=== PATIENT | female | born 1995 | race Two or more races ===

== ENCOUNTER 2022-08-14 23:20 | Emergency (ER) | payer MEDICAID, SELFPAY ==
[2022-08-14 23:36] VITALS: BP 121/81; BP 138/68; PULSE 95; PULSE 96; RESP 18; TEMP 36; O2SAT 100; O2SAT 96; BMI 44.2
--- NOTE | 2022-08-14 23:49 | ED_ITS ---
HPI - Psych General Chief Complaint: Psychiatric Symptoms Stated Complaint: CRISIS Time Seen by Provider: 08/14/22 23:37 Source: EMS Mode of arrival: EMS Limitations: no limitations History of Present Illness HPI Narrative: Patient comes to the emergency room complaining of vague suicidal ideation, no plans. Patient states that she feels very overwhelmed, patient recently kicked her roommates out and she is worrying about retardation. Patient states that she feels suicidal because the other option is that she is afraid of being killed. Related Data Allergies Allergy/AdvReac Type Severity Reaction Status Date / Time No Known Allergies Allergy Verified 08/14/22 23:31 [No Known Allergies*] Review of Systems Review of Systems: Constitutional : No Weight loss, No Fever, No Chills, No Night Sweats, No Fatigue, No Malaise ENT/Mouth : No Hearing loss, No Ear Pain, No Nasal Congestion, No Sinus Pain, No Hoarseness, No sore throat, No Rhinorrhea, No Swallowing Difficulty Eyes: No Eye Pain, No Swelling, No Redness, No Foreign Body, No Discharge, No V ision Changes Cardiovascular : No Chest Pain, No SOB, No Dyspnea on Exertion, No Orthopnea, No Edema, No Palpitations Respiratory : No Cough, No Sputum, No Wheezing, No Smoke Exposure, No Dyspnea Gastrointestinal : No Nausea, No Vomiting, No Diarrhea, No Constipation, No abdominal Pain, No Hematochezia, No Melena Genitourinary : no irregular bleeding, No Dysuria, No Urinary Frequency, No Hematuria, No Urinary Incontinence, No Urgency, No Flank Pain, No Urinary Flow Changes, No Hesitancy Musculoskeletal : No joint pain, No Myalgias, No Joint Swelling Skin : No Skin Lesions, No rash Neuro : No Weakness, No Numbness, No Paresthesias, No Loss of Consciousness, No Dizziness, No Headache Psych : Complaining of anxiety, vague suicidal ideation, no homicidal ideation Heme/Lymph: No Bruising, No Bleeding,No Lymphadenopathy Endocrine : No Polyuria, No Polydipsia, No Temperature Intolerance PMFSH Past Medical History Medical History Anxiety Asthma Depression Hypertension Substance abuse Social History Social History Alcohol intake: former Patient Tobacco Use Status: Current everyday Tobacco user Smoked in Last 30 Days: Yes Use of substances other than those prescribed or required for medical reasons: Yes Substance Use Type: Marijuana Substance Use Frequency: Chronic Longstanding Patient : No Physical Exam Vital Signs: Vital Signs: Last Vital Signs Temp 96.8 F 08/14/22 23:36 Pulse 96 08/14/22 23:36 Resp 18 08/14/22 23:36 BP 121/81 08/14/22 23:36 Pulse Ox 96 08/14/22 23:36 O2 Del Method 08/14/22 23:36 BMI result Body Mass Index 44.2 Const: Other: Appearance: Alert. Oriented X3. No acute distress. A bit anxious, patient seems intoxicated/high Eyes: Pupils equal, round and reactive to light. ENT: Pharynx normal. Neck: Normal inspection. Neck supple. No lymph nodes noted. No crepitus CVS: Normal heart rate and rhythm. Pulses normal. Normal S1 and S2 Respiratory: No respiratory distress. Breath sounds normal. No Wheezing. No rales Abdomen: Soft and nontender. No rigidity. No distention. Skin: Skin warm and dry. Normal skin color. Normal skin turgor. Extremities: No lower extremity edema. No Lacerations. No Rash Neuro: Oriented X 3. No motor deficit. No sensory deficit. Moving all extremities. No slurred speech. CN 2 through 12 grossly intact Psych: calm, cooperative, anxious, intoxicated/high Course Course Course Narrative: Patient feels overall wound, afraid of her former roommates. Patient denies homicidal ideation, suicidal ideation with no plan. Behavioral health network consult pending. Physician observation started at 23:50 Discharge Plan Discharge Clinical Impression: Acute anxiety Patient Disposition: Still a Patient
--- NOTE | 2022-08-15 00:51 | PC.NURSE ---
pt a&ox3, reporting SI w no plan, denies HI, pt reporting increasing life stressors, increased anxiety and depression, pt changed over, 1:1, belongings secured. pt requesting medication for anxiety/sleep, provider notified.
--- NOTE | 2022-08-15 00:52 | PC.NURSE ---
med rec complete.
[2022-08-15] MEDS: LORazepam 1 MG TABLET 2 MG PO (01:02)
[2022-08-15 01:11] VITALS: BP 118/66; PULSE 74; RESP 16; TEMP 36.4; O2SAT 94
[2022-08-15 01:45] LABS: Appearance Urine Clear; Color Urine Yellow; Glucose Urine UA Negative (Negative); Leukocyte Esterase Urine Negative (Negative); Nitrite Urine Negative (Negative); PH 6.5 (5.0-9.0); Specific Gravity - Urine <= 1.005 (1.005-1.025); UMIC TRIGGER UACC YES; Urine Blood Large (3+) (Negative); Urine Ketones Trace mg/dL (Negative); Urine Protein 30 (1+) mg/dL (Neg-Trace)
[2022-08-15 01:46] LABS: UPreg QC Valid YES; Urine Pregnancy NEGATIVE (NEGATIVE)
[2022-08-15 01:47] LABS: Bacteria Urine None Seen (None Seen); Hyaline Casts Urine 0-2 /LPF (0-2); Squamous Epithelial Cell Urine 0-2 /HPF (0-2); WBC Urine 0-5 /HPF (0-5)
[2022-08-15 01:57] LABS: Amphetamine Screen Urine Not Detected (Not Detect); Barbiturates, Urine Not Detected (Not Detect); Benzodiazepines Screen Urine Not Detected (Not Detect); Cannabinoid Screen Urine POSITIVE (Not Detect); Cocaine Screen Urine Not Detected (Not Detect); Fentanyl, urine Not Detected (Not Detect); Opiate Screen Urine Not Detected (Not Detect); Phencyclidine Screen Urine POSITIVE (Not Detect)
[2022-08-15 08:29] VITALS: BP 157/92; PULSE 96; RESP 16; O2SAT 99
[2022-08-15] MEDS: ARIPiprazole 5 MG TABLET PO (10:46)
--- NOTE | 2022-08-15 10:50 | PHA.MEDREC ---
Pharmacy Consult ? Medication Reconciliation Pharmacy has completed the medication reconciliation. PATIENT STATES THEY ARE TAKING 12/ SUBOXONE FILM, NOT 4/1 BID NOTED IN CLAIM HISTORY NGUYEN
[2022-08-15] MEDS: Buprenorphine/Naloxone 12/3 mg FILM 1 FILM SUBLINGUAL (11:12)
[2022-08-15 14:27] VITALS: BP 148/74; PULSE 77; RESP 16; O2SAT 92
== END 2022-08-15 15:35 | disposition home or self-care (01) ==
PROVIDERS: Emergency Provider Emergency Medicine
DX: F41.1 Generalized anxiety disorder (principal); F43.0 Acute stress reaction; R45.851 Suicidal ideations; F17.210 Nicotine dependence, cigarettes, uncomplicated; Z71.6 Tobacco abuse counseling; Z79.899 Other long term (current) drug therapy
CPT/HCPCS: 80307; 81001; 81025; 99284

== ENCOUNTER 2022-08-19 08:15 | Inpatient (IN) | payer OTHER, SELFPAY ==
--- NOTE | 2022-08-19 08:32 | ED_ITS ---
HPI - Psych General Chief Complaint: Psychiatric Symptoms Stated Complaint: SI Time Seen by Provider: 08/19/22 08:32 Source: patient Mode of arrival: EMS Limitations: no limitations History of Present Illness HPI Narrative: 27 yo female with hx of substance abuse, bipolar disorder here with c/o feeling depressed and SI. Has been dealing with a therapist and feeling like her medications aren't helping. complaint: suicidal ideation and feels depressed Onset (ago): week(s) (1) Duration: getting worse History of same: Yes Relieving factors: none Exacerbating factors: medication Context: new medication(s) and significant life stressor Associated psychiatric symptoms: depression and suicidal ideation Associated symptoms: denies other symptoms Treatments prior to arrival: none If self harm: admits thoughts of self harm Related Data Home Medications Medication Instructions Recorded Confirmed aripiprazole 5 mg tablet 1 tab PO QAM 08/15/22 08/19/22 buprenorphine 12 mg-naloxone 3 mg 1 strip sublingual DAILY 08/15/22 08/19/22 sublingual film (Suboxone) clonidine HCl 0.2 mg tablet 1 tab PO BEDTIME 08/15/22 08/19/22 melatonin 5 mg tablet 1 tab PO BEDTIME PRN Insomnia 08/15/22 08/19/22 Allergies Allergy/AdvReac Type Severity Reaction Status Date / Time No Known Allergies Allergy Verified 08/14/22 23:31 [No Known Allergies*] Review of Systems Review of Systems: Constitutional : No Fever, No Chills ENT/Mouth : No Ear Pain, No Nasal Congestion, No sore throat Eyes: No Eye Pain, No Swelling, No Redness Cardiovascular : No Chest Pain, No SOB Respiratory : No Cough, No Sputum, No Dyspnea Gastrointestinal : No Nausea, No Vomiting, No Diarrhea, No Hematochezia, No Melena Genitourinary : No Dysuria, No Urinary Frequency, No Hematuria Musculoskeletal : No Myalgias Skin : No Skin Lesions, No rash Neuro : No Weakness, No Numbness, No Paresthesias, No Dizziness, No Headache Psych : positive Anxiety, positive Depression, positive SI no HI Heme/Lymph: No Lymphadenopathy Endocrine : No Polyuria, No Polydipsia All other systems reviewed and are negative PMFSH Past Medical History Attestation statement: The following information was validated with the patient. Medical History Anxiety Asthma Depression Hypertension Substance abuse Social History Social History Alcohol intake: former Patient Tobacco Use Status: Current everyday Tobacco user Substance Use Type: Marijuana Advance Directives: No Advance Directives Information Provided: No Physical Exam Vital Signs: Vital Signs: Last Vital Signs Temp 98.3 F 08/19/22 08:51 Pulse 103 H 08/19/22 08:51 Resp 18 08/19/22 08:51 BP 148/103 H 08/19/22 08:51 Pulse Ox 97 08/19/22 08:51 O2 Del Method 08/19/22 08:51 BMI result Body Mass Index 38.7 Appearance: Alert. Oriented X3. No acute distress. Eyes: Pupils equal, round and reactive to light. ENT: Pharynx normal. Neck: Normal inspection. Neck supple. CVS: Normal heart rate and rhythm. Pulses normal. Respiratory: No respiratory distress. Breath sounds normal. Abdomen: Soft and nontender. Skin: Skin warm and dry. Normal skin color. Normal skin turgor. Extremities: No lower extremity edema. No calf ttp Neuro: Oriented X 3. No motor deficit. No sensory deficit. CN 2-12 intact Course Course Course Narrative: Physician observation started at 850am Patient placed in physician observation because the patient needed more time for BHN to assess the need for psych admission. At the time observation was started the patient's vitals were stable, patient is alert and oriented but slightly anxious, Neuro: nonfocal, CV RRR, Lungs clear plan to admit MDM - Psych MDM Narrative Medical decision making narrative: 27 yo female with depression and SI - at this time has no medical complaints will obtain basic labs, [facility] Lab Data Result diagrams: 08/19/22 09:33 08/19/22 09:33 Labs: Lab Results 08/19/22 08/19/22 08/19/22 Range/Units 09:33 09:33 09:33 WBC 10.2 (4.8-10.8) X10*3/uL RBC 4.86 (4.20-5.50) X10*6/uL Hgb 14.3 (12.0-16.0) g/dl Hct 41.3 (37.0-47.0) % MCV 85.0 (80.0-98.0) fL MCH 29.4 (27.0-33.0) pg MCHC 34.6 (31.0-35.0) g/dl RDW 13.6 (11.0-16.0) % Plt Count 329 (160-400) X10*3/uL MPV 11.2 (9.4-12.3) fL Immature Gran % (Auto) 0.4 (0.0-0.4) % Neut % (Auto) 76.2 H (45-73) % Lymph % (Auto) 17.9 L (20-40) % [place] % (Auto) 5.3 (2-11) % Eos % (Auto) 0.0 (0-4) % Baso % (Auto) 0.2 (0-2) % Lymph # (Auto) 1.8 (1.2-4.9) X10*3/uL [place] # (Auto) 0.5 (0.1-1.2) X10*3/uL Eos # (Auto) 0.0 (0.0-0.4) X10*3/uL Baso # (Auto) 0.0 (0.0-0.2) X10*3/uL Abs Immat Gran (auto) 0.04 H (0.00-0.03) X10*3/uL Absolute Neuts (auto) 7.8 (2.0-8.3) x10*3/uL Absolute Nucleated RBC 0.000 (0.0-0.012) X10*3/uL Nucleated RBC % (auto) 0.0 (0.0-0.2) /100WBC Sodium 140 (135-145) mmol/L Potassium 3.1 L (3.3-5.1) mmol/L Chloride 104 (96-108) mmol/L Carbon Dioxide 21 L (22-29) mmol/L Anion Gap 18 (12-20) BUN 8 L (9-16) mg/dL Creatinine 0.73 (0.5-1.4) mg/dL Estim Creat Clear Calc 117.6 Estimated GFR > 60 Random Glucose 119 H (60-115) mg/dL Calcium 9.9 (8.4-10.2) mg/dL Total Bilirubin 0.3 (0.0-1.0) mg/dL Direct Bilirubin 0.3 (0.0-0.5) mg/dL AST 57 H (5-31) U/L ALT 109 H (0-31) U/L Alkaline Phosphatase 104 (39-117) U/L Total Protein 8.1 H (6.5-8.0) g/dL Albumin 4.6 (3.5-5.0) g/dL Urine Color Urine Appearance Urine pH (5.0-9.0) Ur Specific [place] (1.005-1.025) Urine Protein (Neg-Trace) mg/dL Urine Glucose (UA) (Negative) mg/dL Urine Ketones (Negative) mg/dL Urine Blood (Negative) Urine Nitrite (Negative) Ur Leukocyte Esterase (Negative) Urine RBC (0-2) /HPF Urine WBC (0-5) /HPF Ur Squamous Epith Cells (0-2) /HPF Urine Bacteria (None Seen) Hyaline Casts (0-2) /LPF Urine Test (NEGATIVE) Urine Opiates Screen (Not Detect) Urine Fentanyl Screen (Not Detect) Ur Barbiturates Screen (Not Detect) Ur Phencyclidine Scrn (Not Detect) Ur Amphetamines Screen (Not Detect) U Benzodiazepines Scrn (Not Detect) Urine Cocaine Screen (Not Detect) U Marijuana (THC) Screen (Not Detect) COVID-19 ([facility]) Negative (Negative) COVID-19 Clin Com See Note 08/19/22 08/19/22 08/19/22 Range/Units 11:08 11:08 11:08 WBC (4.8-10.8) X10*3/uL RBC (4.20-5.50) X10*6/uL Hgb (12.0-16.0) g/dl Hct (37.0-47.0) % MCV (80.0-98.0) fL MCH (27.0-33.0) pg MCHC (31.0-35.0) g/dl RDW (11.0-16.0) % Plt Count (160-400) X10*3/uL MPV (9.4-12.3) fL Immature Gran % (Auto) (0.0-0.4) % Neut % (Auto) (45-73) % Lymph % (Auto) (20-40) % [place] % (Auto) (2-11) % Eos % (Auto) (0-4) % Baso % (Auto) (0-2) % Lymph # (Auto) (1.2-4.9) X10*3/uL [place] # (Auto) (0.1-1.2) X10*3/uL Eos # (Auto) (0.0-0.4) X10*3/uL Baso # (Auto) (0.0-0.2) X10*3/uL Abs Immat Gran (auto) (0.00-0.03) X10*3/uL Absolute Neuts (auto) (2.0-8.3) x10*3/uL Absolute Nucleated RBC (0.0-0.012) X10*3/uL Nucleated RBC % (auto) (0.0-0.2) /100WBC Sodium (135-145) mmol/L Potassium (3.3-5.1) mmol/L Chloride (96-108) mmol/L Carbon Dioxide (22-29) mmol/L Anion Gap (12-20) BUN (9-16) mg/dL Creatinine (0.5-1.4) mg/dL Estim Creat Clear Calc Estimated GFR Random Glucose (60-115) mg/dL Calcium (8.4-10.2) mg/dL Total Bilirubin (0.0-1.0) mg/dL Direct Bilirubin (0.0-0.5) mg/dL AST (5-31) U/L ALT (0-31) U/L Alkaline Phosphatase (39-117) U/L Total Protein (6.5-8.0) g/dL Albumin (3.5-5.0) g/dL Urine Color Yellow Urine Appearance Cloudy Urine pH 6.5 (5.0-9.0) Ur Specific [place] 1.015 (1.005-1.025) Urine Protein 100 (2+) H (Neg-Trace) mg/dL Urine Glucose (UA) Negative (Negative) mg/dL Urine Ketones 15 (Negative) mg/dL Urine Blood Large (3+) H (Negative) Urine Nitrite Negative (Negative) Ur Leukocyte Esterase Negative (Negative) Urine RBC >20 H (0-2) /HPF Urine WBC 0-5 (0-5) /HPF Ur Squamous Epith Cells >20 (0-2) /HPF Urine Bacteria 4+ (None Seen) Hyaline Casts 0-2 (0-2) /LPF Urine Test NEGATIVE (NEGATIVE) Urine Opiates Screen Not Detected (Not Detect) Urine Fentanyl Screen Not Detected (Not Detect) Ur Barbiturates Screen Not Detected (Not Detect) Ur Phencyclidine Scrn POSITIVE H (Not Detect) Ur Amphetamines Screen Not Detected (Not Detect) U Benzodiazepines Scrn Not Detected (Not Detect) Urine Cocaine Screen POSITIVE H (Not Detect) U Marijuana (THC) Screen POSITIVE H (Not Detect) COVID-19 ([facility]) (Negative) COVID-19 Clin Com Discharge Plan Discharge Clinical Impression: Suicidal ideation, Active substance abuse, Bipolar disorder Patient Disposition: Admitted As Inpatient Prescriptions: No Action clonidine HCl 0.2 mg tablet 1 tab PO BEDTIME aripiprazole 5 mg tablet 1 tab PO QAM melatonin 5 mg tablet 1 tab PO BEDTIME PRN (Reason: Insomnia) buprenorphine-naloxone [Suboxone] 12-3 mg film 1 strip sublingual DAILY
[2022-08-19 08:51] VITALS: BP 134/76; BP 148/103; PULSE 103; PULSE 118; RESP 18; TEMP 36.8; O2SAT 97; O2SAT 98; BMI 38.7
--- OUTSIDE RECORDS SUMMARY | 2022-08-19 09:10 | XMS_ITS | Continuity of Care Document ---
:1995 Author Organization [facility] Address [address] [place] [address]- Care Team Providers Name Role Phone Not on Staff, PCP Primary Care Physician Unavailable Encounter [facility] [place] Date(s): 10/28/20 - 10/31/[address] [id number] Encounter Diagnosis Open wound of left forearm (Final) - 10/28/20 Discharge Disposition: A-D/C Home Attending Physician: Emeli Carvajal MD Admitting Physician: Niranjan Dukes MD Referring Physician: Not on Staff, Referring MD Allergies, Adverse Reactions, Alerts Substance Reaction Severity Status Seafood1 Severe Active 1Throat swelling. Medications cephalexin monohydrate 500 mg oral capsule 1 capsule = 500 mg, By Mouth, Every 6 hours, for 3 days, # 12 capsule, 0 Refills, Acute 11/02/20 10:38:00 EST, 10/30/20 10:38:00 EST, Capsule, Partial fill upon patient request if the prescription is for a schedule II opioid drug. Start Date: 10/30/20 Stop Date: 11/02/20 Status: OrderedDilaudid 2 mg oral tablet 2 mg, Tablet, By Mouth, Every 4 hours, PRN for Pain , Moderate, Routine, 10/28/20 11:42:00 EST Start Date: 10/28/20 Stop Date: 11/01/20 Status: DiscontinuedDilaudid 2 mg oral tablet 1 tablet = 2 mg, By Mouth, Every 4 hours, PRN Pain , Moderate, for 3 days, # 18 tablet, 0 Refills, Acute 11/02/20 10:36:00 EST, 10/30/20 10:36:00 EST, Tablet, Partial fill upon patient request if the prescription is for a schedule II opioid drug. Start Date: 10/30/20 Stop Date: 11/02/20 Status: Orderedolanzapine 10 mg oral tablet 10 mg, 1, tablet, By Mouth, 2 times a day, 1 tablet twice a day (morning and at bedtime), # 60 tablet, Refills 0, Tot. Refills 0, Maintenance, 09/17/20 8:46:00 EDT, Route to Pharmacy Electronically, [facility]/pharmacy #[id number], 158, cm, 09/17/20 8:34:00 EDT, H... Start Date: 09/17/20 Stop Date: 10/17/20 Status: OrderedOxyCONTIN 20 mg oral tablet, extended release 20 mg, ER Tablet, By Mouth, 10/31/20 15:00:00 EST Start Date: 10/31/20 Stop Date: 10/31/20 Status: CompletedOxyCONTIN 20 mg oral tablet, extended release 20 mg, 1, tablet, By Mouth, Every 12 hours, # 10 tablet, Refills 0, Tot. Refills 0, Maintenance, 10/30/20 10:36:00 EST, Print Requisition, Partial fill upon patient request if the prescription is for aschedule II opioid drug. Start Date: 10/30/20 Stop Date: 11/04/20 Status: OrderedtraZODone 50 mg oral tablet 50 mg, 1, tablet, By Mouth, Daily at bedtime, PRN, take one tablet at bedtime as needed for insomnia, # 30 tablet, Refills 0, Tot. Refills 0, Maintenance, Insomnia, 09/17/20 8:53:00 EDT, Route to Pharmacy Electronically, [facility]/pharmacy #[id number], 158, cm, 1... Start Date: 09/17/20 Stop Date: 10/17/20 Status: OrderedWOUND VAC WOUND VAC, See Instructions, # 1 each, Refills 0, Tot. Refills 0, Maintenance, TO BE PLACED DURING UPCOMING SURGERY, 10/24/20 16:36:00 EST, Supply Start Date: 10/24/20 Status: Ordered Problem List Condition Effective Dates Status Health Status Informant Dermoid cyst of left ovary(Confirmed) Active Pelvic inflammatory disease Active (PID)(Confirmed) Cigarette nicotine Active dependence(Confirmed) Results Orders for Microbiology Reports Name Date Blood Culture 10/27/20 Blood Culture #2 10/27/20 Urine Culture 10/27/20 Microbiology Reports TEST:Urine Culture STATUS:Auth (Verified) BODY SITE: SOURCE:URINE COLLECTED DATE/TIME:10/28/20 12:00 AMUrine Culture SPECIMEN DESCRIPTION : URINE CLEAN CATCH/MIDSTREAM SPECIAL REQUESTS : NONE CULTURE : NO GROWTH REPORT STATUS : FINAL 10/29/2020TEST:Blood Culture, Second Order STATUS:Unauthenticated BODY SITE: SOURCE:Blood COLLECTED DATE/TIME:10/27/20 11:30 PMBlood Culture, Second Order SPECIMEN DESCRIPTION : BLOOD R HAND SPECIAL REQUESTS : NONE CULTURE : NO GROWTH 3 DAYS REPORT STATUS : PRELIMINARY REPORT TEST:Blood Culture STATUS:Unauthenticated BODY SITE: SOURCE:Blood COLLECTED DATE/TIME:10/27/20 10:50 PMBlood Culture SPECIMEN DESCRIPTION : BLOOD R HAND SPECIAL REQUESTS : NONE CULTURE : NO GROWTH 3 DAYS REPORT STATUS : PRELIMINARY REPORT Vital Signs Most recent to oldest 1 2 3 [Reference Range]: Height 158 cm 158 cm 158 cm (10/31/20 8:58 AM) (10/31/20 4:04 AM) (10/30/20 11:34 PM) Weight 82 kg 81.7 kg 79.2 kg (10/28/20 10:04 PM) (10/28/20 8:31 PM) (10/28/20 5: 22 PM) Oxygen Saturation [94-100 100 % 100 % 99 % %] (10/31/20 8:58 AM) (10/31/20 4:04 AM) (10/30/20 11:34 PM) Pulse Rate [55-90 bpm] 74 bpm 88 bpm 79 bpm (10/31/20 8:58 AM) (10/31/20 4:04 AM) (10/30/20 11:34 PM) Body Mass Index 32.85 [18.5-24.99] *>HHI* (10/28/20 10:04 PM) Blood Pressure 133/63 mm Hg 117/73 mm Hg 112/69 mm Hg [90-138/55-84 mm Hg] (10/31/20 8:58 AM) (10/31/20 4:04 AM) (10/21 11:34 PM) Respiratory Rate [16-30 18 br/min 18 br/min 18 br/mi n br/min] (10/31/20 2:19 PM) (10/31/20 2:19 PM) (10/31/20 9:55 AM) Temperature [96.8-100.4 98.5 DegF 98 DegF 98 DegF DegF] (10/31/20 8:58 AM) (10/31/20 4:04 AM) (10/30/20 11:34 PM) Mode of Delivery (Oxygen) Room air Room air Room a ir (10/31/20 8:58 AM) (10/31/20 4:04 AM) (10/30/20 11:34 PM) Blood pressure sites Leg, left Arm, right Arm, right (10/31/20 8:58 AM) (10/31/20 4:04 AM) (10/30/20 11:34 PM) Temperature Route Oral Oral Oral (10/31/20 8:58 AM) (10/31/20 4:04 AM) (10/30/20 11:34 PM) Dry Weight 82 kg 79.2 kg 79.2 kg (10/28/20 10:04 PM) (10/28/20 5:22 PM) (10/27/20 11 :20 PM) Weight Obtained Via Bed scale (10/28/20 8:31 PM)
--- OUTSIDE RECORDS SUMMARY | 2022-08-19 09:10 | XMS_ITS | Continuity of Care Document ---
:1995 Author Organization [facility] Address [address] [place] [id number]- Care Team Providers Name Role Phone Not on Staff, PCP Primary Care Physician Unavailable Encounter [facility] [place] Date(s): 04/04/21 - 04/04/[address] [address]- Encounter Diagnosis Alcohol intoxication (Final) - 04/04/21 Discharge Disposition: A-D/C Home Attending Physician: Zaid PASTOR, Eva Gerber Admitting Physician: Eva Mar MD Referring Physician: Not on Staff, Referring MD Allergies, Adverse Reactions, Alerts Substance Reaction Severity Status shellfish Active Seafood1 Severe Active 1Throat swelling. Immunizations Not Given Vaccine Date Status Refusal Reason tetanus/diphtheria/pertussis, acel(Tdap) 03/11/21 Not Giv en Patient Refuses Medications hydrOXYzine pamoate 50 mg oral capsule = 50 mg, By Mouth, Every 6 hours, PRN Anxiety, # 60 capsule, 1 Refills, Maintenance, 03/20/21 11:23:00 EDT, Capsule, [id number], Partial fill upon patient request if the prescription is for a schedule II opioid drug., 158, cm, 12/04/20 0:51:00... Start Date: 03/20/21 Status: Orderedlithium 150 mg oral capsule = 450 mg, By Mouth, 2 times a day, # 60 capsule, 1 Refills, Maintenance, 03/25/21 11:59:00 EDT, Capsule, [id number], Partial fill upon patient request if the prescription is for a schedule II opioid drug., 158, cm, 12/04/20 0:51:00 EST, Height... Start Date: 03/25/21 Status: Orderedmelatonin 5 mg sublingual tablet 1 tablet = 5 mg, By Mouth, Daily at bedtime, PRN Sleep, # 30 tablet, 1 Refills, Maintenance, 03/20/21 11:24:00 EDT, Tablet, [id number], Partial fill upon patient request if the prescription is for a schedule II opioid drug., 158, cm, 12/04/20... Start Date: 03/20/21 Status: Orderedpolyethylene glycol 3350 oral powder for reconstitution = 17 Gm, By Mouth, Daily, for 7 days, dissolve in water before taking, # 119 Gm, 0 Refills, Acute 04/06/21 15:11:00 EDT, 03/30/21 15:11:00 EDT, REC Powder, [id number], Partial fill upon patientrequest if the prescription is for a schedule II... Start Date: 03/30/21 Stop Date: 04/06/21 Status: Ordered Problem List Condition Effective Dates Status Health Status Informant Dermoid cyst of left ovary(Confirmed) Active Pelvic inflammatory disease Active (PID)(Confirmed) Cigarette nicotine Active dependence(Confirmed) Vital Signs Most recent to oldest 1 2 3 [Reference Range]: Oxygen Saturation [94-100 %] 100 % 100 % 100 % (04/04/21 5:21 PM) (04/04/21 12:18 PM) (04/04/21 7: 58 AM) Pulse Rate [55-90 bpm] 93 bpm 128 bpm 91 bpm *H* *H* *H* (04/04/21 5:21 PM) (04/04/21 12:18 PM) (04/04/21 7: 58 AM) Blood Pressure [90-138/55-84 133/62 mm Hg 145/99 mm Hg 128 /84 mm Hg mm Hg] (04/04/21 5:21 PM) *H* (04/04/21 7:58 AM) (04/04/21 12:18 PM) Respiratory Rate [16-30 18 br/min 24 br/min 20 br/mi n br/min] (04/04/21 5:21 PM) (04/04/21 1:29 PM) (04/04/21 12: 18 PM) Temperature [96.8-100.4 DegF] 98.7 DegF 98.6 DegF 98 .0 DegF (04/04/21 5:21 PM) (04/04/21 12:18 PM) (04/04/21 5: 18 AM) Mode of Delivery (Oxygen) Room air Room air Room a ir (04/04/21 5:21 PM) (04/04/21 12:18 PM) (04/04/21 7: 58 AM) Blood pressure sites Arm, left Arm, left (04/04/21 5:21 PM) (04/04/21 5:18 AM) Temperature Route Oral Oral Oral (04/04/21 5:21 PM) (04/04/21 12:18 PM) (04/04/21 5: 18 AM) Social History Social History Type Response Tobacco Use: 4 or less cigarettes(le ss than 1/4 pack)/day in last 30 days. Sex
--- OUTSIDE RECORDS SUMMARY | 2022-08-19 09:10 | XMS_ITS | Continuity of Care Document ---
:1995 Author Organization [facility] Address [address] [place] [address]- Care Team Providers Name Role Phone Not on Staff, PCP Primary Care Physician Unavailable Encounter [facility] [place] Date(s): 03/30/21 - 03/30/[address] [address]- Encounter Diagnosis Rectal bleed (Final) - 03/30/21 TANNA (acute kidney injury) (Final) - 03/30/21 Discharge Disposition: A-D/C Home Attending Physician: Bhanu Butler DO Admitting Physician: Bhanu Butler DO Referring Physician: Not on Staff, Referring MD [...] %] 100 % 100 % 100 % (03/30/21 3:27 PM) (03/30/21 10:49 AM) (03/30/21 7: 21 AM) Pulse Rate [55-90 bpm] 78 bpm 82 bpm 73 bpm (03/30/21 3:27 PM) (03/30/21 10:49 AM) (03/30/21 7: 21 AM) Blood Pressure [90-138/55-84 129/89 mm Hg 106/94 mm Hg 121 /85 mm Hg mm Hg] (03/30/21 3:27 PM) (03/30/21 10:49 AM) (03/30/21 7: 21 AM) Respiratory Rate [16-30 18 br/min 18 br/min 16 br/mi n br/min] (03/30/21 3:27 PM) (03/30/21 10:49 AM) (03/30/21 7: 21 AM) Temperature [96.8-100.4 DegF] 97.9 DegF 98.1 DegF 98 .6 DegF (03/30/21 3:27 PM) (03/30/21 7:21 AM) (03/30/21 3:5 3 AM) Mode of Delivery (Oxygen) Room air Room air Room a ir (03/30/21 3:27 PM) (03/30/21 10:49 AM) (03/30/21 7: 21 AM) Blood pressure sites Arm, left Arm, left Arm, left (03/30/21 3:27 PM) (03/30/21 10:49 AM) (03/30/21 7: 21 AM) Temperature Route Oral Oral Oral (03/30/21 3:27 PM) (03/30/21 7:21 AM) (03/30/21 3:5 3 AM) Social History Social History Type Response Tobacco Use: 4 or less cigarettes(le ss than 1/4 pack)/day in last 30 days. Sex
--- OUTSIDE RECORDS SUMMARY | 2022-08-19 09:10 | XMS_ITS | Continuity of Care Document ---
:1995 Author Organization [facility] Address [address] [place] [address]- Care Team Providers Name Role Phone Not on Staff, PCP Primary Care Physician Unavailable Encounter [facility] Date(s): 05/14/21 - 05/20/[address] [address] Discharge Disposition: Transfer to [facility] Facility Attending Physician: Shavonne Vargas DO Admitting Physician: Eric Acosta MD Referring Physician: Not on Staff, Referring MD Allergies, Adverse Reactions, Alerts Substance Reaction Severity Status shellfish Active Seafood1 Severe Active 1Throat swelling. Immunizations Not Given Vaccine Date Status Refusal Reason tetanus/diphtheria/pertussis, acel(Tdap) 03/11/21 Not Giv en Patient Refuses Medications acetaminophen 325 mg oral tablet 650 mg, By Mouth, Every 4 hours, PRN, Temperature Greater than 100.5, Refills 0, Maintenance, Pain ,Mild, 05/20/21 9:50:00 EDT, Partial fill upon patient request if the prescription is for a schedule II opioid drug. Start Date: 05/20/21 Status: Orderedalbuterol CFC free 90 mcg/inh inhalation aerosol 90 mcg, 1, puffs, Inhalation, Every 4 hours, PRN, Refills 0, Maintenance, 05/20/21 9:50:00 EDT, Inhaler Start Date: 05/20/21 Status: OrderedAtivan 2 mg oral tablet 1 tablet = 2 mg, By Mouth, Every 6 hours, PRN Anxiety, 0 Refills, Maintenance, 05/20/21 9:50:00 EDT,Tablet, Partial fill upon patient request if the prescription is for a schedule II opioid drug. Start Date: 05/20/21 Status: OrdereddiphenhydrAMINE 50 mg oral tablet = 50 mg, By Mouth, Every 8 hours, PRN Agitation, 0 Refills, Maintenance, 05/20/21 9:50:00 EDT, Tablet, Partial fill upon patient request if the prescription is for a schedule II opioid drug. Start Date: 05/20/21 Status: OrderedDocusate/Senna Tablet 1 tablet, By Mouth, 2 times a day, 0 Refills, Maintenance, 05/20/21 9:50:00 EDT, Tablet, Partial fill upon patient request if the prescription is for a schedule II opioid drug. Start Date: 05/20/21 Status: Orderedhaloperidol 5 mg oral tablet 5 mg, 1, tablet, By Mouth, Every 8 hours, PRN, Refills 0, Maintenance, Agitation, 05/20/21 9:50:00 EDT, Partial fill upon patient request if the prescription is for a schedule II opioid drug. Start Date: 05/20/21 Status: OrderedhydrOXYzine pamoate 50 mg oral capsule = 50 [...] 0:51:00 EST, Height... Start Date: 03/25/21 Status: OrderedMaalox Plus Liquid 15 mL, By Mouth, 4 times a day, PRN Dyspepsia, 0 Refills, Maintenance, 05/20/21 9:50:00 EDT, Suspension, Partial fill upon patient request if the prescription is for a schedule II opioid drug. Start Date: 05/20/21 Status: Orderedmelatonin 5 mg sublingual tablet 1 tablet = 5 mg, By Mouth, Daily at bedtime, PRN Sleep, # 30 tablet, 1 Refills, Maintenance, 03/20/21 11:24:00 EDT, Tablet, [id number], Partial fill upon patient request if the prescription is for a schedule II opioid drug., 158, cm, 12/04/20... Start Date: 03/20/21 Status: OrderedMiraLax Powder 1 pack/packet = 17 Gm, By Mouth, Daily, PRN Constipation, 0 Refills, Maintenance, 05/20/21 9:51:00 EDT, Powder, Partial fill upon patient request if the prescription is for a schedule II opioid drug. Start Date: 05/20/21 Status: Orderedolanzapine 7.5 mg oral tablet 7.5 mg, 1, tablet, By Mouth, 2 times a day, Refills 0, Maintenance, 05/20/21 9:50:00 EDT, Partial fill upon patient request if the prescription is for a schedule II opioid drug. Start Date: 05/20/21 Status: OrderedOndansetron Inj = 4 mg, IV Push, Every 4 hours, PRN Nausea & Vomiting, 0 Refills, Maintenance, 05/20/21 9:51:00 EDT, Injection, Partial fill upon patient request if the prescription is for a schedule II opioid drug. Start Date: 05/20/21 Status: OrderedRobitussin DM Liquid 10 mL, By Mouth, Every 4 hours, PRN Cough, 0 Refills, Maintenance, 05/20/21 9:50:00 EDT, Syrup, Partial fill upon patient request if the prescription is for a schedule II opioid drug. Start Date: 05/20/21 Status: Orderedsimethicone 80 mg oral tablet, chewable 80 mg, Chew, 3 times a day, PRN, Refills 0, Maintenance, Gas, 05/20/21 9:51:00 EDT, Partial fill upon patient request if the prescription is for a schedule II opioid drug. Start Date: 05/20/21 Status: Ordered Problem List Condition Effective Dates Status Health Status Informant Dermoid cyst of left ovary(Confirmed) Active Pelvic inflammatory disease Active (PID)(Confirmed) Cigarette nicotine Active dependence(Confirmed) Vital Signs Most recent to oldest 1 2 3 [Reference Range]: Weight 87.7 kg (05/14/21 10:00 PM) Oxygen Saturation [94-100 %] 100 % 100 % 99 % (05/20/21 11:52 AM) (05/20/21 8:00 AM) (05/19/21 4: 00 PM) Pulse Rate [55-90 bpm] 66 bpm 90 bpm 78 bpm (05/20/21 11:52 AM) (05/20/21 8:00 AM) (05/19/21 4: 00 PM) Blood Pressure [90-138/55-84 94/74 mm Hg 122/77 mm Hg 123 /69 mm Hg mm Hg] (05/20/21 11:52 AM) (05/20/21 8:00 AM) (05/19/21 4: 00 PM) Respiratory Rate [16-30 18 br/min 18 br/min 18 br/mi n br/min] (05/20/21 11:52 AM) (05/20/21 8:00 AM) (05/19/21 4: 00 PM) Temperature [96.8-100.4 DegF] 98.9 DegF 97.7 DegF 98 .6 DegF (05/20/21 11:52 AM) (05/20/21 8:00 AM) (05/19/21 4: 00 PM) Mode of Delivery (Oxygen) Room air Room air Room a ir (05/20/21 11:52 AM) (05/20/21 8:00 AM) (05/19/21 4: 00 PM) Blood pressure sites Arm, right Arm, right Arm, right (05/20/21 11:52 AM) (05/20/21 8:00 AM) (05/19/21 4: 00 PM) Temperature Route Oral Oral Oral (05/20/21 11:52 AM) (05/20/21 8:00 AM) (05/19/21 4: 00 PM) Weight Obtained Via Bed scale (05/14/21 10:00 PM) Social History Social History Type Response Tobacco Use: 4 or less cigarettes(le ss than 1/4 pack)/day in last 30 days. Sex
--- OUTSIDE RECORDS SUMMARY | 2022-08-19 09:10 | XMS_ITS | Continuity of Care Document ---
:[address] Organization [facility] Address [address] [place] [address]- Care Team Providers Name Role Phone Not on Staff, PCP Primary Care Physician Unavailable Encounter [facility] Date(s): 09/04/20 - 09/12/[address] [address]- [facility] Discharge Disposition: Transfer to [facility] Facility Attending Physician: Fela Beltran MD Admitting Physician: Mauricio Leary MD Referring Physician: Not on Staff, Referring MD Allergies, Adverse Reactions, Alerts Substance Reaction Severity Status NKA Active Medications No Known Medications Problem List Condition Effective Dates Status Health Status Informant Dermoid cyst of left ovary(Confirmed) Active Pelvic inflammatory disease Active (PID)(Confirmed) Vital Signs Most recent to oldest 1 2 3 [Reference Range]: Height 175 cm 175 cm 175 cm (09/12/20 11:12 AM) (09/12/20 6:38 AM) (09/12/20 12:51 AM) Weight 87 kg (09/04/20 3:05 PM) Oxygen Saturation [94-100 99 % 100 % 100 % %] (09/12/20 11:12 AM) (09/12/20 6:38 AM) (09/12/20 12:51 AM) Pulse Rate [55-90 bpm] 56 bpm 57 bpm 68 bpm (09/12/20 11:12 AM) (09/12/20 6:38 AM) (09/12/20 12:51 AM) Body Mass Index 28.41 [18.5-24.99] *H* (09/04/20 3:05 PM) Blood Pressure 92/57 mm Hg 96/62 mm Hg 95/65 mm Hg [90-138/55-84 mm Hg] (09/12/20 11:12 AM) (09/12/20 6:38 AM) ( 12:51 AM) Respiratory Rate [16-30 18 br/min 18 br/min 18 br/mi n br/min] (09/12/20 11:12 AM) (09/12/20 6:38 AM) (09/12/20 12:51 AM) Temperature [96.8-100.4 97.9 DegF 97.9 DegF 98.0 Deg F DegF] (09/12/20 11:12 AM) (09/12/20 6:38 AM) (09/12/20 12:51 AM) Mode of Delivery (Oxygen) Room air Room air Room a ir (09/12/20 11:12 AM) (09/12/20 6:38 AM) (09/12/20 12:51 AM) Blood pressure sites Arm, left Arm, right Arm, right (09/12/20 11:12 AM) (09/12/20 6:38 AM) (09/12/20 12:51 AM) Temperature Route Oral Axillary Oral (09/12/20 11:12 AM) (09/12/20 6:38 AM) (09/12/20 12:51 AM) Dry Weight 87 kg (09/04/20 3:05 PM)
--- OUTSIDE RECORDS SUMMARY | 2022-08-19 09:10 | XMS_ITS | Continuity of Care Document ---
:1995 Author Organization [facility] Address [address] [place] [address] Drive [address] [place] [address]- Care Team Providers Name Role Phone Not on Staff, PCP Primary Care Physician Unavailable [place] [facility]07[place] 11[place]14/20 [facility] [address] [place] [address] Drive [address] [place], [place] [address] [[email or web address]] Attending Physician: Jhonatan JALLOH MD, Martell Lizama Allergies, Adverse Reactions, Alerts Substance Reaction Severity Status Seafood1 Severe Active 1Throat swelling. Medications olanzapine 10 mg oral tablet 10 mg, 1, tablet, By Mouth, 2 times a day, 1 tablet twice a day (morning and at bedtime), # 60 tablet, Refills 0, Tot. Refills 0, Maintenance, 09/17/20 8:46:00 EDT, Route to Pharmacy Electronically, [facility]/pharmacy #[id number], 158, cm, 09/17/20 8:34:00 EDT, H... Start [...] 09/17/20 8:53:00 EDT, Route to Pharmacy Electronically, [facility]/pharmacy #[id number], 158, cm, 1... Start Date: 09/17/20 [...] dependence(Confirmed) Vital Signs Most recent to oldest [Reference Range]: 1 Height 158 cm (11/07/20 10:26 AM) Weight 82 kg (11/07/20 10:26 AM) Body Mass Index [18.5-24.99] 32.85 *>HHI* (11/07/20 10:26 AM) Temperature [96.8-100.4 DegF] 97.3 DegF (11/07/20 10:26 AM) Social History Social History Type Response Tobacco Use: 4 or less cigarettes(le ss than 1/4 pack)/day in last 30 days. Sex
--- OUTSIDE RECORDS SUMMARY | 2022-08-19 09:10 | XMS_ITS | Continuity of Care Document ---
:1995 Author Organization [facility] Address [address] [place] [address] Drive [address] [place] [address]- Care Team Providers Name Role Phone Not on Staff, PCP Primary Care Physician Unavailable Encounter [facility] Date(s): 11/03/20 - 11/10/20 [facility] [address] [place] [address] Drive [address] [place], [place] [address] Attending Physician: Jhonatan JALLOH MD, Martell Lizama Referring Physician: Not on Staff, Referring MD Allergies, Adverse Reactions, Alerts Substance Reaction Severity Status Seafood1 Severe Active 1Throat swelling. Medications olanzapine 10 mg oral tablet 10 mg, 1, tablet, By Mouth, 2 times a day, 1 tablet twice a day (morning and at bedtime), # 60 tablet, Refills 0, Tot. Refills 0, Maintenance, 09/17/20 8:46:00 EDT, Route to Pharmacy Electronically, [facility]/pharmacy #[id number], 326, cm, 09/17/20 8:34:00 EDT, H... Start Date: [...] 09/17/20 8:53:00 EDT, Route to Pharmacy Electronically, [facility]/pharmacy #[id number], 158, cm, 1... Start Date: [...] disease Active (PID)(Confirmed) Cigarette nicotine Active dependence(Confirmed) Social History Social History Type Response Tobacco Use: 4 or less cigarettes(le ss than 1/4 pack)/day in last 30 days. Sex
--- OUTSIDE RECORDS SUMMARY | 2022-08-19 09:10 | XMS_ITS | Continuity of Care Document ---
:1995 Author Organization [facility] Address [address] [place] [address] Drive [address] [place] [address]- Care Team Providers Name Role Phone Not on Staff, PCP Primary Care Physician Unavailable Encounter [facility] Date(s): 10/15/20 - 11/14/20 [facility] [address] [place] [address] Drive [address] [place], [place] [address] Allergies, Adverse Reactions, Alerts Substance Reaction Severity Status Seafood1 Severe Active 1Throat swelling. Medications olanzapine 10 mg oral tablet 10 mg, 1, tablet, By Mouth, 2 times a day, 1 tablet twice a day (morning and at bedtime), # 60 tablet, Refills 0, Tot. Refills 0, Maintenance, 09/17/20 8:46:00 EDT, Route to Pharmacy Electronically, [facility]/pharmacy #[id number], 158, cm, 09/17/20 8:34:00 EDT, H... [...] 09/17/20 8:53:00 EDT, Route to Pharmacy Electronically, [facility]/pharmacy #[id number], 158, cm, 1... Start Date: 09/17/20 [...]
--- OUTSIDE RECORDS SUMMARY | 2022-08-19 09:10 | XMS_ITS | Continuity of Care Document ---
:1995 Author Organization [facility] Address [address] [place] [address]- Care Team Providers Name Role Phone Not on Staff, PCP Primary Care Physician Unavailable Encounter [facility] Date(s): 03/15/22 - 03/18/[address] [address] Discharge Disposition: A-D/C Home Attending Physician: Felipe Simpson MD Admitting Physician: Eran PASTOR, Cayla Referring Physician: Not on Staff, Referring MD Allergies, Adverse Reactions, Alerts Substance Reaction Severity Status shellfish Active Seafood1 Severe Active 1Throat swelling. Immunizations Not Given Vaccine Date Status Refusal Reason tetanus/diphtheria/pertussis, acel(Tdap) 03/11/21 Not Giv en Patient Refuses Medications hydrOXYzine pamoate 50 mg oral capsule = 50 mg, By Mouth, Every 6 hours, PRN Anxiety, # 60 capsule, 1 Refills, Maintenance, 05/27/21 11:12:00 EDT, Capsule, [id number], Partial fill upon patient request if the prescription is for a schedule II opioid drug., 160, cm, 05/26/21 19:05:0... Start Date: 05/27/21 Status: OrderedlevoFLOXacin 750 mg oral tablet 1 tablet = 750 mg, By Mouth, Every 24 hours, for 5 days, # 5 tablet, 0 Refills, Acute 03/23/22 9:56:00 EDT, 03/18/22 9:56:00 EDT, Tablet, [id number], Partial fill upon patient request if the prescription is for a schedule II opioid drug., 173,... Start Date: 03/18/22 Stop Date: 03/23/22 Status: Orderedlithium 600 mg oral capsule 2 capsule = 1,200 mg, By Mouth, Daily at bedtime, Maintenance, 03/07/22 18:07:00 EDT, Capsule Start Date: 03/07/22 Status: Orderedmelatonin 3 mg oral tablet 1 tablet = 3 mg, By Mouth, Daily at bedtime, Maintenance, 03/07/22 18:08:00 EDT, Tablet Start Date: 03/07/22 Status: OrderedNarcan 4 mg/0.1 mL nasal spray = 4 mg, Nares, Both, Once, PRN Opiate Reversal, 0 Refills, Maintenance, 03/08/22 10:45:00 EDT, Partial fill upon patient request if the prescription is for a schedule II opioid drug. Start Date: 03/08/22 Status: Orderedolanzapine 10 mg oral tablet 10 mg, 1, tablet, By Mouth, Daily at bedtime, # 30 tablet, Refills 1, Tot. Refills 1, Maintenance, 05/27/21 11:13:00 EDT, Route to Pharmacy Electronically, [facility]/pharmacy #[id number], Partial fill upon patientrequest if the prescription is for a schedule II... Start Date: 05/27/21 Status: Orderedpropranolol 20 mg oral tablet 20 mg, 1, tablet, By Mouth, Daily at bedtime, PRN, Maintenance, Anxiety, 03/07/22 18:11:00 EDT Start Date: 03/07/22 Status: OrderedSEROquel 200 mg oral tablet 200 mg, 1, tablet, By Mouth, Daily at bedtime, PRN, Refills 0, Maintenance, Sleep, 03/08/22 10:45:00EDT, Partial fill upon patient request if the prescription is for a schedule II opioid drug. Start Date: 03/08/22 Status: OrderedtraZODone 100 mg oral tablet 100 mg, 1, tablet, By Mouth, Daily at supper, Maintenance, 03/07/22 18:10:00 EDT Start Date: 03/07/22 Status: OrderedtraZODone 50 mg oral tablet 50 mg, 1, tablet, By Mouth, Daily at bedtime, PRN, May repeat X1 after 30 minutes if initial dose isineffective, # 30 tablet, Refills 1, Tot. Refills 1, Maintenance, Sleep, 05/27/21 11:13:00 EDT, Route to Pharmacy Electronically, [facility]/pharmacy #[id number],... Start Date: 05/27/21 Status: Ordered Problem List Condition Effective Dates Status Health Status Informant Dermoid cyst of left ovary(Confirmed) Active Pelvic inflammatory disease Active (PID)(Confirmed) Cigarette nicotine Active dependence(Confirmed) Obese class II(Confirmed) Active Agitation(Confirmed) Active Results Orders for Microbiology Reports Name Date Blood Culture 03/15/22 Blood Culture #2 03/15/22 Microbiology Reports TEST:Blood Culture STATUS:Unauthenticated BODY SITE: SOURCE:Blood COLLECTED DATE/TIME:03/15/22 4:05 PMBlood Culture SPECIMEN DESCRIPTION : BLOOD NO SITE SPECIAL REQUESTS : NONE CULTURE : NO GROWTH 3 DAYS REPORT STATUS : PRELIMINARY REPORT TEST:Blood Culture, Second Order STATUS:Unauthenticated BODY SITE: SOURCE:Blood COLLECTED DATE/TIME:03/15/22 4:05 PMBlood Culture, Second Order SPECIMEN DESCRIPTION : BLOOD NO SITE SPECIAL REQUESTS : NONE CULTURE : NO GROWTH 3 DAYS REPORT STATUS : PRELIMINARY REPORT Radiology Reports Exam Date Time Procedure Performing Provider Status 03/15/22 4:45 PM Chest Portable Enrico Quevedo; Auth (Vergumaro payton) Notes:(Chest Portable) Reason For Exam: Shortness of BreathRESULT: Chest Portable Chest Portable HX OF PRESENT ILLNESS: Pt OD on percocet, got narcan'd by PD.; Reason: Shortness of Breath; ClinicalQuestion(s): Pneumonia / Pneumonia COMPARISON: 03/07/2022 FINDINGS: LINES AND TUBES: None. LUNGS AND PLEURA: Mild hazy opacity in the left lower lung. No pleural effusion. No pneumothorax. HEART, MEDIASTINUM AND AGGIE: Heart is normal in size. Normal mediastinal and hilar contour. BONES AND SOFT TISSUES: No acute abnormality. IMPRESSION: Mild hazy opacity in the left lower lung is likely due to atelectasis although aspiration is possible. WSN: [id number] Ordering Physician: Karen Ward Dictated By: Moises Dobson MD Dictated Date/Time: 03/15/22 4:46 pm Reviewed By: Moises Dobson MD Signed By: Moises Dobson MD Signed Date/Time: 03/15/22 4:46 pm Transcribed By: ALAN Transcribed Date/Time: 03/15/22 4:46 pm Vital Signs Most recent to oldest 1 2 3 [Reference Range]: Height 173 cm 173 cm 173 cm (03/17/22 3:18 PM) (03/17/22 7:14 AM) (03/17/22 4:0 0 AM) Weight 114 kg (03/16/22 12:32 AM) Oxygen Saturation [94-100 %] 99 % 98 % 98 % (03/17/22 10:54 PM) (03/17/22 7:31 PM) (03/17/22 3: 18 PM) Pulse Rate [55-90 bpm] 71 bpm 70 bpm 67 bpm (03/17/22 10:54 PM) (03/17/22 7:31 PM) (03/17/22 3: 18 PM) Body Mass Index [18.5-24.99] 38.09 *>HHI* (03/16/22 12:32 AM) Blood Pressure [90-138/55-84 123/71 mm Hg 122/57 mm Hg 126 /72 mm Hg mm Hg] (03/17/22 10:54 PM) (03/17/22 7:31 PM) (03/17/22 3: 18 PM) Respiratory Rate [16-30 18 br/min 18 br/min 17 br/mi n br/min] (03/17/22 10:54 PM) (03/17/22 7:31 PM) (03/17/22 3: 18 PM) Temperature [96.8-100.4 DegF] 97.5 DegF 98.0 DegF 98 .7 DegF (03/17/22 10:54 PM) (03/17/22 7:31 PM) (03/17/22 3: 18 PM) Liters per Minute 0 L/min 0 L/min (03/17/22 10:54 PM) (03/17/22 7:31 PM) Mode of Delivery (Oxygen) Room air Room air Room a ir (03/17/22 10:54 PM) (03/17/22 7:31 PM) (03/17/22 3: 18 PM) Blood pressure sites Arm, right Arm, right Arm, right (03/17/22 10:54 PM) (03/17/22 7:31 PM) (03/17/22 3: 18 PM) Temperature Route Oral Oral Oral (03/17/22 10:54 PM) (03/17/22 7:31 PM) (03/17/22 3: 18 PM) Dry Weight 114 kg (03/16/22 12:32 AM) Social History Social History Type Response Tobacco Use: 4 or less cigarettes(le ss than 1/4 pack)/day in last 30 days. Sex
--- OUTSIDE RECORDS SUMMARY | 2022-08-19 09:10 | XMS_ITS | Continuity of Care Document ---
:1995 Author Organization [facility] Address [address] [place] [address]- Care Team Providers Name Role Phone Not on Staff, PCP Primary Care Physician Unavailable Encounter [facility] Date(s): 08/15/21 - 08/18/[address] [address]- Encounter Diagnosis Suicidal ideation (Final) - 08/15/21 Cocaine use disorder (Final) - 08/18/21 Polysubstance abuse (Final) - 08/18/21 Heroin abuse (Final) - 08/18/21 Discharge Disposition: A-D/C Home Attending Physician: Wes Mccarty MD Admitting Physician: Wes Mccarty MD Referring Physician: Not on Staff, Referring [...] cm, 05/26/21 19:05:0... Start Date: 05/27/21 Status: Orderedlithium 450 mg oral tablet, extended release 1 tablet = 450 mg, By Mouth, 2 times a day, # 60 tablet, 1 Refills, Maintenance, 05/27/21 11:12:00 EDT, CR Tablet, [id number], Partial fill upon patient request if the prescription is for a schedule II opioid drug., 160, cm, 05/26/21 19:05:00... Start Date: 05/27/21 Status: Orderedmelatonin 5 mg sublingual tablet 1 tablet = 5 mg, By Mouth, Daily at bedtime, PRN Sleep, # 30 tablet, 1 Refills, Maintenance, 05/27/21 11:13:00 EDT, Tablet, [facility]/pharmacy [id number], Partial fill upon patient request if the prescription is for a schedule II opioid drug., 160, cm, 05/26/21... Start Date: 05/27/21 Status: Orderedolanzapine 10 mg oral tablet 10 mg, 1, tablet, By Mouth, Daily at bedtime, # 30 tablet, Refills 1, Tot. Refills 1, Maintenance, 05/27/21 11:13:00 EDT, [id number], Partial fill upon patientrequest if the prescription is for a schedule II... Start Date: 05/27/21 Status: OrderedtraZODone 50 mg oral tablet 50 mg, 1, tablet, By Mouth, Daily at bedtime, PRN, May repeat X1 after 30 minutes if initial dose isineffective, # 30 tablet, Refills 1, Tot. Refills 1, Maintenance, Sleep, 05/27/21 11:13:00 EDT, [facility], [id number],... Start Date: 05/27/21 Status: Ordered Problem List Condition Effective Dates Status Health Status Informant Dermoid cyst of left ovary(Confirmed) Active Pelvic inflammatory disease Active (PID)(Confirmed) Cigarette nicotine Active dependence(Confirmed) Vital Signs Most recent to oldest 1 2 3 [Reference Range]: Height 160 cm 160 cm 160 cm (08/17/21 8:46 PM) (08/17/21 5:49 AM) (08/16/21 7:5 5 PM) Weight 90.9 kg 90.9 kg 90.9 kg (08/17/21 8:46 PM) (08/17/21 5:49 AM) (08/16/21 7:5 5 PM) Oxygen Saturation [94-100 100 % 98 % 100 % %] (08/17/21 8:46 PM) (08/17/21 5:49 AM) (08/16/21 7:5 5 PM) Pulse Rate [55-90 bpm] 93 bpm 86 bpm 98 bpm *H* (08/17/21 5:49 AM) *H* (08/17/21 8:46 PM) (08/16/21 7:55 PM) Body Mass Index 35.51 35.51 35.51 [18.5-24.99] *>HHI* *>HHI* *>HHI* (08/17/21 8:46 PM) (08/17/21 5:49 AM) (08/16/21 7:5 5 PM) Blood Pressure 115/65 mm Hg 123/75 mm Hg 116/83 mm Hg [90-138/55-84 mm Hg] (08/17/21 8:46 PM) (08/17/21 5:49 AM) ( 7:55 PM) Respiratory Rate [16-30 16 br/min 16 br/min 17 br/mi n br/min] (08/17/21 8:46 PM) (08/17/21 5:49 AM) (08/16/21 7:5 5 PM) Temperature [96.8-100.4 98.3 DegF 98.5 DegF 98.7 Deg F DegF] (08/17/21 8:46 PM) (08/17/21 5:49 AM) (08/16/21 7:5 5 PM) Mode of Delivery (Oxygen) Room air Room air Room a ir (08/17/21 8:46 PM) (08/17/21 5:49 AM) (08/16/21 7:5 5 PM) Blood pressure sites Arm, right Arm, left Arm, right (08/17/21 8:46 PM) (08/17/21 5:49 AM) (08/16/21 7:5 5 PM) Temperature Route Oral Oral Oral (08/17/21 8:46 PM) (08/17/21 5:49 AM) (08/16/21 7:5 5 PM) Dry Weight 90.9 kg 90.9 kg 90.9 kg (08/17/21 8:46 PM) (08/17/21 5:49 AM) (08/16/21 7:5 5 PM) Weight Obtained Via Patient/family stated Patient/family stated (08/15/21 2:22 AM) (08/15/21 2:22 AM) Dry Weight Obtained Via Patient/family stated (08/15/21 2:22 AM) Social History Social History Type Response Tobacco Use: 4 or less cigarettes(le ss than 1/4 pack)/day in last 30 days. Sex
--- OUTSIDE RECORDS SUMMARY | 2022-08-19 09:10 | XMS_ITS | Continuity of Care Document ---
:1995 Author Organization [facility] Address [address] [place] [address] Drive [address] [place] [address]- Care Team Providers Name Role Phone Not on Staff, PCP Primary Care Physician Unavailable Encounter [facility] Date(s): 10/22/20 - 11/21/20 [facility] [address] [place] [address]- Allergies, Adverse Reactions, Alerts Substance Reaction Severity Status Seafood1 Severe Active 1Throat swelling. Medications olanzapine 10 mg oral tablet 10 mg, 1, tablet, By Mouth, 2 times a day, 1 tablet twice a day (morning and at bedtime), # 60 tablet, Refills 0, Tot. Refills 0, Maintenance, 09/17/20 8:46:00 EDT, Route to Pharmacy Electronically, [facility]/pharmacy #[id number], 158, cm, 09/17/20 8:34:00 [...] 09/17/20 8:53:00 EDT, Route to Pharmacy Electronically, [facility]/pharmacy #[id number], 158, cm, 1... Start [...]
--- OUTSIDE RECORDS SUMMARY | 2022-08-19 09:10 | XMS_ITS | Continuity of Care Document ---
:1995 Author Organization [facility] Address [address] [place] [address] Drive [address] [place] [address]- Care Team Providers Name Role Phone Not on Staff, PCP Primary Care Physician Unavailable Encounter [facility] Date(s): 02/19/21 - 05/01/21 [facility] [address] [place], [place] [address] Attending Physician: Jhonatan JALLOH MD, [...] 158, cm, 12/04/20... Start Date: 03/20/21 Status: Ordered Problem List Condition Effective Dates Status Health Status Informant Dermoid cyst of left ovary(Confirmed) Active Pelvic inflammatory disease Active (PID)(Confirmed) Cigarette nicotine Active dependence(Confirmed) Social History Social History Type Response Tobacco Use: 4 or less cigarettes(le ss than 1/4 pack)/day in last 30 days. Sex
--- OUTSIDE RECORDS SUMMARY | 2022-08-19 09:10 | XMS_ITS | Continuity of Care Document ---
:1995 Author Organization [facility] Address [address] [place] [address]- Care Team Providers Name Role Phone Not on Staff, PCP Primary Care Physician Unavailable [place] [facility] [place]12/21 - 08/13/[address] [address]- Encounter Diagnosis Toxic ingestion, depression, suicidal etiology (Final) - 08/12/21 Discharge Disposition: A-D/C Home Attending Physician: Isidoro Foy MD Admitting Physician: Isidoro Foy MD Referring Physician: Not on Staff, Referring [...] 1 Refills, Maintenance, 05/27/21 11:13:00 EDT, Tablet, [id number], Partial fill upon [...] 05/27/21 11:13:00 EDT, Route to Pharmacy Electronically, [facility]/pharmacy #[id number],... Start Date: 05/27/21 Status: Ordered Problem List Condition Effective Dates Status Health Status Informant Dermoid cyst of left ovary(Confirmed) Active Pelvic inflammatory disease Active (PID)(Confirmed) Cigarette nicotine Active dependence(Confirmed) Results Radiology Reports Exam Date Time Procedure Performing Provider Status 08/12/21 4:14 AM Chest Portable Raine Barreto (Verified) Notes:(Chest Portable) Reason For Exam: Shortness of BreathRESULT: Chest Portable Chest Portable INDICATION: Shortness breath. COMPARISON: Chest radiograph 12/04/2020. FINDINGS: LINES AND TUBES: None. LUNGS AND PLEURA: Clear lungs. Normal pulmonary vascularity. No pleural effusion. No pneumothorax. HEART, MEDIASTINUM AND AGGIE: Heart is normal in size. Normal upper mediastinal and hilar contour. BONES AND SOFT TISSUES: No acute abnormality. Bilateral nipple piercings. IMPRESSION: No evidence of acute abnormality. I have personally reviewed the images and I agree with this report. WSN: [id number] Ordering Physician: Rossy Cooper Dictated By: Miguelito Caldwell MD Dictated Date/Time: 08/12/21 9:41 am Reviewed By: Wes Luther MD Signed By: Wes Luther MD Signed Date/Time: 08/12/21 9:46 am Transcribed By: ALAN Transcribed Date/Time: 08/12/21 8:57 am Vital Signs Most recent to oldest 1 2 3 [Reference Range]: Oxygen Saturation [94-100 %] 100 % 100 % 97 % (08/13/21 6:25 AM) (08/13/21 2:18 AM) (08/12/21 12: 00 PM) Pulse Rate [55-90 bpm] 98 bpm 82 bpm 86 bpm *H* (08/13/21 2:18 AM) (08/12/21 12:00 PM) (08/13/21 6:25 AM) Blood Pressure [90-138/55-84 111/82 mm Hg 104/84 mm Hg 118 /78 mm Hg mm Hg] (08/13/21 6:25 AM) (08/13/21 2:18 AM) (08/12/21 12: 00 PM) Respiratory Rate [16-30 18 br/min 17 br/min 18 br/mi n br/min] (08/13/21 6:25 AM) (08/13/21 2:18 AM) (08/12/21 12: 00 PM) Temperature [96.8-100.4 98 DegF 98.6 DegF 98.7 Deg F DegF] (08/13/21 2:18 AM) (08/12/21 12:00 PM) (08/12/21 2: 07 AM) Liters per Minute 3 L/min 3 L/min 3 L/min (08/12/21 5:42 AM) (08/12/21 4:38 AM) (08/12/21 2:0 7 AM) Mode of Delivery (Oxygen) Room air Room air Room a ir (08/13/21 6:25 AM) (08/13/21 2:18 AM) (08/12/21 12: 00 PM) Blood pressure sites Arm, left Arm, right Arm, right (08/12/21 12:00 PM) (08/12/21 5:42 AM) (08/12/21 4: 38 AM) Temperature Route Oral Oral Oral (08/13/21 2:18 AM) (08/12/21 12:00 PM) (08/12/21 2: 07 AM) Social History Social History Type Response Tobacco Use: 4 or less cigarettes(le ss than 1/4 pack)/day in last 30 days. Sex
--- OUTSIDE RECORDS SUMMARY | 2022-08-19 09:10 | XMS_ITS | Continuity of Care Document ---
:1995 Author Organization [facility] Address [address] [place] [address] Drive [address] [place] [address]- Care Team Providers Name Role Phone Not on Staff, PCP Primary Care Physician Unavailable Encounter [facility] [place] Date(s): 11/25/20 - 12/25/20 [facility] [address] [place] [address] Drive [address] [place] [address]- Allergies, Adverse Reactions, Alerts Substance Reaction Severity Status Seafood1 Severe Active 1Throat swelling. Medications Docusate/Senna Tablet 2 tablet, By Mouth, 2 times a day, PRN Constipation, 0 Refills, Maintenance, 12/07/20 12:01:00 EST, Tablet, Partial fill upon patient request if the prescription is for a schedule II opioid drug. Start Date: 12/07/20 Status: Orderedolanzapine 10 mg oral tablet 10 mg, 1, tablet, By Mouth, 2 times a day, 1 tablet twice a day (morning and at bedtime), # 60 tablet, Refills 0, Tot. Refills 0, Maintenance, 09/17/20 8:46:00 EDT, Route to Pharmacy Electronically, [facility]/pharmacy #[id number], 158, cm, 09/17/20 8:34:00 EDT, [...] 09/17/20 8:53:00 EDT, Route to Pharmacy Electronically, [facility]/pharmacy #[id number], 158, cm, 1... Start Date: 09/17/20 Stop [...]
--- OUTSIDE RECORDS SUMMARY | 2022-08-19 09:10 | XMS_ITS | Continuity of Care Document ---
:1995 Author Organization [facility] Address [address] [place] [address]- Care Team Providers Name Role Phone Not on Staff, PCP Primary Care Physician Unavailable Encounter [facility] Date(s): 03/11/21 - 03/12/21 [facility] [address] [place] [address]- Encounter Diagnosis Agitation (Final) - 03/11/21 Discharge Disposition: Transfer to [facility] Attending Physician: Bharti Mg DO Admitting Physician: Bharti Mg DO Referring Physician: Not on Staff, Referring MD Allergies, Adverse Reactions, Alerts Substance Reaction Severity Status shellfish Active Immunizations Not Given Vaccine Date Status Refusal Reason tetanus/diphtheria/pertussis, acel(Tdap) 03/11/21 Not Giv en Patient Refuses Vital Signs Most recent to oldest 1 2 3 [Reference Range]: Oxygen Saturation [94-100 %] 98 % 99 % 99 % (03/12/21 12:36 PM) (03/12/21 5:48 AM) (03/11/21 9: 32 PM) Pulse Rate [55-90 bpm] 95 bpm 120 bpm 75 bpm *H* *H* (03/12/21 5:48 AM ) (03/12/21 1:52 PM) (03/12/21 12:36 PM) Blood Pressure [90-138/55-84 130/98 mm Hg 128/79 mm Hg 128 /82 mm Hg mm Hg] (03/12/21 12:36 PM) (03/12/21 5:48 AM) (03/11/21 9: 32 PM) Respiratory Rate [16-30 16 br/min 18 br/min 18 br/mi n br/min] (03/12/21 1:52 PM) (03/12/21 12:36 PM) (03/12/21 5: 48 AM) Temperature [96.8-100.4 DegF] 98.5 DegF 99.1 DegF (03/12/21 5:48 AM) (03/11/21 5:31 AM) Mode of Delivery (Oxygen) Room air Room air Room a ir (03/12/21 12:36 PM) (03/12/21 5:48 AM) (03/11/21 9: 32 PM) Blood pressure sites Arm, right Arm, right Arm, left (03/12/21 12:36 PM) (03/12/21 5:48 AM) (03/11/21 4: 00 AM) Temperature Route Oral Oral (03/12/21 5:48 AM) (03/11/21 5:31 AM)
--- OUTSIDE RECORDS SUMMARY | 2022-08-19 09:10 | XMS_ITS | Continuity of Care Document ---
:1995 Author Organization [facility] Address [address] [place] [address]- Care Team Providers Name Role Phone Not on Staff, PCP Primary Care Physician Unavailable Encounter [facility] [place] Date(s): 12/03/20 - 12/07/20 [facility] [address] [place] [address] Discharge Disposition: A-D/C Home Attending Physician: Nacho Espinoza MD Admitting Physician: Mauricio Leary MD Referring Physician: Not on Staff, Referring MD Allergies, Adverse Reactions, Alerts Substance Reaction Severity Status Seafood1 Severe Active 1Throat swelling. Medications amoxicillin-clavulanate 875 mg-125 mg oral tablet 1 tablet, By Mouth, Every 12 hours, for 2 days, # 4 tablet, 0 Refills, Acute 12/09/20 12:04:00 EST, 12/07/20 12:04:00 EST, Tablet, [facility], Partial fill upon patient request if the prescription is for a schedule II opioid drug., 158,... Start Date: 12/07/20 Stop Date: 12/09/20 Status: Ordereddexamethasone 4 mg oral tablet 1.5 tablet = 6 mg, By Mouth, Daily, for 5 days, # 7.5 tablet, 0 Refills, Acute 12/12/20 10:40:00 EST, 12/07/20 10:40:00 EST, Tablet, [facility], Partial fill upon patient request if the prescription is for a schedule II opioid drug., 158... Start Date: 12/07/20 Stop Date: 12/12/20 Status: OrderedDilaudid 2 mg oral tablet 1 mg, Tablet, By Mouth, Once, PRN for Pain , Moderate, Routine, 12/06/20 10:46:00 EST Start Date: 12/06/20 Stop Date: 12/06/20 Status: CompletedDocusate/Senna Tablet 2 tablet, By Mouth, 2 times [...] 09/17/20 8:46:00 EDT, Route to Pharmacy Electronically, [facility]/pharmacy #[id number], 158, cm, 09/17/20 8:34:00 EDT, H... [...] 09/17/20 8:53:00 EDT, Route to Pharmacy Electronically, [facility]/pharmacy #[id number], 158, cm, 1... Start Date: [...] for Microbiology Reports Name Date Blood Culture 12/03/20 Blood Culture #2 12/03/20 Microbiology Reports TEST:Blood Culture, Second Order STATUS:Unauthenticated BODY SITE: SOURCE:Blood COLLECTED DATE/TIME:12/03/20 4:02 PMBlood Culture, Second Order SPECIMEN DESCRIPTION : BLOOD R HAND SPECIAL REQUESTS : NONE CULTURE : NO GROWTH 4 DAYS REPORT STATUS : PRELIMINARY REPORT TEST:Blood Culture STATUS:Unauthenticated BODY SITE: SOURCE:Blood COLLECTED DATE/TIME:12/03/20 3:45 PMBlood Culture SPECIMEN DESCRIPTION : BLOOD R AC SPECIAL REQUESTS : NONE CULTURE : NO GROWTH 4 DAYS REPORT STATUS : PRELIMINARY REPORT Radiology Reports Exam Date Time Procedure Performing Provider Status 12/04/20 9:40 AM Chest Portable Ray , Rachael; Auth (Verified) Notes:(Chest Portable) Reason For Exam: Pneumomediastinum f/u;Shortness of BreathRESULT: Chest Portable Chest Portable Reason: Shortness of Breath; Pneumomediastinum f u; Clinical Question(s): Atelectasis COVID-19 positive. COMPARISON: CTA of chest 12/03/2020. FINDINGS: LINES AND TUBES: None. LUNGS AND PLEURA: There is hazy opacification throughout the left lung, greatest in the upper lung zone. Lungs are otherwise clear with normal vascularity. No pleural effusion. No pneumothorax. HEART, MEDIASTINUM AND AGGIE: Heart is normal in size. Normal upper mediastinal and hilar contour. Specifically, no pneumomediastinum is visualized. BONES AND SOFT TISSUES: Normal osseous structures. No subcutaneous emphysema. Soft tissues are otherwise unremarkable. IMPRESSION: No pneumothorax or pneumomediastinum. Extensive abnormal airspace opacification throughout the left lung, most prominent in the mid to upper region, consistent with recent CT scan findings. Findings are most consistent with pneumonia. The distribution is atypical for COVID-19 pneumonia and possible etiologies include bacterial, other viral, and atypical mycobacterial etiologies. WSN: [id number] Ordering Physician: Satya Leon Dictated By: Enrico Chicas MD Dictated Date/Time: 12/04/20 10:20 a Reviewed By: Enrico Chicas MD Signed By: Enrico Chicas MD Signed Date/Time: 12/04/20 10:20 am Transcribed By: ALAN Transcribed Date/Time: 12/04/20 10:12 am Exam Date Time Procedure Performing Provider Status 12/03/20 9:02 PM Esophagus Barium Swallow Malika Jaffe; Ismael ( Verified) Notes:(Esophagus Barium Swallow) Reason For Exam: Other:perforationRESULT: Esophagus Barium Swallow PROCEDURE: Esophagus Barium Swallow REASON: Follow-up pneumomediastinum identified on CTA chest dated 12/03/2020; CLINICAL QUESTION: esophageal perforation COMPARISONS: CTA chest 12/03/2020 FLUOROSCOPY TIME: 0.4 Min Dose Area Product (DAP): 1650 uGy*m2 TECHNIQUE: The patient drank 50 cc of Isovue-300 contrast . The esophagram was performed by Dr. Humphries. FINDINGS: Limited examination secondary to patient cooperation. Patient declined additional views with water-soluble contrast and barium. Swallow: Normal oral and pharyngeal phases with no laryngeal penetration or subglottic aspiration. Esophagus: Normal in contour and mucosal appearance. Normal esophageal motility No contrast extravasation. No evidence of esophageal perforation. IMPRESSION: No evidence of esophageal perforation within the confines of a suboptimal examination secondary to patient cooperation. I have personally reviewed the images and I agree with this report. WSN: [id number] Ordering Physician: Rony Alcantar Dictated By: Raul Humphries DO Dictated Date/Time: 12/03/20 9:39 pm Reviewed By: Phong Ruggiero MD Signed By: Phong Ruggiero MD Signed Date/Time: 12/03/20 9:44 pm Transcribed By: ALAN Transcribed Date/Time: 12/03/20 9:16 pm Vital Signs Most recent to oldest 1 2 3 [Reference Range]: Height 158 cm (12/04/20 12:39 AM) Weight 78.5 kg (12/04/20 12:39 AM) Oxygen Saturation [94-100 %] 95 % 100 % 100 % (12/06/20 8:00 PM) (12/06/20 11:00 AM) (12/06/20 9: 00 AM) Pulse Rate [55-90 bpm] 44 bpm 58 bpm 57 bpm *L* (12/06/20 11:00 AM) (12/06/20 9:00 AM) (12/06/20 8:00 PM) Body Mass Index [18.5-24.99] 31.45 *>HHI* (12/04/20 12:39 AM) Blood Pressure [90-138/55-84 113/67 mm Hg 118/69 mm Hg 113 /67 mm Hg mm Hg] (12/06/20 8:00 PM) (12/05/20 8:00 PM) (12/05/20 4:0 0 PM) Respiratory Rate [16-30 20 br/min 20 br/min 18 br/mi n br/min] (12/06/20 8:00 PM) (12/06/20 12:14 PM) (12/06/20 11 :00 AM) Temperature [96.8-100.4 97.2 DegF 97.1 DegF 96.8 Deg F DegF] (12/06/20 8:00 PM) (12/06/20 11:00 AM) (12/06/20 9: 00 AM) Liters per Minute 2 L/min 2 L/min 2 L/min (12/05/20 4:00 PM) (12/05/20 12:00 PM) (12/04/20 8: 00 AM) Mode of Delivery (Oxygen) Room air Room air Room a ir (12/06/20 8:00 PM) (12/06/20 11:00 AM) (12/06/20 9: 00 AM) Blood pressure sites Arm, right Leg, left Arm, right (12/06/20 8:00 PM) (12/06/20 9:00 AM) (12/05/20 8:0 0 PM) Temperature Route Axillary Axillary Axillary (12/06/20 8:00 PM) (12/06/20 11:00 AM) (12/06/20 9: 00 AM) Dry Weight 78.5 kg (12/04/20 12:39 AM) Weight Obtained Via Bed scale (12/04/20 12:39 AM) Dry Weight Obtained Via Bed scale (12/04/20 12:39 AM) Social History Social History Type Response Tobacco Use: 4 or less cigarettes(le ss than 1/4 pack)/day in last 30 days. Sex
--- OUTSIDE RECORDS SUMMARY | 2022-08-19 09:10 | XMS_ITS | Continuity of Care Document ---
:1995 Author Organization [facility] Address [address] [place] [address]- Care Team Providers Name Role Phone Not on Staff, PCP Primary Care Physician Unavailable Encounter [facility] [place] Date(s): 10/21/20 - 11/23/[address] [address] Attending Physician: Martell Israel III, MD Admitting Physician: Martell Israel III, MD Allergies, Adverse Reactions, Alerts Substance Reaction Severity Status Seafood1 Severe Active 1Throat swelling. Medications olanzapine 10 mg oral tablet 10 mg, 1, tablet, By Mouth, 2 times a day, 1 tablet twice a day (morning and at bedtime), # 60 tablet, Refills 0, Tot. Refills 0, Maintenance, 09/17/20 8:46:00 EDT, Route to Pharmacy Electronically, [facility]/pharmacy #[id number], 158, cm, 09/17/20 8:34:00 EDT, [...] Exam Date Time Procedure Performing Provider Status 10/27/20 5:26 PM XR Femur 2 Views Left Imani Sawyer; Modified Notes:(XR Femur 2 Views Left) Reason For Exam: instrument countRESULT: Femur 2 Views Left Femur Left INDICATION: instrument count; skin graft taken from the left hip. Special Instructions: [place] [id number] COMPARISON: None. FINDINGS: No fracture, dislocation or bone lesion. Visualized portions of the joints are normal. Normal soft tissues. IMPRESSION: Normal. No evidence of retained instruments. Preliminary results were conveyed via telephone by Dr. Bautista to OR room on 10/27/2020 at 5:32 PM with understanding acknowledged. I have personally reviewed the images and I agree with this report. WSN: [id number] Ordering Physician: Martell Israel Dictated By: Yaz Bautista DO Dictated Date/Time: 10/27/20 5:39 pm Reviewed By: Malika Miranda MD Signed By: Malika Miranda MD Signed Date/Time: 10/27/20 5:44 pm Transcribed By: ALAN Transcribed Date/Time: 10/27/20 5:33 pmAddendum ADDENDUM; THIS ORDER WAS ENTERED UNDER AN INCORRECT REG. A NEW ORDER WILL BE ENTERED. Dictated By: Dictated Date/Time: Reviewed By: Malika Miranda MD Signed By: Malika Miranda MD Signed Date/Time: 10/30/20 5:10 pm Transcribed By: Transcribed Date/Time: 10/30/20 11:02 am Exam Date Time Procedure Performing Provider Status 10/27/20 5:26 PM Forearm 2 Views Left Imani Sawyer; Modified Notes:(Forearm 2 Views Left) Reason For Exam: intrument countRESULT: Forearm 2 Views Left Forearm Left INDICATION: intrument count; [place] [id number]. Rhabdomyolysis with compartment syndrome of the left upper extremity. COMPARISON: Elbow radiographs 10/09/2020. FINDINGS: One view intraoperative image was obtained. No fracture or subluxation. Visualized elbow and wrist joints are unremarkable. Grasston line overlying the central aspect of the forearm. No evidence of retained foreign body. Soft tissues tissue swelling and mild skin irregularity along the radial aspect of the forearm noted. IMPRESSION: No evidence of retained instruments. Preliminary results were conveyed via telephone by Dr. Bautista to OR room on 10/27/2020 at 5:27 PM with understanding acknowledged. I have personally reviewed the images and I agree with this report. WSN: [id number] Ordering Physician: Martell Israel Dictated By: Yaz Bautista DO Dictated Date/Time: 10/27/20 6:26 pm Reviewed By: Malika Miranda MD Signed By: Malika Miranda MD Signed Date/Time: 10/27/20 6:31 pm Transcribed By: ALAN Transcribed Date/Time: 10/27/20 5:32 pmAddendum ADDENDUM; THIS ORDER WAS ENTERED UNDER AN INCORRECT REG. A NEW ORDER WILL BE ENTERED. Dictated By: Dictated Date/Time: Reviewed By: Malika Miranda MD Signed By: Malika Miranda MD Signed Date/Time: 10/30/20 5:10 pm Transcribed By: Transcribed Date/Time: 10/30/20 11:01 am Social History Social History Type Response Tobacco Use: 4 or less cigarettes(le ss than 1/4 pack)/day in last 30 days. Sex
--- OUTSIDE RECORDS SUMMARY | 2022-08-19 09:10 | XMS_ITS | Continuity of Care Document ---
:1995 Author Organization [facility] Address [address] [place] [address]- Care Team Providers Name Role Phone Not on Staff, PCP Primary Care Physician Unavailable Encounter [facility] [place] Date(s): 03/07/22 - 03/10/[address] [address] Discharge Disposition: A-D/C AMA Attending Physician: Remi Martines MD, Jna Admitting Physician: Merlin PASTOR, Tanner Referring Physician: Not on Staff, Referring MD [...] cm, 05/26/21 19:05:00... Start Date: 05/27/21 Status: Orderedlithium 600 mg oral capsule 2 capsule = 1,200 mg, By Mouth, Daily at bedtime, Maintenance, 03/07/22 18:07:00 EDT, Capsule Start Date: 03/07/22 Status: Orderedmelatonin 3 mg oral tablet 1 tablet = 3 mg, By Mouth, Daily at bedtime, Maintenance, 03/07/22 18:08:00 EDT, Tablet Start Date: 03/07/22 Status: OrderedMorPHINE Inj 1 mg, Injection, IV Push Slowly, Every 4 hours for 3 doses/times, PRN for Pain , Severe, Routine, 03/09/22 21:10:00 EDT, Stop date Limited # of times Start Date: 03/09/22 Stop Date: 03/10/22 Status: DiscontinuedNarcan 4 mg/0.1 mL nasal spray = 4 [...] 05/27/21 11:13:00 EDT, Route to Pharmacy Electronically, [facility]/pharmacy #[id number], Partial fill upon patientrequest if the [...] 05/27/21 11:13:00 EDT, Route to Pharmacy Electronically, [facility]/pharmacy #[id number],... Start Date: 05/27/21 Status: Ordered Problem List Condition Effective Dates Status Health Status Informant Dermoid cyst of left ovary(Confirmed) Active Pelvic inflammatory disease Active (PID)(Confirmed) Cigarette nicotine Active dependence(Confirmed) Agitation(Confirmed) Active Results Orders for Microbiology Reports Name Date Blood Culture 03/07/22 Blood Culture #2 03/07/22 Microbiology Reports TEST:Blood Culture STATUS:Unauthenticated BODY SITE: SOURCE:Blood COLLECTED DATE/TIME:03/07/22 8:24 AMBlood Culture SPECIMEN DESCRIPTION : BLOOD R HAND SPECIAL REQUESTS : NONE CULTURE : NO GROWTH 3 DAYS REPORT STATUS : PRELIMINARY REPORT TEST:Blood Culture, Second Order STATUS:Unauthenticated BODY SITE: SOURCE:Blood COLLECTED DATE/TIME:03/07/22 8:12 AMBlood Culture, Second Order SPECIMEN DESCRIPTION : BLOOD LAC SPECIAL REQUESTS : NONE CULTURE : NO GROWTH 3 DAYS REPORT STATUS : PRELIMINARY REPORT Radiology Reports Exam Date Time Procedure Performing Provider Status 03/07/22 9:56 PM Humerus Min 2 Views Left Christiano De La Rosa; Auth (V erified) Notes:(Humerus Min 2 Views Left) Reason For Exam: PainRESULT: Humerus Min 2 Views Left Humerus Min 2 Views Left, 2 views Reason: Pain; Clinical Question(s): Foreign Body COMPARISON: None. FINDINGS: No fractures or bone lesions. The visualized portions of the joints are normal. Implant on contraceptive implant noted in the upper arm medial subcutaneous fat. Radiopaque marker of an IV catheter projects over the antecubital fossa. No other radiopaque foreign body identified. IMPRESSION: No unexplained radiopaque foreign body. No fracture. WSN: [id number] Ordering Physician: Donovan Toribio Dictated By: Clayton Betancur MD Dictated Date/Time: 03/07/22 10:09 p Reviewed By: Clayton Betancur MD Signed By: Clayton Betancur MD Signed Date/Time: 03/07/22 10:09 pm Transcribed By: ALAN Transcribed Date/Time: 03/07/22 10:08 pm Exam Date Time Procedure Performing Provider Status 03/07/22 8:11 PM Chest Portable Raine Barreto (Verified) Notes:(Chest Portable) Reason For Exam: Shortness of BreathRESULT: Chest Portable Chest Portable Reason: Shortness of Breath; Clinical Question(s): Pulmonary Edema COMPARISON: 03/07/2022 FINDINGS: LINES AND TUBES: None. LUNGS AND PLEURA: Groundglass opacity in both the left and right lung better demonstrated on recent CT scan. Differential includes pulmonary edema and pneumonia. No pleural effusion. No pneumothorax. HEART, MEDIASTINUM AND GAGIE: Heart is normal in size. Normal upper mediastinal and hilar contour. BONES AND SOFT TISSUES: No acute abnormality. IMPRESSION: Stable examination compared to previous chest x-ray. Differential of pulmonary edema versus pneumonia. WSN: [id number] Ordering Physician: Donovan Toribio Dictated By: Nando Pollack MD Dictated Date/Time: 03/07/22 9:01 pm Reviewed By: Nando Pollack MD Signed By: Nando Pollack MD Signed Date/Time: 03/07/22 9:01 pm Transcribed By: ALAN Transcribed Date/Time: 03/07/22 8:41 pm Exam Date Time Procedure Performing Provider Status 03/07/22 8:09 AM Chest Portable Radha Wilhelm ([facility] ed) Notes:(Chest Portable) Reason For Exam: Shortness of BreathRESULT: Chest Portable Chest Portable Hx of Present Illness: pt had surgery last year on left arm, and now complains of numb left arm and stateds , I can't feel my fucking arm! ; Reason: Shortness of Breath; Clinical Question(s): CHF; Order Comment: Patient 4 point restrained on stretcher. Pt thrashing around once film is placed, will notcooperate for exam. RN witnessed. ALB 03 07 2022 07:55:53 EDT COMPARISON: 08/12/2021 FINDINGS: LINES AND TUBES: None. LUNGS AND PLEURA: Clear lungs. Normal pulmonary vascularity. No pleural effusion. No pneumothorax. HEART, MEDIASTINUM AND AGGIE: Heart is normal in size. Normal upper mediastinal and hilar contour. BONES AND SOFT TISSUES: Normal. IMPRESSION: Normal chest. WSN: [id number] Ordering Physician: Kelli Esquivel Dictated By: Enrico Chicas MD Dictated Date/Time: 03/07/22 8:22 am Reviewed By: Enrico Chicas MD Signed By: Enrico Chicas MD Signed Date/Time: 03/07/22 8:22 am Transcribed By: ALAN Transcribed Date/Time: 03/07/22 8:20 am Vital Signs Most recent to oldest 1 2 3 [Reference Range]: Weight 117.4 kg 118.0 kg (03/09/22 4:00 AM) (03/08/22 4:00 AM) Oxygen Saturation [94-100 %] 96 % 96 % 94 % (03/10/22 12:00 PM) (03/10/22 7:53 AM) (03/10/22 4: 00 AM) Pulse Rate [55-90 bpm] 74 bpm 88 bpm 83 bpm (03/10/22 12:00 PM) (03/10/22 7:53 AM) (03/10/22 4: 30 AM) Blood Pressure [90-138/55-84 126/73 mm Hg 121/64 mm Hg 115 /48 mm Hg mm Hg] (03/10/22 12:00 PM) (03/10/22 7:53 AM) (03/10/22 4: 30 AM) Respiratory Rate [16-30 18 br/min 17 br/min 17 br/mi n br/min] (03/10/22 12:00 PM) (03/10/22 7:53 AM) (03/10/22 5: 50 AM) Temperature [96.8-100.4 DegF] 98.9 DegF 99.9 DegF 98 .5 DegF (03/10/22 12:00 PM) (03/10/22 7:53 AM) (03/10/22 5: 00 AM) Liters per Minute 2 L/min 2 L/min 2 L/min (03/08/22 8:00 PM) (03/08/22 5:00 PM) (03/08/22 4:0 0 PM) Mode of Delivery (Oxygen) Room air Room air Room a ir (03/10/22 7:53 AM) (03/10/22 4:00 AM) (03/09/22 11: 00 PM) Blood pressure sites Arm, left Arm, right Arm, right (03/10/22 12:00 PM) (03/10/22 7:53 AM) (03/10/22 4: 00 AM) Temperature Route Oral Oral Oral (03/10/22 12:00 PM) (03/10/22 7:53 AM) (03/10/22 5: 00 AM) Weight Obtained Via Bed scale Bed scale (03/09/22 4:00 AM) (03/08/22 4:00 AM) Social History Social History Type Response Tobacco Use: 4 or less cigarettes(le ss than 1/4 pack)/day in last 30 days. Sex
--- OUTSIDE RECORDS SUMMARY | 2022-08-19 09:10 | XMS_ITS | Continuity of Care Document ---
:1995 Author Organization [facility] Address [address] [place] [address] Drive [address] [place] [address]- Care Team Providers Name Role Phone Not on Staff, PCP Primary Care Physician Unavailable Encounter [facility] [place] Date(s): 11/03/20 - 12/05/20 [facility] [address] [place] [address] Drive [address] [place], [place] [address] Attending Physician: Jhonatan JALLOH MD, [...] 8:46:00 EDT, Route to Pharmacy Electronically, [facility]/pharmacy #[id number], 158, cm, 09/17/20 8:34:00 EDT, H... Start [...] 8:53:00 EDT, Route to Pharmacy Electronically, [facility]/pharmacy #[id number], 158, cm, 1... Start Date: [...]
--- OUTSIDE RECORDS SUMMARY | 2022-08-19 09:10 | XMS_ITS | Continuity of Care Document ---
:1995 Author Organization [facility] Address [address] [place] [address] Drive [address] [place] [address]- Care Team Providers Name Role Phone Not on Staff, PCP Primary Care Physician Unavailable Encounter [facility] [place] Date(s): 10/31/20 - 11/30/20 [facility] [address] [place] [address] Drive [address] [place], [place] [address] Allergies, Adverse Reactions, Alerts Substance Reaction Severity Status Seafood1 Severe Active 1Throat swelling. Medications olanzapine 10 mg oral tablet 10 mg, 1, tablet, By Mouth, 2 times a day, 1 tablet twice a day (morning and at bedtime), # 60 tablet, Refills 0, Tot. Refills 0, Maintenance, 09/17/20 8:46:00 EDT, Route to Pharmacy Electronically, [facility]/pharmacy #[id number], 158, cm, 09/17/20 8:34:00 [...] 09/17/20 8:53:00 EDT, Route to Pharmacy Electronically, [facility]/pharmacy #[id number], 158, cm, 1... Start [...]
--- OUTSIDE RECORDS SUMMARY | 2022-08-19 09:10 | XMS_ITS | Continuity of Care Document ---
:1995 Author Organization [facility] Address [address] [place] [address]- Care Team Providers Name Role Phone Not on Staff, PCP Primary Care Physician Unavailable Encounter [facility] Date(s): 09/02/20 - 09/03/[address] [address]- [facility] Encounter Diagnosis Agitation (Final) - 09/02/20 Discharge Disposition: A-D/C Home Attending Physician: Ced Adams MD Admitting Physician: Ced Adams MD Referring Physician: Not on Staff, Referring MD Allergies, Adverse Reactions, Alerts Substance Reaction Severity Status NKA Active Medications Nexplanon 68 mg subcutaneous implant 1 each = 68 mg, Subcutaneous Infusion, Once, insertion appt pending at [facility] (not booked yet)-pt to call., # 1 each, 0 Refills, Soft Stop, 08/11/17 14:41:10 Start Date: 08/11/17 Status: Ordered Problem List Condition Effective Dates Status Health Status Informant Dermoid cyst of left ovary(Confirmed) Active Pelvic inflammatory disease Active (PID)(Confirmed) Vital Signs Most recent to oldest [Reference Range]: 1 2 Oxygen Saturation [94-100 %] 97 % 96 % (09/03/20 5:05 AM) (09/02/20 10:30 PM) Pulse Rate [55-90 bpm] 91 bpm 87 bpm *H* (09/02/20 10:30 PM) (09/03/20 5:05 AM) Blood Pressure [90-138/55-84 mm Hg] 114/74 mm Hg 119/ 78 mm Hg (09/03/20 5:05 AM) (09/02/20 10:30 PM) Respiratory Rate [16-30 br/min] 16 br/min 16 br/mi n (09/03/20 5:05 AM) (09/02/20 10:30 PM) Temperature [96.8-100.4 DegF] 97.7 DegF (09/02/20 10:30 PM) Mode of Delivery (Oxygen) Room air Room air (09/03/20 5:05 AM) (09/02/20 10:30 PM) Temperature Route Axillary (09/02/20 10:30 PM)
--- OUTSIDE RECORDS SUMMARY | 2022-08-19 09:10 | XMS_ITS | Continuity of Care Document ---
:1995 Author Organization [facility] Address [address] [place] [address] Drive [address] [place] [address]- Care Team Providers Name Role Phone Not on Staff, PCP Primary Care Physician Unavailable Encounter [facility] [place] Date(s): 11/28/20 - 12/05/20 [facility] [address] [place] [address] Drive [address] [place], [place] [address] Attending Physician: Jhonatan JALLOH MD, Martell Lizama Allergies, Adverse Reactions, Alerts Substance Reaction Severity Status Seafood1 Severe Active 1Throat swelling. Medications olanzapine 10 mg oral tablet 10 mg, 1, tablet, By Mouth, 2 times a day, 1 tablet twice a day (morning and at bedtime), # 60 tablet, Refills 0, Tot. Refills 0, Maintenance, 09/17/20 8:46:00 EDT, Route to Pharmacy Electronically, [facility]/pharmacy #[id number] 158, cm, 09/17/20 8:34:00 EDT, H... Start [...] 09/17/20 8:53:00 EDT, Route to Pharmacy Electronically, [facility]/pharmacy #[id number], 158, cm, 1... Start Date: 09/17/20 [...] oldest [Reference Range]: 1 Height 158 cm (11/28/20 2:10 PM) Weight 72 kg (11/28/20 2:10 PM) Body Mass Index [18.5-24.99] 28.84 *H* (11/28/20 2:10 PM) Temperature [96.8-100.4 DegF] 98.6 DegF (11/28/20 2:10 PM) Social History Social History Type Response Tobacco Use: 4 or less cigarettes(le ss than 1/4 pack)/day in last 30 days. Sex
--- OUTSIDE RECORDS SUMMARY | 2022-08-19 09:10 | XMS_ITS | Continuity of Care Document ---
:1995 Author Organization [facility] Address [address] [place] [address]- Care Team Providers Name Role Phone Not on Staff, PCP Primary Care Physician Unavailable Encounter [facility] [place] Date(s): 04/06/21 - 04/06/[address] [address]- Discharge Disposition: A-D/C Walkout Attending Physician: Not on Staff, Attending MD Admitting Physician: Not on Staff, Admitting MD Referring Physician: Not on Staff, Referring [...] Most recent to oldest [Reference Range]: 1 Oxygen Saturation [94-100 %] 95 % (04/06/21 5:34 PM) Pulse Rate [55-90 bpm] 108 bpm *H* (04/06/21 5:34 PM) Blood Pressure [90-138/55-84 mm Hg] 136/85 mm Hg (04/06/21 5:34 PM) Respiratory Rate [16-30 br/min] 18 br/min (04/06/21 5:34 PM) Temperature [96.8-100.4 DegF] 98.9 DegF (04/06/21 5:34 PM) Mode of Delivery (Oxygen) Room air (04/06/21 5:34 PM) Temperature Route Oral (04/06/21 5:34 PM) Social History Social History Type Response Tobacco Use: 4 or less cigarettes(le ss than 1/4 pack)/day in last 30 days. Sex
--- OUTSIDE RECORDS SUMMARY | 2022-08-19 09:10 | XMS_ITS | Continuity of Care Document ---
:1995 Author Organization [facility] Address [address] [place] [address]- Care Team Providers Name Role Phone Not on Staff, PCP Primary Care Physician Unavailable [place] [facility] [place] Date(s): 10/09/20 - 10/27/[address] [address] Encounter Diagnosis Rhabdomyolysis (Final) - 10/09/20 Discharge Disposition: A-D/C AMA Attending Physician: Enid Villaseñor MD Admitting Physician: Eric Acosta MD Referring Physician: Not on Staff, Referring MD Allergies, Adverse Reactions, Alerts Substance Reaction Severity Status Seafood1 Severe Active 1Throat swelling. Medications Dilaudid 2 mg oral tablet 2 mg, Tablet, By Mouth, Every 4 hours for 7 days, Hold for extreme sedation, PRN for Pain , Severe, Routine, 10/18/20 9:33:00 EST, Stop date 11/01/20 9:32:00 EST Start Date: 10/18/20 Stop Date: 11/01/20 Status: OrderedHYDROmorphone Inj (PACU ONLY) 0.4 mg, Injection, IV Push Slowly, Every 5 minutes, up to a maximum of 2 mg, Hold for: RR less than 8 OR Sedation Scale of C, PRN for Pain , Severe, Routine, 10/27/20 13:53:00 EST Start Date: 10/27/20 Stop Date: 11/03/20 Status: Orderedolanzapine 10 mg oral tablet 10 mg, 1, tablet, By Mouth, 2 times a day, 1 tablet twice a day (morning and at bedtime), # 60 tablet, Refills 0, Tot. Refills 0, Maintenance, 09/17/20 8:46:00 EDT, Route to Pharmacy Electronically, [facility]/pharmacy #[id number], 158, cm, 09/17/20 8:34:00 EDT, H... Start Date: 09/17/20 Stop Date: 10/17/20 Status: OrderedtraZODone 50 mg oral tablet 50 mg, 1, tablet, By Mouth, Daily at bedtime, PRN, take one tablet at bedtime as needed for insomnia, # 30 tablet, Refills 0, Tot. Refills 0, Maintenance, Insomnia, 09/17/20 8:53:00 EDT, Route to Pharmacy Electronically, [facility]/pharmacy #[id number], 158, cm, 1... [...] ovary(Confirmed) Active Pelvic inflammatory disease Active (PID)(Confirmed) Results Orders for Microbiology Reports Name Date Blood Culture 10/09/20 Blood Culture #2 10/09/20 Microbiology Reports TEST:Blood Culture STATUS:Auth (Verified) BODY SITE: SOURCE:Blood COLLECTED DATE/TIME:10/09/20 12:47 PMBlood Culture SPECIMEN DESCRIPTION : BLOOD LEFTAC SPECIAL REQUESTS : NONE CULTURE : NO GROWTH 5 DAYS. REPORT STATUS : FINAL 10/14/2020TEST:Blood Culture, Second Order STATUS:Auth (Verified) BODY SITE: SOURCE:Blood COLLECTED DATE/TIME:10/09/20 12:46 PMBlood Culture, Second Order SPECIMEN DESCRIPTION : BLOOD RIGHTAC SPECIAL REQUESTS : NONE CULTURE : NO GROWTH 5 DAYS. REPORT STATUS : FINAL 10/14/2020Radiology Reports Exam Date Time Procedure Performing Provider Status 10/09/20 7:18 PM Elbow Min 3 Views Left Rivka Barreto; Auth (Ve rified) Notes:(Elbow Min 3 Views Left) Reason For Exam: InfectionRESULT: Elbow Min 3 Views Left Elbow Min 3 Views Left, 3 views Hx of Present Illness: Pt. comes in for left elbow tenderness x 2 days. Pt. states that she did not inject any drugs into the left elbow. Pt. denies any fevers or chills. Pt. with unsteady gait. Not following directions well; Reason: Infection; Clinical Question(s): Osteomyelitis; Order Comment: COMPARISON: None. FINDINGS: No fracture or dislocation. No periosteal reaction or focal cortical destruction. No arthritic changes. The posterior fat pad is visible. No significant displacement of the anterior fat pad, a cortical findings for joint effusion. There is posterior soft tissue swelling. General is reticulation of the subcutaneous fat, compatible subcutaneous edema. No evidence of subcutaneous gas. IMPRESSION: 1. No radiographic evidence of osteomyelitis. 2. Soft tissue swelling and equivocal findings for joint effusion. WSN: [id number] Ordering Physician: Naomi Martinez Dictated By: Mona Perez MD Dictated Date/Time: 10/09/20 7:25 pm Reviewed By: Mona Perez MD Signed By: Mona Perez MD Signed Date/Time: 10/09/20 7:25 pm Transcribed By: ALAN Transcribed Date/Time: 10/09/20 7:24 pm Vital Signs Most recent to oldest 1 2 3 [Reference Range]: Height 162 cm 162 cm 162 cm (10/27/20 11:52 AM) (10/27/20 9:44 AM) (10/27/20 12 :17 AM) Weight 81.82 kg 81.82 kg 81.82 kg (10/27/20 11:52 AM) (10/20/20 7:21 AM) (10/17/20 1:26 PM) Oxygen Saturation [94-100 100 % 100 % 100 % %] (10/27/20 6:16 PM) (10/27/20 6:00 PM) (10/27/20 5:3 7 PM) Pulse Rate [55-90 bpm] 78 bpm 92 bpm 85 bpm (10/27/20 11:52 AM) *H* (10/27/20 12:1 7 AM) (10/27/20 9:44 AM) Body Mass Index 31.18 31.18 31.18 [18.5-24.99] *>HHI* *>HHI* *>HHI* (10/27/20 11:52 AM) (10/20/20 7:21 AM) (10/17/20 1:26 PM) Blood Pressure 127/103 mm Hg 127/86 mm Hg 108/73 mm Hg [90-138/55-84 mm Hg] (10/27/20 6:00 PM) (10/27/20 5:45 PM) ( 0 5:37 PM) Respiratory Rate [16-30 22 br/min 20 br/min 28 br/mi n br/min] (10/27/20 7:04 PM) (10/27/20 6:18 PM) (10/27/20 6:0 0 PM) Temperature [96.8-100.4 97.0 DegF 98 DegF 97.7 Deg F DegF] (10/27/20 5:37 PM) (10/27/20 11:52 AM) (10/27/20 9: 44 AM) Liters per Minute 6 L/min 6 L/min 2 L/min (10/27/20 5:37 PM) (10/20/20 10:30 AM) (10/17/20 6:00 PM) Mode of Delivery (Oxygen) Room air Simple face mask Room air (10/27/20 6:16 PM) (10/27/20 5:37 PM) (10/27/20 11: 52 AM) Blood pressure sites Arm, right Arm, right Arm, right (10/27/20 5:37 PM) (10/27/20 11:52 AM) (10/27/20 9: 44 AM) Temperature Route Temporal Temporal Oral (10/27/20 5:37 PM) (10/27/20 11:52 AM) (10/27/20 9: 44 AM) Dry Weight 81 kg 81.82 kg (10/20/20 7:21 AM) (10/17/20 1:26 PM) Weight Obtained Via Patient/family stated (10/17/20 1:26 PM) Dry Weight Obtained Via Standing scale (10/20/20 7:21 AM)
--- OUTSIDE RECORDS SUMMARY | 2022-08-19 09:10 | XMS_ITS | Continuity of Care Document ---
:1995 Author Organization [facility] Address [address] [place] [address] Drive [address] [place] [address]- Care Team Providers Name Role Phone Not on Staff, PCP Primary Care Physician Unavailable [place] [facility] [place](s): 11/28/20 - 12/28/20 [facility] [address] [place], [place] [address] Attending Physician: Laurence Dolan Admitting Physician: Laurence Dolan Referring Physician: Laurence oDlan Allergies, Adverse Reactions, Alerts Substance Reaction Severity [...] 09/17/20 8:46:00 EDT, Route to Pharmacy Electronically, [facility]/pharmacy #[id number], 158, cm, 09/17/20 8:34:00 EDT, [...] 09/17/20 8:53:00 EDT, Route to Pharmacy Electronically, [facility]/pharmacy #[id number], 158, cm, 1... Start Date: [...]
--- OUTSIDE RECORDS SUMMARY | 2022-08-19 09:10 | XMS_ITS | Continuity of Care Document ---
:1995 Author Organization [facility] Address [address] [place] [address] Drive [address] [place] [address]- Care Team Providers Name Role Phone Not on Staff, PCP Primary Care Physician Unavailable Encounter [facility] Date(s): 04/01/21 - 05/01/21 [facility] [address] [place], [place] [address] Attending Physician: Laurence Dolan Admitting Physician: Admtr, Laurence Referring Physician: Admtr, Ar8 Allergies, Adverse Reactions, Alerts Substance Reaction Severity [...]
--- OUTSIDE RECORDS SUMMARY | 2022-08-19 09:11 | XMS_ITS | Continuity of Care Document ---
:1995 Author Organization [facility] Address [address] [place] [address]- Care Team Providers Name Role Phone Not on Staff, PCP Primary Care Physician Unavailable [facility] [place] Date(s): 04/06/21 - 04/06/[address] [address]- Discharge Disposition: A-D/C Walkout Attending Physician: Wes Lomeli MD Admitting Physician: Wes Lomeli MD Referring Physician: Not on Staff, Referring [...] [Reference Range]: 1 Oxygen Saturation [94-100 %] 99 % (04/06/21 11:56 AM) Pulse Rate [55-90 bpm] 118 bpm *H* (04/06/21 11:56 AM) Mode of Delivery (Oxygen) Room air (04/06/21 11:56 AM) Social History Social History Type Response Tobacco Use: 4 or less cigarettes(le ss than 1/4 pack)/day in last 30 days. Sex
--- OUTSIDE RECORDS SUMMARY | 2022-08-19 09:11 | XMS_ITS | Continuity of Care Document ---
:1995 Author Organization [facility] Address [address] [place] [address] Drive [address] [place] [address]- Care Team Providers Name Role Phone Not on Staff, PCP Primary Care Physician Unavailable [place] [facility] [place]07[place]20 [place] 12/12/20 [facility] [address] [place] [address] Drive [address] [place] [address]- Attending Physician: Jhonatan JALLOH MD, Martell Lizama [...] 09/17/20 8:46:00 EDT, Route to Pharmacy Electronically, [facility]/pharmacy #[id number], 158, cm, 09/17/20 8:34:00 EDT, H... Start [...] 09/17/20 8:53:00 EDT, Route to Pharmacy Electronically, [facility]/pharmacy #[id number], 158, cm, 1... Start Date: 09/17/20 Stop [...]
[2022-08-19] MEDS: LORazepam 1 MG TABLET PO ×3 (09:14→22:35)
[2022-08-19 09:37] LABS: MANUAL DIFF FLAG NO
[2022-08-19 09:41] LABS: Basophils Percent Auto 0.2 % (0-2); Hematocrit 41.3 % (37.0-47.0); Hemoglobin 14.3 g/dl (12.0-16.0); Imm Gran Abs Auto 0.04 X10*3/uL (0.00-0.03); Imm Gran Pct Auto 0.4 % (0.0-0.4); Lymphocytes Absolute Auto 1.8 X10*3/uL (1.2-4.9); Lymphocytes Percent Auto 17.9 % (20-40); Mean Corpuscular HGB Conc 34.6 g/dl (31.0-35.0); Mean Corpuscular Hemoglobin 29.4 pg (27.0-33.0); Mean Platelet Volume 11.2 fL (9.4-12.3); Monocytes Absolute Auto 0.5 X10*3/uL (0.1-1.2); Monocytes Percent Auto 5.3 % (2-11); Neutrophils Absolute Auto 7.8 x10*3/uL (2.0-8.3); Neutrophils Percent Auto 76.2 % (45-73); Platelet Count 329 X10*3/uL (160-400); Red Blood Count 4.86 X10*6/uL (4.20-5.50); Red Cell Distribution Width 13.6 % (11.0-16.0); White Blood Count 10.2 X10*3/uL (4.8-10.8)
[2022-08-19 10:09] LABS: COVID-19 Test Negative (Negative); IDNOW Serial# 16C4AD1C
[2022-08-19 10:14] LABS: Alanine Aminotransferase 109 U/L (0-31); Albumin Level 4.6 g/dL (3.5-5.0); Alkaline Phosphatase 104 U/L (39-117); Anion Gap 18 (12-20); Aspartate Amino Transferase 57 U/L (5-31); Bilirubin Direct 0.3 mg/dL (0.0-0.5); Bilirubin Total 0.3 mg/dL (0.0-1.0); Blood Urea Nitrogen 8 mg/dL (9-16); Calcium 9.9 mg/dL (8.4-10.2); Carbon Dioxide 21 mmol/L (22-29); Chloride 104 mmol/L (96-108); Creatinine Clr Calc Pharmacy 117.6; Estimated Glomerular Filt Rate > 60; Glucose Random 119 mg/dL (60-115); Potassium 3.1 mmol/L (3.3-5.1); Sodium 140 mmol/L (135-145); Total Protein 8.1 g/dL (6.5-8.0)
--- NOTE | 2022-08-19 11:01 | MHC.CARE ---
Smart sheet submitted
--- NOTE | 2022-08-19 11:07 | ECG_ITS ---
Test Reason : medical clearance Blood Pressure : / mmHG Vent. Rate : 081 BPM Atrial Rate : 081 BPM P-R Int : 144 ms QRS Dur : 088 ms QT Int : 390 ms P-R-T Axes : 064 049 031 degrees QTc Int : 453 ms Normal sinus rhythm Normal ECG When compared with ECG of 18-JAN-2016 00:16, No significant change was found Referred By: Veronica Payne Electronically Signed By:JAYSON SOLIMAN
[2022-08-19 11:27] LABS: Appearance Urine Cloudy; Color Urine Yellow; Glucose Urine UA Negative (Negative); Leukocyte Esterase Urine Negative (Negative); Nitrite Urine Negative (Negative); PH 6.5 (5.0-9.0); Specific Gravity - Urine 1.015 (1.005-1.025); UMIC TRIGGER UACC YES; Urine Blood Large (3+) (Negative); Urine Ketones 15 mg/dL (Negative); Urine Protein 100 (2+) mg/dL (Neg-Trace)
[2022-08-19 11:30] LABS: Amphetamine Screen Urine Not Detected (Not Detect); Barbiturates, Urine Not Detected (Not Detect); Benzodiazepines Screen Urine Not Detected (Not Detect); Cannabinoid Screen Urine POSITIVE (Not Detect); Cocaine Screen Urine POSITIVE (Not Detect); Fentanyl, urine Not Detected (Not Detect); Opiate Screen Urine Not Detected (Not Detect); Phencyclidine Screen Urine POSITIVE (Not Detect); UPreg QC Valid YES; Urine Pregnancy NEGATIVE (NEGATIVE)
[2022-08-19 11:50] LABS: Bacteria Urine 4+ (None Seen); Hyaline Casts Urine 0-2 /LPF (0-2); RBC Urine >20 /HPF (0-2); Squamous Epithelial Cell Urine >20 /HPF (0-2); WBC Urine 0-5 /HPF (0-5)
[2022-08-19] MEDS: Potassium Chloride Packet 20 MEQ PACKET 40 MEQ PO (11:57)
[2022-08-19 14:00] VITALS: RESP 16
--- NOTE | 2022-08-19 14:53 | PHA.MEDREC ---
Pharmacy Consult ? Medication Reconciliation Pharmacy has completed the medication reconciliation. Doubled checked nurse med rec
[2022-08-19 16:00] VITALS: RESP 16
--- NOTE | 2022-08-19 16:43 | PC.NURSE ---
Pt to M5 with Security and RN Luke to at this time.
[2022-08-19 17:45] VITALS: BP 124/78; PULSE 85; RESP 16; TEMP 36.4; O2SAT 98
[2022-08-19 17:48] VITALS: BMI 44.3
[2022-08-19] MEDS: traZODone HCL 50 MG TABLET PO ×2 (18:47→22:35)
[2022-08-19] MEDS: ARIPiprazole 5 MG TABLET PO (18:47)
[2022-08-19] MEDS: cloNIDine HCL 0.2 MG TABLET PO (18:47)
--- NOTE | 2022-08-19 21:07 | PC.ADMIT ---
Pt is a 27 years old female admitted on CV for SI with a vague plan. Pt reports increased depression, Hx of poly-substance abuse and ETOH abuse. Pt is alert and oriented X4, VSS, Covid negative, Tox screen is positive for THC and Cocaine. Pt reports loosing her father at the age of [age] has a part to play in her current lifestyle. Pt appears older than her reported age, she is flat, irritable and tearful when narrating her life's story. Speech is normal with regular rhythm tone and víctor. Pt appear overwhelmed and it was difficult getting her to answer questions during assessment. Pt became agitated when she was asked to wait while her dinner tray was getting ready. Pt was not in good behavior control. So, Pt was put in room 505. Admission orders obtained.
[2022-08-20 06:00] VITALS: BP 128/86; PULSE 104; RESP 18
[2022-08-20] MEDS: hydrOXYzine HCL 25 MG TABLET PO ×2 (07:01→13:05)
[2022-08-20 10:10] LABS: Alanine Aminotransferase 102 U/L (0-31); Albumin Level 3.9 g/dL (3.5-5.0); Alkaline Phosphatase 89 U/L (39-117); Anion Gap 14 (12-20); Aspartate Amino Transferase 54 U/L (5-31); Bilirubin Total 0.3 mg/dL (0.0-1.0); Blood Urea Nitrogen 11 mg/dL (9-16); Calcium 9.3 mg/dL (8.4-10.2); Carbon Dioxide 25 mmol/L (22-29); Chloride 105 mmol/L (96-108); Cholesterol 116 mg/dL; Estimated Glomerular Filt Rate > 60; Glucose Fasting 103 mg/dL (60-99); HDL Cholesterol 26 mg/dL; LDL Cholesterol Calculated 80 mg/dl; Potassium 3.5 mmol/L (3.3-5.1); Sodium 140 mmol/L (135-145); Total Protein 6.7 g/dL (6.5-8.0); Triglycerides 54 mg/dL
[2022-08-20 10:12] LABS: TSH reflex Free T4 0.42 uIU/mL (0.32-4.0)
[2022-08-20] MEDS: ARIPiprazole 5 MG TABLET PO (10:23)
[2022-08-20] MEDS: LORazepam 1 MG TABLET PO ×3 (10:42→23:27)
[2022-08-20] MEDS: Nicotine Polacrilex 2 MG GUM BUCCAL (13:32)
[2022-08-20 17:30] VITALS: BP 114/63; PULSE 85; TEMP 36.3
[2022-08-20] MEDS: Acetaminophen 325 MG TABLET 650 MG PO (19:35)
[2022-08-20] MEDS: traZODone HCL 50 MG TABLET PO (19:35)
[2022-08-20] MEDS: Melatonin 3 MG TABLET 9 MG PO (19:36)
[2022-08-20] MEDS: cloNIDine HCL 0.2 MG TABLET PO (19:37)
[2022-08-20] MEDS: Buprenorphine/Naloxone 4/1 mg FILM 1 FILM SUBLINGUAL (19:37)
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
[2022-08-21] MEDS: ARIPiprazole 10 MG TABLET PO (08:16)
[2022-08-21] MEDS: Buprenorphine/Naloxone 4/1 mg FILM 1 FILM SUBLINGUAL ×2 (08:16→18:30)
[2022-08-21] MEDS: Nicotine Polacrilex 2 MG GUM BUCCAL ×2 (08:18→14:53)
[2022-08-21 08:32] VITALS: BP 117/74; PULSE 72; TEMP 36.1; O2SAT 99
[2022-08-21] MEDS: LORazepam 1 MG TABLET PO ×2 (14:05→18:30)
--- NOTE | 2022-08-21 15:48 | P.PNPSI_ITS ---
Subjective Subjective Date of Service: 08/21/22 Reason For Visit: SI Subjective Notes: Conditional Voluntary Healthcare Proxy: No Guardianship: No Medical Problems Affecting Mental Status: No Interim History: Pt focused on stye feeling in her eye lid- not obviously visible to provider not particular injected or red- offered compresses and saline drops Also pt insistent on being treated for adhd wants to be back on concerta that she has not been on in years denies use of PCP Medication Compliance: Yes Side effects from medications: No Attending Groups: Intermittent Review of Systems Acute medical concerns: Yes her sense of there being a stye Mental Status Exam Mental Status Exam Patient Appearance: Disheveled and Unkempt Patient Orientation: Person, Place, Time and Situation Level of Consciousness: Awake, Restless and Inappropriate Patient Behavior: Talkative, Resistive to Care, Invasion - Personal Space and Impulsive Mood Description: Angry Affect Description: Labile Ability to Follow Directions: Fair Speech Pattern: Clear and Rapid Hallucinations: None Thought Process: Racing Thought Content: positive for Tangential Depressive Symptoms: Increased Anxiety and Difficulty Sleeping Abnormal Motor Activity Signs and Symptoms: Agitation Judgement: Fair Diagnostics Vital Signs (24Hr): Vital Signs - 24 hr 08/20/22 17:30 08/21/22 08:32 Temperature 97.3 F 97 F Pulse Rate 85 72 Blood Pressure 114/63 117/74 Pulse Oximetry 99 Oxygen Delivery Method Room Air BMI result Body Mass Index 44.3 Labs Results: 08/19/22 09:33 08/20/22 08:38 Labs: Laboratory Results - last 48 hr 08/20/22 08:38 Sodium 140 Potassium 3.5 Chloride 105 Carbon Dioxide 25 Anion Gap 14 BUN 11 Creatinine 0.83 Estim Creat Clear Calc 112.0 Estimated GFR > 60 Fasting Glucose 103 H Calcium 9.3 D Total Bilirubin 0.3 AST 54 H ALT 102 H Alkaline Phosphatase 89 Total Protein 6.7 Albumin 3.9 Triglycerides 54 Cholesterol 116 LDL Cholesterol, Calc 80 HDL Cholesterol 26 TSH 0.42 Medications Medications Current Medications Acetaminophen (Acetaminophen 325 Mg Tablet) 650 mg PO Q6H PRN PRN Reason: Headache/Pain Mild Scale (1-3) Last Admin: 08/20/22 19:35 Dose: 650 mg Al Hydroxide/Mg Hydroxide (Magnesium Hydrox/Alum Hydrox 30 Ml Oral.Susp) 30 ml PO Q6H PRN PRN Reason: Heartburn/Nausea Aripiprazole (Aripiprazole 10 Mg Tablet) 10 mg PO DAILY KIN[facility]A Last Admin: 08/21/22 08:16 Dose: 10 mg Artificial Tears (Artificial Tears 15 Ml Drops) 2 drop EYE-RIGHT Q4H PRN PRN Reason: stye Buprenorphine/Naloxone (Buprenorphine/Naloxone 4/1 Mg Film) 1 film SUBLINGUAL BID [facility] Last Admin: 08/21/22 08:16 Dose: 1 film Clonidine HCl (Clonidine Hcl 0.2 Mg Tablet) 0.2 mg PO BEDTIME [facility]; Protocol Last Admin: 08/20/22 19:37 Dose: 0.2 mg Hydroxyzine HCl (Hydroxyzine Hcl 25 Mg Tablet) 25 mg PO Q6H PRN PRN Reason: Anxiety Last Admin: 08/20/22 13:05 Dose: 25 mg Lorazepam (Lorazepam 1 Mg Tablet) 1 mg PO TID PRN PRN Reason: anxiety/restlessness Last Admin: 08/21/22 14:05 Dose: 1 mg Magnesium Hydroxide (Milk Of Magnesia 30 Ml Oral.Susp) 30 ml PO DAILY PRN PRN Reason: Constipation Melatonin (Melatonin 3 Mg Tablet) 9 mg PO BEDTIME [facility] Last Admin: 08/20/22 19:36 Dose: 9 mg Nicotine Polacrilex (Nicotine Polacrilex 2 Mg Gum) 2 mg BUCCAL Q2H PRN PRN Reason: Nicotine Cravings Last Admin: 08/21/22 14:53 Dose: 2 mg Nicotine Polacrilex (Nicotine Polacrilex 2 Mg Gum) 2 mg BUCCAL Q2H PRN PRN Reason: Nicotine Cravings Trazodone HCl (Trazodone Hcl 50 Mg Tablet) 50 mg PO BEDTIME PRN PRN Reason: Insomnia Last Admin: 08/20/22 19:35 Dose: 50 mg Allergies Allergies Allergy/AdvReac Type Severity Reaction Status Date / Time No Known Allergies Allergy Verified 08/14/22 23:31 [No Known Allergies*] Assessment & Plan Assessment & Plan (1) Post traumatic stress disorder (PTSD): Status: Acute Code(s): F43.10 - Post-traumatic stress disorder, unspecified Assessment and Plan: clearly reactive and spinning- (2) PCP abuse, episodic: Status: Acute Code(s): F16.10 - Hallucinogen abuse, uncomplicated Assessment and Plan: ? carving concerta due to withdrawl from pcp - Plan Darnell is a 27 y.o. Female who carries a dx of PTSD, substance use disorder (chronic PCP use). She presented to [facility] on 08/19/2022 due to anxiety, depression, command AH telling her ?you should end it all,? and SI with a vague plan. Pt endorsed paranoid ideations that people want to harm her despite being sober from PCP x 2 weeks.?She does not endorse past episodes of padmini/ hypomania but has mood lability and tangentiality, likely cognitive impairment r/t frequent drug abuse. She was started on abilify 5 mg by her OP psych provider but was non-adherent and only started it upon admission on 08/19. Plan: Continue clonidine 0.2mg PO bedtime. Increase melatonin 9mg at bedtime. Re-Start 4mg suboxone twice daily, as she was taking this up until admission (confirmed), unclear why it was not restarted per med rec. Increase aripiprazole from 5 to 10 mg daily?as pt says this medication has been helping, denies SE, but continues with agitation, mood lability. Q15 min safety checks, CV Monitor response to medications. Monitor for safety in the milieu. Discharge on stabilization. Patient seen. Chart reviewed. Discussed with team. Obtain collateral contact info?as needed I spent minutes with the patient and/or on the patient floor today, greater than?50% of which was spent counseling/coordinating care. Patient educated on: medication risk/benefits, substance abuse and medical condition Informed Consent: further education needed Reason for contiued inpatient stay Substantial Risk for: harm to self and rapid decompensation
[2022-08-21] MEDS: hydrOXYzine HCL 25 MG TABLET PO (18:30)
[2022-08-21 19:50] VITALS: BP 101/73; PULSE 82; TEMP 36.1
[2022-08-21] MEDS: traZODone HCL 50 MG TABLET PO (20:00)
[2022-08-21] MEDS: cloNIDine HCL 0.2 MG TABLET PO (20:00)
[2022-08-21] MEDS: Melatonin 3 MG TABLET 9 MG PO (20:00)
[2022-08-22] MEDS: hydrOXYzine HCL 25 MG TABLET PO (05:54)
[2022-08-22 08:10] VITALS: BP 121/76; PULSE 78; TEMP 36.1; O2SAT 96
[2022-08-22] MEDS: Buprenorphine/Naloxone 4/1 mg FILM 1 FILM SUBLINGUAL ×2 (08:34→20:22)
[2022-08-22] MEDS: ARIPiprazole 10 MG TABLET PO (08:34)
[2022-08-22] MEDS: cloNIDine HCL 0.1 MG TABLET PO (08:34)
[2022-08-22] MEDS: Nicotine Polacrilex Lozenge 4 MG LOZENGE BUCCAL (08:57)
--- NOTE | 2022-08-22 12:01 | P.PNPSI_ITS ---
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) Pt did agree to try wellbutrin ON unit pt is constantly requesting things and getting triggered and dysregulated when staff can not respond to her immediately Medication Compliance: Intermittent Side effects from medications: Yes (clonidine I started her on for adhd caused her fatigue in day) Attending Groups: Intermittent Review of Systems Acute medical concerns: No Mental Status Exam Mental Status Exam Patient Appearance: Well Grooomed and Appropriate Patient Orientation: Person, Place, Time and Situation Level of Consciousness: Awake and Alert Patient Behavior: Talkative, Hyperactive, Restless, Belligerent, Invasion - Personal Space, Distractible and Impulsive Mood Description: Labile Affect Description: Angry (reactive- continuing demands on staff ) Patient Cognition Impaired: No Ability to Follow Directions: Poor (though ultimately redirectable) Speech Pattern: Rapid and Loud Hallucinations: None (though said voices in my head ) Thought Process: Racing Thought Content: positive for Goal Oriented Depressive Symptoms: Increased Irritability and Difficulty Concentrating Abnormal Motor Activity Signs and Symptoms: Hyperactivity Judgement: Fair Diagnostics Vital Signs (24Hr): Vital Signs - 24 hr 08/21/22 19:50 08/22/22 08:10 Temperature 96.9 F 97 F Pulse Rate 82 78 Blood Pressure 101/73 121/76 Pulse Oximetry 96 Oxygen Delivery Method Room Air BMI result Body Mass Index 44.3 Labs Results: 08/19/22 09:33 08/20/22 08:38 Medications Medications Current Medications Acetaminophen (Acetaminophen 325 Mg Tablet) 650 mg PO Q6H PRN PRN Reason: Headache/Pain Mild Scale (1-3) Last Admin: 08/20/22 19:35 Dose: 650 mg Al Hydroxide/Mg Hydroxide (Magnesium Hydrox/Alum Hydrox 30 Ml Oral.Susp) 30 ml PO Q6H PRN PRN Reason: Heartburn/Nausea Aripiprazole (Aripiprazole 10 Mg Tablet) 10 mg PO DAILY [facility] Last Admin: 08/22/22 08:34 Dose: 10 mg Artificial Tears (Artificial Tears 15 Ml Drops) 2 drop EYE-RIGHT Q4H PRN PRN Reason: stye Buprenorphine/Naloxone (Buprenorphine/Naloxone 4/1 Mg Film) 1 film SUBLINGUAL BID [facility] Last Admin: 08/22/22 08:34 Dose: 1 film Clonidine HCl (Clonidine Hcl 0.2 Mg Tablet) 0.2 mg PO BEDTIME [facility]; Protocol Last Admin: 08/21/22 20:00 Dose: 0.2 mg Clonidine HCl (Clonidine Hcl 0.1 Mg Tablet) 0.1 mg PO BID@0830,1430 [facility]; Protocol Last Admin: 08/22/22 08:34 Dose: 0.1 mg Hydroxyzine HCl (Hydroxyzine Hcl 25 Mg Tablet) 25 mg PO Q6H PRN PRN Reason: Anxiety Last Admin: 08/22/22 05:54 Dose: 25 mg Lorazepam (Lorazepam 1 Mg Tablet) 1 mg PO TID PRN PRN Reason: anxiety/restlessness Last Admin: 08/21/22 18:30 Dose: 1 mg Magnesium Hydroxide (Milk Of Magnesia 30 Ml Oral.Susp) 30 ml PO DAILY PRN PRN Reason: Constipation Melatonin (Melatonin 3 Mg Tablet) 9 mg PO BEDTIME [facility] Last Admin: 08/21/22 20:00 Dose: 9 mg Nicotine Polacrilex (Nicotine Polacrilex Lozenge 4 Mg Lozenge) 4 mg BUCCAL Q2H PRN PRN Reason: Nicotine Cravings Last Admin: 08/22/22 08:57 Dose: 4 mg Trazodone HCl (Trazodone Hcl 50 Mg Tablet) 50 mg PO BEDTIME MRX1 PRN PRN Reason: Insomnia Last Admin: 08/21/22 20:00 Dose: 50 mg Allergies Allergies Allergy/AdvReac Type Severity Reaction Status Date / Time No Known Allergies Allergy Verified 08/14/22 23:31 [No Known Allergies*] Assessment & Plan Assessment & Plan (1) Post traumatic stress disorder (PTSD): Status: Acute Code(s): F43.10 - Post-traumatic stress disorder, unspecified Assessment and Plan: clearly reactive and spinning- (2) PCP abuse, episodic: Status: Acute Code(s): F16.10 - Hallucinogen abuse, uncomplicated Assessment and Plan: ? carving concerta due to withdrawl from pcp - Plan Darnell is a 27 y.o. Female who carries a dx of PTSD, substance use disorder (chronic PCP use). She presented to [facility] on 08/19/2022 due to anxiety, depression, command AH telling her ?you should end it all,? and SI with a vague plan. Pt endorsed paranoid ideations that people want to harm her despite being sober from PCP x 2 weeks.?She does not endorse past episodes of padmini/ hypomania but has mood lability and tangentiality, likely cognitive impairment r/t frequent drug abuse. She was started on abilify 5 mg by her OP psych provider but was non-adherent and only started it upon admission on 08/19. Plan: Continue clonidine 0.2mg PO bedtime. Increase melatonin 9mg at bedtime. Re-Start 4mg suboxone twice daily, as she was taking this up until admission (confirmed), unclear why it was not restarted per med rec. Increase aripiprazole from 5 to 10 mg daily?as pt says this medication has been helping, denies SE, but continues with agitation, mood lability. Q15 min safety checks, CV Monitor response to medications. Monitor for safety in the milieu. Discharge on stabilization. Patient seen. Chart reviewed. Discussed with team. Obtain collateral contact info?as needed 08/22 dced day time clonidine trial wellbutrin ir instead watch for padmini? I think just trauma reactive bpd, also hx of adhd makes sense now woresened by all pcp use? I spent minutes with the patient and/or on the patient floor today, greater than?50% of which was spent counseling/coordinating care. Patient educated on: diagnosis and medication risk/benefits Informed Consent: further education needed Reason for contiued inpatient stay Substantial Risk for: inability to function and rapid decompensation
[2022-08-22] MEDS: buPROPion HCL 75 MG TABLET PO (13:01)
--- NOTE | 2022-08-22 14:14 | PC.NURSE ---
PT was visible on unit. PT was needy, asking for many things throughout the day, such as asking for the phone and putting things in her belongings. She became upset and yelled or cried when things were not completed at that very moment. PT did not want to speak to this telegraphic typewriter operator, she stated she wanted to talk to a therapist or social media campaign manager to get things off her mind. I need to leave today, I got staff to do. She was yelling and crying about underwear and her lunch food.
[2022-08-22] MEDS: LORazepam 1 MG TABLET PO (15:13)
[2022-08-22] MEDS: Nicotine Polacrilex 2 MG GUM BUCCAL (16:30)
[2022-08-22 17:02] VITALS: BP 110/52; PULSE 81; TEMP 36.2; O2SAT 96
[2022-08-22] MEDS: Throat Lozenge, Medicated LOZENGE 1 LOZENGE MUCOUS MEM (17:51)
[2022-08-22] MEDS: cloNIDine HCL 0.2 MG TABLET PO (20:22)
[2022-08-22] MEDS: Melatonin 3 MG TABLET 9 MG PO (20:22)
[2022-08-22] MEDS: traZODone HCL 50 MG TABLET PO (23:15)
[2022-08-23] MEDS: hydrOXYzine HCL 25 MG TABLET PO ×2 (01:30→13:23)
[2022-08-23] MEDS: traZODone HCL 50 MG TABLET PO (01:30)
[2022-08-23] MEDS: Artificial Tears 15 ML DROPS 2 DROP EYE-RIGHT (04:15)
[2022-08-23] MEDS: ARIPiprazole 10 MG TABLET PO (09:03)
[2022-08-23] MEDS: buPROPion HCL 75 MG TABLET PO (09:03)
[2022-08-23] MEDS: Buprenorphine/Naloxone 4/1 mg FILM 1 FILM SUBLINGUAL ×2 (09:03→19:24)
[2022-08-23] MEDS: Throat Lozenge, Medicated LOZENGE 1 LOZENGE MUCOUS MEM (09:21)
--- NOTE | 2022-08-23 10:26 | HO.PSYCHPN ---
Subjective Subjective Date of Service: 08/23/22 Reason For Visit: SI Interim History: Patient reports she is feeling much better and more calm; staff concurs that she is calmer and in much more in emotional control. Patient says that her depression and anxiety are pretty much gone. She feels that medications are very helpful and agrees to get on long-acting Maintena. Patient continues to assert that the PCP and cocaine were accidental and must have been included in the weed she has been buying. She says she will make sure she gets her cannabis from a dispensary from now on. She denies any SI and says no I feel great. She denies any HI. Patient says that intermittently she will have auditory hallucinations that say to kill herself or do something negative, however she is not currently having them and when they appear there are no longer bothersome and able to be ignored. She reports she is sleeping much better; she may way it got up once or twice but is able to fall back asleep. 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 [employer] Mental Status Exam Mental Status Exam Narrative: Pt is alert and oriented; behavior is cooperative, friendly and calm; patient is not in distress; dressed in casual attire, appropriately groomed, with adequate hygiene; mood is described as great and affect congruent; eye contact appropriate; Speech is normal rate, volume and prosody and not pressured; no psychomotor agitation/retardation present; thought process is organized and goal directed; Thought content is on tx; otherwise pertinent to relevant topics and without any delusional content, paranoid ideations or grandiosity; denies any SI/HI. Intermittent auditory hallucinations but patient says they are at a low level and able to be ignored. Patients insight and judgment appear intact. Diagnostics Vital Signs (24Hr): Vital Signs - 24 hr 08/22/22 17:02 Temperature 97.1 F Pulse Rate 81 Blood Pressure 110/52 L Pulse Oximetry 96 Oxygen Delivery Method Room Air BMI result Body Mass Index 44.3 Labs Results: 08/19/22 09:33 08/20/22 08:38 Medications Medications Current Medications Acetaminophen (Acetaminophen 325 Mg Tablet) 650 mg PO Q6H PRN PRN Reason: Headache/Pain Mild Scale (1-3) Last Admin: 08/20/22 19:35 Dose: 650 mg Al Hydroxide/Mg Hydroxide (Magnesium Hydrox/Alum Hydrox 30 Ml Oral.Susp) 30 ml PO Q6H PRN PRN Reason: Heartburn/Nausea Aripiprazole (Aripiprazole 10 Mg Tablet) 10 mg PO DAILY [facility] Last Admin: 08/23/22 09:03 Dose: 10 mg Artificial Tears (Artificial Tears 15 Ml Drops) 2 drop EYE-RIGHT Q4H PRN PRN Reason: stye Last Admin: 08/23/22 04:15 Dose: 2 drop Benzocaine (Throat Lozenge, Medicated Lozenge) 1 lozenge MUCOUS MEM Q2H PRN PRN Reason: Sore Throat Last Admin: 08/23/22 09:21 Dose: 1 lozenge Buprenorphine/Naloxone (Buprenorphine/Naloxone 4/1 Mg Film) 1 film SUBLINGUAL BID [facility] Last Admin: 08/23/22 09:03 Dose: 1 film Bupropion HCl (Bupropion Hcl 75 Mg Tablet) 75 mg PO DAILY [facility] Last Admin: 08/23/22 09:03 Dose: 75 mg Clonidine HCl (Clonidine Hcl 0.2 Mg Tablet) 0.2 mg PO BEDTIME [facility]; Protocol Last Admin: 08/22/22 20:22 Dose: 0.2 mg Hydroxyzine HCl (Hydroxyzine Hcl 25 Mg Tablet) 25 mg PO Q6H PRN PRN Reason: Anxiety Last Admin: 08/23/22 01:30 Dose: 25 mg Lorazepam (Lorazepam 1 Mg Tablet) 1 mg PO TID PRN PRN Reason: anxiety/restlessness Last Admin: 08/22/22 15:13 Dose: 1 mg Magnesium Hydroxide (Milk Of Magnesia 30 Ml Oral.Susp) 30 ml PO DAILY PRN PRN Reason: Constipation Melatonin (Melatonin 3 Mg Tablet) 9 mg PO BEDTIME [facility] Last Admin: 08/22/22 20:22 Dose: 9 mg Nicotine Polacrilex (Nicotine Polacrilex 2 Mg Gum) 2 mg BUCCAL Q1H PRN PRN Reason: nicotene replacement Last Admin: 08/22/22 16:30 Dose: 2 mg Trazodone HCl (Trazodone Hcl 50 Mg Tablet) 50 mg PO BEDTIME MRX1 PRN PRN Reason: Insomnia Last Admin: 08/23/22 01:30 Dose: 50 mg Allergies Allergies Allergy/AdvReac Type Severity Reaction Status Date / Time No Known Allergies Allergy Verified 08/14/22 23:31 [No Known Allergies*] Assessment & Plan Assessment & Plan (1) Post traumatic stress disorder (PTSD): Status: Acute Code(s): F43.10 - Post-traumatic stress disorder, unspecified Assessment and Plan: clearly reactive and spinning- (2) PCP abuse, episodic: Status: Acute Code(s): F16.10 - Hallucinogen abuse, uncomplicated Assessment and Plan: ? carving concerta due to withdrawl from pcp - Plan Darenll is a 27 y.o. Female who carries a dx of PTSD, substance use disorder (chronic PCP use). She presented to [facility] ED on 08/19/2022 due to anxiety, depression, command AH telling her ?you should end it all,? and SI with a vague plan. Pt endorsed paranoid ideations that people want to harm her despite being sober from PCP x 2 weeks.?She does not endorse past episodes of padmini/ hypomania but has mood lability and tangentiality, likely cognitive impairment r/t frequent drug abuse. She was started on abilify 5 mg by her OP psych provider but was non-adherent and only started it upon admission on 08/19. 08/23 manual writer meeting patient for the 1st time. patient reports she is feeling much calmer and in better control; staff fully concurs. Patient reports she is in a good mood and denies any SI or HI. Still AH but says it is much better and able to be ignored. Patient has a 3 day notice an and is looking forward to discharge so she can get back to school as she is pursuing her GED. Patient agrees to long-acting injectable. Plan: Three day notice Start Abilify Maintena 400 mg IM Continue Abilify 10 mg daily p.o. for 2 weeks Continue clonidine 0.2mg PO bedtime. Increase melatonin 9mg at bedtime. Re-Start 4mg suboxone twice daily, as she was taking this up until admission (confirmed), unclear why it was not restarted per med rec. Increase aripiprazole to 10 mg daily?as pt says this medication has been helping, denies SE, but continues with agitation, mood lability. Monitor response to medications. Monitor for safety in the milieu. Discharge on stabilization. Patient seen. Chart reviewed. Discussed with team. Obtain collateral contact info?as needed 08/22 dced day time clonidine trial wellbutrin ir instead watch for padmini? I think just trauma reactive bpd, also hx of adhd makes sense now woresened by all pcp use? I spent minutes with the patient and/or on the patient floor today, greater than?50% of which was spent counseling/coordinating care. Patient educated on: diagnosis, medication risk/benefits, substance abuse and therapeutic strategies Informed Consent: understands and further education needed Reason for contiued inpatient stay Substantial Risk for: stable for discharge
[2022-08-23 13:38] LABS: Appearance Urine Clear; Color Urine Yellow; Glucose Urine UA Negative (Negative); Leukocyte Esterase Urine Negative (Negative); Nitrite Urine Negative (Negative); Specific Gravity - Urine <= 1.005 (1.005-1.025); UMIC TRIGGER UACC YES; Urine Blood Large (3+) (Negative); Urine Ketones Negative (Negative); Urine Protein Negative (Neg-Trace)
[2022-08-23 13:45] LABS: Bacteria Urine None Seen (None Seen); Hyaline Casts Urine 0-2 /LPF (0-2); Squamous Epithelial Cell Urine 0-2 /HPF (0-2); WBC Urine 0-5 /HPF (0-5)
[2022-08-23] MEDS: ARIPiprazole ER 400 MG SUSER.SYR IM (14:18)
[2022-08-23 16:42] VITALS: BP 122/82; PULSE 78; RESP 16; TEMP 36.4; O2SAT 98
[2022-08-23] MEDS: cloNIDine HCL 0.2 MG TABLET PO (19:23)
[2022-08-23] MEDS: Melatonin 3 MG TABLET 9 MG PO (19:24)
[2022-08-23] MEDS: LORazepam 1 MG TABLET PO (23:47)
[2022-08-24 08:30] VITALS: BP 139/74; PULSE 91; TEMP 36.6
[2022-08-24] MEDS: buPROPion HCL 75 MG TABLET PO (09:08)
[2022-08-24] MEDS: ARIPiprazole 10 MG TABLET PO (09:08)
[2022-08-24] MEDS: Buprenorphine/Naloxone 4/1 mg FILM 1 FILM SUBLINGUAL ×2 (09:08→21:11)
[2022-08-24] MEDS: Throat Lozenge, Medicated LOZENGE 1 LOZENGE MUCOUS MEM (10:38)
[2022-08-24] MEDS: Artificial Tears 15 ML DROPS 2 DROP EYE-RIGHT (13:19)
--- NOTE | 2022-08-24 16:24 | P.PNPSI_ITS ---
Subjective Subjective Date of Service: 08/24/22 Reason For Visit: SI Interim History: Patient reports that she is doing well. Says she slept well. He is in a good mood, no SI, no HI; she says no AVH. Patient says she is grateful for admission and that the medications have been very helpful and that she will continue. Patient says she is feeling ready for discharge tomorrow. Mental Status Exam Mental Status Exam Narrative: Pt is alert and oriented; behavior is cooperative, friendly and calm; patient is not in distress; dressed in casual attire, appropriately groomed, with adequate hygiene; mood is described as good...great and affect congruent; eye contact appropriate; Speech is normal rate, volume and prosody and not pressured; no psychomotor agitation/retardation present; thought process is organized and goal directed; Thought content is on tx; otherwise pertinent to relevant topics and without any delusional content, paranoid ideations or grandiosity; denies any SI/HI. No AH (can be intermittent but patient says they are at a low level and able to be ignored). Patients insight and judgment are intact. Diagnostics Vital Signs (24Hr): Vital Signs - 24 hr 08/23/22 16:42 08/24/22 08:30 Temperature 97.6 F 97.9 F Pulse Rate 78 91 Respiratory Rate 16 Blood Pressure 122/82 139/74 Pulse Oximetry 98 Oxygen Delivery Method Room Air BMI result Body Mass Index 44.3 Labs Results: 08/19/22 09:33 08/20/22 08:38 Labs: Laboratory Results - last 48 hr 08/23/22 Unknown Urine Color Yellow Urine Appearance Clear Urine pH 8.0 Ur Specific Hawkins <= 1.005 Urine Protein Negative Urine Glucose (UA) Negative Urine Ketones Negative Urine Blood Large (3+) H Urine Nitrite Negative Ur Leukocyte Esterase Negative Urine RBC 11-20 H Urine WBC 0-5 Ur Squamous Epith Cells 0-2 Urine Bacteria None Seen Hyaline Casts 0-2 Medications Medications Current Medications Acetaminophen (Acetaminophen 325 Mg Tablet) 650 mg PO Q6H PRN PRN Reason: Headache/Pain Mild Scale (1-3) Last Admin: 08/20/22 19:35 Dose: 650 mg Al Hydroxide/Mg Hydroxide (Magnesium Hydrox/Alum Hydrox 30 Ml Oral.Susp) 30 ml PO Q6H PRN PRN Reason: Heartburn/Nausea Albuterol Sulfate (Albuterol Sulfate 90 Mcg 8 Gm Inhaler) 1 puff INHALE Q4H PRN PRN Reason: Shortness of Breath Aripiprazole (Aripiprazole 10 Mg Tablet) 10 mg PO DAILY [facility] Last Admin: 08/24/22 09:08 Dose: 10 mg Artificial Tears (Artificial Tears 15 Ml Drops) 2 drop EYE-RIGHT Q4H PRN PRN Reason: stye Last Admin: 08/24/22 13:19 Dose: 2 drop Benzocaine (Throat Lozenge, Medicated Lozenge) 1 lozenge MUCOUS MEM Q2H PRN PRN Reason: Sore Throat Last Admin: 08/24/22 10:38 Dose: 1 lozenge Buprenorphine/Naloxone (Buprenorphine/Naloxone 4/1 Mg Film) 1 film SUBLINGUAL BID [facility] Last Admin: 08/24/22 09:08 Dose: 1 film Bupropion HCl (Bupropion Hcl 75 Mg Tablet) 75 mg PO DAILY [facility] Last Admin: 08/24/22 09:08 Dose: 75 mg Clonidine HCl (Clonidine Hcl 0.2 Mg Tablet) 0.2 mg PO BEDTIME [facility]; Protocol Last Admin: 08/23/22 19:23 Dose: 0.2 mg Hydroxyzine HCl (Hydroxyzine Hcl 25 Mg Tablet) 25 mg PO Q6H PRN PRN Reason: Anxiety Last Admin: 08/23/22 13:23 Dose: 25 mg Lorazepam (Lorazepam 1 Mg Tablet) 1 mg PO TID PRN PRN Reason: anxiety/restlessness Last Admin: 08/23/22 23:47 Dose: 1 mg Magnesium Hydroxide (Milk Of Magnesia 30 Ml Oral.Susp) 30 ml PO DAILY PRN PRN Reason: Constipation Melatonin (Melatonin 3 Mg Tablet) 9 mg PO BEDTIME [facility] Last Admin: 08/23/22 19:24 Dose: 9 mg Nicotine Polacrilex (Nicotine Polacrilex 2 Mg Gum) 2 mg BUCCAL Q1H PRN PRN Reason: nicotene replacement Last Admin: 08/22/22 16:30 Dose: 2 mg Trazodone HCl (Trazodone Hcl 50 Mg Tablet) 50 mg PO BEDTIME MRX1 PRN PRN Reason: Insomnia Last Admin: 08/23/22 01:30 Dose: 50 mg Allergies Allergies Allergy/AdvReac Type Severity Reaction Status Date / Time No Known Allergies Allergy Verified 08/14/22 23:31 [No Known Allergies*] Assessment & Plan Assessment & Plan (1) Post traumatic stress disorder (PTSD): Status: Acute Code(s): F43.10 - Post-traumatic stress disorder, unspecified Assessment and Plan: clearly reactive and spinning- (2) PCP abuse, episodic: Status: Acute Code(s): F16.10 - Hallucinogen abuse, uncomplicated Assessment and Plan: ? carving concerta due to withdrawl from pcp - Plan Darnell is a 27 y.o. Female who carries a dx of PTSD, substance use disorder (chronic PCP use). She presented to [facility] ED on 08/19/2022 due to anxiety, depression, command AH telling her ?you should end it all,? and SI with a vague plan. Pt endorsed paranoid ideations that people want to harm her despite being sober from PCP x 2 weeks.?She does not endorse past episodes of padmini/ hypomania but has mood lability and tangentiality, likely cognitive impairment r/t frequent drug abuse. She was started on abilify 5 mg by her OP psych provider but was non-adherent and only started it upon admission on 08/19. 08/23 comic book writer meeting patient for the 1st time. patient reports she is feeling much calmer and in better control; staff fully concurs. Patient reports she is in a good mood and denies any SI or HI. Still AH but says it is much better and able to be ignored. Patient has a 3 day notice an and is looking forward to discharge so she can get back to school as she is pursuing her GED. Patient agrees to long-acting injectable. 08/24 patient remains stable, good mood, no SI, no HI and no AVH. Sleeping and eating well. Feels that medications are helpful in understands regimen. Pipe Organ Mechanic also discussed case with outpatient psychiatric provider Dr. Barkley who will continue treatment and is setting up follow-up appointments. Patient's 3 day notice is due tomorrow. She is future oriented, in good mood, in good behavioral and impulse control and appropriate with peers and staff. She is appropriate to continue treatment as an outpatient. Her request for discharge honored. Plan: Three day notice Start Abilify Maintena 400 mg IM Continue Abilify 10 mg daily p.o. for 2 weeks Continue clonidine 0.2mg PO bedtime. Increase melatonin 9mg at bedtime. Re-Start 4mg suboxone twice daily, as she was taking this up until admission (confirmed), unclear why it was not restarted per med rec. Increase aripiprazole to 10 mg daily?as pt says this medication has been helping, denies SE, but continues with agitation, mood lability. Monitor response to medications. Monitor for safety in the milieu. Discharge on stabilization. Patient seen. Chart reviewed. Discussed with team. Obtain collateral contact info?as needed 08/22 dced day time clonidine trial wellbutrin ir instead watch for padmini? I think just trauma reactive bpd, also hx of adhd makes sense now woresened by all pcp use? I spent minutes with the patient and/or on the patient floor today, greater than?50% of which was spent counseling/coordinating care. Patient educated on: diagnosis, medication risk/benefits, substance abuse and therapeutic strategies Informed Consent: understands Reason for contiued inpatient stay Substantial Risk for: stable for discharge
[2022-08-24 18:00] VITALS: BP 111/67; PULSE 80; TEMP 36.2; O2SAT 96
[2022-08-24] MEDS: cloNIDine HCL 0.2 MG TABLET PO (21:11)
[2022-08-24] MEDS: Melatonin 3 MG TABLET 9 MG PO (21:12)
[2022-08-24] MEDS: traZODone HCL 50 MG TABLET PO (21:20)
[2022-08-25] MEDS: traZODone HCL 50 MG TABLET PO (01:24)
[2022-08-25 06:00] VITALS: BP 111/78; PULSE 81; RESP 14; TEMP 36.8; O2SAT 96
[2022-08-25] MEDS: buPROPion HCL 75 MG TABLET PO (08:50)
[2022-08-25] MEDS: ARIPiprazole 10 MG TABLET PO (08:50)
[2022-08-25] MEDS: Buprenorphine/Naloxone 4/1 mg FILM 1 FILM SUBLINGUAL (08:50)
--- NOTE | 2022-08-25 09:56 | PM.PSYDC ---
DS: Providers Provider Date of Service: 08/25/22 Date of admission: 08/19/22 17:33 Primary care physician: [facility] DS: Diagnosis Discharge Diagnosis (1) Post traumatic stress disorder (PTSD): Status: Acute (2) PCP abuse, episodic: Status: Acute DS: Medications Discharge Medications Home Medications: Home Medications Medication Instructions Recorded Confirmed aripiprazole 5 mg tablet 1 tab PO QAM 08/15/22 08/19/22 buprenorphine 12 mg-naloxone 3 mg 1 strip sublingual DAILY 08/15/22 08/19/22 sublingual film (Suboxone) melatonin 5 mg tablet 1 tab PO BEDTIME PRN Insomnia 08/15/22 08/19/22 Previous Rx's Medication Instructions Recorded albuterol sulfate 90 mcg/actuation 1 puff inhalation Q4H PRN 08/25/22 aerosol inhaler (Ventolin HFA) Shortness Of Breath 30 days #6.7 grams aripiprazole 10 mg tablet 10 mg PO DAILY 14 days #14 tabs 08/25/22 bupropion HCl 75 mg tablet 75 mg PO DAILY 30 days #30 tabs 08/25/22 clonidine HCl 0.2 mg tablet 0.2 mg PO BEDTIME 30 days #30 tabs 08/25/22 hydroxyzine HCl 25 mg tablet 25 mg PO Q6H PRN Anxiety 30 days 08/25/22 #30 tabs trazodone 50 mg tablet 50 mg PO BEDTIME PRN Insomnia 30 08/25/22 days #30 tabs Mental Status Exam Mental Status Exam Narrative: Pt is alert and oriented; behavior is cooperative, friendly and calm; patient is not in distress; dressed in casual attire, appropriately groomed, with adequate hygiene; mood is described as good...great and affect congruent; eye contact appropriate; Speech is normal rate, volume and prosody and not pressured; no psychomotor agitation/retardation present; thought process is organized and goal directed; Thought content is on tx; otherwise pertinent to relevant topics and without any delusional content, paranoid ideations or grandiosity; denies any SI/HI. No AH (can be intermittent but patient says they are at a low level and able to be ignored). Patients insight and judgment are intact. Data Data Completed and Pending Completed studies during hospitalization [Text1]: 08/19/22 08/19/22 08/19/22 09:33 09:33 09:33 WBC 10.2 RBC 4.86 Hgb 14.3 Hct 41.3 MCV 85.0 MCH 29.4 MCHC 34.6 RDW 13.6 Plt Count 329 MPV 11.2 Immature Gran % (Auto) 0.4 Neut % (Auto) 76.2 H Lymph % (Auto) 17.9 L [place] % (Auto) 5.3 Eos % (Auto) 0.0 Baso % (Auto) 0.2 Lymph # (Auto) 1.8 [place] # (Auto) 0.5 Eos # (Auto) 0.0 Baso # (Auto) 0.0 Abs Immat Gran (auto) 0.04 H Absolute Neuts (auto) 7.8 Absolute Nucleated RBC 0.000 Nucleated RBC % (auto) 0.0 Sodium 140 Potassium 3.1 L Chloride 104 Carbon Dioxide 21 L Anion Gap 18 BUN 8 L Creatinine 0.73 Estim Creat Clear Calc 117.6 Estimated GFR > 60 Random Glucose 119 H Fasting Glucose Calcium 9.9 Total Bilirubin 0.3 Direct Bilirubin 0.3 AST 57 H ALT 109 H Alkaline Phosphatase 104 Total Protein 8.1 H Albumin 4.6 Triglycerides Cholesterol LDL Cholesterol, Calc HDL Cholesterol TSH Urine Color Urine Appearance Urine pH Ur Specific [place] Urine Protein Urine Glucose (UA) Urine Ketones Urine Blood Urine Nitrite Ur Leukocyte Esterase Urine RBC Urine WBC Ur Squamous Epith Cells Urine Bacteria Hyaline Casts Urine Test Urine Opiates Screen Urine Fentanyl Screen Ur Barbiturates Screen Ur Phencyclidine Scrn Ur Amphetamines Screen U Benzodiazepines Scrn Urine Cocaine Screen U Marijuana (THC) Screen COVID-19 ([facility]) Negative COVID-19 Clin Com See Note 08/19/22 08/19/22 08/19/22 11:08 11:08 11:08 WBC RBC Hgb Hct MCV MCH MCHC RDW Plt Count MPV Immature Gran % (Auto) Neut % (Auto) Lymph % (Auto) [place] % (Auto) Eos % (Auto) Baso % (Auto) Lymph # (Auto) [place] # (Auto) Eos # (Auto) Baso # (Auto) Abs Immat Gran (auto) Absolute Neuts (auto) Absolute Nucleated RBC Nucleated RBC % (auto) Sodium Potassium Chloride Carbon Dioxide Anion Gap BUN Creatinine Estim Creat Clear Calc Estimated GFR Random Glucose Fasting Glucose Calcium Total Bilirubin Direct Bilirubin AST ALT Alkaline Phosphatase Total Protein Albumin Triglycerides Cholesterol LDL Cholesterol, Calc HDL Cholesterol TSH Urine Color Yellow Urine Appearance Cloudy Urine pH 6.5 Ur Specific [place] 1.015 Urine Protein 100 (2+) H Urine Glucose (UA) Negative Urine Ketones 15 Urine Blood Large (3+) H Urine Nitrite Negative Ur Leukocyte Esterase Negative Urine RBC >20 H Urine WBC 0-5 Ur Squamous Epith Cells >20 Urine Bacteria 4+ Hyaline Casts 0-2 Urine Test NEGATIVE Urine Opiates Screen Not Detected Urine Fentanyl Screen Not Detected Ur Barbiturates Screen Not Detected Ur Phencyclidine Scrn POSITIVE H Ur Amphetamines Screen Not Detected U Benzodiazepines Scrn Not Detected Urine Cocaine Screen POSITIVE H U Marijuana (THC) Screen POSITIVE H COVID-19 ([facility]) COVID-19 Clin Com 08/20/22 08/23/22 08:38 Unknown WBC RBC Hgb Hct MCV MCH MCHC RDW Plt Count MPV Immature Gran % (Auto) Neut % (Auto) Lymph % (Auto) [place] % (Auto) Eos % (Auto) Baso % (Auto) Lymph # (Auto) [place] # (Auto) Eos # (Auto) Baso # (Auto) Abs Immat Gran (auto) Absolute Neuts (auto) Absolute Nucleated RBC Nucleated RBC % (auto) Sodium 140 Potassium 3.5 Chloride 105 Carbon Dioxide 25 Anion Gap 14 BUN 11 Creatinine 0.83 Estim Creat Clear Calc 112.0 Estimated GFR > 60 Random Glucose Fasting Glucose 103 H Calcium 9.3 D Total Bilirubin 0.3 Direct Bilirubin AST 54 H ALT 102 H Alkaline Phosphatase 89 Total Protein 6.7 Albumin 3.9 Triglycerides 54 Cholesterol 116 LDL Cholesterol, Calc 80 HDL Cholesterol 26 TSH 0.42 Urine Color Yellow Urine Appearance Clear Urine pH 8.0 Ur Specific Lacey <= 1.005 Urine Protein Negative Urine Glucose (UA) Negative Urine Ketones Negative Urine Blood Large (3+) H Urine Nitrite Negative Ur Leukocyte Esterase Negative Urine RBC 11-20 H Urine WBC 0-5 Ur Squamous Epith Cells 0-2 Urine Bacteria None Seen Hyaline Casts 0-2 Urine Test Urine Opiates Screen Urine Fentanyl Screen Ur Barbiturates Screen Ur Phencyclidine Scrn Ur Amphetamines Screen U Benzodiazepines Scrn Urine Cocaine Screen U Marijuana (THC) Screen COVID-19 ([facility]) COVID-19 Clin Com DS: Summary Hospital Course Hospital Course: Darnell is a 27 y.o. Female who carries a dx of PTSD, substance use disorder (chronic PCP use). She presented to [facility] on 08/19/2022 due to anxiety, depression, command AH telling her ?you should end it all,? and SI with a vague plan. Pt endorsed paranoid ideations that people want to harm her despite being sober from PCP x 2 weeks.?She does not endorse past episodes of padmini/ hypomania but has mood lability and tangentiality, likely cognitive impairment r/t frequent drug abuse. She was started on abilify 5 mg by her OP psych provider but was non-adherent and only started it upon admission on 08/19. 08/23 chart writer meeting patient for the 1st time.? patient reports she is feeling much calmer and in better control; staff fully concurs.? Patient reports she is in a good mood and denies any SI or HI.? Still AH but says it is much better and able to be ignored.? Patient has a 3 day notice an and is looking forward to discharge so she can get back to school as she is pursuing her GED.? Patient agrees to long-acting injectable. 08/24 patient remains stable, good mood, no SI, no HI and no AVH. Patient is in good behavioral and impulse control and appropriate with peers and staff. Patient reports that Sleeping and eating well.? Feels that medications are helpful in understands regimen.? Museum Exhibit Technician also discussed case with outpatient psychiatric provider Dr. Barkley who will continue treatment and is setting up follow-up appointments.? Patient's 3 day notice Is coming due. While she remains vulnerable to relapse or emotional dysregulation, these are chronic issues for her which will not resolve with longer stay on inpatient unit. Patient has returned to baseline and she is future oriented, in good mood, in good behavioral and impulse control and remained appropriate with peers and staff. Patient is not in imminent risk for harm to self or others and is appropriate to continue treatment as an outpatient.? Her request for discharge honored. Time spent discussing smoking cessation with patient: 3 to 10 minutes Status at Discharge Functional status at discharge: independent ambulation Overall status at discharge: patient is back to baseline Time Spent with Patient Time attestation: Total time spent providing and/or coordinating discharge services: Time spent: Less than 30 minutes Discharge Plan Discharge Anticipated Discharge Date/Time: 08/25/22 13:00 Patient Disposition: Home, Self-Care Discharge Diagnosis: Schizoaffective disorder, depressed type (provisional dx) Referrals: Psychiatry: Dr. Ivory Eckert [Other] - 08/27/22 4:30 pm () [place] [Primary Care Provider] - 09/06/22 1:00 pm (IN OFFICE, DR. NICOLE) Discharge Medications: New albuterol sulfate [Ventolin HFA] 90 mcg/actuation Hfa Aerosol Inhaler 1 puff inhalation Q4H PRN (Reason: Shortness Of Breath) 30 Days Qty: 6.7 0RF aripiprazole 10 mg Tablet 10 mg PO DAILY 14 Days Qty: 14 0RF bupropion HCl 75 mg Tablet 75 mg PO DAILY 30 Days Qty: 30 0RF buprenorphine-naloxone 4-1 mg Film 1 film sublingual BID 3 Days Qty: 5 0RF hydroxyzine HCl 25 mg Tablet 25 mg PO Q6H PRN (Reason: Anxiety) 30 Days Qty: 30 0RF trazodone 50 mg Tablet 50 mg PO BEDTIME PRN (Reason: Insomnia) 30 Days Qty: 30 0RF Abilify Maintena 400 mg suspension,extended rel recon 400 mg IM QMONTH 30 Days Qty: 1 0RF Continued melatonin 5 mg tablet 1 tab PO BEDTIME PRN (Reason: Insomnia) Changed clonidine HCl 0.2 mg tablet 0.2 mg PO BEDTIME 30 Days Qty: 30 0RF Discontinued aripiprazole 5 mg tablet 1 tab PO QAM buprenorphine-naloxone [Suboxone] 12-3 mg film 1 strip sublingual DAILY Discharge Orders: Discharge Order (Routine); Ordered 08/25/22 Ordered By: Lamont Torres Diet: Regular diet Activity on Discharge: As tolerated Stand Alone Forms: Patient Portal Discharge page, Community Support Care Plan Goals: Maintain mood and safe behaviors Take medications as prescribed Continue to pursue sobriety Practice coping skills Continue with outpatient providers and reach out to them as needed Health Concerns: Mood stability and behaviors Sobriety Plan of Treatment: Follow up with your PCP, psychiatric provider and other outpatient providers regarding above concerns Take medications as prescribed Assessment: Risk assessment at time of discharge:? Patient was interviewed prior to discharge and found to be fully oriented and without any SI or HI. Patient has insight and demonstrates good judgment in terms of wanting to pursue treatment. Patient is not in imminent risk of harm to self or others and has a safety plan that includes presenting to the closest ER or calling 911 if feeling unsafe.? Patient has been observed closely by nursing and unit staff throughout admission; patient has not engaged in any behaviors that suggest dangerousness to self or others and has demonstrated appropriate behaviors and impulse control Discharge Date/Time: 08/25/22 14:00
[2022-08-25] MEDS: Naloxone HCl Nasal TAKE HOME 4 MG SPRAY NOSTRILALT (11:26)
[2022-08-25] MEDS: Throat Lozenge, Medicated LOZENGE 1 LOZENGE MUCOUS MEM (11:26)
== END 2022-08-25 14:00 | disposition home or self-care (01) | DRG 755 ==
LOC: HO.ED 16:49 → HO.PM5 17:37
PROVIDERS: Psychiatry & Neurology Psychiatry; Admitting Provider Psychiatry & Neurology Psychiatry; Emergency Provider Emergency Medicine; Visit Provider Psychiatry & Neurology Psychiatry
DX: F43.10 Post-traumatic stress disorder, unspecified (principal); R45.851 Suicidal ideations; F17.210 Nicotine dependence, cigarettes, uncomplicated; F16.10 Hallucinogen abuse, uncomplicated; Z20.822 Contact with and (suspected) exposure to COVID-19; Z79.899 Other long term (current) drug therapy
CPT/HCPCS: 36415; 80048; 80053; 80061; 80076; 80307; 81001; 81025; 84443; 85025; 87635; 90686; 90792; 93005; 99285; J0401

== ENCOUNTER 2023-03-01 07:05 | Inpatient (IN) | payer MEDICAID, SELFPAY ==
[2023-03-01] VITALS (7 sets, daily range): BP systolic 85–130; BP diastolic 41–78; PULSE 66–114; RESP 16–20; TEMP 36.7–37.9; O2SAT 93–99; BMI 43.9; BMI 42.5
--- NOTE | ~2023-03-01 | US_ITS ---
EXAMINATION: US PELVIS CLINICAL INFORMATION: Bilateral dermoid cysts seen on CT scan. COMPARISON: Previous CT of the abdomen and pelvis from earlier the same day. TECHNIQUE: Ultrasound of the pelvis is performed using both transabdominal and transvaginal transducers along with Doppler. Patient declined transvaginal exam. FINDINGS: The uterus is not well visualized. There is a bilobed right adnexal mass. This is heterogeneous in echotexture with large hyperechoic component and some acoustic shadowing. This measures 3.4 x 3.7 x 5 cm and 4 x 3.5 x 3.5 cm. Arterial and venous flow is documented to the right ovary. The left ovary is not seen. Large left adnexal mass seen by CT is not appreciated. Doppler flow to the left ovary could not be performed. There is no fluid in the pelvis. US/US pelvic ovarian doppler IMPRESSION: Very limited exam. Uterus not well-visualized and left ovary not seen. Large heterogeneous predominately hyperechoic bilobed right ovarian lesion consistent with a dermoid.
--- NOTE | ~2023-03-01 | US_ITS ---
EXAMINATION: US RETROPERITONEAL LIMITED (RENAL ONLY) CLINICAL INFORMATION: Rule out renal vein thrombosis. Left pyelonephritis.. COMPARISON: Previous CT of the abdomen and pelvis from earlier the same day TECHNIQUE: Grayscale and color imaging of the kidneys. Grayscale and color Doppler evaluation of the renal veins occluded waveform spectral analysis FINDINGS: RIGHT KIDNEY: 12.9 x 6 x 5.8 cm (SAG x AP x TRV). The kidney is normal in size, contour, and echogenicity. Renal cortical thickness is normal. No calculi or focal parenchymal lesions. No hydronephrosis. The right renal vein is patent. LEFT KIDNEY: 12.6 x 7.4 x 5.3 cm (SAG x AP x TRV). The kidney is normal in size, contour, and echogenicity. There is renal cortical thickening. Renal cortical thickness measures up to 2.5 cm. No calculi or focal parenchymal lesions. No hydronephrosis. The left renal vein is patent. US/US renal BI IMPRESSION: Patent bilateral renal veins. Left renal cortical thickening.
--- NOTE | ~2023-03-01 | CT_ITS ---
EXAMINATION: CT ABDOMEN AND PELVIS WITHOUT CONTRAST CLINICAL INFORMATION: Abdominal pain, nausea and vomiting COMPARISON: None available. TECHNIQUE: Multidetector volumetric imaging was performed from the superior aspect of the liver through the pubic symphysis. Sagittal and coronal reformatted images were obtained on the technologist's workstation. This CT examination was performed using dose optimization techniques as appropriate, variously including the following: *Automated exposure control *Adjustment of mA and/or kV according to patient size (this includes techniques or standardized protocols for targeted exams where dose is matched to indication/reason for exam; i.e. extremities or head) *Use of iterative reconstruction technique DLP: 1161 mGy-cm FINDINGS: LUNG BASES: The visualized lung bases are unremarkable. LIVER, GALLBLADDER, AND BILIARY TREE: The liver is normal in size, shape, and attenuation. No focal hepatic lesion or biliary ductal dilatation is present. The gallbladder is unremarkable with no evidence of radiopaque gallstones, gallbladder wall thickening, or obvious pericholecystic inflammatory changes. PANCREAS: Unremarkable. SPLEEN: Unremarkable. ADRENAL GLANDS: Unremarkable. KIDNEYS AND URETERS: The kidneys are normal in size, shape, and attenuation. No hydronephrosis, hydroureter, or calculi seen. There is question of asymmetric left renal cortical thickening left renal cortical thickness measures 2.5. There is increased stranding of the left perinephric fat. BLADDER: Unremarkable. GASTROINTESTINAL TRACT: The small and large bowel are unremarkable. The appendix is unremarkable. ABDOMINAL WALL: No significant hernia is appreciated. LYMPH NODES: There is shotty retroperitoneal lymphadenopathy. No enlarged lymph nodes. VASCULAR: Unremarkable. PELVIC VISCERA: There are bilateral partially fatty adnexal masses suggestive of dermoids. These measure 7.5 x 4.5 x 6 cm on the right and 5 x 6 x 4 cm on the left. No fluid in the pelvis. OSSEOUS STRUCTURES: Unremarkable. CT/CT abdomen pelvis wo IV con IMPRESSION: Question left renal cortical thickening and increased perinephric fat stranding. Possible pyelonephritis should be considered. Differential would include infiltrative renal process or renal vein thrombosis. This could be better evaluated with a repeat exam with IV contrast clinically indicated. Large bilateral ovarian or white. STORE MANAGEMENT TRAINEE consultation recommended. Fleischner guidelines were followed.
--- NOTE | ~2023-03-01 | XR_ITS ---
EXAMINATION: XR CHEST CLINICAL INFORMATION: Shortness of breath COMPARISON: None available. TECHNIQUE: Frontal view of the chest was obtained. FINDINGS: No significant abnormality is noted involving the heart, lungs, mediastinum, bony thorax or soft tissues. XR/XR chest 1V IMPRESSION: Unremarkable examination.
--- NOTE | ~2023-03-01 | US_ITS ---
EXAMINATION: US PELVIS CLINICAL INFORMATION: Bilateral dermoid cysts seen on CT scan. COMPARISON: Previous CT of the abdomen and pelvis from earlier the same day. TECHNIQUE: Ultrasound of the pelvis is performed using both transabdominal and transvaginal transducers along with Doppler. Patient declined transvaginal exam. FINDINGS: The uterus is not well visualized. There is a bilobed right adnexal mass. This is heterogeneous in echotexture with large hyperechoic component and some acoustic shadowing. This measures 3.4 x 3.7 x 5 cm and 4 x 3.5 x 3.5 cm. Arterial and venous flow is documented to the right ovary. The left ovary is not seen. Large left adnexal mass seen by CT is not appreciated. Doppler flow to the left ovary could not be performed. There is no fluid in the pelvis. US/US pelvic and transvaginal IMPRESSION: Very limited exam. Uterus not well-visualized and left ovary not seen. Large heterogeneous predominately hyperechoic bilobed right ovarian lesion consistent with a dermoid.
--- NOTE | 2023-03-01 07:59 | ED.GENADULT ---
HPI - General Adult General Chief complaint: General Medical <MANOJ Gonzalez Last Filed: 03/01/23 15:44> Stated complaint: VOMITING,COUGH,?COVID PER EMS <MANOJ Gonzalez - Last Filed: 03/01/23 15:44> Time Seen by Provider: 03/01/23 07:58 <MANOJ Gonzalez - Last Filed: 03/01/23 15:44> Source: patient and EMS <MANOJ Gonzalez Last Filed: 03/01/23 15:44> Mode of arrival: EMS <MANOJ Gonzalez Last Filed: 03/01/23 15:44> Limitations: no limitations <MANOJ Gonzalez Last Filed: 03/01/23 15:44> History of Present Illness HPI narrative: Patient is a 27 year old assigned female at with a history of schizoaffective disorder, PCP abuse, and PTSD presenting to the emergency department today with 3 days of nausea, vomiting, and body aches. Patient states that over the last 3 days, she has had nausea, vomiting, and body aches. Patient states that she has had a harder time urinating during that time frame as well. Patient denies any dizziness, lightheadedness, abdominal pain, fever, chills, blurry vision, double vision, loss of vision, chest pain, difficulty breathing, shortness of breath, back pain, night sweats, syncope or a near syncopal episode, recent trauma or falls, bowel incontinence, bladder incontinence, bowel retention, or any other complaints at this time. <MANOJ Gonzalez - Last Filed: 03/01/23 15:44> Onset (ago): day(s) (3) <MANOJ Gonzalez - Last Filed: 03/01/23 15:44> Severity: mild <MANOJ Gonzalez Last Filed: 03/01/23 15:44> Severity scale (1-10): 3 <MANOJ Gonzalez Last Filed: 03/01/23 15:44> Relieving factors: none <MANOJ Gonzalez Last Filed: 03/01/23 15:44> Exacerbating factors: none <MANOJ Gonzalez Last Filed: 03/01/23 15:44> Associated symptoms: nausea/vomiting <MANOJ Gonzalez Last Filed: 03/01/23 15:44> Treatments prior to arrival: none <MANOJ Gonzalez Last Filed: 03/01/23 15:44> Related Data Home medications: Home Medications Medication Instructions Recorded Confirmed No Known Home Meds 03/01/23 03/01/23 <MANOJ Gonzalez Last Filed: 03/01/23 15:44> Allergies/adverse reactions: Allergies Allergy/AdvReac Type Severity Reaction Status Date / Time No Known Allergies Allergy Verified 08/14/22 23:31 [No Known Allergies*] <MANOJ Gonzalez Last Filed: 03/01/23 15:44> Review of Systems Constitutional: Constitutional: Reports no additional constitutional complaints, Denies chills, Denies fever(s) and Denies night sweats <MANOJ Gonzalez Last Filed: 03/01/23 15:44> Eyes: Eyes: Reports no additional eye complaints, Denies blurry vision, Denies change in vision, Denies diplopia, Denies eye discharge, Denies loss of vision and Denies eye pain <MANOJ Gonzalez Last Filed: 03/01/23 15:44> ENT: Denies dizziness <MANOJ Gonzalez Last Filed: 03/01/23 15:44> Cardiovascular: Cardiovascular: Reports no additional cardiovascular complaints, Denies chest pain, Denies lightheadedness, Denies Loss of Consciousness and Denies dyspnea <MANOJ Gonzalez Last Filed: 03/01/23 15:44> Respiratory: Respiratory: Reports no additional respiratory complaints and Denies dyspnea <MANOJ Gonzalez Last Filed: 03/01/23 15:44> Gastrointestinal: Gastrointestinal: Reports no additional gastrointestinal complaints, Denies abdominal pain, Denies melena, Denies hematochezia, Denies change in bowel habits, Denies change in stool character, Reports nausea and Reports vomiting <MANOJ Gonzalez Last Filed: 03/01/23 15:44> Genitourinary: Genitourinary: Denies urinary frequency and Reports difficulty voiding <MANOJ Gonzalez Last Filed: 03/01/23 15:44> Musculoskeletal: Musculoskeletal: Reports no additional musculoskeletal complaints, Denies numbness and Denies tingling <MANOJ Gonzalez - Last Filed: 03/01/23 15:44> Neurologic: Denies dizziness, Denies loss of vision, Denies numbness and Denies tingling <MANOJ Gonzalez - Last Filed: 03/01/23 15:44> Psychiatric: Psychiatric: Reports no additional psychiatric complaints <MANOJ Gonzalez - Last Filed: 03/01/23 15:44> Endocrine: Endocrine: Reports no additional endocrine complaints <MANOJ Gonzalez - Last Filed: 03/01/23 15:44> Hematologic/Lymphatic: Hematologic/Lymphatic: Reports no additional hematologic/lymphatic complaints <MANOJ Gonzalez - Last Filed: 03/01/23 15:44> Allergic/Immunologic: Allergic/Immunologic: Reports no additional allergic/immunologic complaints <MANOJ Gonzalez - Last Filed: 03/01/23 15:44> PMFSH Past Medical History Attestation statement: The following information was validated with the patient. <MANOJ Gonzalez - Last Filed: 03/01/23 15:44> Source: old records reviewed and nursing notes reviewed <MANOJ Gonzalez - Last Filed: 03/01/23 15:44> Medical History: Medical History Anxiety Asthma Bipolar disorder Depression Hypertension Schizoaffective disorder, bipolar type Substance abuse <MANOJ Gonzalez - Last Filed: 03/01/23 15:44> Social History Social History: Social History Household Members: None Housing: House Do you presently have visiting nurse or other home services: No Alcohol intake: current Alcohol intake frequency: holidays/special occasions only Patient Tobacco Use Status: Never used Tobacco Tobacco use type: Cigarette Smoked in Last 30 Days: No e-Cigarette/Vaping Use: Currently Using Second Hand Smoke Exposure: No Use of substances other than those prescribed or required for medical reasons: Yes Substance Use Type: Marijuana Advance Directives: No Advance Directives Information Provided: No Nutrition Risks: Acute nausea or vomiting x1 week service: No Sexual orientation: Did not discuss <MANOJ Gonzalez - Last Filed: 03/01/23 15:44> Physical Exam ED Vital Signs: Vital Signs - 24 hr 03/01/23 07:09 03/01/23 09:20 03/01/23 10:09 Temperature 100.2 F Pulse Rate 99 114 H 90 Respiratory Rate 18 16 18 Blood Pressure 91/43 L 85/41 L Pulse Oximetry 99 93 Oxygen Delivery Method Room Air Room Air 03/01/23 11:47 03/01/23 11:30 Temperature 98.5 F Pulse Rate 79 Respiratory Rate 16 Blood Pressure 105/51 L Pulse Oximetry 99 Oxygen Delivery Method Room Air BMI result Body Mass Index 43.9 <MANOJ Gonzalez Last Filed: 03/01/23 15:44> Vital Signs - 24 hr 03/01/23 07:09 03/01/23 09:20 03/01/23 10:09 Temperature 100.2 F Pulse Rate 99 114 H 90 Respiratory Rate 18 16 18 Blood Pressure 91/43 L 85/41 L Pulse Oximetry 99 93 Oxygen Delivery Method Room Air Room Air 03/01/23 11:47 03/01/23 11:30 Temperature 98.5 F Pulse Rate 79 Respiratory Rate 16 Blood Pressure 105/51 L Pulse Oximetry 99 Oxygen Delivery Method Room Air BMI result Body Mass Index 43.9 <Skip Galan MD - Last Filed: 03/01/23 10:15> Const General: cooperative, no acute distress, alert and awake <MANOJ Gonzalez Last Filed: 03/01/23 15:44> Nutritional Appearance: well nourished <MANOJ Gonzalez Last Filed: 03/01/23 15:44> Orientation/consciousness: patient oriented x3 <MANOJ Gonzalez - Last Filed: 03/01/23 15:44> Limitations: no limitations <MANOJ Gonzalez Last Filed: 03/01/23 15:44> HENMT Head: Yes normal to inspection and Yes atraumatic <MANOJ Gonzalez Last Filed: 03/01/23 15:44> Ears: hearing grossly normal bilaterally and external ears normal <MANOJ Gonzalez Last Filed: 03/01/23 15:44> General nose exam: Normal external nose present, no nasal discharge noted and no epistaxis <MANOJ Gonzalez - Last Filed: 03/01/23 15:44> Face and sinus: Yes normal facial exam, No abrasion and No laceration <Bailey [facility] - Last Filed: 03/01/23 15:44> Mouth: Normal oral and palatal mucosa present, no drooling and no muffled voice <Bailey España [facility] Last Filed: 03/01/23 15:44> Eyes General: appearance normal, both eyes and all related structures <Bailey [facility] - Last Filed: 03/01/23 15:44> Periorbital: periorbital findings normal <Bailey [facility] - Last Filed: 03/01/23 15:44> Eyelids: Yes eyelids normal <Bailey España [facility] Last Filed: 03/01/23 15:44> Conjunctivae: conjunctivae normal <Bailey [facility] - Last Filed: 03/01/23 15:44> Pupils: Equal, round and reactive pupils present <Bailey [facility] - Last Filed: 03/01/23 15:44> EOM: EOMs intact bilaterally <Bailey España [facility] Last Filed: 03/01/23 15:44> Neck Neck: Yes normal visual inspection, Yes full ROM and Yes no lymphadenopathy <Bailey España [facility] Last Filed: 03/01/23 15:44> Chest Chest palpation & inspection: normal inspection of the chest <Bailey España [facility] Last Filed: 03/01/23 15:44> Resp Effort & Inspection: normal respiratory effort and able to speak in complete sentences <Bailey España [facility] Last Filed: 03/01/23 15:44> Auscultation: clear to auscultation bilaterally <Bailey España [facility] Last Filed: 03/01/23 15:44> Cardio Rate: regular rate <Bailey [facility] - Last Filed: 03/01/23 15:44> Rhythm: regular rhythm <Bailey [facility] - Last Filed: 03/01/23 15:44> GI Inspection: Yes normal to inspection <Bailey España [facility] Last Filed: 03/01/23 15:44> Palpation (GI): Soft to palpation, not firm, nontender and no guarding <Bailey [facility] - Last Filed: 03/01/23 15:44> Neuro General: patient oriented x3 and moves all extremities <Bailey [facility] - Last Filed: 03/01/23 15:44> Cranial nerves: Yes Equal, round and reactive pupils present <Bailey [facility] - Last Filed: 03/01/23 15:44> Cognition (Neuro): normal cognition <Bailye [facility] - Last Filed: 03/01/23 15:44> Motor exam (neuro): 5/5 motor strength present throughout <Bailey [facility] - Last Filed: 03/01/23 15:44> Sensory Exam: Normal double simultaneous stimulation for sensation <Bailey [facility] - Last Filed: 03/01/23 15:44> Coordination: [id number] test normal <Bailey [facility] - Last Filed: 03/01/23 15:44> Extrem General: Yes normal to inspection, Yes full ROM and Yes capillary refill normal <Bailey [facility] - Last Filed: 03/01/23 15:44> Psych Appearance: grossly normal <Bailey [facility] - Last Filed: 03/01/23 15:44> Mental Status: mental status grossly normal <Bailey [facility] - Last Filed: 03/01/23 15:44> Affect: normal affect <Bailey [facility] - Last Filed: 03/01/23 15:44> Attitude: cooperative <Bailey [facility] - Last Filed: 03/01/23 15:44> Thought process: Normal thought process present <Bailey EddyMANOJ gunn - Last Filed: 03/01/23 15:44> Thought content: Normal thought content present <Bailey EddyMANOJ gunn - Last Filed: 03/01/23 15:44> Insight: Good insight present (Psych) <Baileyleobardo EddyMANOJ gunn - Last Filed: 03/01/23 15:44> Course Reevaluation(s) Reevaluation #1: I discussed with the PA the plan and history <Skip Galan MD - Last Filed: 03/01/23 10:15> Time: 10:15 <Skip Galan MD - Last Filed: 03/01/23 10:15> Medications Administered Generic Name Dose Route Start Last Admin Trade Name Freq PRN Reason Stop Dose Admin Acetaminophen 650 mg 03/01/23 12:29 03/01/23 15:35 Acetaminophen 325 Mg Tablet PO 650 mg Q6H PRN Administration Pain, Mild (Pain Scale 1-3) Enoxaparin Sodium 40 mg 03/01/23 14:00 03/01/23 15:35 Enoxaparin Sodium 40 Mg/0.4 Ml Syringe SUBCUT 40 mg Q24H KINDRA Administration Sodium Chloride 1,000 mls @ 150 mls/hr 03/01/23 12:30 03/01/23 15:28 Ns IVCONT 150 mls/hr .Q6H40M KINDRA Administration Sodium Chloride 3 ml 03/01/23 16:00 03/01/23 15:28 0.9 % Sodium Chloride Flush 3 Ml Syringe IVFLUSH 3 ml QSHIFT KINDRA Administration Discontinued Medications Generic Name Dose Route Start Last Admin Trade Name Brenda PRN Reason Stop Dose Admin Acetaminophen 975 mg 03/01/23 07:59 03/01/23 08:33 Acetaminophen 325 Mg Tablet PO 03/01/23 08:00 975 mg ONCE ONE Administration Albuterol Sulfate 2 puff 03/01/23 08:43 03/01/23 09:17 Albuterol Sulfate 90 Mcg 8 Gm Inhaler INHALE 03/01/23 08:44 2 puff ONCE ONE Administration Dexamethasone Sodium Phosphate 10 mg 03/01/23 08:43 03/01/23 09:17 Dexamethasone Sod Phosphate 10 Mg/Ml Vial IVPUSH 03/01/23 08:44 10 mg ONCE ONE Administration Sodium Chloride 1,000 mls @ 999 mls/hr 03/01/23 08:00 03/01/23 10:00 Ns IV 03/01/23 09:00 Infused .Q1H1M KINDRA Infusion Sodium Chloride 1,000 mls @ 999 mls/hr 03/01/23 09:15 03/01/23 11:05 Ns IV 03/01/23 10:15 Infused .Q1H1M KINDRA Infusion Ceftriaxone Sodium 2 gm/ 50 mls @ 100 mls/hr 03/01/23 10:13 03/01/23 11:30 Sodium Chloride IV 03/01/23 10:42 Infused ONCE ONE Infusion <MANOJ Gonzalez - Last Filed: 03/01/23 15:44> Medications Administered Generic Name Dose Route Start Last Admin Trade Name Freq PRN Reason Stop Dose Admin Acetaminophen 650 mg 03/01/23 12:29 03/01/23 15:35 Acetaminophen 325 Mg Tablet PO 650 mg Q6H PRN Administration Pain, Mild (Pain Scale 1-3) Enoxaparin Sodium 40 mg 03/01/23 14:00 03/01/23 15:35 Enoxaparin Sodium 40 Mg/0.4 Ml Syringe SUBCUT 40 mg Q24H KINDRA Administration Sodium Chloride 1,000 mls @ 150 mls/hr 03/01/23 12:30 03/01/23 15:28 Ns IVCONT 150 mls/hr .Q6H40M KINDRA Administration Sodium Chloride 3 ml 03/01/23 16:00 03/01/23 15:28 0.9 % Sodium Chloride Flush 3 Ml Syringe IVFLUSH 3 ml QSHIFT KINDRA Administration Discontinued Medications Generic Name Dose Route Start Last Admin Trade Name Freq PRN Reason Stop Dose Admin Acetaminophen 975 mg 03/01/23 07:59 03/01/23 08:33 Acetaminophen 325 Mg Tablet PO 03/01/23 08:00 975 mg ONCE ONE Administration Albuterol Sulfate 2 puff 03/01/23 08:43 03/01/23 09:17 Albuterol Sulfate 90 Mcg 8 Gm Inhaler INHALE 03/01/23 08:44 2 puff ONCE ONE Administration Dexamethasone Sodium Phosphate 10 mg 03/01/23 08:43 03/01/23 09:17 Dexamethasone Sod Phosphate 10 Mg/Ml Vial IVPUSH 03/01/23 08:44 10 mg ONCE ONE Administration Sodium Chloride 1,000 mls @ 999 mls/hr 03/01/23 08:00 03/01/23 10:00 Ns IV 03/01/23 09:00 Infused .Q1H1M KINDRA Infusion Sodium Chloride 1,000 mls @ 999 mls/hr 03/01/23 09:15 03/01/23 11:05 Ns IV 03/01/23 10:15 Infused .Q1H1M KINDRA Infusion Ceftriaxone Sodium 2 gm/ 50 mls @ 100 mls/hr 03/01/23 10:13 03/01/23 11:30 Sodium Chloride IV 03/01/23 10:42 Infused ONCE ONE Infusion <Skip Galan MD - Last Filed: 03/01/23 10:15> Medical Decision Making Medical Decision Making [facility] Narrative: Patient is a 27 year old assigned female at with a history of PCP use, schizoaffective disorder, and PTSD presenting to the emergency department today with nausea, vomiting, and decreased urinary output. Patient's physical exam was unremarkable. Patient's blood work showed an elevated WBC count and CR. Patient's urine showed a possible UTI. Patient's abdomen/pelvis CT showed probable pyelonephritis. Infection was not on my initial differential for this patient until 1007 when the patient's abdomen/pelvis CT scan was read as pyelonephritis. At 1045 a lactic acid was ordered however, at 1055 the patient refused the blood draw. Patient refused the lactic acid blood draw again at 1105. Patient was given IV Ceftriaxone and 2L of NS. Patient's clinical presentation is most consistent with pyelonephritis however, it is not consistent with sepsis or septic shock (@1045). I spoke to the hospitalist team who agreed to admission. I explained my physical exam findings as well as all test results to the patient. I answered all questions asked by the patient. Patient verbalized agreement and understanding with this treatment plan and admission. <MANOJ Gonzalez - Last Filed: 03/01/23 15:44> Differential Diagnosis Differential Diagnoses: The differential diagnosis associated with the presentation includes <MANOJ Gonzalez - Last Filed: 03/01/23 15:44> pyelonephritis <MANOJ Gonzalez - Last Filed: 03/01/23 15:44> Consult Healthcare Provider Management of the patient was discussed with: Support Staff (spoke to the hospitalist team who agreed to admission) <MANOJ Gonzalez Last Filed: 03/01/23 15:44> Lab Data [facility] Lab Attestation statement: I reviewed the patient's lab results. <MANOJ Gonzalez Last Filed: 03/01/23 15:44> Result Diagrams: 03/01/23 08:24 03/01/23 08:24 <MANOJ Gonzalez Last Filed: 03/01/23 15:44> Labs: Lab Results 03/01/23 03/01/23 03/01/23 Range/Units 08:24 08:24 08:24 WBC 19.9 H (4.8-10.8) X10*3/uL RBC 4.18 L (4.20-5.50) X10*6/uL Hgb 12.5 (12.0-16.0) g/dl Hct 35.8 L (37.0-47.0) % MCV 85.6 (80.0-98.0) fL MCH 29.9 (27.0-33.0) pg MCHC 34.9 (31.0-35.0) g/dl RDW 13.2 (11.0-16.0) % Plt Count 203 D (160-400) X10*3/uL MPV Not Reportable Immature Gran % (Auto) 0.6 H (0.0-0.4) % Neut % (Auto) 90.1 H (45-73) % Lymph % (Auto) 3.5 L (20-40) % Blount % (Auto) 4.9 (2-11) % Eos % (Auto) 0.7 (0-4) % Baso % (Auto) 0.2 (0-2) % Lymph # (Auto) 0.7 L (1.2-4.9) X10*3/uL Blount # (Auto) 1.0 (0.1-1.2) X10*3/uL Eos # (Auto) 0.1 (0.0-0.4) X10*3/uL Baso # (Auto) 0.0 (0.0-0.2) X10*3/uL Abs Immat Gran (auto) 0.11 H (0.00-0.03) X10*3/uL Absolute Neuts (auto) 17.9 H (2.0-8.3) x10*3/uL Absolute Nucleated RBC 0.020 H (0.0-0.012) X10*3/uL Nucleated RBC % (auto) 0.1 (0.0-0.2) /100WBC Smear Tech's Comments VERIFIED Sodium 135 (135-145) mmol/L Potassium 3.8 (3.3-5.1) mmol/L Chloride 99 (96-108) mmol/L Carbon Dioxide 24 (22-29) mmol/L Anion Gap 16 (12-20) BUN 21 H (9-16) mg/dL Creatinine 2.80 H (0.5-1.4) mg/dL Estim Creat Clear Calc 35.7 Estimated GFR 21 Random Glucose 119 H (60-115) mg/dL Calcium 8.3 L D (8.4-10.2) mg/dL Magnesium 1.6 (1.6-2.6) mg/dL Total Bilirubin 1.7 H (0.0-1.0) mg/dL AST 15 (5-31) U/L ALT 15 (0-31) U/L Alkaline Phosphatase 73 (39-117) U/L Total Creatine Kinase 143 H (26-140) U/L Total Protein 6.4 L (6.5-8.0) g/dL Albumin 3.4 L (3.5-5.0) g/dL Beta HCG, Quant < 2 mIU/mL Urine Color Urine Appearance Urine pH (5.0-9.0) Ur Specific [place] (1.005-1.025) Urine Protein (Neg-Trace) mg/dL Urine Glucose (UA) (Negative) mg/dL Urine Ketones (Negative) mg/dL Urine Blood (Negative) Urine Nitrite (Negative) Ur Leukocyte Esterase (Negative) Urine RBC (0-2) /HPF Urine WBC (0-5) /HPF Ur Squamous Epith Cells (0-2) /HPF Urine Bacteria (None Seen) Hyaline Casts (0-2) /LPF Ur Random Sodium mmol/L Urine Creatinine mg/dL COVID-19 ([facility]) Negative (Negative) COVID-19 Clin Com See Note Influenza Type A ([facility]) (Negative) Influenza Type B ([facility]) (Negative) Influenza A & B Note 03/01/23 03/01/23 03/01/23 Range/Units 09:27 11:42 11:42 WBC (4.8-10.8) X10*3/uL RBC (4.20-5.50) X10*6/uL Hgb (12.0-16.0) g/dl Hct (37.0-47.0) % MCV (80.0-98.0) fL MCH (27.0-33.0) pg MCHC (31.0-35.0) g/dl RDW (11.0-16.0) % Plt Count (160-400) X10*3/uL MPV Immature Gran % (Auto) (0.0-0.4) % Neut % (Auto) (45-73) % Lymph % (Auto) (20-40) % Blount % (Auto) (2-11) % Eos % (Auto) (0-4) % Baso % (Auto) (0-2) % Lymph # (Auto) (1.2-4.9) X10*3/uL Blount # (Auto) (0.1-1.2) X10*3/uL Eos # (Auto) (0.0-0.4) X10*3/uL Baso # (Auto) (0.0-0.2) X10*3/uL Abs Immat Gran (auto) (0.00-0.03) X10*3/uL Absolute Neuts (auto) (2.0-8.3) x10*3/uL Absolute Nucleated RBC (0.0-0.012) X10*3/uL Nucleated RBC % (auto) (0.0-0.2) /100WBC Smear Tech's Comments Sodium (135-145) mmol/L Potassium (3.3-5.1) mmol/L Chloride (96-108) mmol/L Carbon Dioxide (22-29) mmol/L Anion Gap (12-20) BUN (9-16) mg/dL Creatinine (0.5-1.4) mg/dL Estim Creat Clear Calc Estimated GFR Random Glucose (60-115) mg/dL Calcium (8.4-10.2) mg/dL Magnesium (1.6-2.6) mg/dL Total Bilirubin (0.0-1.0) mg/dL AST (5-31) U/L ALT (0-31) U/L Alkaline Phosphatase (39-117) U/L Total Creatine Kinase (26-140) U/L Total Protein (6.5-8.0) g/dL Albumin (3.5-5.0) g/dL Beta HCG, Quant mIU/mL Urine Color Dark Yellow Urine Appearance Turbid Urine pH 5.5 (5.0-9.0) Ur Specific [place] 1.010 (1.005-1.025) Urine Protein 100 (2+) H (Neg-Trace) mg/dL Urine Glucose (UA) Negative (Negative) mg/dL Urine Ketones Negative (Negative) mg/dL Urine Blood Large (3+) H (Negative) Urine Nitrite Negative (Negative) Ur Leukocyte Esterase Large (3+) H (Negative) Urine RBC 11-20 H (0-2) /HPF Urine WBC >50 H (0-5) /HPF Ur Squamous Epith Cells 6-10 (0-2) /HPF Urine Bacteria None Seen (None Seen) Hyaline Casts 3-5 (0-2) /LPF Ur Random Sodium 30.0 mmol/L Urine Creatinine 188.30 mg/dL COVID-19 ([facility]) (Negative) COVID-19 Clin Com Influenza Type A ([facility]) Negative (Negative) Influenza Type B ([facility]) Negative (Negative) Influenza A & B Note See Note <MANOJ Gonzalez - Last Filed: 03/01/23 15:44> Lab Results 03/01/23 03/01/23 03/01/23 Range/Units 08:24 08:24 08:24 WBC 19.9 H (4.8-10.8) X10*3/uL RBC 4.18 L (4.20-5.50) X10*6/uL Hgb 12.5 (12.0-16.0) g/dl Hct 35.8 L (37.0-47.0) % MCV 85.6 (80.0-98.0) fL MCH 29.9 (27.0-33.0) pg MCHC 34.9 (31.0-35.0) g/dl RDW 13.2 (11.0-16.0) % Plt Count 203 D (160-400) X10*3/uL MPV Not Reportable Immature Gran % (Auto) 0.6 H (0.0-0.4) % Neut % (Auto) 90.1 H (45-73) % Lymph % (Auto) 3.5 L (20-40) % Blount % (Auto) 4.9 (2-11) % Eos % (Auto) 0.7 (0-4) % Baso % (Auto) 0.2 (0-2) % Lymph # (Auto) 0.7 L (1.2-4.9) X10*3/uL Blount # (Auto) 1.0 (0.1-1.2) X10*3/uL Eos # (Auto) 0.1 (0.0-0.4) X10*3/uL Baso # (Auto) 0.0 (0.0-0.2) X10*3/uL Abs Immat Gran (auto) 0.11 H (0.00-0.03) X10*3/uL Absolute Neuts (auto) 17.9 H (2.0-8.3) x10*3/uL Absolute Nucleated RBC 0.020 H (0.0-0.012) X10*3/uL Nucleated RBC % (auto) 0.1 (0.0-0.2) /100WBC Smear Tech's Comments VERIFIED Sodium 135 (135-145) mmol/L Potassium 3.8 (3.3-5.1) mmol/L Chloride 99 (96-108) mmol/L Carbon Dioxide 24 (22-29) mmol/L Anion Gap 16 (12-20) BUN 21 H (9-16) mg/dL Creatinine 2.80 H (0.5-1.4) mg/dL Estim Creat Clear Calc 35.7 Estimated GFR 21 Random Glucose 119 H (60-115) mg/dL Calcium 8.3 L D (8.4-10.2) mg/dL Magnesium 1.6 (1.6-2.6) mg/dL Total Bilirubin 1.7 H (0.0-1.0) mg/dL AST 15 (5-31) U/L ALT 15 (0-31) U/L Alkaline Phosphatase 73 (39-117) U/L Total Creatine Kinase 143 H (26-140) U/L Total Protein 6.4 L (6.5-8.0) g/dL Albumin 3.4 L (3.5-5.0) g/dL Beta HCG, Quant < 2 mIU/mL Urine Color Urine Appearance Urine pH (5.0-9.0) Ur Specific [place] (1.005-1.025) Urine Protein (Neg-Trace) mg/dL Urine Glucose (UA) (Negative) mg/dL Urine Ketones (Negative) mg/dL Urine Blood (Negative) Urine Nitrite (Negative) Ur Leukocyte Esterase (Negative) Urine RBC (0-2) /HPF Urine WBC (0-5) /HPF Ur Squamous Epith Cells (0-2) /HPF Urine Bacteria (None Seen) Hyaline Casts (0-2) /LPF Ur Random Sodium mmol/L Urine Creatinine mg/dL COVID-19 ([facility]) Negative (Negative) COVID-19 Clin Com See Note Influenza Type A ([facility]) (Negative) Influenza Type B ([facility]) (Negative) Influenza A & B Note 03/01/23 03/01/23 03/01/23 Range/Units 09:27 11:42 11:42 WBC (4.8-10.8) X10*3/uL RBC (4.20-5.50) X10*6/uL Hgb (12.0-16.0) g/dl Hct (37.0-47.0) % MCV (80.0-98.0) fL MCH (27.0-33.0) pg MCHC (31.0-35.0) g/dl RDW (11.0-16.0) % Plt Count (160-400) X10*3/uL MPV Immature Gran % (Auto) (0.0-0.4) % Neut % (Auto) (45-73) % Lymph % (Auto) (20-40) % Blount % (Auto) (2-11) % Eos % (Auto) (0-4) % Baso % (Auto) (0-2) % Lymph # (Auto) (1.2-4.9) X10*3/uL Blount # (Auto) (0.1-1.2) X10*3/uL Eos # (Auto) (0.0-0.4) X10*3/uL Baso # (Auto) (0.0-0.2) X10*3/uL Abs Immat Gran (auto) (0.00-0.03) X10*3/uL Absolute Neuts (auto) (2.0-8.3) x10*3/uL Absolute Nucleated RBC (0.0-0.012) X10*3/uL Nucleated RBC % (auto) (0.0-0.2) /100WBC Smear Tech's Comments Sodium (135-145) mmol/L Potassium (3.3-5.1) mmol/L Chloride (96-108) mmol/L Carbon Dioxide (22-29) mmol/L Anion Gap (12-20) BUN (9-16) mg/dL Creatinine (0.5-1.4) mg/dL Estim Creat Clear Calc Estimated GFR Random Glucose (60-115) mg/dL Calcium (8.4-10.2) mg/dL Magnesium (1.6-2.6) mg/dL Total Bilirubin (0.0-1.0) mg/dL AST (5-31) U/L ALT (0-31) U/L Alkaline Phosphatase (39-117) U/L Total Creatine Kinase (26-140) U/L Total Protein (6.5-8.0) g/dL Albumin (3.5-5.0) g/dL Beta HCG, Quant mIU/mL Urine Color Dark Yellow Urine Appearance Turbid Urine pH 5.5 (5.0-9.0) Ur Specific [place] 1.010 (1.005-1.025) Urine Protein 100 (2+) H (Neg-Trace) mg/dL Urine Glucose (UA) Negative (Negative) mg/dL Urine Ketones Negative (Negative) mg/dL Urine Blood Large (3+) H (Negative) Urine Nitrite Negative (Negative) Ur Leukocyte Esterase Large (3+) H (Negative) Urine RBC 11-20 H (0-2) /HPF Urine WBC >50 H (0-5) /HPF Ur Squamous Epith Cells 6-10 (0-2) /HPF Urine Bacteria None Seen (None Seen) Hyaline Casts 3-5 (0-2) /LPF Ur Random Sodium 30.0 mmol/L Urine Creatinine 188.30 mg/dL COVID-19 ([facility]) (Negative) COVID-19 Clin Com Influenza Type A (LEYLA) Negative (Negative) Influenza Type B (LEYLA) Negative (Negative) Influenza A & B Note See Note <Skip Galan MD - Last Filed: 03/01/23 10:15> Independent Interpretation I performed an independent interpretation of an: CT Scan <MANOJ Gonzalez - Last Filed: 03/01/23 15:44> Interpretation: My interpretation is in agreement with the radiologist's impression of these imaging studies. EXAMINATION: CT ABDOMEN AND PELVIS WITHOUT CONTRAST? CLINICAL INFORMATION: Abdominal pain, nausea and vomiting? COMPARISON: None available.? TECHNIQUE: Multidetector volumetric imaging was performed from the superior aspect of the liver through the pubic symphysis. Sagittal and coronal reformatted images were obtained on the technologist's workstation.? This CT examination was performed using dose optimization techniques as appropriate, variously including the following: *Automated exposure control *Adjustment of mA and/or kV according to patient size (this includes techniques or standardized protocols for targeted exams where dose is matched to indication/reason for exam; i.e. extremities or head) *Use of iterative reconstruction technique DLP: 1161 mGy-cm FINDINGS: LUNG BASES: The visualized lung bases are unremarkable.? LIVER, GALLBLADDER, AND BILIARY TREE: The liver is normal in size, shape, and attenuation. No focal hepatic lesion or biliary ductal dilatation is present. The gallbladder is unremarkable with no evidence of radiopaque gallstones, gallbladder wall thickening, or obvious pericholecystic inflammatory changes.? PANCREAS: Unremarkable.? SPLEEN: Unremarkable.? ADRENAL GLANDS: Unremarkable.? KIDNEYS AND URETERS: The kidneys are normal in size, shape, and attenuation. No hydronephrosis, hydroureter, or calculi seen. There is question of asymmetric left renal cortical thickening left renal cortical thickness measures 2.5. There is increased stranding of the left perinephric fat. BLADDER: Unremarkable.? GASTROINTESTINAL TRACT: The small and large bowel are unremarkable. The appendix is unremarkable.? ABDOMINAL WALL: No significant hernia is appreciated.? LYMPH NODES: There is shotty retroperitoneal lymphadenopathy. No enlarged lymph nodes. VASCULAR: Unremarkable. PELVIC VISCERA: There are bilateral partially fatty adnexal masses suggestive of dermoids. These measure 7.5 x 4.5 x 6 cm on the right and 5 x 6 x 4 cm on the left. No fluid in the pelvis. OSSEOUS STRUCTURES: Unremarkable.? CT/CT abdomen pelvis wo IV con IMPRESSION: Question left renal cortical thickening and increased perinephric fat stranding. Possible pyelonephritis should be considered. Differential would include infiltrative renal process or renal vein thrombosis. This could be better evaluated with a repeat exam with IV contrast clinically indicated. ? Large bilateral ovarian or white. FAMILY PRACTICE MEDICAL DOCTOR consultation recommended. ? Fleischner guidelines were followed. Dictated By: Catie Farley MD Signed By: Electronically signed by Catie Farley MD 03/01/23 1007 EXAMINATION: XR CHEST CLINICAL INFORMATION: Shortness of breath COMPARISON: None available. TECHNIQUE: Frontal view of the chest was obtained. FINDINGS: No significant abnormality is noted involving the heart, lungs, mediastinum, bony thorax or soft tissues. XR/XR chest 1V IMPRESSION: Unremarkable examination. Dictated By: Catie Farley MD Signed By: Electronically signed by Catie Farley MD 03/01/23 0940 <MANOJ Gonzalez - Last Filed: 03/01/23 15:44> Critical Care Time Critical Care Time Critical Care Time: Yes <MANOJ Gonzalez Last Filed: 03/01/23 15:44> Total Critical Care Time: 45 <MANOJ Gonzalez Last Filed: 03/01/23 15:44> Attestation: I spent 45 minutes of Critical Care Time with this patient. This does not include time spent on separately reported billable procedures. <MANOJ Gonzalez Last Filed: 03/01/23 15:44> Discharge Plan Discharge Clinical Impression: Pyelonephritis <MANOJ Gonzalez Last Filed: 03/01/23 15:44> Patient Disposition: Admitted As Inpatient <MANOJ Gonzalez Last Filed: 03/01/23 15:44> Interventions: Admission Worksheet (ED) Last Done: 03/01/23 15:20 <MANOJ Gonzalez - Last Filed: 03/01/23 15:44>
[2023-03-01 08:30] LABS: Hematocrit 35.8 % (37.0-47.0); NRBC Pct Auto 0.1 /100WBC (0.0-0.2); PLT CLUMP 1; Red Cell Distribution Width 13.2 % (11.0-16.0); SCAN SMEAR FLAG 1
[2023-03-01 08:32] LABS: Basophils Percent Auto 0.2 % (0-2); Eosinophils Absolute Auto 0.1 X10*3/uL (0.0-0.4); Eosinophils Percent Auto 0.7 % (0-4); Hemoglobin 12.5 g/dl (12.0-16.0); Imm Gran Abs Auto 0.11 X10*3/uL (0.00-0.03); Imm Gran Pct Auto 0.6 % (0.0-0.4); Lymphocytes Absolute Auto 0.7 X10*3/uL (1.2-4.9); Lymphocytes Percent Auto 3.5 % (20-40); MANUAL DIFF FLAG SCAN; Mean Corpuscular HGB Conc 34.9 g/dl (31.0-35.0); Mean Corpuscular Hemoglobin 29.9 pg (27.0-33.0); Mean Corpuscular Volume 85.6 fL (80.0-98.0); Monocytes Percent Auto 4.9 % (2-11); Neutrophils Absolute Auto 17.9 x10*3/uL (2.0-8.3); Neutrophils Percent Auto 90.1 % (45-73); Red Blood Count 4.18 X10*6/uL (4.20-5.50)
[2023-03-01] MEDS: 0.9 % Sodium Chloride 1,000 ML 999 ML IV ×2 (08:33→09:17)
[2023-03-01] MEDS: Acetaminophen 325 MG TABLET 975 MG PO (08:33)
--- NOTE | 2023-03-01 08:38 | PC.NURSE ---
PT IS NON COOPERATIVE WITH CARE, WAS FINALLY ABLE TO ESTABLISH IV ACCESS, LABS, AND COVID SWAB
[2023-03-01 08:47] LABS: COVID-19 Test Negative (Negative); IDNOW Serial# 55D5AD1C
[2023-03-01 08:54] LABS: Alanine Aminotransferase 15 U/L (0-31); Albumin Level 3.4 g/dL (3.5-5.0); Alkaline Phosphatase 73 U/L (39-117); Anion Gap 16 (12-20); Aspartate Amino Transferase 15 U/L (5-31); Bilirubin Total 1.7 mg/dL (0.0-1.0); Blood Urea Nitrogen 21 mg/dL (9-16); Calcium 8.3 mg/dL (8.4-10.2); Carbon Dioxide 24 mmol/L (22-29); Chloride 99 mmol/L (96-108); Creatinine Clr Calc Pharmacy 35.7; Estimated Glomerular Filt Rate 21; Glucose Random 119 mg/dL (60-115); Magnesium 1.6 mg/dL (1.6-2.6); Potassium 3.8 mmol/L (3.3-5.1); Sodium 135 mmol/L (135-145); Total Protein 6.4 g/dL (6.5-8.0)
[2023-03-01 08:56] LABS: HCG Quantitative < 2 mIU/mL
[2023-03-01 09:04] LABS: Platelet Count 203 X10*3/uL (160-400); White Blood Count 19.9 X10*3/uL (4.8-10.8)
[2023-03-01 09:05] LABS: SLIDE REVIEW VERIFIED
[2023-03-01] MEDS: dexAMETHasone sod phosphate 10 MG/ML VIAL IVPUSH (09:17)
[2023-03-01] MEDS: Albuterol Sulfate 90 MCG 8 GM INHALER 2 PUFF INHALE (09:17)
[2023-03-01 09:49] LABS: IDNOW Serial# BCCEAD1C; Influenza A Negative (Negative)
[2023-03-01 09:50] LABS: Influenza B2 Negative (Negative)
--- NOTE | 2023-03-01 10:09 | PC.NURSE ---
Patient BP low, provider made aware and went to see patient. Patient complaining of being sweaty offered a cool cloth but patient refused. Patient lung sounds clear, not tachy at this time.
[2023-03-01] MEDS: cefTRIAXone sodium 2 GM in 0.9 % Sodium Chloride 50 ML IV (10:38)
--- NOTE | 2023-03-01 10:45 | PC.NURSE ---
Attempted to straight cath patient, patient was agreeable at first but upon attempting to straight cat patient revoked permission stating that she will pee on her own. Provider made aware of this. Patient provided with heather beckett per request.
--- NOTE | 2023-03-01 11:01 | PHA.MEDREC ---
Pharmacy Consult ? Medication Reconciliation Pharmacy has completed the medication reconciliation. Pt states she is on no medications at home.
[2023-03-01 11:52] LABS: Appearance Urine Turbid; Color Urine Dark Yellow; Glucose Urine UA Negative (Negative); Leukocyte Esterase Urine Large (3+) (Negative); Nitrite Urine Negative (Negative); PH 5.5 (5.0-9.0); UMIC TRIGGER UACC YES; Urine Blood Large (3+) (Negative); Urine Ketones Negative (Negative); Urine Protein 100 (2+) mg/dL (Neg-Trace)
[2023-03-01 12:03] LABS: Bacteria Urine None Seen (None Seen); UACC Culture Trigger YES; WBC Urine >50 /HPF (0-5)
--- NOTE | 2023-03-01 12:15 | PC.NURSE ---
Patient refusing to have lactic acid drawn, patient approached multiple times for this but has refused each time.
[2023-03-01 12:29] LABS: Amphetamine Screen Urine Not Detected (Not Detect); Barbiturates, Urine Not Detected (Not Detect); Benzodiazepines Screen Urine Not Detected (Not Detect); Cannabinoid Screen Urine POSITIVE (Not Detect); Cocaine Screen Urine POSITIVE (Not Detect); Fentanyl, urine POSITIVE (Not Detect); Opiate Screen Urine Not Detected (Not Detect); Phencyclidine Screen Urine POSITIVE (Not Detect)
--- NOTE | 2023-03-01 12:34 | PM.IMHP ---
History of Present Illness Date of Service: 03/01/23 Attending physician on admission: Dora Liao Chief Complaint: n/v, PO intolerance 27-year-old female with history of bipolar disorder, depression, PCP abuse, schizoaffective disorder, PTSD presented to the ED for evaluation of nausea, recurrent vomiting, myalgias, and p.o. intolerance ongoing for 3 days. She states that she has not been able to tolerate any food and has been only drinking minimally low amounts of fluids. She has also been experiencing dysuria and decreased urine output as well as dark urine. Has had sweats and chills but has not taken her temperature. There has been generalized abdominal pain but no severe pain. Denies any diarrhea, constipation, melena hematochezia, hematemesis, lightheadedness, shortness of breath, chest pain, vaginal discharge, or vaginal bleeding. On arrival, pt temperature 100.2. Blood pressures soft with single episode hypotension 85/41 improved to 105/51 with IVF. Initially tachycardic to 114, resolved with IVF. There is leukocytosis of 19.9 with left shift. Creatinine 2.80 (baseline 0.83), BUN 21. Electrolytes normal. AST/ALT normal, total bilirubin 1.7. Total CK 143. HCC quantitative negative. UA with 3+ leukocytes, 3+ blood, 2+ protein, negative nitrites, positive urinary sediment, though no bacteria seen. Urine tox screen positive for fentanyl, PCP, cocaine, and THC. CXR negative. CT abdomen/pelvis with question of left renal cortical thickening and increased perinephric fat stranding, consider pyelonephritis or additional differential to include infiltrated renal process or renal vein thrombosis. Consider repeat IV contrast CT. There is also large bilateral ovarian masses measuring 7.5 x 4.5 x 6 cm on the right and 5 x 6 x 4 cm on the left. She denies pelvic pain. Pt is a .25 ppd cigarette smoker. Reports regular MJ use and occassional percocet use, denies other drug use. No etoh use. In the ED, given tylenol for low grade fever, 2L IV NS, 2g ceftriaxone, and dexamethasone. Pt to be admitted for acute pyelonephritis with TANNA. Review of Systems Review of Systems: General: No fevers, malaise, unintentional weight loss HEENT: No blurred vision, diplopia. No sore throat, nasal congestion, rhinorrhea, sinus pain, ear pain Cardiovascular: No chest pain, palpitations, or leg edema Respiratory: No shortness of breath, wheezing, cough GI: +diffuse abdominal pain, +nausea, +vomiting. Nodiarrhea, constipation, melena, hematochezia : +dysuria, +decreased urine output, +hematuria. No increased urinary frequency MSK: No myalgia, back pain Neuro: No headaches, weakness, paresthesias Skin: No rashes or lesions [facility] Medical History Anxiety Asthma Bipolar disorder Depression Hypertension Schizoaffective disorder, bipolar type Substance abuse Social History Household Members: None Housing: House Do you presently have visiting nurse or other home services: No Alcohol intake: current Alcohol intake frequency: holidays/special occasions only Patient Tobacco Use Status: Current everyday Tobacco user Tobacco use type: Cigarette Smoked in Last 30 Days: No e-Cigarette/Vaping Use: Currently Using Second Hand Smoke Exposure: No Use of substances other than those prescribed or required for medical reasons: Yes Substance Use Type: Marijuana Advance Directives: No Advance Directives Information Provided: No service: No Sexual orientation: Did not discuss Meds Allergies Allergy/AdvReac Type Severity Reaction Status Date / Time No Known Allergies Allergy Verified 08/14/22 23:31 [No Known Allergies*] Active Medications: Current Medications Acetaminophen (Acetaminophen 325 Mg Tablet) 650 mg PO Q6H PRN PRN Reason: Pain, Mild (Pain Scale 1-3) Docusate Sodium (Docusate Sodium 100 Mg Capsule) 100 mg PO BID PRN PRN Reason: Constipation Enoxaparin Sodium (Enoxaparin Sodium 40 Mg/0.4 Ml Syringe) 40 mg SUBCUT Q24H KINDRA Sodium Chloride (Ns) 1,000 mls @ 100 mls/hr IVCONT .Q10H KINDRA Ondansetron HCl (Ondansetron Hcl 4 Mg/2 Ml Vial) 4 mg IVPUSH Q8H PRN PRN Reason: Nausea and Vomiting Pharmacy Consult (Consult Rx Perform Med Rec) 1 each MISCELLANE ONCE PRN PRN Reason: Consult order Sodium Chloride (0.9 % Sodium Chloride Flush 3 Ml Syringe) 3 ml IVFLUSH QSHIFT [facility] Home Medications Medication Instructions Recorded Confirmed Last Taken Type No Known Home Meds 03/01/23 03/01/23 Unknown History Physical Exam Vital Signs and Narrative: Vital Signs: Last Vital Signs Temp 98.5 F 03/01/23 11:30 Pulse 79 03/01/23 11:47 Resp 16 03/01/23 11:47 BP 105/51 L 03/01/23 11:47 Pulse Ox 99 03/01/23 11:47 O2 Del Method Room Air 03/01/23 11:47 BMI result Body Mass Index 43.9 Constitutional - Awake and Alert, No apparent distress Eyes - PERRLA, EOMI Cardiovascular - S1S2, RRR, No edema Respiratory - Normal lung expansion, Normal respiratory effort, No respiratory distress, CTA bilaterally Gastrointestinal - Mild diffuse ttp without guarding or rebound. ND; +BS - Bilateral CVA tenderness Extremities - no calf tenderness bilaterally, no swelling Skin - Warm/Dry Neurological - Alert & oriented x3, CN II-XII in tact, 5/5 strength BUE and BLE Psychological - Appropriate affect Results Labs 03/01/23 08:24 03/01/23 08:24 Labs: Laboratory Results - last 24 hr 03/01/23 03/01/23 03/01/23 08:24 08:24 08:24 MCV 85.6 MCH 29.9 MCHC 34.9 RDW 13.2 Plt Count 203 D MPV Not Reportable Immature Gran % (Auto) 0.6 H Neut % (Auto) 90.1 H Lymph % (Auto) 3.5 L [place]cock % (Auto) 4.9 Eos % (Auto) 0.7 Baso % (Auto) 0.2 Lymph # (Auto) 0.7 L [place] # (Auto) 1.0 Eos # (Auto) 0.1 Baso # (Auto) 0.0 Abs Immat Gran (auto) 0.11 H Absolute Neuts (auto) 17.9 H Absolute Nucleated RBC 0.020 H Nucleated RBC % (auto) 0.1 Smear Tech's Comments VERIFIED Anion Gap 16 Estim Creat Clear Calc 35.7 Estimated GFR 21 Random Glucose 119 H Calcium 8.3 L D Magnesium 1.6 Total Bilirubin 1.7 H AST 15 ALT 15 Alkaline Phosphatase 73 Total Creatine Kinase 143 H Total Protein 6.4 L Albumin 3.4 L Beta HCG, Quant < 2 Urine Color Urine Appearance Urine pH Ur Specific [place] Urine Protein Urine Glucose (UA) Urine Ketones Urine Blood Urine Nitrite Ur Leukocyte Esterase Urine RBC Urine WBC Ur Squamous Epith Cells Urine Bacteria Hyaline Casts Urine Opiates Screen Urine Fentanyl Screen Ur Barbiturates Screen Ur Phencyclidine Scrn Ur Amphetamines Screen U Benzodiazepines Scrn Urine Cocaine Screen U Marijuana (THC) Screen COVID-19 ([facility]) Negative COVID-19 Clin Com See Note Influenza Type A ([facility]) Influenza Type B ([facility]) Influenza A & B Note 03/01/23 03/01/23 03/01/23 09:27 11:42 Unknown MCV MCH MCHC RDW Plt Count MPV Immature Gran % (Auto) Neut % (Auto) Lymph % (Auto) [place] % (Auto) Eos % (Auto) Baso % (Auto) Lymph # (Auto) [place] # (Auto) Eos # (Auto) Baso # (Auto) Abs Immat Gran (auto) Absolute Neuts (auto) Absolute Nucleated RBC Nucleated RBC % (auto) Smear Tech's Comments Anion Gap Estim Creat Clear Calc Estimated GFR Random Glucose Calcium Magnesium Total Bilirubin AST ALT Alkaline Phosphatase Total Creatine Kinase Total Protein Albumin Beta HCG, Quant Urine Color Dark Yellow Urine Appearance Turbid Urine pH 5.5 Ur Specific [place] 1.010 Urine Protein 100 (2+) H Urine Glucose (UA) Negative Urine Ketones Negative Urine Blood Large (3+) H Urine Nitrite Negative Ur Leukocyte Esterase Large (3+) H Urine RBC 11-20 H Urine WBC >50 H Ur Squamous Epith Cells 6-10 Urine Bacteria None Seen Hyaline Casts 3-5 Urine Opiates Screen Not Detected Urine Fentanyl Screen POSITIVE H Ur Barbiturates Screen Not Detected Ur Phencyclidine Scrn POSITIVE H Ur Amphetamines Screen Not Detected U Benzodiazepines Scrn Not Detected Urine Cocaine Screen POSITIVE H U Marijuana (THC) Screen POSITIVE H COVID-19 ([facility]) COVID-19 Clin Com Influenza Type A ([facility]) Negative Influenza Type B ([facility]) Negative Influenza A & B Note See Note Imaging Radiologist's Impressions: Impressions Chest X-Ray 03/01/23 08:51 IMPRESSION: Unremarkable examination. Abdomen/Pelvis CT 03/01/23 09:27 IMPRESSION: Question left renal cortical thickening and increased perinephric fat stranding. Possible pyelonephritis should be considered. Differential would include infiltrative renal process or renal vein thrombosis. This could be better evaluated with a repeat exam with IV contrast clinically indicated. Large bilateral ovarian or white. SCIENTIFIC ILLUSTRATOR consultation recommended. Fleischner guidelines were followed. Assessment and Plan (1) Pyelonephritis: Status: Acute Plan 27-year-old female with history of bipolar disorder, depression, PCP abuse, schizoaffective disorder, PTSD admitted for acute pyelonephritis with TANNA. #Acute left-sided pyelonephritis -UA with 3+ leuks, 3+blood, neg nitrites, pos urinary sediement. CT abd/pelvis with question left renal cortical thickening and increased perinephric fat stranding, consider pyelonephritis though differential to include infiltrative renal process or renal vein thrombosis -U/s pending to r/o renal vein thombosis -Leukocytosis 19.9. Initial temp 100.2, tachycardia to 114 improved with IVF, likely related to hypovolemia/dehydration, not sepsis -Continue IV ceftriaxone 1g daily (initiated 03/01) -Clear liquids, advance as tolerated -ondansetron prn n/v -If no improvement, consider urology consult -Continue aggressive IVF -Follow CBC, UC, BC #Acute kidney injury- likely prerenal in setting of hypovolemia from GI losses -Creat 2.81, BUN 21. Urine Na 30.0, Urine Creat 188.30 FeNa 0.3% -CT abd/pelvis without obstruction, but with question of pyelonephritis vs renal infiltrative process or renal vein thombosis. Renal doppler ordered -Urine studies pending -Continue aggressive hydration -Avoid nephrotoxins -Monitor renal function #Large bilateral adnexal masses -7cm and 6cm at greatest diameter bilaterally. -SCIENTIFIC ILLUSTRATOR consult #Mood disorder -not currently taking medications #Polysubstance abuse -Urine tox screen positive for fentanyl, pcp, cocaine, mj -Addiction med consult #Nicotine dependence -Smoked about 5 ciagrettes daily, not interested in quitting -Declines NRT -Smoking cessation counseling provided. DVT prophylaxis- lovenox Full code Pt requires inpt stay at least 2 midnights for management of acute pyelonephritis with TANNA requiring IV abx and agressive IVF resuscitation and close monitoring of renal function Time Spent With Patient Time: Total time managing care of this patient today ____ minutes. Quality Stroke Does the patient have a stroke diagnosis?: No VTE Prior VTE?: No VTE Risk Level:: Medical - moderate - high VTE Device Contraindication: Treatment Not Indicated VTE Drug Contraindication: N/A - Med Ordered
[2023-03-01] MEDS: 0.9 % Sodium Chloride 1,000 ML 150 ML IVCONT ×3 (13:27→21:12)
--- NOTE | 2023-03-01 13:38 | P.CONOB_ITS ---
DOCUMENTATION LIAISON - CN: HPI Data of Consult Consult date: 03/01/23 Requesting Physician: MANOJ Stark Primary Care Provider: Unknown Physician Consult Narrative Narrative: I was consulted on Darnell Aguilar is a 27 year old female who presented to the emergency room for nausea, recurrent vomiting, myalgias for the last 3 days.? The patient is complaining of dysuria associated with sweats and chills , in addition, she not been able to tolerate any food and has been only drinking minimally small amounts of fluids. No other associated pelvic pain, no vaginal discharge, or vaginal bleeding. On arrival, pt temperature 100.2. The patient had a single episode hypotension 85/41 which improved to 105/51 after IV fluid..? Initially tachycardic to 114, resolved with IVF. There is leukocytosis of 19.9 with left shift.? Creatinine 2.80 (baseline 0.83), BUN 21.? Electrolytes normal.? AST/ALT normal, total bilirubin 1.7.? Total CK 143.? HCC quantitative negative.? UA with 3+ leukocytes, 3+ blood, 2+ protein, negative nitrites, positive urinary sediment, though no bacteria seen.? Urine tox screen positive for fentanyl, PCP, cocaine, and THC.? CXR negative.? CT abdomen/pelvis with question of left renal cortical thickening and increased perinephric fat stranding, consider pyelonephritis or additional differential to include infiltrated renal process or renal vein thrombosis.? Consider repeat IV contrast CT.? There is also large bilateral ovarian masses measuring 7.5 x 4.5 x 6 cm on the right and 5 x 6 x 4 cm on the left. In the ED, given tylenol for low grade fever, 2L IV NS, 2g ceftriaxone, and dexamethasone. Pt to be admitted for acute pyelonephritis with TANNA. 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 - Review of Systems Review of Systems ROS Unobtainable: All systems reviewed & are unremarkable except as noted in HPI and below Cardiovascular: Denies Palpatations, Loss of consciousness or Chest pain Respiratory: Denies Cough, Wheezing or Shortness of breath Musculoskeletal: Denies Low back pain Gastrointestinal: Denies Heartburn, Constipation, Diarrhea, Nausea or Vomiting Genitourinary: Denies Pain with urination, Burning with urination or Urinary frequency Neurological: Denies Migranes Psychological: Denies Depression [facility], [facility] Past Medical History Medical History Anxiety Asthma Bipolar disorder Depression Hypertension Schizoaffective disorder, bipolar type Substance abuse Social History Social History Household Members: None Housing: House Do you presently have visiting nurse or other home services: No Alcohol intake: current Alcohol intake frequency: holidays/special occasions only Patient Tobacco Use Status: Current someday Tobacco user Tobacco use type: Cigarette e-Cigarette/Vaping Use: Currently Using Second Hand Smoke Exposure: No Substance Use Type: Crack/Cocaine, Marijuana and Other service: No Sexual orientation: Did not discuss Meds Allergies Allergy/AdvReac Type Severity Reaction Status Date / Time No Known Allergies Allergy Verified 08/14/22 23:31 [No Known Allergies*] Active Medications: Current Medications Acetaminophen (Acetaminophen 325 Mg Tablet) 650 mg PO Q6H PRN PRN Reason: Pain, Mild (Pain Scale 1-3) Docusate Sodium (Docusate Sodium 100 Mg Capsule) 100 mg PO BID PRN PRN Reason: Constipation Enoxaparin Sodium (Enoxaparin Sodium 40 Mg/0.4 Ml Syringe) 40 mg SUBCUT Q24H [facility] Sodium Chloride (Ns) 1,000 mls @ 150 mls/hr IVCONT .Q6H40M [facility] Last Admin: 03/01/23 13:27 Dose: 150 mls/hr Ceftriaxone Sodium 1 gm/ (Sodium Chloride) 50 mls @ 100 mls/hr IV Q24H [facility] Stop: 03/05/23 11:29 Ondansetron HCl (Ondansetron Hcl 4 Mg/2 Ml Vial) 4 mg IVPUSH Q8H PRN PRN Reason: Nausea and Vomiting Pharmacy Consult (Consult Rx Perform Med Rec) 1 each MISCELLANE ONCE PRN PRN Reason: Consult order Sodium Chloride (0.9 % Sodium Chloride Flush 3 Ml Syringe) 3 ml IVFLUSH QSHIFT [facility] Home Medications Medication Instructions Recorded Confirmed Last Taken Type No Known Home Meds 03/01/23 03/01/23 Unknown History DOCUMENTATION LIAISON Physical Exam Vitals Vital signs: Temp Pulse Resp BP Pulse Ox O2 Del Method 98.5 F 79 16 105/51 L 99 Room Air 03/01/23 11:30 03/01/23 11:47 04/11/23 11:47 03/01/23 11:47 03/01/23 11:47 03/01/23 11:47 BMI result Body Mass Index 43.9 Constitutional General Appearance: Healthy appearing, Well-nourished and Well-developed Psychiatric Mood and Affect: active and alert, normal mood and normal affect Skin Appearance: No rashes and No lesions Lungs Respiratory Effort: No intercostal retractions Auscultation: Clear to auscultation Cardiovascular Auscultation: RRR Abdomen Auscultation/Inspection/Palpation: Normal bowel sounds, Soft, Non-distended, No tenderness and CVA tenderness (Mild) Female Genitalia (Pelvic) Bladder/Urethra: Normal meatus Vulva: No lesions Vagina: Nontender and No lesions Cervix: Grossly normal and No cervical motion tenderness Uterus: Nontender Adnexa/Parametria: Adnexal Tenderness: None and Adnexal Mass: Bilateral DOCUMENTATION LIAISON - Results Labs 03/01/23 08:24 03/01/23 08:24 Labs: Short CBC 03/01/23 Range/Units 08:24 WBC 19.9 H (4.8-10.8) X10*3/uL Hgb 12.5 (12.0-16.0) g/dl Hct 35.8 L (37.0-47.0) % Plt Count 203 D (160-400) X10*3/uL BMP 03/01/23 08:24 Sodium 135 Potassium 3.8 Chloride 99 Carbon Dioxide 24 BUN 21 H Creatinine 2.80 H Calcium 8.3 L D Cardiac Enzymes 03/01/23 Range/Units 08:24 Total Creatine Kinase 143 H (26-140) U/L Liver Function 03/01/23 Range/Units 08:24 Total Bilirubin 1.7 H (0.0-1.0) mg/dL AST 15 (5-31) U/L ALT 15 (0-31) U/L Alkaline Phosphatase 73 (39-117) U/L Albumin 3.4 L (3.5-5.0) g/dL Urine 03/01/23 Range/Units 11:42 Urine Color Dark Yellow Urine Appearance Turbid Urine pH 5.5 (5.0-9.0) Ur Specific Armstrong 1.010 (1.005-1.025) Urine Protein 100 (2+) H (Neg-Trace) mg/dL Urine Glucose (UA) Negative (Negative) mg/dL Imaging CT scan - abdomen: Radiologist's impression: ITS Impressions Chest X-Ray 03/01/23 08:51 IMPRESSION: Unremarkable examination. Abdomen/Pelvis CT 03/01/23 09:27 IMPRESSION: Question left renal cortical thickening and increased perinephric fat stranding. Possible pyelonephritis should be considered. Differential would include infiltrative renal process or renal vein thrombosis. This could be better evaluated with a repeat exam with IV contrast clinically indicated. Large bilateral ovarian or white. DOCUMENTATION LIAISON consultation recommended. Fleischner guidelines were followed. Assessment and Plan (1) Pyelonephritis: Status: Acute Will defer the pyelonephritis/TANNA management to the hospitalist team ER (2) Bilateral ovarian cysts: Status: Acute Plan HCG negative, GC and chlamydia, BV panel and Trichomonas taken. Pelvic ultrasound and Doppler studies ordered to rule out ovarian torsion, although clinical present presentation does not suggest torsion given lack of pelvic pain, normal pelvic exam and abdominal exam without any tenderness. The patient declined transvaginal probe explained to the patient the importance of ovarian Doppler to rule out ovarian torsion, its clinical significance in case the diagnosis is delayed or missed, which can delay treatment and its impact on prognosis, the patient verbalized understanding but still declined. Discussed with the patient the finding on CT scan suggested for bilateral large teratomas. Explained to the patient that these tumors have a characteristic imaging appearance, which allows reasonably accurate noninvasive diagnosis in many cases with high reported specificity is 98 to 100 percent, but definitive diagnosis is made at the time of surgical excision. Malignant transformation occurs in 0.2 to 2 percent of mature cystic teratomas The treatment is laparoscopic ovarian cystectomy in order to make a definitive diagnosis, preserve ovarian tissue, and avoid potential problems such as torsion, rupture, or development of malignant components. Benign cystic teratomas do not recur if surgically resected. Discussed with the patient signs and symptoms of torsion and or rupture is to come back to emergency room in case of severe pelvic pain and/ or nausea and vomiting. Recommended outpatient follow-up for further management after pyelonephritis/TANNA resolution. 21:17 update note Pelvic ultrasound showed the following: The uterus is not well visualized. There is a bilobed right adnexal mass. This is heterogeneous in echotexture with large hyperechoic component and some acoustic shadowing. This measures 3.4 x 3.7 x 5 cm and 4 x 3.5 x 3.5 cm. Arterial and venous flow is documented to the right ovary. The left ovary is not seen. Large left adnexal mass seen by CT is not appreciated. Doppler flow to the left ovary could not be performed. There is no fluid in the pelvis. Chlamydia negative/gonorrhea positive, BV panel pending, Trichomonas negative Plan: The patient declined vaginal probe ultrasound in spite of counseling regarding the possible consequences of delayed diagnosis and treatment; Clinically, unlikely ovarian torsion given the presentation with no pelvic pain, normal abdominal exam and normal pelvic exam. GC+ The patient is on ceftriaxone STD screening including hepatitis-B surface antigen, hepatitis-C antibody, HIV and syphilis screen ordered. The patient was instructed to inform partner (s), to be treated, abstain for intercourse 1 week during and after the treatment. Time Spent With Patient Time: Total time managing care of this patient today ____ minutes.
--- NOTE | 2023-03-01 14:12 | MHC.RECOVRN ---
Received Addiction Medicine consult for substance use. Chart reviewed. Attempted to meet with pt in ED, pt with providers. Will attempt again later.
[2023-03-01 14:23] LABS: Lactic Acid 1.7 mmol/L (0.5-2.0)
--- NOTE | 2023-03-01 15:13 | MHC.RECOVRN ---
Met with pt in ED20 to discuss substance use. Pt sitting in bed, returned from ultrasound. Pt engages in conversation but minimizes substance use. Reports PCP use once every couple months, last use yesterday. Pt reports hx crack cocaine use, hx Perc 30s. Pt reports currently using Perc 10s, one daily, [place]. Pt states I just pop one to relax. Pt adamant pills are prescription, as the person she gets them from told her they are. Pt informed of UDS results as well as area trends with illicit pills.. Pt reports hx 10 overdoses when using Perc 30s. Discussed tolerance and risks associated with overdose. Pt reports hx withdrawal from cocaine and PCP, denies hx opiate withdrawal. Educated pt on signs/symptoms and encouraged her to inform staff if withdrawal occurs. Pt states Nah, I don't do drugs like that. Pt informs t/w she is currently prescribed Suboxone, 4 mg daily, from [facility] on [address] Pt states I don't take it every day, I only take it to sleep. Discussed risks of precipitated withdrawal. Pt denies questions or concerns for t/w, is not interested in recovery support at this time. Upon [facility] review, pts last Suboxone script was 09/16/22, a 15 day supply of 12 mg daily.
[2023-03-01] MEDS: 0.9 % Sodium Chloride Flush 3 ML SYRINGE IVFLUSH (15:28)
[2023-03-01] MEDS: Enoxaparin Sodium 40 MG/0.4 ML SYRINGE SUBCUT (15:35)
[2023-03-01] MEDS: Acetaminophen 325 MG TABLET 650 MG PO (15:35)
[2023-03-01 16:40] LABS: CT PCR NOT DETECTED (Not Detect.); NG PCR DETECTED (Not Detect.)
[2023-03-01] MEDS: traZODone HCL 25 MG HALFTAB PO (23:11)
[2023-03-01] MEDS: Melatonin 3 MG TABLET 6 MG PO (23:11)
--- NOTE | 2023-03-02 00:25 | PC.NURSE ---
2200- Patient c/o pain and bleeding from urethra. Patient states, that lady in ED did something wrong, its bleeding a lot . Patient asked to be evaluated by MD. and this RN at bedside for evaluation. Patient educated by MD on discomfort and bleeding due to trauma from straight catheter insertion in ED. No further C/O pain or discomfort.
[2023-03-02 03:06] VITALS: BP 115/68; PULSE 73; RESP 18; TEMP 36.1; O2SAT 98
[2023-03-02] MEDS: diphenhydrAMINE HCL 50 MG/ML VIAL IVPUSH (04:27)
[2023-03-02 07:16] LABS: Basophils Percent Auto 0.2 % (0-2); Eosinophils Absolute Auto 0.1 X10*3/uL (0.0-0.4); Eosinophils Percent Auto 0.3 % (0-4); Hematocrit 31.9 % (37.0-47.0); Hemoglobin 10.9 g/dl (12.0-16.0); Imm Gran Abs Auto 0.26 X10*3/uL (0.00-0.03); Imm Gran Pct Auto 1.2 % (0.0-0.4); Lymphocytes Absolute Auto 0.6 X10*3/uL (1.2-4.9); Lymphocytes Percent Auto 2.9 % (20-40); MANUAL DIFF FLAG SCAN; Mean Corpuscular HGB Conc 34.2 g/dl (31.0-35.0); Mean Corpuscular Hemoglobin 30.4 pg (27.0-33.0); Mean Corpuscular Volume 89.1 fL (80.0-98.0); Mean Platelet Volume 11.8 fL (9.4-12.3); Monocytes Absolute Auto 0.7 X10*3/uL (0.1-1.2); Monocytes Percent Auto 3.1 % (2-11); Neutrophils Absolute Auto 19.7 x10*3/uL (2.0-8.3); Neutrophils Percent Auto 92.3 % (45-73); Platelet Count 218 X10*3/uL (160-400); Red Blood Count 3.58 X10*6/uL (4.20-5.50); Red Cell Distribution Width 13.5 % (11.0-16.0); SCAN SMEAR FLAG 1; White Blood Count 21.3 X10*3/uL (4.8-10.8)
[2023-03-02 07:32] LABS: Anion Gap 13 (12-20); Blood Urea Nitrogen 17 mg/dL (9-16); Calcium 8.5 mg/dL (8.4-10.2); Carbon Dioxide 21 mmol/L (22-29); Chloride 108 mmol/L (96-108); Creatinine Clr Calc Pharmacy 88.3; Estimated Glomerular Filt Rate 60; Glucose Random 182 mg/dL (60-115); Potassium 3.7 mmol/L (3.3-5.1); Sodium 138 mmol/L (135-145)
[2023-03-02 07:45] LABS: Syphilis Screen Nonreactive (Nonreactive)
[2023-03-02 07:47] LABS: HBsAGNum1 0.35 S/CO (0.00-0.99); HIV AB/AG Nonreactive (Nonreactive); HIV Num 1 0.11 S/CO (0.00-0.99); Hepatitis B Surface Antigen Negative (Negative); ~HepC Num1 0.11 S/CO (0.00-0.79); ~Hepatitis C Antibody Nonreactive (Nonreactive)
--- NOTE | 2023-03-02 07:55 | PC.NURSE ---
Patient removed IV overnight. Attempted to achieve IV access with no success. Patient not willing to allow more than 1 attempt . Report given to day shift RN.
[2023-03-02 08:00] VITALS: BP 112/58; PULSE 69; RESP 20; TEMP 36; O2SAT 96
[2023-03-02 08:48] LABS: SLIDE REVIEW VERIFIED
[2023-03-02] MEDS: oxyCODONE HCl Immed Release 5 MG TABLET PO (09:46)
--- NOTE | 2023-03-02 10:17 | P.DS_ITS ---
DS: Providers Provider Date of Service: 03/02/23 Date of admission: 03/01/23 12:29 Primary care physician: Unknown Physician Consults: 03/01/23 12:33 Addiction Medicine Routine Consulting Provider: Addiction Covering Reason for consultation: pcp, cocaine, fentanyl use 03/01/23 13:13 Consult to Obstetrics / Gynecology Routine Consulting Provider: Angel Babcock Reason for consultation: large adnexal masses bilaterally DS: Diagnosis Discharge Diagnosis (1) Pyelonephritis: Status: Acute (2) Bilateral ovarian cysts: Status: Acute DS: Summary Hospital Course Hospital Course: from initial hpi: Chief Complaint: n/v, PO intolerance 27-year-old female with history of bipolar disorder, depression, PCP abuse, schizoaffective disorder, PTSD presented to the ED for evaluation of nausea, recurrent vomiting, myalgias, and p.o. intolerance ongoing for 3 days.? She states that she has not been able to tolerate any food and has been only drinking minimally low amounts of fluids.? She has also been experiencing dysuria and decreased urine output as well as dark urine.? Has had sweats and chills but has not taken her temperature.? There has been generalized abdominal pain but no severe pain.? Denies any diarrhea, constipation, melena hematochezia, hematemesis, lightheadedness, shortness of breath, chest pain, vaginal discharge, or vaginal bleeding. On arrival, pt temperature 100.2. Blood pressures soft with single episode hypotension 85/41 improved to 105/51 with IVF.? Initially tachycardic to 114, resolved with IVF. There is leukocytosis of 19.9 with left shift.? Creatinine 2.80 (baseline 0.83), BUN 21.? Electrolytes normal.? AST/ALT normal, total bilirubin 1.7.? Total CK 143.? HCC quantitative negative.? UA with 3+ leukocytes, 3+ blood, 2+ protein, negative nitrites, positive urinary sediment, though no bacteria seen.? Urine tox screen positive for fentanyl, PCP, cocaine, and THC.? CXR negative.? CT abdomen/pelvis with question of left renal cortical thickening and increased perinephric fat stranding, consider pyelonephritis or additional differential to include infiltrated renal process or renal vein thrombosis.? Consider repeat IV contrast CT.? There is also large bilateral ovarian masses measuring 7.5 x 4.5 x 6 cm on the right and 5 x 6 x 4 cm on the left. She denies pelvic pain. Pt is a .25 ppd cigarette smoker. Reports regular MJ use and occassional percocet use, denies other drug use. No etoh use. Patient was admitted for sepsis due to acute pyelonephritis. In the ED, given tylenol for low grade fever, 2L IV NS, 2g ceftriaxone, and dexamethasone. Pt to be admitted for acute pyelonephritis with TANNA. hospital course: Patient was admitted for severe sepsis due to acute pyelonephritis. Her blood culture grew Gram-negative rods. Patient was unwilling to stay for further speciation and sensitivities. She was treated with IV ceftriaxone and sepsis resolved. She was also noted to be positive for gonorrhea. She was given additional dose of IM ceftriaxone. She was seen by direct sales professional who felt this was unlikely to be PID. She was also evaluated for large bilateral adnexal masses and recommended for outpatient follow-up. Patient also noted to have TANNA on admission which resolved. Patient is not compliant with medications for mood disorder and should follow up outpatient. For polysubstance dependence she and addiction med consult but did not stay. For morbid obesity weight loss is recommended. Patient unwilling to stay for further workup and evaluation, therefore be discharged on 7 more days of cefuroxime and should follow-up with PCP for final culture results and with direct sales professional. Time Spent with Patient Time attestation: Total time managing care of this patient today ____ minutes. Discharge coordination time: Greater than 30 minutes Quality: Safe Use of Opioids Does Pt have an Active Cancer Diagnosis on the Problem List?: No Quality: Stroke Does the patient have a stroke diagnosis?: No Physical Exam Vital Signs: Vital Signs: Last Vital Signs Temp 96.8 F 03/02/23 08:00 Pulse 69 03/02/23 08:00 Resp 20 03/02/23 08:00 BP 112/58 L 03/02/23 08:00 Pulse Ox 96 03/02/23 08:00 O2 Del Method Room Air 03/02/23 08:00 BMI result Body Mass Index 42.5 Appearance: Alert. Oriented X3. No acute distress. Eyes: Pupils equal, round and reactive to light. ENT: Pharynx normal. Neck: Normal inspection. Neck supple. CVS: Normal heart rate and rhythm. Pulses normal. Respiratory: No respiratory distress. Breath sounds normal. Abdomen: Soft and nontender. Skin: Skin warm and dry. Normal skin color. Normal skin turgor. Extremities: No lower extremity edema. No calf ttp Neuro: Oriented X 3. No motor deficit. No sensory deficit. CN 2-12 intact DS: Data Data Completed and Pending Labs on day of discharge: Laboratory Results - last 24 hr 03/01/23 03/01/23 03/01/23 11:42 11:42 14:05 WBC RBC Hgb Hct MCV MCH MCHC RDW Plt Count MPV Immature Gran % (Auto) Neut % (Auto) Lymph % (Auto) Porter % (Auto) Eos % (Auto) Baso % (Auto) Lymph # (Auto) Porter # (Auto) Eos # (Auto) Baso # (Auto) Abs Immat Gran (auto) Absolute Neuts (auto) Absolute Nucleated RBC Nucleated RBC % (auto) Smear Tech's Comments Sodium Potassium Chloride Carbon Dioxide Anion Gap BUN Creatinine Estim Creat Clear Calc Estimated GFR Random Glucose Lactic Acid 1.7 Calcium Urine Color Dark Yellow Urine Appearance Turbid Urine pH 5.5 Ur Specific [place] 1.010 Urine Protein 100 (2+) H Urine Glucose (UA) Negative Urine Ketones Negative Urine Blood Large (3+) H Urine Nitrite Negative Ur Leukocyte Esterase Large (3+) H Urine RBC 11-20 H Urine WBC >50 H Ur Squamous Epith Cells 6-10 Urine Bacteria None Seen Hyaline Casts 3-5 Ur Random Sodium 30.0 Urine Creatinine 188.30 Urine Opiates Screen Urine Fentanyl Screen Ur Barbiturates Screen Ur Phencyclidine Scrn Ur Amphetamines Screen U Benzodiazepines Scrn Urine Cocaine Screen U Marijuana (THC) Screen T.pallidum Ab (EIA) Chlam trachomat DNA PCR Hep Bs Antigen Hepatitis C Ab (EIA) HIV 1&2 Ab/P24 Ag 4thGn N.gonorrhoeae DNA (PCR) 03/01/23 03/01/23 03/02/23 14:33 Unknown 06:57 WBC RBC Hgb Hct MCV MCH MCHC RDW Plt Count MPV Immature Gran % (Auto) Neut % (Auto) Lymph % (Auto) Porter % (Auto) Eos % (Auto) Baso % (Auto) Lymph # (Auto) Porter # (Auto) Eos # (Auto) Baso # (Auto) Abs Immat Gran (auto) Absolute Neuts (auto) Absolute Nucleated RBC Nucleated RBC % (auto) Smear Tech's Comments Sodium Potassium Chloride Carbon Dioxide Anion Gap BUN Creatinine Estim Creat Clear Calc Estimated GFR Random Glucose Lactic Acid Calcium Urine Color Urine Appearance Urine pH Ur Specific [place] Urine Protein Urine Glucose (UA) Urine Ketones Urine Blood Urine Nitrite Ur Leukocyte Esterase Urine RBC Urine WBC Ur Squamous Epith Cells Urine Bacteria Hyaline Casts Ur Random Sodium Urine Creatinine Urine Opiates Screen Not Detected Urine Fentanyl Screen POSITIVE H Ur Barbiturates Screen Not Detected Ur Phencyclidine Scrn POSITIVE H Ur Amphetamines Screen Not Detected U Benzodiazepines Scrn Not Detected Urine Cocaine Screen POSITIVE H U Marijuana (THC) Screen POSITIVE H T.pallidum Ab (EIA) Nonreactive Chlam trachomat DNA PCR NOT DETECTED Hep Bs Antigen Hepatitis C Ab (EIA) HIV 1&2 Ab/P24 Ag 4thGn N.gonorrhoeae DNA (PCR) DETECTED A 03/02/23 03/02/23 03/02/23 06:57 06:57 06:57 WBC 21.3 H RBC 3.58 L Hgb 10.9 L Hct 31.9 L MCV 89.1 MCH 30.4 MCHC 34.2 RDW 13.5 Plt Count 218 MPV 11.8 Immature Gran % (Auto) 1.2 H Neut % (Auto) 92.3 H Lymph % (Auto) 2.9 L Porter % (Auto) 3.1 Eos % (Auto) 0.3 Baso % (Auto) 0.2 Lymph # (Auto) 0.6 L Porter # (Auto) 0.7 Eos # (Auto) 0.1 Baso # (Auto) 0.0 Abs Immat Gran (auto) 0.26 H Absolute Neuts (auto) 19.7 H Absolute Nucleated RBC 0.000 Nucleated RBC % (auto) 0.0 Smear Tech's Comments VERIFIED Sodium 138 Potassium 3.7 Chloride 108 Carbon Dioxide 21 L Anion Gap 13 BUN 17 H Creatinine 1.11 Estim Creat Clear Calc 88.3 Estimated GFR 60 Random Glucose 182 H Lactic Acid Calcium 8.5 Urine Color Urine Appearance Urine pH Ur Specific [place] Urine Protein Urine Glucose (UA) Urine Ketones Urine Blood Urine Nitrite Ur Leukocyte Esterase Urine RBC Urine WBC Ur Squamous Epith Cells Urine Bacteria Hyaline Casts Ur Random Sodium Urine Creatinine Urine Opiates Screen Urine Fentanyl Screen Ur Barbiturates Screen Ur Phencyclidine Scrn Ur Amphetamines Screen U Benzodiazepines Scrn Urine Cocaine Screen U Marijuana (THC) Screen T.pallidum Ab (EIA) Chlam trachomat DNA PCR Hep Bs Antigen Negative Hepatitis C Ab (EIA) Nonreactive HIV 1&2 Ab/P24 Ag 4thGn Nonreactive N.gonorrhoeae DNA (PCR) Preliminary micro results at discharge 03/01/23 09:27 Blood Culture - Preliminary Blood - Venous Prelim: GNR Gram Stain only Discharge Plan Discharge Anticipated Discharge Date/Time: 03/02/23 10:14 Patient Disposition: Home, Self-Care Discharge Diagnosis: gonorrhoeae, pyelonephritis, polysubstance abuse, ovarian cysts Referrals: Nazanin Randall [Primary Care Provider] - 1 Week Angel Babcock MD [Physician] - 1 Week Discharge Medications: New cefuroxime axetil 500 mg tablet 500 mg PO BID Qty: 14 0RF Discharge Orders: Discharge Order (Routine); Ordered 03/02/23 Ordered By: Pankaj Zeng Diet: Advance to usual diet Activity on Discharge: As tolerated Stand Alone Forms: Patient Portal Discharge page Care Plan Goals: recovery Health Concerns: gonnorhea, uti, drug abuse, obesity, ovarian cyst Plan of Treatment: empric antibiotics, follow up final results, avoid sex for 1 week, inform parteners of diagnosis, follow up with [facility], no drug use, weight loss Assessment: see above
--- NOTE | 2023-03-02 10:58 | MHC.CM.PN ---
CM ATTEMPTED TO MEET W/PT HOWEVER PT HAS DISCHARGED AND LEFT UNIT. PT DISCHARGED HOME NO SERVICES AND HAS ARRANGED OWN TRANSPORT.
[2023-03-02 13:02] LABS: BV Int Neg Control Negative (Negative); BV Int Pos Control Positive (Positive)
== END 2023-03-02 12:13 | disposition home or self-care (01) | DRG 720 ==
LOC: HO.ED 07:58 → HO.EDOVER 12:35 → HO.IMC 12:48
PROVIDERS: Obstetrics & Gynecology; Physician Assistant Medical; Admitting Provider Physician Assistant; Emergency Provider Emergency Medicine; PCP Registered Nurse; Visit Provider Internal Medicine
DX: A41.9 Sepsis, unspecified organism (principal); N17.0 Acute kidney failure with tubular necrosis; F31.9 Bipolar disorder, unspecified; A54.9 Gonococcal infection, unspecified; F17.210 Nicotine dependence, cigarettes, uncomplicated; F41.9 Anxiety disorder, unspecified; Z71.6 Tobacco abuse counseling; N83.202 Unspecified ovarian cyst, left side; N83.201 Unspecified ovarian cyst, right side; N10 Acute pyelonephritis; Z91.148 Patient's other noncompliance with medication regimen for other reason; E66.01 Morbid (severe) obesity due to excess calories; Z68.41 Body mass index [BMI] 40.0-44.9, adult; E86.0 Dehydration; F19.10 Other psychoactive substance abuse, uncomplicated; Z20.822 Contact with and (suspected) exposure to COVID-19
CPT/HCPCS: 0353U; 36415; 71045; 74176; 76775; 76830; 76856; 80048; 80053; 80307; 81001; 82550; 83605; 83735; 84300; 84702; 85025; 86780; 86803; 87040; 87077; 87086; 87186; 87205; 87340; 87389; 87480; 87502; 87510; 87635; 87660; 93975; 94640; 99285; J0696; J1100; J1200; J1650

== ENCOUNTER 2023-03-24 10:49 | Outpatient (REF) | payer MEDICAID, SELFPAY ==
[2023-03-24 14:04] LABS: CT PCR NOT DETECTED (Not Detect.); NG PCR NOT DETECTED (Not Detect.)
[2023-03-25 10:48] LABS: BV Int Neg Control Negative (Negative); BV Int Pos Control Positive (Positive)
== END 2023-03-24 10:50 | disposition home or self-care (01) ==
LOC: HO.LNP 10:49
PROVIDERS: PCP Registered Nurse; Visit Provider Obstetrics & Gynecology
DX: A54.9 Gonococcal infection, unspecified (principal); N76.0 Acute vaginitis; B96.89 Other specified bacterial agents as the cause of diseases classified elsewhere; N94.9 Unspecified condition associated with female genital organs and menstrual cycle
CPT/HCPCS: 0353U; 81025; 87480; 87510; 87660; 99212

== ENCOUNTER → 2023-04-11 14:19 | Outpatient (BNVA) | payer MEDICAID, SELFPAY | PROVIDERS: PCP Registered Nurse; Visit Provider Obstetrics & Gynecology ==

== ENCOUNTER 2023-04-26 23:22 | Emergency (ER) | payer MEDICAID, SELFPAY ==
[2023-04-26 23:39] VITALS: BP 100/58; PULSE 83; TEMP 36.7; O2SAT 97; BMI 39.1
== END 2023-04-27 00:20 | disposition left against medical advice (07) ==
PROVIDERS: Emergency Provider Emergency Medicine; PCP Registered Nurse
DX: G47.00 Insomnia, unspecified (principal); R51.9 Headache, unspecified; F41.9 Anxiety disorder, unspecified; F12.90 Cannabis use, unspecified, uncomplicated
CPT/HCPCS: 99281

== ENCOUNTER 2023-04-27 15:06 | Outpatient (REF) | payer MEDICAID, SELFPAY ==
--- NOTE | ~2023-04-27 | US_ITS ---
EXAMINATION: US PELVIS COMPLETE CLINICAL INFORMATION: Adnexal fullness COMPARISON: Pelvic ultrasound 03/01/2023 TECHNIQUE: Transabdominal and transvaginal imaging was performed. FINDINGS: The uterus is of normal size and echogenicity measuring 7.6 x 3.2 x 4.0 cm. A regular homogeneous endometrium is identified measuring 0.2 cm. The right ovary measures 7.6 x 4.6 x 8.1 cm for a volume of 148.3 mL. The left measures 6.8 x 3.7 x 5.7 cm for a volume of 75.1 mL. Ovaries are enlarged bilaterally however with vascular flow present without findings to suggest ovarian torsion. There are bilateral hypoechoic shadowing lesions measuring 4.6 cm and 3.8 cm on the right one with calcification (previously 4.4 and 4.1 cm) and measuring 3.5 cm on the left suspicious for ovarian dermoids. A 3.3 cm unilocular simple left ovarian cyst likely benign. There is trace simple physiologic volume pelvic free fluid. US/US pelvic and transvaginal IMPRESSION: 1. Ovaries are enlarged bilaterally however with vascular flow present without findings to suggest ovarian torsion. There are bilateral hypoechoic shadowing lesions measuring 4.6 cm on the right one with calcification and measuring 3.5 cm on the left suspicious for ovarian dermoids. Recommend further evaluation with contrast-enhanced MR pelvis and if not surgically resected annual follow-up pelvic ultrasound. 2. A 3.3 cm unilocular simple left ovarian cyst likely benign. No follow-up imaging recommended.
== END 2023-04-27 15:07 | disposition home or self-care (01) ==
LOC: HO.US 15:06
PROVIDERS: Visit Provider Obstetrics & Gynecology
DX: N94.9 Unspecified condition associated with female genital organs and menstrual cycle (principal)
CPT/HCPCS: 76830; 76856

== ENCOUNTER 2023-06-01 15:11 | Outpatient (REF) | payer MEDICAID, SELFPAY ==
[2023-06-02 11:19] LABS: CT PCR NOT DETECTED (Not Detect.); NG PCR NOT DETECTED (Not Detect.)
[2023-06-02 12:39] LABS: BV Int Neg Control Negative (Negative); BV Int Pos Control Positive (Positive)
== END 2023-06-01 15:12 | disposition home or self-care (01) ==
LOC: HO.LNP 15:11
PROVIDERS: PCP Registered Nurse; Visit Provider Obstetrics & Gynecology
DX: T81.49XA Infection following a procedure, other surgical site, initial encounter (principal); B37.31 Acute candidiasis of vulva and vagina; Z20.2 Contact with and (suspected) exposure to infections with a predominantly sexual mode of transmission
CPT/HCPCS: 0353U; 87480; 87510; 87660; 99212

== ENCOUNTER 2023-06-01 15:11 | Outpatient (AMB) | payer MEDICAID, SELFPAY ==
--- NOTE | 2023-06-01 15:20 | A.OFFVIS_ITS ---
Intake Vital Signs 06/01/23 15:22 Height 5 ft 3 in Weight 220 lb 7.396 oz BMI 39.0 BP 120/76 Intake Visit Reasons: US follow up Intake Note: c/o of vaginal discharge Salt Machine Operator Required: No Information Interpreted: non-clinical & clinical Medical Science Liaison: Medical Science Liaison Present Accompanied by: Self / Same As Patient Allergies seafood Allergy (Mild, Verified 06/01/23 15:23) Hives HPI HPI Comments History of Present Illness Details Presenting 3 weeks post laparoscopic ovarian cystectomy for dermoid cyst complaining of left scope incisional redness and discharge no fever or chills no nausea or vomiting in addition the patient is complaining of vaginal discharge and itching. The patient is interested in STD screen [facility] Medical History Anxiety Asthma Bipolar disorder Depression Hypertension Schizoaffective disorder, bipolar type Substance abuse Social History Household Members: None Housing: House Do you presently have visiting nurse or other home services: No Alcohol intake: current Alcohol intake frequency: holidays/special occasions only Patient Tobacco Use Status: Current someday Tobacco user Tobacco use type: Cigarette e-Cigarette/Vaping Use: Currently Using Second Hand Smoke Exposure: No Substance Use Type: Crack/Cocaine, Marijuana and Other service: No Sexual orientation: Did not discuss Female Reproductive History Menstrual Age of Menarche: 15 Review of Systems Const All systems reviewed & are unremarkable except as noted in HPI and below Physical Exam Vital Signs: Last Vital Signs BP 120/76 06/01/23 15:22 BMI result Body Mass Index 39.0 General: Yes no CVA tenderness External Female Exam: normal external appearance and normal appearance of the urethra Speculum Exam - Vagina: normal appearance of the vagina, normal palpation, no lesions and no masses Speculum Exam - Cervix: normal appearance of the cervix, normal palpation, no lesions, no masses and nontender Bimanual exam- vagina & uterus: normal bimanual exam, normal palpation, uterine size normal, normal palpation, uterine shape normal, No Cervical tenderness present and non-tender Bimanual Exam- Adnexa, other: normal adnexae Back/Spine/Pelvis Back: no CVA tenderness Skin Other: Left incisional redness and discharge Assessment & Plan Assessment & Plan (1) Incisional infection: Code(s): T81.49XA - Infection following a procedure, other surgical site, initial encounter Plan: Will treat with Keflex 500 mg p.o. q.i.d. for 7 days, instructions given the patient to call in case of worsening of her pain redness or discharge, fever above 100.4. All questions answered, the patient verbalized understanding (2) Vulvovaginitis chris albicans: Code(s): B37.31 - Acute candidiasis of vulva and vagina Plan: GC/CT, Bacterial Vaginosis panel taken, Terazol 0.8% q.h.s. for 3 days was sent to the patient's pharmacy. The patient was instructed to call if symptoms don't improve in 48 hours. (3) Screen for STD (sexually transmitted disease): Code(s): Z11.3 - Encounter for screening for infections with a predominantly sexual mode of transmission Plan: STD screening tests done includes: BV panel for trichomonas, GC/CT will send patient for serology std screening for HIV, RPR, Hep b s Ag, HepC Ab. Instructions given the patient to schedule a follow-up appointment for repeat serology screen in 6 months for possible false negatives. Orders: Orders Hepatitis B Surface Antigen Today Z20.2 - Contact with and (suspected) exposure to infections with a predominantly sexual mode of transmission Hepatitis C Antibody Today Z20.2 - Contact with and (suspected) exposure to infections with a predominantly sexual mode of transmission HIV Ab/Ag Today Z20.2 - Contact with and (suspected) exposure to infections with a predominantly sexual mode of transmission Syphilis Screen Today Z20.2 - Contact with and (suspected) exposure to infections with a predominantly sexual mode of transmission Medications: New terconazole 0.8% 1 appful vaginal BEDTIME 20 grams 0RF 3 days cephalexin 500 mg PO Q6H 28 caps 0RF 7 days Coding Level of Care Code Est Pt Level 3 (41279) Diagnoses Incisional infection T81.49XA Vulvovaginitis chris albicans B37.31 Screen for STD (sexually transmitted disease) Z11.3
[2023-06-01 15:22] VITALS: BP 120/76; BMI 39.0
== END 2023-06-01 15:39 | disposition home or self-care (01) ==
LOC: HO.HWS 15:11
PROVIDERS: PCP Registered Nurse; Visit Provider Obstetrics & Gynecology
DX: T81.49XA Infection following a procedure, other surgical site, initial encounter (principal); B37.31 Acute candidiasis of vulva and vagina; Z11.3 Encounter for screening for infections with a predominantly sexual mode of transmission
CPT/HCPCS: 99213

== ENCOUNTER 2023-06-15 | Outpatient (REF) | payer MEDICAID, SELFPAY ==
[2023-06-16 11:29] LABS: CT PCR NOT DETECTED (Not Detect.); NG PCR NOT DETECTED (Not Detect.)
[2023-06-16 14:55] LABS: BV Int Neg Control Negative (Negative); BV Int Pos Control Positive (Positive)
== END 2023-06-15 00:01 | disposition home or self-care (01) ==
LOC: HO.HHCL
PROVIDERS: Visit Provider Registered Nurse
DX: N94.9 Unspecified condition associated with female genital organs and menstrual cycle (principal)
CPT/HCPCS: 0353U; 87480; 87510; 87660

== ENCOUNTER 2023-12-01 12:22 | Emergency (ER) | payer MEDICAID, SELFPAY ==
[2023-12-01 12:32] VITALS: BP 150/102; PULSE 85; O2SAT 98
[2023-12-01 13:30] VITALS: BP 143/91; PULSE 89; RESP 17; TEMP 36.6; O2SAT 99; BMI 40.2
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
[2023-12-01 17:44] VITALS: BP 131/89; PULSE 79; RESP 16; TEMP 37.1; O2SAT 98
--- NOTE | 2023-12-01 20:10 | PC.NURSE ---
This Rn only reviewed discharge instruction with pt, pt verbalized understanding, no sign of distress.
== END 2023-12-01 20:11 | disposition home or self-care (01) ==
PROVIDERS: Emergency Provider Student in an Organized Health Care Education/Training Program
DX: M79.5 Residual foreign body in soft tissue (principal)
CPT/HCPCS: 99283

== ENCOUNTER 2023-12-05 10:56 | Outpatient (AMB) | payer MEDICAID, SELFPAY ==
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
[2023-12-05 11:08] VITALS: BP 118/68; PULSE 70
== END 2023-12-05 11:23 | disposition home or self-care (01) ==
PROVIDERS: PCP Registered Nurse; Referring Provider Registered Nurse; Visit Provider Surgery
DX: M79.5 Residual foreign body in soft tissue (principal)
CPT/HCPCS: 99204

== ENCOUNTER → 2023-12-05 10:56 | Outpatient (BNVA) | payer MEDICAID, SELFPAY | PROVIDERS: PCP Registered Nurse; Visit Provider Surgery | DX: M79.5 Residual foreign body in soft tissue (principal) | CPT/HCPCS: 99202 ==

== ENCOUNTER 2023-12-08 15:54 | Outpatient (REF) | payer MEDICAID, SELFPAY ==
[2023-12-09 03:36] LABS: CT PCR NOT DETECTED (Not Detect.); NG PCR NOT DETECTED (Not Detect.)
[2023-12-09 03:55] LABS: HBS Num1 1.94 mIU/mL (0-7.99); HBc Num1 0.17 S/CO (0.00-0.79); HBsAGNum1 0.36 S/CO (0.00-0.99); HIV AB/AG Nonreactive (Nonreactive); HIV Num 1 0.05 S/CO (0.00-0.99); Hepatitis B Core Antibody Nonreactive (Nonreactive); Hepatitis B Surface Antigen Negative (Negative); ~Hepatitis B Surface Antibody NONREACTIVE (Nonreactive); ~Hepatitis C Antibody Nonreactive (Nonreactive)
[2023-12-12 17:08] LABS: RPR Rapid Plasma Reagin NON-REACTIVE (NON-REACTIVE)
== END 2023-12-08 15:55 | disposition home or self-care (01) ==
LOC: HO.HHCL 15:54
PROVIDERS: Visit Provider Internal Medicine Geriatric Medicine
DX: N89.8 Other specified noninflammatory disorders of vagina (principal); Z20.2 Contact with and (suspected) exposure to infections with a predominantly sexual mode of transmission
CPT/HCPCS: 0353U; 36415; 86592; 86704; 86706; 86803; 87340; 87389

== ENCOUNTER → 2023-12-09 11:09 | Day surgery (SDC) | payer MEDICAID, SELFPAY ==
--- NOTE | 2023-12-08 13:08 | MHC.SHP ---
Pre-Procedural Eval Section A Date of Service: 12/08/23 The patient is an INPATIENT: No Changes since office visit: No Cold of Flu in the past 2 weeks, No New Medical Problems, No Changes in Medication and No Patient answered all questions The History & Physical has been completed within 30 days and I have reviewed it.: Yes Section B Chief Complaint: Residual foreign body in soft tissue Allergies: Allergies Allergy/AdvReac Type Severity Reaction Status Date / Time seafood Allergy Mild Hives Verified 06/01/23 15:23 Plan I have reviewed the history and physical and performed a pertinent physical examination on my patient. No changes have occurred unless specified. Time Spent With Patient Time: Total time managing care of this patient today ____ minutes.
--- NOTE | 2023-12-08 13:20 | HO.ANESPROP2 ---
HPI - Anesthesia Eval Consult details Narrative: 28yo F for Foreign Body Removal Upper Lip Hx polysub abuse, including PCP PMFSH Active Problems Active Problems: All Active Problems (Updated 12/05/23 @ 11:08 by CARLITO Shabazz) Foreign body (FB) in soft tissue (Acute) Screen for STD (sexually transmitted disease) (Acute) Vulvovaginitis chris albicans (Acute) Incisional infection (Acute) Adnexal fullness (Acute) Bacterial vaginosis (Acute) Gonorrhea (Acute) Bilateral ovarian cysts (Acute) Pyelonephritis (Acute) Schizoaffective disorder, bipolar type (Acute) PCP abuse, episodic (Acute) Post traumatic stress disorder (PTSD) (Acute) Past Medical History Medical History Skin graft (allograft) (autograft) failure Schizoaffective disorder, bipolar type Bipolar disorder Asthma Hypertension Substance abuse Depression Anxiety Social History Social History Household Members: None Housing: House Do you presently have visiting nurse or other home services: No Alcohol intake: current Alcohol intake frequency: holidays/special occasions only Patient Tobacco Use Status: Current someday Tobacco user Tobacco use type: Cigarette e-Cigarette/Vaping Use: Currently Using Second Hand Smoke Exposure: No Substance Use Type: Crack/Cocaine, Marijuana and Other service: No Sexual orientation: Did not discuss Meds Allergies Allergy/AdvReac Type Severity Reaction Status Date / Time seafood Allergy Mild Hives Verified 06/01/23 15:23 Active Medications: Current Medications Cefazolin Sodium/Dextrose (Ancef) 2 gm in 50 mls @ 100 mls/hr IV PREOP ONE Stop: 12/08/23 13:35 Home Medications Medication Instructions Recorded Confirmed Last Taken Type clonidine HCl 0.2 mg tablet 0.2 mg PO DAILY 03/24/23 Unknown History melatonin 5 mg tablet 5 mg PO BEDTIME PRN 03/24/23 Unknown History trazodone 100 mg tablet 100 mg PO QPM 03/24/23 Unknown History Assessment and Plan Assessment Anesthesia Assessment: Chart Reviewed
[2023-12-09 11:12] VITALS: BMI 40.4
[2023-12-09 11:41] VITALS: BP 96/63; PULSE 78; RESP 16; TEMP 35.8; O2SAT 97
[2023-12-09] MEDS: Lactated Ringers 1,000 ML 100 ML IVCONT (11:42)
[2023-12-09 12:21] LABS: UPreg QC Valid YES; Urine Pregnancy NEGATIVE (NEGATIVE)
[2023-12-09 13:30] LABS: Amphetamine Screen Urine POSITIVE (Not Detect); Barbiturates, Urine Not Detected (Not Detect); Benzodiazepines Screen Urine Not Detected (Not Detect); Cannabinoid Screen Urine POSITIVE (Not Detect); Cocaine Screen Urine POSITIVE (Not Detect); Fentanyl, urine Not Detected (Not Detect); Opiate Screen Urine Not Detected (Not Detect); Phencyclidine Screen Urine POSITIVE (Not Detect)
--- NOTE | 2023-12-09 14:17 | HO.ANESPROP2 ---
[facility] Active Problems Active Problems: All Active Problems (Updated 12/05/23 @ 11:08 by CARLITO Shabazz) Foreign body (FB) in soft tissue (Acute) Screen for STD (sexually transmitted disease) (Acute) Vulvovaginitis chris albicans (Acute) Incisional infection (Acute) Adnexal fullness (Acute) Bacterial vaginosis (Acute) Gonorrhea (Acute) Bilateral ovarian cysts (Acute) Pyelonephritis (Acute) Schizoaffective disorder, bipolar type (Acute) PCP abuse, episodic (Acute) Post traumatic stress disorder (PTSD) (Acute) Past Medical History Medical History Skin graft (allograft) (autograft) failure Schizoaffective disorder, bipolar type Bipolar disorder Asthma Hypertension Substance abuse Depression Anxiety Family History Family history of problems with anesthesia: No Surgical History History of Problems with Anesthesia: No Social History Social History Household Members: None Housing: House Do you presently have visiting nurse or other home services: No Alcohol intake: current Alcohol intake frequency: 0-2 drinks per day Patient Tobacco Use Status: Current everyday Tobacco user Tobacco use type: Cigarette Cigarettes Per Day: 2 e-Cigarette/Vaping Use: Currently Using Second Hand Smoke Exposure: No Use of substances other than those prescribed or required for medical reasons: Yes Substance Use Type: Crack/Cocaine, Marijuana and Other Are you DNR?: No Advance Directives: No Advance Directives Information Provided: Yes service: No Sexual orientation: Did not discuss Meds Allergies Allergy/AdvReac Type Severity Reaction Status Date / Time seafood Allergy Mild Hives Verified 12/09/23 11:22 Active Medications: Current Medications Albuterol Sulfate (Albuterol Sulfate (0.083%) 2.5 Mg/3 Ml Vial.Neb) 2.5 mg INHALE ONCE PRN PRN Reason: Shortness of Breath/Wheezing Lactated Ringer's (Lr) 1,000 mls @ 100 mls/hr IVCONT .Q10H KINDRA Last Admin: 12/09/23 11:42 Dose: 100 mls/hr Home Medications Medication Instructions Recorded Confirmed Last Taken Type clonidine HCl 0.2 mg tablet 0.2 mg PO DAILY 03/24/23 12/09/23 12/07/23 History melatonin 5 mg tablet 5 mg PO BEDTIME PRN Sleep 03/24/23 12/09/23 12/07/23 History trazodone 100 mg tablet 100 mg PO QPM 03/24/23 12/09/23 12/07/23 History Exam Height,Weight and Vital Signs: Height 5 ft 2 in Weight 100.301 kg Last Vital Signs Temp 96.4 F L 12/09/23 11:41 Pulse 78 12/09/23 11:41 Resp 16 12/09/23 11:41 BP 96/63 12/09/23 11:41 Pulse Ox 97 12/09/23 11:41 O2 Del Method Room Air 12/09/23 11:41 Pertinent Lab Results Pertinent Lab Results: Laboratory Tests 12/09/23 12:11 Urine Test NEGATIVE Urine Opiates Screen Not Detected Urine Fentanyl Screen Not Detected Ur Barbiturates Screen Not Detected Ur Phencyclidine Scrn POSITIVE H Ur Amphetamines Screen POSITIVE H U Benzodiazepines Scrn Not Detected Urine Cocaine Screen POSITIVE H U Marijuana (THC) Screen POSITIVE H Airway Mallampati Class: II TM Dist: >3cm Neck ROM: Full Heart: rrr Lungs: clear Assessment and Plan Final Anesthetic Review Family History of Problems with Anesthesia: No History of Problems with Anesthesia: No NPO: No ASA Class: II Final Preanesthetic Review: No Changes in Pt Med Stat, Meds/Allgs Chart Reviewed, Consent Obtained/Reviewed and Anes Risks/Benef Reviewed Patient Risk: High Procedure Risk: Low
--- NOTE | 2023-12-09 14:46 | PC.NURSE ---
Pt cancelled by anesthesia Dr. Zamudio due to positive tox screen,inability to sign informed consent, and concerns for safety. This literary writer attempted to educate pt on reason for cancellation which pt did not understand. Director of surgical services bedside to explain safety and reason for cancellation. Pt began to dress to leave. Dr Brooks in to see pt and advised to call office to reschedule. Pt advised to abstain from drug use and offered services which she declined. IV removed and pt left ambulatory with all belongings.
== END | disposition home or self-care (01) ==
PROVIDERS: Nurse Practitioner; PCP Registered Nurse; Visit Provider Surgery
DX: M79.5 Residual foreign body in soft tissue (principal); Z53.09 Procedure and treatment not carried out because of other contraindication; R82.5 Elevated urine levels of drugs, medicaments and biological substances
CPT/HCPCS: 80307; 81025; J0690; J2795

== ENCOUNTER → 2023-12-16 12:45 | Day surgery (SDC) | payer MEDICAID, SELFPAY ==
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
== END ==
PROVIDERS: PCP Registered Nurse; Visit Provider Surgery
DX: M79.5 Residual foreign body in soft tissue (principal); Z53.29 Procedure and treatment not carried out because of patient's decision for other reasons

== ENCOUNTER 2023-12-22 10:28 | Outpatient (REF) | payer MEDICAID, SELFPAY ==
--- NOTE | ~2023-12-22 | XR_ITS ---
EXAMINATION: XR KNEE, RIGHT CLINICAL INFORMATION: Chronic anterior right knee pain for 2 years COMPARISON: None available. TECHNIQUE: Four views of the right knee. FINDINGS: BONES: Bony structures are intact. There is no focal bone destruction or periosteal reaction seen. JOINTS: Alignment of joints is normal. There is mild asymmetric decrease in medial compartment right knee joint space. SOFT TISSUE: Soft tissue is normal. No radiopaque foreign body or abnormal air collection is seen. XR/XR knee RT 3V IMPRESSION: 1. Findings are suggestive of early medial compartment right tibiofemoral joint osteoarthritis. 2. No fracture or dislocation or signs of osteomyelitis are found.
--- NOTE | ~2023-12-22 | XR_ITS ---
EXAMINATION: XR KNEE, LEFT CLINICAL INFORMATION: Chronic anterior left knee pain for 2 years COMPARISON: None available. TECHNIQUE: Four views of the left knee. FINDINGS: BONES: Bony structures are intact. There is no focal bone destruction or periosteal reaction seen. JOINTS: Alignment of joints is normal. There is mild asymmetric decrease in medial compartment left knee joint space. SOFT TISSUE: Soft tissue is normal. No radiopaque foreign body or abnormal air collection is seen. XR/XR knee LT 3V IMPRESSION: 1. Findings are suggestive of early medial compartment left tibiofemoral joint osteoarthritis. 2. No fracture or dislocation or signs of osteomyelitis are found.
== END 2023-12-22 10:29 | disposition home or self-care (01) ==
LOC: HO.HHCX 10:28
PROVIDERS: Visit Provider Family Medicine
DX: M25.561 Pain in right knee (principal); M25.562 Pain in left knee; G89.29 Other chronic pain
CPT/HCPCS: 73562

== ENCOUNTER 2024-01-25 12:00 | Outpatient (RCR) | payer MEDICAID, SELFPAY | END 2024-03-19 15:05 | disposition home or self-care (01) | LOC: HO.PT 12:00 | PROVIDERS: PCP Registered Nurse; Visit Provider Family Medicine | DX: M17.0 Bilateral primary osteoarthritis of knee (principal) | CPT/HCPCS: 97110; 97161 ==

== ENCOUNTER 2024-04-12 21:26 | Emergency (ER) | payer OTHER, MEDICAID, SELFPAY ==
[2024-04-12 21:36] VITALS: BP 132/78; PULSE 78; O2SAT 99; BMI 39.6
[2024-04-12 21:39] VITALS: BP 187/101; PULSE 97; RESP 18; TEMP 36.3; O2SAT 98
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
--- NOTE | 2024-04-12 23:52 | PC.NURSE ---
[facility] number 12 [facility]
[2024-04-13 02:19] LABS: MANUAL DIFF FLAG NO
[2024-04-13 02:21] LABS: Basophils Percent Auto 0.2 % (0-2); Eosinophils Percent Auto 0.3 % (0-4); Hematocrit 39.4 % (37.0-47.0); Hemoglobin 13.7 g/dl (12.0-16.0); Imm Gran Abs Auto 0.02 X10*3/uL (0.00-0.03); Imm Gran Pct Auto 0.2 % (0.0-0.4); Lymphocytes Absolute Auto 2.3 X10*3/uL (1.2-4.9); Lymphocytes Percent Auto 26.8 % (20-40); Mean Corpuscular HGB Conc 34.8 g/dl (31.0-35.0); Mean Corpuscular Hemoglobin 30.9 pg (27.0-33.0); Mean Corpuscular Volume 88.9 fL (80.0-98.0); Mean Platelet Volume 10.9 fL (9.4-12.3); Monocytes Absolute Auto 0.6 X10*3/uL (0.1-1.2); Monocytes Percent Auto 6.4 % (2-11); Neutrophils Absolute Auto 5.8 x10*3/uL (2.0-8.3); Neutrophils Percent Auto 66.1 % (45-73); Platelet Count 289 X10*3/uL (160-400); Red Blood Count 4.43 X10*6/uL (4.20-5.50); Red Cell Distribution Width 13.2 % (11.0-16.0); White Blood Count 8.7 X10*3/uL (4.8-10.8)
[2024-04-13 02:42] LABS: Alanine Aminotransferase 27 U/L (0-31); Albumin Level 4.4 g/dL (3.5-5.0); Alkaline Phosphatase 85 U/L (39-117); Anion Gap 15 (12-20); Aspartate Amino Transferase 21 U/L (5-31); Bilirubin Direct 0.3 mg/dL (0.0-0.5); Bilirubin Total 0.8 mg/dL (0.0-1.0); Blood Urea Nitrogen 13 mg/dL (9-16); Calcium 9.8 mg/dL (8.4-10.2); Carbon Dioxide 21 mmol/L (22-29); Chloride 109 mmol/L (96-108); Creatinine Clr Calc Pharmacy 126.1; Estimated Glomerular Filt Rate > 60; Ethanol < 10 mg/dL; Glucose Random 97 mg/dL (60-115); HCG Quantitative < 2 mIU/mL; Potassium 3.3 mmol/L (3.3-5.1); Sodium 142 mmol/L (135-145); Total Protein 8.1 g/dL (6.5-8.0)
[2024-04-13 04:01] LABS: Amphetamine Screen Urine POSITIVE (Not Detect); Barbiturates, Urine Not Detected (Not Detect); Benzodiazepines Screen Urine Not Detected (Not Detect); Buprenorphine Scr Not Detected (Not Detect); Cannabinoid Screen Urine POSITIVE (Not Detect); Cocaine Screen Urine POSITIVE (Not Detect); Fentanyl, urine Not Detected (Not Detect); Methadone Screen, Urine Not Detected (Not Detect); Opiate Screen Urine Not Detected (Not Detect); Oxycodone Screen Urine Not Detected (Not Detect); Phencyclidine Screen Urine POSITIVE (Not Detect)
[2024-04-13 04:53] VITALS: BP 140/75; PULSE 90; RESP 16; TEMP 37; O2SAT 97
[2024-04-13 08:58] VITALS: BP 145/77; PULSE 88; RESP 19; TEMP 36.6; O2SAT 98
== END 2024-04-13 09:04 | disposition home or self-care (01) ==
PROVIDERS: Emergency Medicine; Emergency Provider Emergency Medicine Emergency Medical Services
DX: F41.9 Anxiety disorder, unspecified (principal); Z91.148 Patient's other noncompliance with medication regimen for other reason; F25.0 Schizoaffective disorder, bipolar type; F19.10 Other psychoactive substance abuse, uncomplicated; F17.210 Nicotine dependence, cigarettes, uncomplicated; I10 Essential (primary) hypertension; J45.909 Unspecified asthma, uncomplicated
CPT/HCPCS: 36415; 80048; 80076; 80307; 84702; 85025; 99284; S9485

== ENCOUNTER 2024-04-23 16:28 | Outpatient (REF) | payer MEDICAID, SELFPAY ==
[2024-04-23 18:06] LABS: Appearance Urine Clear; Color Urine Yellow; Glucose Urine UA Negative (Negative); Leukocyte Esterase Urine Negative (Negative); Nitrite Urine Negative (Negative); Specific Gravity - Urine 1.015 (1.005-1.025); UMIC TRIGGER UACC YES; Urine Blood Large (3+) (Negative); Urine Ketones Negative (Negative); Urine Protein Trace mg/dL (Neg-Trace)
[2024-04-23 18:08] LABS: Bacteria Urine 1+ (None Seen); Hyaline Casts Urine 0-2 /LPF (0-2); RBC Urine >20 /HPF (0-2); Squamous Epithelial Cell Urine 0-2 /HPF (0-2); WBC Urine 0-5 /HPF (0-5)
[2024-04-24 10:08] LABS: Bacterial Vaginosis PCR POSITIVE (Negative); Candida Group PCR DETECTED (Not Detect); Candida glab krusei PCR NOT DETECTED (Not Detect); Trichomonas vaginalis PCR NOT DETECTED (Not Detect)
[2024-04-24 10:18] LABS: CT PCR NOT DETECTED (Not Detect.); NG PCR NOT DETECTED (Not Detect.)
== END 2024-04-23 16:29 | disposition home or self-care (01) ==
LOC: HO.CHCLNP 16:28
PROVIDERS: Visit Provider Registered Nurse
DX: R39.9 Unspecified symptoms and signs involving the genitourinary system (principal)
CPT/HCPCS: 0352U; 0353U; 81001

== ENCOUNTER 2024-06-22 12:16 | Outpatient (REF) | payer MEDICAID, SELFPAY ==
--- NOTE | ~2024-06-22 | XR_ITS ---
EXAMINATION: XR KNEE, RIGHT CLINICAL INFORMATION: Right knee injury on 06/21/2024, initial evaluation COMPARISON: Right knee x-ray on 12/22/2023 TECHNIQUE: AP and lateral views of the right knee. FINDINGS: BONES: Bony structures are intact. There is no focal bone destruction or periosteal reaction seen. JOINTS: Alignment of joints is normal. There is unchanged mild decrease in medial compartment right tibiofemoral joint space. SOFT TISSUE: Soft tissue is normal. No radiopaque foreign body or abnormal air collection is seen. XR/XR knee RT 3V IMPRESSION: 1. 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 2. No fracture or dislocation or signs of osteomyelitis are found.
== END 2024-06-22 12:17 | disposition home or self-care (01) ==
LOC: HO.XRAY 12:16
PROVIDERS: PCP Registered Nurse; Visit Provider Registered Nurse
DX: M25.561 Pain in right knee (principal)
CPT/HCPCS: 0352U; 73562; 81001; 87086; 87088; 87186; 87491; 87591

== ENCOUNTER 2024-06-22 13:24 | Emergency (ER) | payer MEDICAID, SELFPAY ==
[2024-06-22 13:28] VITALS: BP 136/91; PULSE 85; RESP 16; TEMP 36.2; O2SAT 97; BMI 43.4
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
[2024-06-22 14:58] VITALS: BP 136/61; PULSE 80; RESP 17; O2SAT 100
[2024-06-22] MEDS: oxyCODONE HCl Immed Release 5 MG TABLET 10 MG PO (15:25)
[2024-06-22] MEDS: Acetaminophen 325 MG TABLET 975 MG PO (15:26)
[2024-06-22] MEDS: Ketorolac Tromethamine 30 MG/ML VIAL IM (15:26)
--- NOTE | 2024-06-22 16:28 | PC.NURSE ---
berhane wrap and crutches given to pt
[2024-06-22 16:32] VITALS: BP 138/81; PULSE 85; RESP 14; TEMP 35.8; O2SAT 94
[2024-06-22 17:07] VITALS: BP 138/81; PULSE 85; RESP 14; TEMP 35.8; O2SAT 94
== END 2024-06-22 17:08 | disposition home or self-care (01) ==
PROVIDERS: Emergency Provider Student in an Organized Health Care Education/Training Program; PCP Registered Nurse
DX: S83.91XA Sprain of unspecified site of right knee, initial encounter (principal); S80.211A Abrasion, right knee, initial encounter; V28.01XA Electric (assisted) bicycle driver injured in noncollision transport accident in nontraffic accident, initial encounter; Y93.55 Activity, bike riding; Y92.9 Unspecified place or not applicable; Y99.9 Unspecified external cause status
CPT/HCPCS: 96372; 99283; 99284; J1885

== ENCOUNTER 2024-06-22 14:18 | Outpatient (REF) | payer MEDICAID, SELFPAY ==
[2024-06-22 18:17] LABS: Appearance Urine Cloudy; Color Urine Yellow; Glucose Urine UA Negative (Negative); Leukocyte Esterase Urine Moderate (2+) (Negative); Nitrite Urine Negative (Negative); PH 6.5 (5.0-9.0); UMIC TRIGGER UACC YES; Urine Blood Large (3+) (Negative); Urine Ketones Negative (Negative); Urine Protein 30 (1+) mg/dL (Neg-Trace)
[2024-06-22 18:22] LABS: Bacteria Urine Trace (None Seen); Hyaline Casts Urine 0-2 /LPF (0-2); RBC Urine >20 /HPF (0-2); UACC Culture Trigger YES; WBC Urine >50 /HPF (0-5)
[2024-06-23 09:11] LABS: Bacterial Vaginosis PCR POSITIVE (Negative); Candida Group PCR NOT DETECTED (Not Detect); Candida glab krusei PCR NOT DETECTED (Not Detect); Trichomonas vaginalis PCR NOT DETECTED (Not Detect)
[2024-06-23 09:49] LABS: CT PCR NOT DETECTED (Not Detect.); NG PCR NOT DETECTED (Not Detect.)
== END 2024-06-22 14:19 | disposition home or self-care (01) ==
LOC: HO.CHCLNP 14:18
PROVIDERS: Visit Provider Registered Nurse
DX: Z11.3 Encounter for screening for infections with a predominantly sexual mode of transmission (principal); R31.9 Hematuria, unspecified
CPT/HCPCS: 0352U; 81001; 87086; 87088; 87186; 87491; 87591

== ENCOUNTER 2024-08-29 14:49 | Outpatient (AMB) | payer MEDICAID, SELFPAY ==
--- NOTE | 2024-08-29 15:06 | A.OFFVIS_ITS ---
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 No complaints. Requesting STD screen Last Pap smear was in 2019 was negative [facility] Medical History Skin graft (allograft) (autograft) failure Schizoaffective disorder, bipolar type Bipolar disorder Asthma Hypertension Substance abuse Depression Anxiety Social History Household Members: None Housing: House Do you presently have visiting nurse or other home services: No Alcohol intake: current Alcohol intake frequency: 0-2 drinks per day Patient Tobacco Use Status: Current everyday Tobacco user Tobacco use type: Cigarette Cigarettes Per Day: 2 e-Cigarette/Vaping Use: Currently Using Second Hand Smoke Exposure: No Substance Use Type: Crack/Cocaine, Marijuana and Other service: No Sexual orientation: Did not discuss Female Reproductive History Menstrual Age of Menarche: 15 control method: implanted Total pregnancies: 2 Full term: 1 Number of Living Children: 1 Ab induced: 1 History of STI: Yes Review of Systems Const All systems reviewed & are unremarkable except as noted in HPI and below Card Reports as per HPI Resp Reports as per HPI GI Reports as per HPI and Reports no additional complaints Reports as per HPI Physical Exam Vital Signs: BMI result Body Mass Index 45.0 Const General: cooperative, healthy appearing and comfortable Chest Chest palpation & inspection: normal inspection of the chest and normal palpati on of entire chest wall Breast/axilla inspection: normal inspection of the breasts and normal inspection of the axillae Breast/axilla palpation: normal palpation of the breasts, normal palpation of the axillae and no axillary lymphadenopathy Resp Effort & Inspection: normal respiratory effort Auscultation: clear to auscultation bilaterally Percussion: percussion normal Cardio Palpation: normal PMI Rate: regular rate Rhythm: regular rhythm Heart sounds: no murmurs and no rubs Peripheral pulses: Peripheral pulses 2+ throughout GI Inspection: Yes normal to inspection Palpation (GI): Soft to palpation, nontender, no guarding, not rigid and No hepatosplenomegaly present Percussion: Yes normal to percussion Auscultation: normal bowel sounds Rectal Exam - Female: deferred General: Yes bladder normal to palpation External Female Exam: No lesion Speculum Exam - Vagina: normal appearance of the vagina, normal palpation, normal vaginal discharge and not erythematous Speculum Exam - Cervix: normal appearance of the cervix and normal palpation Bimanual exam- vagina & uterus: normal bimanual exam, normal palpation, uterine size normal, bladder normal to palpation, consistency normal and normal palpation Bimanual Exam- Adnexa, other: normal adnexae, no masses and no tenderness Assessment & Plan Assessment & Plan (1) Well woman exam: Code(s): Z01.419 - Encounter for gynecological examination (general) (routine) without abnormal findings Category: Medical Plan: Pap smear done. Counseled the patient about the recommended dietary allowance of 1000 mg of Calcium & 600 IU of vitamin D. The patient was instructed to perform monthly self-breast exams and to schedule an annual exam in a year; All questions answered and the patient verbalized understanding. Instructed the patient to schedule annual exam in a year (2) Screen for STD (sexually transmitted disease): Code(s): Z11.3 - Encounter for screening for infections with a predominantly sexual mode of transmission Category: Medical Plan: STD screening tests done includes: BV panel for trichomonas, GC/CT will send patient for serology std screening for HIV, RPR, Hep b s Ag, HepC Ab. Instructions given the patient to schedule a follow-up appointment for repeat serology screen in 6 months for possible false negatives. Orders: Orders Hepatitis B Surface Antigen Today Z20.2 - Contact with and (suspected) exposure to infections with a predominantly sexual mode of transmission HIV Ab/Ag Today Z20.2 - Contact with and (suspected) exposure to infections with a predominantly sexual mode of transmission Syphilis Screen Today Z20.2 - Contact with and (suspected) exposure to infections with a predominantly sexual mode of transmission Hepatitis C Antibody Today Z20.2 - Contact with and (suspected) exposure to infections with a predominantly sexual mode of transmission Coding Level of Care Code Est Pt Prev Care 18-39y(48556) Diagnoses Well woman exam Z01.419 Screen for STD (sexually transmitted disease) Z11.3
[2024-08-29 15:30] VITALS: BMI 45.0
== END 2024-08-29 15:53 | disposition home or self-care (01) ==
LOC: HO.HWS 14:49
PROVIDERS: PCP Registered Nurse; Referring Provider Registered Nurse; Visit Provider Obstetrics & Gynecology
DX: Z01.419 Encounter for gynecological examination (general) (routine) without abnormal findings (principal); Z11.3 Encounter for screening for infections with a predominantly sexual mode of transmission
CPT/HCPCS: 99395

== ENCOUNTER 2024-08-29 14:49 | Outpatient (REF) | payer MEDICAID, SELFPAY ==
[2024-08-30 04:21] LABS: Syphilis Screen Nonreactive (Nonreactive)
[2024-08-30 04:39] LABS: HIV AB/AG Nonreactive (Nonreactive); HIV Num 1 0.05 S/CO (0.00-0.99)
[2024-08-30 04:43] LABS: HBsAGNum1 0.53 S/CO (0.00-0.99); HIV AB/AG Nonreactive (Nonreactive); HIV Num 1 0.04 S/CO (0.00-0.99); Hepatitis B Surface Antigen Negative (Negative); ~HepC Num1 0.09 S/CO (0.00-0.79); ~Hepatitis C Antibody Nonreactive (Nonreactive)
[2024-08-31 10:33] LABS: HCV Log PCR <1.18 NOT DETECTED Log IU/mL (NOT DETECTED); HepC Viral Load <15 NOT DETECTED IU/mL (NOT DETECTED)
[2024-09-03 11:53] LABS: RPR Rapid Plasma Reagin NON-REACTIVE (NON-REACTIVE)
== END 2024-08-29 14:50 | disposition home or self-care (01) ==
LOC: HO.LAB 14:49
PROVIDERS: PCP Registered Nurse; Visit Provider Obstetrics & Gynecology
DX: Z01.419 Encounter for gynecological examination (general) (routine) without abnormal findings (principal); Z11.3 Encounter for screening for infections with a predominantly sexual mode of transmission; Z20.2 Contact with and (suspected) exposure to infections with a predominantly sexual mode of transmission
CPT/HCPCS: 36415; 86592; 86780; 86803; 87340; 87389; 87522; 87625; 88175; 99395

== ENCOUNTER 2024-08-29 15:49 | Outpatient (REF) | payer MEDICAID, SELFPAY ==
[2024-08-30 05:46] LABS: CT PCR NOT DETECTED (Not Detect.); NG PCR NOT DETECTED (Not Detect.)
[2024-08-30 10:58] LABS: Bacterial Vaginosis PCR POSITIVE (Negative); Candida Group PCR NOT DETECTED (Not Detect); Candida glab krusei PCR NOT DETECTED (Not Detect); Trichomonas vaginalis PCR NOT DETECTED (Not Detect)
== END 2024-08-29 15:50 | disposition home or self-care (01) ==
LOC: HO.LNP 15:49
PROVIDERS: Visit Provider Obstetrics & Gynecology
DX: Z11.3 Encounter for screening for infections with a predominantly sexual mode of transmission (principal); Z01.419 Encounter for gynecological examination (general) (routine) without abnormal findings
CPT/HCPCS: 0352U; 36415; 86592; 86780; 86803; 87340; 87389; 87491; 87522; 87591; 87625; 88175; 99395

== ENCOUNTER → 2024-10-22 14:37 | Outpatient (BNVA) | payer MEDICAID, SELFPAY | PROVIDERS: PCP Registered Nurse; Visit Provider Physician Assistant Surgical ==

== ENCOUNTER 2024-10-24 16:46 | Outpatient (REF) | payer MEDICAID, SELFPAY ==
--- NOTE | ~2024-10-24 | MR_ITS ---
EXAMINATION: MR KNEE WITHOUT CONTRAST, RIGHT CLINICAL INFORMATION: Right knee pain following a fall. COMPARISON: Right knee radiographs dated 06/22/2024. TECHNIQUE: MRI of the knee without contrast was performed using routine sequences on a high-field scanner. FINDINGS: MENISCI: Medial Meniscus: Intact Lateral Meniscus: Intact LIGAMENTS: Cruciate: Near complete, full-thickness tear of the proximal anterior cruciate ligament with a few thin anterior bundle fibers appearing to remain intact. There is associated edema and thickening of the torn ligament fibers without significant adjacent soft tissue edema. Findings likely represent a subacute tear. Intact posterior cruciate ligament. Collateral: Thickening of the medial collateral ligament with linear fluid signal within the intrasubstance of the proximal ligament fibers and minimal adjacent soft tissue edema, consistent with a subacute grade 2 sprain/partial tear. Intact fibular collateral ligament. EXTENSOR MECHANISM: Intact ARTICULAR CARTILAGE/BONE: Patellofemoral Compartment: Intact articular cartilage. Medial Compartment: Intact articular cartilage. Lateral Compartment: Intact articular cartilage. JOINT FLUID AND BURSAE: Small joint effusion and trace Stone's cyst. MUSCLES/TENDONS: Increased T2 signal within the proximal soleus muscle, consistent with an acute muscle strain. MR/MR knee RT wo con IMPRESSION: 1. Subacute, near complete, full-thickness tear of the proximal anterior cruciate ligament with a few thin anterior bundle fibers appearing to remain intact. 2. Subacute grade 2 sprain/partial tear of the medial collateral ligament. 3. No meniscal tear. 4. Small joint effusion and trace Stone's cyst. 5. Acute strain of the proximal soleus muscle. Electronically signed by: Stevan Rodney MD 11/02/2024 06:56 AM A[facility]IRAHMAN
== END 2024-10-24 16:47 | disposition home or self-care (01) ==
LOC: HO.MRI 16:46
PROVIDERS: PCP Registered Nurse; Visit Provider Registered Nurse
DX: M25.361 Other instability, right knee (principal)
CPT/HCPCS: 73721

== ENCOUNTER 2024-11-12 14:00 | Outpatient (AMB) | payer MEDICAID, SELFPAY ==
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
[2024-11-12 14:05] VITALS: BMI 42.9
--- NOTE | 2024-11-13 07:41 | A.OFFVIS_ITS ---
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 She has since had giving way with twisting activities that have caused her to fall and have caused pain. She is a student and would like to be able to get through her day without giving way. She is not athletic but considers herself active. She had an MRI which showed an isolated rupture of the ACL. [facility] Medical History Skin graft (allograft) (autograft) failure Schizoaffective disorder, bipolar type Bipolar disorder Asthma Hypertension Substance abuse Depression Anxiety Surgical History Hx of cystoscopy History of surgery on arm Family History Mother No problems noted. Father Diabetes Son Asthma Social History Household Members: None Housing: House Do you presently have visiting nurse or other home services: No Alcohol intake: current Alcohol intake frequency: holidays/special occasions only Patient Tobacco Use Status: Former Tobacco user Tobacco use type: Cigarette Cigarettes Per Day: 2 e-Cigarette/Vaping Use: Currently Using Second Hand Smoke Exposure: No Substance Use Type: Crack/Cocaine, Marijuana and Other service: No Sexual orientation: Did not discuss Female Reproductive History Menstrual Age of Menarche: 15 Physical Exam Vital Signs: BMI result Body Mass Index 42.9 Extrem Other: 1+ valgus instability 2+ Russell's pivot shift not present due to patient apprehension full ROM Results Reviewed Results Reviewed: I personally reviewed the MR images. 1. Subacute, near complete, full-thickness tear of the proximal anterior cruciate ligament with a few thin anterior bundle fibers appearing to remain intact. 2. Subacute grade 2 sprain/partial tear of the medial collateral ligament. 3. No meniscal tear. 4. Small joint effusion and trace Stone's cyst. 5. Acute strain of the proximal soleus muscle. Assessment & Plan Assessment & Plan (1) Right ACL tear: Code(s): S83.511A - Sprain of anterior cruciate ligament of right knee, initial encounter Category: Medical Plan: Right knee ACL rupture. 29 yo F with a complete rupture of her ACL and giving way. She has full ROM. I reecommend ACL reconstruction with allograft. I discussed the risks benefits and alternatives including but not limited to the risk of pain, infection, stiffness, need for further surgery as well as potential medical complications such as blood clots, pulmonary embolism and cardiac complications. I explained the importance of PT and we will proceed forward. Coding Level of Care Code New Pt Level 4 (32770) Diagnoses Right ACL tear S83.511A
[2024-11-13 07:44] VITALS: BMI 42.9
== END 2024-11-12 14:59 | disposition home or self-care (01) ==
PROVIDERS: PCP Registered Nurse; Visit Provider Orthopaedic Surgery
DX: S83.511A Sprain of anterior cruciate ligament of right knee, initial encounter (principal)
CPT/HCPCS: 99204

== ENCOUNTER → 2024-11-12 14:00 | Outpatient (BNVA) | payer MEDICAID, SELFPAY | PROVIDERS: PCP Registered Nurse; Visit Provider Orthopaedic Surgery | DX: S83.511A Sprain of anterior cruciate ligament of right knee, initial encounter (principal) | CPT/HCPCS: 99202 ==

== ENCOUNTER 2024-11-16 16:19 | Outpatient (REF) | payer MEDICAID, SELFPAY ==
[2024-11-17 14:16] LABS: Bacterial Vaginosis PCR POSITIVE (Negative); Candida Group PCR NOT DETECTED (Not Detect); Candida glab krusei PCR NOT DETECTED (Not Detect); Trichomonas vaginalis PCR NOT DETECTED (Not Detect)
[2024-11-17 14:49] LABS: CT PCR NOT DETECTED (Not Detect.); NG PCR NOT DETECTED (Not Detect.)
== END 2024-11-16 16:20 | disposition home or self-care (01) ==
LOC: HO.CHCLNP 16:19
PROVIDERS: Visit Provider Registered Nurse
DX: N94.9 Unspecified condition associated with female genital organs and menstrual cycle (principal)
CPT/HCPCS: 0352U; 87491; 87591

== ENCOUNTER 2024-12-10 08:01 | Outpatient (AMB) | payer MEDICAID, SELFPAY ==
--- NOTE | 2024-12-10 08:03 | A.OFFVIS_ITS ---
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 42.9 Allergies seafood Allergy (Mild, Verified 12/10/24 08:09) Hives Medication List - Last Reconciled 12/10/24 by Hua Villalobos MD albuterol sulfate 90 mcg/actuation 2 puffs inhalation Q6H PRN clonidine HCl 0.2 mg PO DAILY etonogestrel (Nexplanon) subdermal melatonin 5 mg PO BEDTIME PRN trazodone 100 mg PO QPM HPI HPI 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 42.9: Details: Start time: 8.00am, End time: 8.38am ?I spent 33 minutes speaking with the patient on the phone plus an additional 5 minutes reviewing and updating records for a total of 38 minutes HPI Comments Details: Previous weight loss efforts: none Wakes up: 2pm, Sleeps: 12am Breakfast: skips Lunch: none Dinner: 5pm (rice, beans, cereal, pasta) Snacks: snacks twice after dinner (chips, ice cream) Exercise: none Fluids: Coffee: 1-2 cup/day (creamer and sugar), hot tea: 1 cup/d (plain), soda: Regular Sprite/Gingerale, juice: flavored water, ETOH: 2/month (1-2 glasses or 1 gallon) [facility] Medical History (Updated 12/10/24 @ 08:18 by Hua Villalobos MD) Insomnia Morbid obesity Skin graft (allograft) (autograft) failure Schizoaffective disorder, bipolar type Bipolar disorder Asthma Hypertension Substance abuse Depression Anxiety Surgical History (Updated 12/10/24 @ 08:18 by Hua Villalobos MD) History of ovarian cystectomy History of surgery on arm Family History Mother No problems noted. Father Diabetes Son Asthma Social History Household Members: None Housing: House Do you presently have visiting nurse or other home services: No Alcohol intake: current Alcohol intake frequency: holidays/special occasions only Patient Tobacco Use Status: Former Tobacco user Tobacco use type: Cigarette Cigarettes Per Day: 2 e-Cigarette/Vaping Use: Currently Using Second Hand Smoke Exposure: No Substance Use Type: Crack/Cocaine, Marijuana and Other service: No Sexual orientation: Did not discuss Female Reproductive History Menstrual Age of Menarche: 15 Telehealth Telehealth Telehealth Platform: Telephone Location of provider rendering services: practice address Location of patient: address on file Patient Identification confirmed using: Name, : Yes Telehealth method: voice only Patient verbally consented to treatment: Yes Patient verbally consented to billing insurance company: Yes Patient informed of any privacy concerns related to visit: Yes Minutes spent on Phone/Video with Pt.: 38 Assessment & Plan Assessment & Plan (1) Morbid obesity: Code(s): E66.01 - Morbid (severe) obesity due to excess calories Category: Medical Plan: 1) Purchase the body composition scale and send me weight measurements 2) Get a gym membership or buy a stationary bike and let me know what you decided 3) Do blood work fasting overnight and let me know when you do it 4) To see out therapist. My office will call you to schedule Orders: Orders Insulin Today E66.01 - Morbid (severe) obesity due to excess calories, I10 - Essential (primary) hypertension Complete Blood Count Auto Diff Today E66.01 - Morbid (severe) obesity due to excess calories, I10 - Essential (primary) hypertension Lipid Panel Today E66.01 - Morbid (severe) obesity due to excess calories, I10 - Essential (primary) hypertension IRON PROFILE Today E66.01 - Morbid (severe) obesity due to excess calories, I10 - Essential (primary) hypertension Comprehensive Met. Panel Today E66.01 - Morbid (severe) obesity due to excess calories, I10 - Essential (primary) hypertension Vitamin B12 and Folate Today E66.01 - Morbid (severe) obesity due to excess calories, I10 - Essential (primary) hypertension Zinc Today E66.01 - Morbid (severe) obesity due to excess calories, I10 - Essential (primary) hypertension C Reactive Protein Today E66.01 - Morbid (severe) obesity due to excess calories, I10 - Essential (primary) hypertension Vitamin A Today E66.01 - Morbid (severe) obesity due to excess calories, I10 - Essential (primary) hypertension TSH reflex Free T4 Today E66.01 - Morbid (severe) obesity due to excess calories, I10 - Essential (primary) hypertension Ferritin Today E66.01 - Morbid (severe) obesity due to excess calories, I10 - Essential (primary) hypertension Vitamin D 25-OH Total Today E66.01 - Morbid (severe) obesity due to excess ca lories, I10 - Essential (primary) hypertension AMB 14 Panel Urine Drug Screen Today E66.01 - Morbid (severe) obesity due to excess calories, I10 - Essential (primary) hypertension Hemoglobin A1c Today E66.01 - Morbid (severe) obesity due to excess calories, I10 - Essential (primary) hypertension Vitamin B1 Today E66.01 - Morbid (severe) obesity due to excess calories, I10 - Essential (primary) hypertension Carbon Monoxide Today E66.01 - Morbid (severe) obesity due to excess calories, I10 - Essential (primary) hypertension Ethanol Today E66.01 - Morbid (severe) obesity due to excess calories, I10 - Essential (primary) hypertension
[2024-12-10 08:33] VITALS: BMI 40.3
== END 2024-12-10 08:41 | disposition home or self-care (01) ==
LOC: HO.HBS 08:01
PROVIDERS: PCP Registered Nurse; Visit Provider Surgery
DX: E66.01 Morbid (severe) obesity due to excess calories (principal)
CPT/HCPCS: 99203

== ENCOUNTER 2024-12-13 | Outpatient (REF) | payer MEDICAID, SELFPAY ==
[2024-12-13 16:55] LABS: MANUAL DIFF FLAG NO
[2024-12-13 17:00] LABS: Carbon Monoxide Refer to POC result; Carbon Monoxide POC 2.4 %
[2024-12-13 17:21] LABS: Estimated Average Glucose 117 mg/dL; Hemoglobin A1C 124.7854 umol/L; Hemoglobin A1c % 5.7 % (<6.0); Total Hemoglobin (HGBA1C) 3261.5034 umol/L
[2024-12-13 17:36] LABS: Basophils Percent Auto 0.3 % (0-2); Eosinophils Absolute Auto 0.1 X10*3/uL (0.0-0.4); Eosinophils Percent Auto 1.1 % (0-4); Hematocrit 36.3 % (37.0-47.0); Hemoglobin 12.5 g/dl (12.0-16.0); Imm Gran Abs Auto 0.02 X10*3/uL (0.00-0.03); Imm Gran Pct Auto 0.3 % (0.0-0.4); Lymphocytes Absolute Auto 1.8 X10*3/uL (1.2-4.9); Lymphocytes Percent Auto 28.6 % (20-40); Mean Corpuscular HGB Conc 34.4 g/dl (31.0-35.0); Mean Corpuscular Hemoglobin 30.9 pg (27.0-33.0); Mean Corpuscular Volume 89.9 fL (80.0-98.0); Mean Platelet Volume 11.3 fL (9.4-12.3); Monocytes Absolute Auto 0.5 X10*3/uL (0.1-1.2); Monocytes Percent Auto 8.5 % (2-11); Neutrophils Absolute Auto 3.7 x10*3/uL (2.0-8.3); Neutrophils Percent Auto 61.2 % (45-73); Platelet Count 277 X10*3/uL (160-400); Red Blood Count 4.04 X10*6/uL (4.20-5.50); Red Cell Distribution Width 13.6 % (11.0-16.0); White Blood Count 6.1 X10*3/uL (4.8-10.8)
[2024-12-13 17:59] LABS: Alanine Aminotransferase 29 U/L (0-31); Albumin Level 3.9 g/dL (3.5-5.0); Alkaline Phosphatase 74 U/L (39-117); Anion Gap 9 (12-20); Aspartate Amino Transferase 31 U/L (5-31); Bilirubin Total 0.4 mg/dL (0.0-1.0); Blood Urea Nitrogen 12 mg/dL (9-16); C Reactive Protein 0.31 mg/dL (< or = 0.50); Calcium 8.8 mg/dL (8.4-10.2); Carbon Dioxide 23 mmol/L (22-29); Chloride 113 mmol/L (96-108); Cholesterol 137 mg/dL (<200); Estimated Glomerular Filt Rate > 60; Ethanol < 10 mg/dL; Glucose Random 110 mg/dL (60-115); HDL Cholesterol 37 mg/dL (>40); Iron 76 mcg/dL (30-160); LDL Cholesterol Calculated 82 mg/dL (<100); Percent Iron Saturation 23 % (15-50); Potassium 3.9 mmol/L (3.3-5.1); Sodium 141 mmol/L (135-145); Total Iron Binding Capacity 327 mcg/dL (228-428); Total Protein 7.4 g/dL (6.5-8.0); Triglycerides 90 mg/dL (<150); Unsaturated Iron Binding 251 ug/dL
[2024-12-13 18:06] LABS: Ferritin 105 ng/mL (10-122); Insulin 25 uU/mL (2-29); TSH reflex Free T4 0.79 uIU/mL (0.32-4.0); Vitamin D 25-OH Total 9.6 ng/mL (>30)
[2024-12-13 18:15] LABS: Folate 8.5 ng/mL (> or = 4.0); Vitamin B12 243 pg/mL (200-900)
[2024-12-14 11:55] LABS: Amphetamine Screen Urine Not Detected (Not Detect); Barbiturates, Urine Not Detected (Not Detect); Benzodiazepines Screen Urine Not Detected (Not Detect); Buprenorphine Scr Not Detected (Not Detect); Cannabinoid Screen Urine POSITIVE (Not Detect); Cocaine Screen Urine Not Detected (Not Detect); Fentanyl, urine Not Detected (Not Detect); Methadone Screen, Urine Not Detected (Not Detect); Opiate Screen Urine Not Detected (Not Detect); Oxycodone Screen Urine Not Detected (Not Detect); Phencyclidine Screen Urine Not Detected (Not Detect)
[2024-12-17 03:09] LABS: Zinc 61 mcg/dL (60-130)
[2024-12-17 20:28] LABS: Vitamin A 54 mcg/dL (38-98)
[2024-12-18 16:22] LABS: Vitamin B1 10 nmol/L (8-30)
--- OUTSIDE RECORDS SUMMARY | 2024-12-28 14:21 | XMS_ITS | Encounter Summary ---
Author Organization [employer] Address [address] [place] [address] 7 [place] [address] Care Team Providers Care Specialty Plant Supervisor Name Role Phone Veronique Luke Primary Care Provider [phone] Reason for Visit * Reason Onset Date Comments Med Refill 12/03/2024 Encounter Details Date Type Department Care Team ([facility] st Contact Info) Description 12/03/2024 Refill [facility] [address] [place] [address] Veronique Luke FNP [address] [place] [address] Chalazion of right upper eyelid Social History Tobacco Use Types Packs/Day Years Used Date Smoking Tobacco: Every Day Cigarettes Smokeless Tobacco: Never Alcohol Use Standard Drinks/Week Comments Yes 0 (1 standard drink = 0.6 oz pur e alcohol) ocasionally Alcohol Answer Date Recorded Frequency of Alcohol Consumption Not on file 09/14/2024 Average Number of Drinks Not on file 024 Frequency of Binge Drinking Not on file 08/22 Score 0 09/14/2024 Depression Answer Date Recorded Patient Health Questionnaire-9 Score 8 06/29/2024 Patient Health Questionnaire-9 Score 8 06/29/2024 Last PHQ-9: Questionnaire Data Not on file 0 06/29/2024 Housing Stability Answer Date Recorded What is your housing situation today? I have chen keane 09/14/[address] you li ve. Do you have problems with any of the following? None of the above 09/14/2024 Food Insecurity Answer Date Recorded Within the past 12 months, y ou worried that your food would run out before you got money to buy more: Never True 09/14/2024 Within the past 12 months,th e food you bought just didn't last and you didn't have enough money to get more: Never True Transportation Answer Date Recorded In the past 12 months, has l ack of transportation kept you from medical appts, meetings, work or from getting things needed for daily living? No 09/14/2024 Utilities Answer Date Recorded In the past 12 months, has t he electric, gas, oil or water company threatened to shut off services in your home? Yes 09/14/2024 Depression Answer Date Recorded Patient Health Questionnaire-2 Score 4 06/29/2024 Internet Access Answer Date Recorded Internet Access Q1 Yes 09/14/2024 Internet Access Q2 Not on file 09/14/2024 Comments Unknown Sex and Gender Information Value Date Recorded Sex Assigned at Female 09/20/2022 10:15 AM EDT Legal Sex Female 10:15 AM EDT Gender Identity Female 09/20/2022 10:15 AM EDT Sexual Orientation Bisexual 09/20/2022 10 :15 AM EDT documented as of this encounter Miscellaneous Notes * Telephone Encounter - Ashanti Flores RN - 12/04/2024 9:08 AM EST Noted documented in this encounter Plan of Treatment Not on file documented as of this encounter Visit Diagnoses Diagnosis Chalazion of right upper eyelid documented in this encounter Additional Health Concerns Assessment Noted Time PHQ-9 Depression Total Score: 8 06/29/20 24 9:53 AM EDT documented as of this encounter Care Teams Specialty Plant Supervisor Relationship Specialty Start Date End Date Veronique Luke FNP [address] [place] [id number] PCP - General Family Medicine 07/21/22 documented as of this encounter
--- OUTSIDE RECORDS SUMMARY | 2024-12-28 14:21 | XMS_ITS | Encounter Summary ---
Author Organization [employer] Address [address] [place] [address] 7 [place] [address] Care Team Providers Care Forest Aide Name Role Phone Veronique Luke Primary Care Provider [phone] Reason for Visit * Reason Onset Date Comments Prior Authorization 04/17/2024 Encounter Details Date Type Department Care Team ([facility] st Contact Info) Description 04/17/2024 Telephone [facility] [address] [place] [address] Veronique Luke FNP [address] [place] [address] Prior Authorization Social History Tobacco Use Types Packs/Day Years [...] encounter Miscellaneous Notes * Telephone Encounter - Tali Landaverde - 04/30/2024 11:01 AM EDT LVM stating that her [employer] form is ready for tow picker. * Telephone Encounter - Yumiko Khanna RN - 04/26/2024 4:04 PM EDT RN reviewed message below from PCP, with pt who status understanding. Pt scheduled 05/18/24, also would like to talk to PCP about surgery concerns, states it is not urgent. Please call to let her know that testing for yeast and BV was positive. I have sent fluconazole andmetrogel to the pharmacy. Testing for gonorrhea, chlamydia, and trich was negative. No sign of UTI, although did have blood in urine. If she was not on her period, please schedule herfor an appt in 1 month to recheck hematuria. Thank you! * Telephone Encounter - Wing Brianne RN - 04/19/2024 11:24 AM EDT Tc to pt to relay med refill information, unable to reach pt, [facility] you have dialed is not accepting calls at this time. . Unable to leave message for pt. Pt has upcoming appt with PCP on 04/23. * Telephone Encounter - Ronda Lino RN - 04/19/2024 8:07 AM EDT [id number] attempted to pt regarding message below and pt request to rebook ED F/U from 04/13/24. Line beeps, Busy, unable to leave message. Pt has F/U with PCP booked 04/23/24 for chronic conditions. RN will forward to [facility] Team Nurses to re- attempt to contact pt. Please call pt and let her know that med refill was sent to the pharmacy, but that no PA should be required for routine refills the meds. Thank you. * Telephone Encounter - MARIUSZ Dorado - 04/19/2024 6:57 AM EDT Please call pt and let her know that med refill was sent to the pharmacy, but that no PA should be required for routine refills the meds. Thank you. * Telephone Encounter - Betsy Lopez LPN - 04/18/2024 3:35 PM EDT No pa needed per website * Telephone Encounter - Neetu Iraheta - 04/17/2024 2:56 PM EDT Tc from pt stating needs a PA for traZODone (Desyrel) 100 MG tablet, cloNIDine (Catapres) 0.2 MG tablet , and melatonin 5 MG tablet documented in this encounter Plan of Treatment Not on file documented as of this encounter Visit Diagnoses Diagnosis Mood disorder (CMS/HCC) Unspecified episodic mood disorder documented in this encounter Additional Health Concerns Assessment Noted Time PHQ-9 Depression Total Score: 0 04/08/20 23 3:45 PM EDT documented as of this encounter Care Teams Forest Aide Relationship Specialty Start Date End Date Veronique Luke FNP [address] [place] [id number] PCP - General Family Medicine 07/21/22 documented as of this encounter
--- OUTSIDE RECORDS SUMMARY | 2024-12-28 14:21 | XMS_ITS | Encounter Summary ---
Author Organization [employer] Address [address] [facility] [address] [place] [address] Care Team Providers Care Manager Career Name Role Phone Veronique Luke Primary Care Provider Reason for Visit * Reason Onset Date Comments PT-1 07/27/2024 Encounter Details Date Type Department Care Team ([facility] st Contact Info) Description 07/27/2024 Telephone [facility] [address] [place] [address] Veronique Luke FNP [address] [place] [address] PT-1 Social History Tobacco Use Types Packs/Day Years Used Date Smoking Tobacco: Every Day Cigarettes Smokeless Tobacco: Never Alcohol Use Standard Drinks/Week Comments Yes 0 (1 standard drink = 0.6 oz pur e alcohol) ocasionally Depression Answer Date Recorded Patient Health Questionnaire-9 Score 8 06/29/2024 Patient Health Questionnaire-9 Score 8 06/29/2024 Last PHQ-9: Questionnaire Data Not on file 0 06/29/2024 Housing Stability Answer Date Recorded What is your housing situation today? I have chen keane 09/05/[address] you li ve. Do you have problems with any of the following? None of the above 09/05/2023 Food Insecurity Answer Date Recorded Within the past 12 months, y ou worried that your food would run out before you got money to buy more: Never True 09/05/2023 Within the past 12 months,th e food you bought just didn't last and you didn't have enough money to get more: Never True Transportation Answer Date Recorded In the past 12 months, has l ack of transportation kept you from medical appts, meetings, work or from getting things needed for daily living? No 09/05/2023 Utilities Answer Date Recorded In the past 12 months, has t he electric, gas, oil or water company threatened to shut off services in your home? Yes 08/29/2023 Depression Answer Date Recorded Patient Health Questionnaire-2 Score 4 06/29/2024 Comments Unknown Sex and Gender Information Value Date Recorded Sex Assigned at Female 09/20/2022 10:15 AM EDT Legal Sex Female 10:15 AM EDT Gender Identity Female 09/20/2022 10:15 AM EDT Sexual Orientation Bisexual 09/20/2022 10 :15 AM EDT documented as of this encounter Miscellaneous Notes * Telephone Encounter - Tristian Colindres - 07/27/2024 2:32 PM EDT Patient calling requesting PT1 Home Address verified: Y/N: Yes Provider name or facility name: [facility] Facility Address: [address] [place] [address] Escort needed: Y/N: No Do you have a wheelchair: Y/N: No If yes- Manual or electric: N/A Visits: Twice a month documented in this encounter Plan of Treatment Not on file documented as of this encounter Visit Diagnoses Not on filedocumented in this encounter Additional Health Concerns Assessment Noted Time PHQ-9 Depression Total Score: 8 06/29/20 24 9:53 AM EDT documented as of this encounter Care Teams Manager Career Relationship Specialty Start Date End Date Veronique Luke FNP [address] [place] [address] PCP - General Family Medicine 07/21/22 documented as of this encounter
--- OUTSIDE RECORDS SUMMARY | 2024-12-28 14:21 | XMS_ITS | Encounter Summary ---
Author Organization [employer] Address [address] [facility] [address] [place] [address] Care Team Providers Care Gill Net Stringer Name Role Phone Veronique Luke MARIUSZ Primary Care Provider [phone] Encounter Details Date Type Department Care Team (Late st Contact Info) Description 12/13/2024 Orders Only GENERIC EXTERNAL DATA DEPARTMENT Provider, Generic External Data Social History Tobacco Use Types Packs/Day Years [...] AM EDT documented as of this encounter Plan of Treatment Not on file documented as of this encounter Procedures Procedure Name Priority Date/Time Associated Diagnosis Comments POCT CARBON MONOXIDE Routine 12/13/2024 4:50 PM EST ETHANOL Routine 12/13/2024 4:50 PM EST VITAMIN D,25-OH,TOTAL,IA Routine 12/13/2024 4:50 PM EST VITAMIN B12/FOLATE, SERUM PANEL Routine 12/13/2024 4:50 PM EST TSH W/REFLEX TO FT4 Routine 12/13/2024 4 :50 PM EST CBC WITH AUTO DIFFERENTIAL Routine 12/13/2024 4:50 PM EST IRON AND TOTAL IRON BINDING CAPACITY Routine 12/13/2024 4:50 PM EST INSULIN Routine 12/13/2024 4:50 PM EST ZINC Routine 12/13/2024 4:50 PM EST VITAMIN A Routine 12/13/2024 4:50 PM EST C-REACTIVE PROTEIN Routine 12/13/2024 4: 50 PM EST VITAMIN B1 Routine 12/13/2024 4:50 PM EST HEMOGLOBIN A1C Routine 12/13/2024 4:50 PM EST FERRITIN Routine 12/13/2024 4:50 PM EST LIPID PANEL, STANDARD Routine 12/13/2024 4:50 PM EST COMPREHENSIVE METABOLIC PANEL Routine 12/13/2024 4:50 PM EST documented in this encounter Results * Vitamin B1 (12/13/2024 4:50 PM EST) Vitamin B1 10 8 - 30 nmol/L [facility] Comment:Vitamin supplementat ion within 24 hours prior toblood draw may affect the accuracy of the results.This test was developed and its analytical performancecharacteristics have been determined by [employer] [place], [place]. It hasnot been cleared or approved by the U.S. Food and DrugAdministration. This assay has been validated pursuantto the CLIA regulations and is used for clinicalpurposes.THIS TEST WAS PERFORMED AT:[id number] [place] [address]NYGPZSIADRIAN WILDE MD,PHD 12/13/2024 4:50 PM EST 12/13/2024 4:52 PM EST us Generic External Data Provider LAB BLOOD ORDERAB LES Final Result [facility] [address] [place] [phone] * Vitamin A (12/13/2024 4:50 PM EST) Vitamin A (Retinol) 54 38 - 98 mcg/dL [facility] Comment:Vitamin supplementat ion within 24 hours prior toblood draw may affect the accuracy of the results.This test was developed and its analytical performancecharacteristics have been determined by [employer], [place]. It hasnot been cleared or approved by the U.S. Food and DrugAdministration. This assay has been validated pursuantto the CLIA regulations and is used for clinicalpurposes.THIS TEST WAS PERFORMED AT:[employer] [facility] [id number] [place] [address]RNVEXDBADRIAN WILDE MD,PHD 12/13/2024 4:50 PM EST 12/13/2024 4:52 PM EST Generic External Data Provider LAB BLOOD ORDERAB LES Final Result Performing Organization Address [facility]/ZIP Co de Phone Number [facility] [address] [place] [phone] * Zinc (12/13/2024 4:50 PM EST) Zinc 61 60 - 130 mcg/dL [facility] Comment:This test was develo ped and its analytical performancecharacteristics have been determined by [employer], [place]. It hasnot been cleared or approved by the U.S. Food and DrugAdministration. This assay has been validated pursuantto the CLIA regulations and is used for clinicalpurposes.THIS TEST WAS PERFORMED AT:[employer]/[facility] [employer] [facility] [id number] [place] [address]RDNFEFYADRIAN WILDE MD,PHD 12/13/2024 4:50 PM EST 12/13/2024 4:52 PM EST Generic External Data Provider LAB BLOOD ORDERAB LES Final Result Performing Organization Address City/[facility]/ZIP Co de Phone Number [facility] [address] [place] [phone] * Vitamin B12 (Cobalamin) and Folate Panel, Serum (12/13/2024 4:50 PM EST) Pathologist [facility] Vitamin B12 243 200 - 900 pg/mL [facility] Comment:NORMAL 200-900 PG/ML INDETERMINATE 160-199 PG/ML DEFICIENT < 160 PG/ML Folate 8.5 > or = 4.0 ng/mL [facility] Comment:Reference Values:> o r = 4.0 ng/mL< 4.0 ng/mL suggests folate deficiency Methotrexate, aminopterin and folinic acid(leucovorin) are chemotherapeutic agents whose molecularstructures are similar to folate; therefore, the Architectfolate assay cannot be used for patients using these drugs. 12/13/2024 4:50 PM EST 12/13/2024 4:52 PM EST Generic External Data Provider LAB BLOOD ORDERAB LES Final Result Performing Organization Address [facility] Co de Phone Number [facility] [address] [place] [address] [phone] * Insulin (12/13/2024 4:50 PM EST) Pathologist [facility] Insulin 25 2 - 29 uU/mL [facility] Comment:This test was perfor med using the Wallace chemiluminescentmethod. Values obtained from different assay methods cannot beused interchangeably. This insulin assay shows a possiblecross-reactivity with antibodies generated against insulin(immunoreactive insulin and some patients treated withbovine or porcine insulin). Insulin levels may be measuredlower in patients with insulin autoimmune syndrome orfamilial high pro-insulinemia. 12/13/2024 4:50 PM EST 12/13/2024 4:52 PM EST [employer] External Data Provider LAB BLOOD ORDERAB LES Final Result Performing Organization Address [facility] Co de Phone Number [facility] [address] [place] [address] [phone] * TSH with Reflex to Free T4 (12/13/2024 4:50 PM EST) [facility] TSH reflex Free T4 0.79 0.32 - 4.0 uIU/mL [facility] 12/13/2024 4:50 PM EST 12/13/2024 4:52 PM EST Generic External Data Provider LAB BLOOD ORDERAB LES Final Result Performing Organization Address [facility]/ZIP Co de Phone Number [facility] [address] [place] [phone] * (ABNORMAL) Vitamin D, 25-Hydroxy, Total, Immunoassay (12/13/2024 4:50 PM EST) Vitamin D 25-OH Total 9.6(L) >30 ng/mL [facility] Comment:Health Based Referen ce Values*< 20 ng/mL Eioxawfgp95-61 ng/mL Insufficient> 30 ng/mL Sufficient*Colt RUBIO. N Engl J Med. 2007;357:266-280Care must be taken in interpreting Vitamin D results fromdifferent laboratories and methodologies. Published datademonstrated that results from patients undergoinghemodialysis may show a negative bias when tested withvarious automated 25-OH vitamin D assays when compared toLC-MS/MS.When testing samples from patients whose predominant form ofVitamin D is Vitamin D2, such as patients receiving VitaminD2 supplementation, results that are subtherapeutic shouldbe confirmed with another method such as LC-MS/MS. 12/13/2024 4:50 PM EST 12/13/2024 4:52 PM EST us Generic External Data Provider LAB BLOOD ORDERAB LES Final Result Performing Organization Address City/[facility]/ZIP Co de Phone Number [facility] [address] [place] [phone] * Ferritin (12/13/2024 4:50 PM EST) Ferritin 105 10 - 122 ng/mL [facility] 12/13/2024 4:50 PM EST 12/13/2024 4:52 PM EST Generic External Data Provider LAB BLOOD ORDERAB LES Final Result Performing Organization Address City/[facility]/ZIP Co de Phone Number [facility] [address] [place] [phone] * Ethanol (12/13/2024 4:50 PM EST) ETHANOL (MG/DL) IN SER/PLAS <10 mg/dL [facility] Comment:Serum/plasma ethanol results are to be used formedical/treatment purposes only. 12/13/2024 4:50 PM EST 12/13/2024 4:52 PM EST us Generic External Data Provider LAB BLOOD ORDERAB LES Final Result Performing Organization Address [facility] Co de Phone Number [facility] [address] [place] [phone] * (ABNORMAL) Lipid Panel, Standard (12/13/2024 4:50 PM EST) Triglycerides 90 <150 mg/dL [facility] Comment:Desirable Triglyceri de: less than 150 mg/dLBorderline High Triglyceride 150-199 mg/dLHigh Triglyceride: 200-499 mg/dLVery High Triglyceride: greater than or equal to 5OO mg/dL Cholesterol 137 <200 mg/dL [facility] Comment:Desirable Cholestero l: less than 200 mg/dLBorderline High Cholesterol: 200-239 mg/dLHigh Cholesterol: greater than 239 mg/dL LDL Cholesterol Calculated 82 <100 mg/dL [facility] Comment:Desirable LDL: less than 100 mg/dLNear Optimal/Above Optimal LDL: 110- 129 mg/dLBorderline High LDL: 130-159 mg/dLHigh LDL: 160-189 mg/dLVery High LDL: greater than or equal to 190 mg/dL HDL Cholesterol 37(L) >40 mg/dL [facility] Comment:Desirable HDL: great er than 40 mg/dL Note: This HDL assay may give artificially low results in patients with liver disease. 12/13/2024 4:50 PM EST 12/13/2024 4:52 PM EST Generic External Data Provider LAB BLOOD ORDERAB LES Final Result Performing Organization Address [facility] de Phone Number [facility] [address] [place] [phone] * C-reactive Protein (12/13/2024 4:50 PM EST) Pathologist [facility] C Reactive Protein 0.31 < or = 0.50 mg/dL [facility] 12/13/2024 4:50 PM EST 12/13/2024 4:52 PM EST Generic External Data Provider LAB BLOOD ORDERAB LES Final Result Performing Organization Address [facility] Number [facility] [address] [place] [phone] * Iron And Total Iron Binding Capacity (12/13/2024 4:50 PM EST) Pathologist [facility] Iron 76 30 - 160 mcg/dL [facility] Comment:Slight Hemolysis.Int erpret result with caution. Total Iron Binding Capacity 327 228 - 428 mcg/dL [facility] Percent Iron Saturation 23 15 - 50 % [facility] Unsaturated Iron Binding 251 ug/dL [facility] 12/13/2024 4:50 PM EST 12/13/2024 4:52 PM EST Generic External Data Provider LAB BLOOD ORDERAB LES Final Result Performing Organization Address [facility] Co de Phone Number [facility] [address] [place] [address] [phone] * (ABNORMAL) Comprehensive Metabolic Panel (12/13/2024 4:50 PM EST) [facility] Sodium 141 135 - 145 mmol/L [facility] Potassium 3.9 3.3 - 5.1 mmol/L [facility] Comment:Slight Hemolysis.Int erpret result with caution. Chloride 113(H) 96 - 108 mmol/L [facility] Carbon Dioxide 23 22 - 29 mmol/L [facility] Anion Gap 9(L) 12 - 20 [facility] Urea Nitrogen (BUN) 12 9 - 16 mg/dL [facility] Creatinine, Serum 0.76 0.5 - 1.4 mg/dL [facility] Creatinine Clr Calc Pharmacy TNP [facility] Comment:Unable to calculate eCrCL; all parameters not provided. Estimated Glomerular Filt Rate >60 [facility] Comment:Chronic Kidney Disea se: Estimated GFR < 60 mL/min/1.72x1Kvwazh Kidney Disease: Estimated GFR < 15 mL/min/1.73m2 Glucose 110 60 - 115 mg/dL [facility] Calcium 8.8 8.4 - 10.2 mg/dL [facility] Bilirubin, Total 0.4 0.0 - 1.0 mg/dL [facility] Aspartate Amino Transferase 31 5 - 31 U/L [facility] Comment:Slight Hemolysis.Int erpret result with caution. Alanine Aminotransferase 29 0 - 31 U/L [facility] Total Protein 7.4 6.5 - 8.0 g/dL [facility] Albumin Level 3.9 3.5 - 5.0 g/dL [facility] Alkaline Phosphatase 74 39 - 117 U/L [facility] 12/13/2024 4:50 PM EST 12/13/2024 4:52 PM EST us Generic External Data Provider LAB BLOOD ORDERAB LES Final Result [facility] [address] [place] [phone] * (ABNORMAL) CBC auto differential (12/13/2024 4:50 PM EST) White Blood Count 6.1 4.8 - 10.8 X10*3/uL [facility] Red Blood Count 4.04(L) 4.20 - 5.50 X10*6/uL [facility] Hemoglobin 12.5 12.0 - 16.0 g/dl [facility] Hematocrit 36.3(L) 37.0 - 47.0 % [facility] Mean Corpuscular Volume 89.9 80.0 - 98.0 fL [facility] Mean Corpuscular Hemoglobin 30.9 27.0 - 33.0 pg [facility] Mean Corpuscular HGB Conc 34.4 31.0 - 35.0 g/dl [facility] Red Cell Distribution Width 13.6 11.0 - 16.0 % [facility] Platelet Count 277 160 - 400 X10*3/uL [facility] Mean Platelet Volume 11.3 9.4 - 12.3 fL [facility] Neutrophils Percent Auto 61.2 45 - 73 % [facility] Imm Gran Pct Auto 0.3 0.0 - 0.4 % [facility] Lymphocytes Percent Auto 28.6 20 - 40 % [facility] Monocytes Percent Auto 8.5 2 - 11 % [facility] Eosinophils Percent Auto 1.1 0 - 4 % [facility] Basophils Percent Auto 0.3 0 - 2 % [facility] NRBC Pct Auto 0.0 0.0 - 0.2 /100WBC [facility] Neutrophils Absolute Auto 3.7 2.0 - 8.3 x10*3/uL [facility] Imm Gran Abs Auto 0.02 0.00 - 0.03 X10*3/uL [facility] Lymphocytes Absolute Auto 1.8 1.2 - 4.9 X10*3/uL [facility] Monocytes Absolute Auto 0.5 0.1 - 1.2 X10*3/uL [facility] Eosinophils Absolute Auto 0.1 0.0 - 0.4 X10*3/uL [facility] Basophils Absolute Auto 0.0 0.0 - 0.2 X10*3/uL [facility] NRBC Abs Auto 0.000 0.0 - 0.012 X10*3/uL [facility] 12/13/2024 4:50 PM EST 12/13/2024 4:52 PM EST Generic External Data Provider LAB BLOOD ORDERAB LES Final Result Performing Organization Address [facility] Co de Phone Number [facility] [address] [place] [address] [phone] * Hemoglobin A1c (12/13/2024 4:50 PM EST) Hemoglobin A1c 5.7 <6.0 % [facility] Comment:Hemoglobin A1C Refer ence Range Adults: 4.8 - 6.0 % Non diabetic: < 6.0 % Goal: < 7.0 %Additional Action Suggested: > 8.0 %Note: Hemoglobin A1c results are invalid for patients with abnormal amounts of HbF. Blood transfusions may impact the HbA1c concentration in the patient sample. Estimated Average Glucose 117 mg/dL [facility] Comment:eAG = Estimated ave rage glucose which is %A1C expressed asaverage glucose, using the formula of the Z7G-AzbssukUghonok Glucose study (ADAG), Diabetes Care, Vol.31,#8,2007 12/13/2024 4:50 PM EST 12/13/2024 4:52 PM EST [employer] External Data Provider LAB BLOOD ORDERAB LES Final Result Performing Organization Address [facility] Co de Phone Number [facility] [address] [place] [address] [phone] * POCT Carbon Monoxide (12/13/2024 4:50 PM EST) Carbon Monoxide POC 2.4 % [facility] Comment:CARBON MONOXIDE REFE RENCE RANGE: NON SMOKERS: LESS THAN 2.0% SMOKERS: 2.0 - 9.0%Note:Therapeutic levels of Hydroxocobalamin (1 mg/mL and 2 mg/mL)may interfere with carboxyhemoglobin causing lower thanexpected values. A negative interference withcarboxyhemoglobin has the potential to alter the medicalassessment of the patient and may withhold necessaryfollow-up treatment in response to elevatedcarboxyhemoglobin levels. 12/13/2024 4:50 PM EST 12/13/2024 4:59 PM EST us Generic External Data Provider LAB POINT OF CARE TEST DOCKED DEVICE ORDERABLES Final Result [facility] [address] [place] [phone] documented in this encounter Visit Diagnoses Not on filedocumented in this encounter Additional Health Concerns Assessment Noted Time PHQ-9 Depression Total Score: 8 06/29/20 24 9:53 AM EDT documented as of this encounter Care Teams Gill Net Stringer Relationship Specialty Start Date End Date Veronique Luke FNP [address] [place] [address] PCP - General Family Medicine 07/21/22 documented as of this encounter
--- OUTSIDE RECORDS SUMMARY | 2024-12-28 14:21 | XMS_ITS | Patient Health Record ---
Author Organization [facility] Address [address], [place] [id number] Care Team Providers Care Private Equity Analyst Name Role Phone Riaz Johnson [phone] Reason For Referral No Information Plan Of Treatment No Information
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
--- OUTSIDE RECORDS SUMMARY | 2024-12-28 14:21 | XMS_ITS | Encounter Summary ---
Author Organization [employer] Address [address] [place] [address] [address] [place] [address] Care Team Providers Care Marketing Representative Name Role Phone Veronique Luke MARIUSZ Primary Care Provider [phone] Reason for Visit * Reason Onset Date Comments returning call to medical on dental issue 2024 Encounter Details Date Type Department Care Team ([facility] st Contact Info) Description 12/04/[address] [facility] [address] [place] [address] GonzalezMegan Monson, DDS [address] [place] [address] returning call to medical on dental issue Social History Tobacco Use Types Packs/Day Years [...] encounter Miscellaneous Notes * Telephone Encounter - Chiquis Herrera - 12/04/2024 8:44 AM EST Patient called in to medical par with dental issue. Message sent to dental. Patient is stating thatshe has bleeding gums no pain no swelling. Offered patient an appt to come see provider on 12/07 at2pm due to cancellation. Patient declined due to having surgery tomorrow. Informed patient when sheis ready to schedule to call our office an we will look to see when she can be seen. Patient understood DR documented in this encounter Plan of Treatment Not on file documented as of this encounter Visit Diagnoses Not on filedocumented in this encounter Additional Health Concerns Assessment Noted Time PHQ-9 Depression Total Score: 8 06/29/20 24 9:53 AM EDT documented as of this encounter Care Teams Marketing Representative Relationship Specialty Start Date End Date Veronique Luke FNP [address] [place] [address] PCP - General Family Medicine 07/21/22 documented as of this encounter
--- OUTSIDE RECORDS SUMMARY | 2024-12-28 14:21 | XMS_ITS | Clinical Summary ---
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 12/13/2024 4:52 PM EST Generic External Data Provider LAB BLOOD ORDERAB LES Final Result Performing Organization Address [facility] de Phone Number [facility] [address] [place] [phone] * Insulin (12/13/2024 4:50 PM EST) Insulin 25 2 - 29 uU/mL [facility] Comment:This test was perfor med [...] ORDERAB LES Final Result Performing Organization Address [facility] Phone Number [facility] [address] [place] [phone] * Zinc (12/13/2024 4:50 PM EST) Zinc 61 60 - 130 mcg/dL [facility] Comment:This test was develo ped and its analytical performancecharacteristics have been determined by [employer] [place]. It hasnot been cleared or approved by the U.S. Food and DrugAdministration. This assay has been validated pursuantto the CLIA regulations and is used for clinicalpurposes.THIS TEST WAS PERFORMED AT:[employer] [facility] [employer] [place] [id number] WILDE MD,PHD 12/13/2024 4:50 PM EST 12/13/2024 4:52 PM EST us Generic External Data Provider LAB BLOOD ORDERAB LES Final Result Performing Organization Address [facility] Co de Phone Number [facility] [address] [place] [phone] * Vitamin A (12/13/2024 4:50 PM EST) Vitamin A (Retinol) 54 38 - 98 mcg/dL [facility] Comment:Vitamin supplementat ion within 24 hours prior toblood draw may affect the accuracy of the results.This test was developed and its analytical performancecharacteristics have been determined by [employer] [place]. It hasnot been cleared or approved by the U.S. Food and DrugAdministration. This assay has been validated pursuantto the CLIA regulations and is used for clinicalpurposes.THIS TEST WAS PERFORMED AT:[employer] [facility] [employer] [place] [address]YWIONXAADRIAN WILDE MD,PHD 12/13/2024 4:50 PM EST 12/13/2024 4:52 PM EST us Generic External Data Provider LAB BLOOD ORDERAB LES Final Result Performing Organization Address [facility] de Phone Number [facility] [address] [place] [phone] * C-reactive Protein (12/13/2024 4:50 PM EST) C Reactive Protein 0.31 < or = 0.50 mg/dL [facility] 12/13/2024 4:50 PM EST 12/13/2024 4:52 PM EST Generic External Data Provider LAB BLOOD ORDERAB LES Final Result Performing Organization Address [facility] Co de Phone Number [facility] [address] [place] [phone] * Vitamin B1 (12/13/2024 4:50 PM EST) Vitamin B1 10 8 - 30 nmol/L [facility] Comment:Vitamin supplementat ion within 24 hours prior toblood draw may affect the accuracy of the results.This test was developed and its analytical performancecharacteristics have been determined by [employer] [place]. It hasnot been cleared or approved by the U.S. Food and DrugAdministration. This assay has been validated pursuantto the CLIA regulations and is used for clinicalpurposes.THIS TEST WAS PERFORMED AT:[employer] [facility] [employer] [place] [address]CPGHJJZADRIAN WILDE MD,PHD 12/13/2024 4:50 PM EST 12/13/2024 4:52 PM EST us Generic External Data Provider LAB BLOOD ORDERAB LES Final Result [facility] [address] [place] [phone] * Hemoglobin A1c (12/13/2024 4:50 PM EST) Hemoglobin A1c 5.7 <6.0 % [facility] Comment:Hemoglobin A1C Refer ence Range Adults: 4.8 - 6.0 % Non diabetic: < 6.0 % Goal: < 7.0 %Additional Action Suggested: > 8.0 %Note: Hemoglobin A1c results are invalid for patients with abnormal amounts of HbF. Blood transfusions may impact the HbA1c concentration in the patient sample. Estimated Average Glucose 117 mg/dL [facility] Comment:eAG = Estimated ave rage glucose which is %A1C expressed asaverage glucose, using the formula of the U5K-BaxzcyzQqwkefk Glucose study (ADAG), Diabetes Care, Vol.31,#8,2007 12/13/2024 4:50 PM EST 12/13/2024 4:52 PM EST us Generic External Data Provider LAB BLOOD ORDERAB LES Final Result Performing Organization Address [facility]/ZIP Co de Phone Number [facility] [address] [place] [phone] * Ferritin (12/13/2024 4:50 PM EST) Ferritin 105 10 - 122 ng/mL [facility] 12/13/2024 4:50 PM EST 12/13/2024 4:52 PM EST Generic External Data Provider LAB BLOOD ORDERAB LES Final Result Performing Organization Address [facility] Co de Phone Number [facility] [address] [place] [phone] * (ABNORMAL) Lipid Panel, Standard (12/13/2024 4:50 PM EST) Triglycerides 90 <150 mg/dL [facility] Comment:Desirable Triglyceri de: less than 150 mg/dLBorderline High Triglyceride 150-199 mg/dLHigh Triglyceride: 200-499 mg/dLVery High Triglyceride: greater than or equal to 5OO mg/dL Cholesterol 137 <200 mg/dL [facility] Comment:Desirable Cholestero l: less than 200 mg/dLBorderline High Cholesterol: 200-239 mg/dLHigh Cholesterol: greater than 239 mg/dL LDL Cholesterol Calculated 82 <100 mg/dL [facility] Comment:Desirable LDL: less than 100 mg/dLNear Optimal/Above Optimal LDL: 110- 129 mg/dLBorderline High LDL: 130-159 mg/dLHigh LDL: 160-189 mg/dLVery High LDL: greater than or equal to 190 mg/dL HDL Cholesterol 37(L) >40 mg/dL [facility] Comment:Desirable HDL: great er than 40 mg/dL Note: This HDL assay may give artificially low results in patients with liver disease. 12/13/2024 4:50 PM EST 12/13/2024 4:52 PM EST us Generic External Data Provider LAB BLOOD ORDERAB LES Final Result [facility] [address] [place] [phone] [phone] * (ABNORMAL) Comprehensive Metabolic Panel (12/13/2024 4:50 PM EST) Sodium 141 135 - 145 mmol/L [facility] Potassium 3.9 3.3 - 5.1 mmol/L [facility] Comment:Slight Hemolysis.Int erpret result with caution. Chloride 113(H) 96 - 108 mmol/L [facility] Carbon Dioxide 23 22 - 29 mmol/L [facility] Anion Gap 9(L) 12 - 20 [facility] Urea Nitrogen (BUN) 12 9 - 16 mg/dL [facility] Creatinine, Serum 0.76 0.5 - 1.4 mg/dL [facility] Creatinine Clr Calc Pharmacy TNP [facility] Comment:Unable to calculate eCrCL; all parameters not provided. Estimated Glomerular Filt Rate >60 [facility] Comment:Chronic Kidney Disea se: Estimated GFR < 60 mL/min/1.23q4[place] Kidney Disease: Estimated GFR < 15 mL/min/1.73m2 Glucose 110 60 - 115 mg/dL [facility] Calcium 8.8 8.4 - 10.2 mg/dL [facility] Bilirubin, Total 0.4 0.0 - 1.0 mg/dL [facility] Aspartate Amino Transferase 31 5 - 31 U/L [facility] Comment:Slight Hemolysis.Int erpret result with caution. Alanine Aminotransferase 29 0 - 31 U/L [facility] Total Protein 7.4 6.5 - 8.0 g/dL [facility] Albumin Level 3.9 3.5 - 5.0 g/dL [facility] Alkaline Phosphatase 74 39 - 117 U/L [facility] 12/13/2024 4:50 PM EST 12/13/2024 4:52 PM EST Generic External Data Provider LAB BLOOD ORDERAB LES Final Result Performing Organization Address City/[facility] Co de Phone Number [facility] [address] [place] [phone] * (ABNORMAL) Bacterial Vaginosis (11/16/2024 4:08 PM EST) TRICHOMONAS VAGINALIS DETECTION BY PCR NOT DETECTED Not Detect [facility] BACTERIAL VAGINOSIS DETECTION BY PCR POSITIVE(A) Negative [facility] Comment:The BV organism targ ets of the Xpert Xpress MVP test can becommensal in women; Xpert Xpress MVP positive results forbacterial vaginosis should be considered in conjunction withother clinical and patient information to determine thedisease status. Organisms that are not detected by the XpertXpress MVP test have also been reported to be associatedwith BV and aerobic vaginitis.The Xpert Xpress MVP test performance has not been evaluatedin patients under the age of 14. NADJA GROUP DETECTION BY PCR NOT DETECTED Not Detect [facility] Nadja glab krusei PCR NOT DETECTED Not Detect [facility] Swab Vaginal structure / Unknown 11/16/2024 4:08 PM EST 11/16/2024 5:32 PM EST Veronique Luke [facility] MICROBIOLOGY - GENERAL ORD ERABLES Final Result Performing Organization Address [facility] Co de Phone Number [facility] [address] [place] [phone] * Chlamydia/N. Gonorrhoeae RNA, TMA, Urogenitial (11/16/2024 4:08 PM EST) CT PCR NOT DETECTED Not Detect. [facility] Comment:A not detected test result does not exclude the possibilityof infection because test results can be affected byimproper specimen collection, concurrent antibiotic therapy,or the number of organisms in the specimen which may bebelow the sensitivity of the test. As with many diagnostictests, results from the Xpert CT/NG assay should beinterpreted in conjunction with other laboratory andclinical data available to the clinician.Xpert CT/NG performance has not been evaluated in patientsless than 14 years of age. The assay should not be used forthe evaluationof suspected sexual abuse or for other medico-legalindications. Additional testing is recommended in anycircumstance when false positive or false negative resultscould lead to adverse medical, social or psychologicalconsequences. NG PCR NOT DETECTED Not Detect. [facility] Comment:A not detected test result does not exclude the possibilityof infection because test results can be affected byimproper specimen collection, concurrent antibiotic therapy,or the number of organisms in the specimen which may bebelow the sensitivity of the test. As with many diagnostictests, results from the Xpert CT/NG assay should beinterpreted in conjunction with other laboratory andclinical data available to the clinician.Xpert CT/NG performance has not been evaluated in patientsless than 14 years of age. The assay should not be used forthe evaluationof suspected sexual abuse or for other medico-legalindications. Additional testing is recommended in anycircumstance when false positive or false negative resultscould lead to adverse medical, social or psychologicalconsequences. Swab (Vaginal Swab) 11/16/2024 4:08 PM EST 11/16/2024 5:32 PM EST Narrative [facility] - 11/17/2024 2:49 PM EST Vaginal Veronique Luke [employer] LAB MICROBIOLOGY - GENERAL ORD ERABLES Final Result [facility] [address] [place] [address] [phone] * MR Knee w/o Contrast Right (10/24/2024 4:53 PM EST) Anatomical Region Laterality Modality Magnetic Resonan ce 10/24/2024 4:53 PM EST Narrative 11/02/2024 6:59 AM EST ? [facility] ?[address] ?[place] [address] ? Magnetic Resonance Report ? Signed ? Patient: Antonio,Himairy ?MR#: [id number] ? : 1995 ?Acct:[id number] ? Age/Sex: 29 / F ?ADM Date: 12/04/24 ? Loc: HO.MRI ? Attending Dr: Veronique VEE ? Ordering Physician: Veronique Luke ?? Date of Service: 10/24/24 ?? Procedure(s): MR knee RT wo con ?? Accession Number(s): [id number] ? cc: Veronique Luke ? EXAMINATION: ?? MR KNEE WITHOUT CONTRAST, RIGHT ? CLINICAL INFORMATION: ?? Right knee pain following a fall. ? COMPARISON: ?? Right knee radiographs dated 06/22/2024. ? TECHNIQUE: ?? MRI of the knee without contrast was performed using routine sequences ?? on a high-field scanner. ? FINDINGS: ? MENISCI: ? Medial Meniscus: Intact ?? Lateral Meniscus: Intact ? LIGAMENTS: ? Cruciate: Near complete, full-thickness tear of the proximal anterior ?? cruciate ligament with a few thin anterior bundle fibers appearing to ?? remain intact. There is associated edema and thickening of the torn ?? ligament fibers without significant adjacent soft tissue edema. ?? Findings likely represent a subacute tear. Intact posterior cruciate ?? ligament. ?? Collateral: Thickening of the medial collateral ligament with linear ?? fluid signal within the intrasubstance of the proximal ligament fibers ?? and minimal adjacent soft tissue edema, consistent with a subacute ?? grade 2 sprain/partial tear. Intact fibular collateral ligament. ? EXTENSOR MECHANISM: Intact ? ARTICULAR CARTILAGE/BONE: ? Patellofemoral Compartment: Intact articular cartilage. ? Medial Compartment: Intact articular cartilage. ? Lateral Compartment: Intact articular cartilage. ? JOINT FLUID AND BURSAE: Small joint effusion and trace Stone's cyst. ? MUSCLES/TENDONS: Increased T2 signal within the proximal soleus muscle, ?? consistent with an acute muscle strain. ? MR/MR knee RT wo con ?? IMPRESSION: ? 1. Subacute, near complete, full-thickness tear of the proximal ?? anterior cruciate ligament with a few thin anterior bundle fibers ?? appearing to remain intact. ? 2. Subacute grade 2 sprain/partial tear of the medial collateral ?? ligament. ? 3. No meniscal tear. ? 4. Small joint effusion and trace Stone's cyst. ? 5. Acute strain of the proximal soleus muscle. ? Electronically signed by: ??Stevan Rodney MD ??11/02/2024 06:56 AM EST ?? RP ? Dictated By: ?Stevan Rodney MD ? Signed By: ?<Electronically signed by Stevan Rodney MD in OV> ?11/02/2456 ? DD/ 1653 ? TD/TT: 10/24/24 1700 ? Community Outreach Director: ? Procedure Note Donotuseinterpreter, Image - 11/02/[address] [address] Magnetic Resonance Report Signed Patient: Jennifer Antonio#: [id number] : 1995Acct:[id number] Age/Sex: 29 / FADM Date: 10/24/24 Loc: HO.MRI Attending Dr: Veronique Luke [employer] Ordering Physician: Veronique Luke Date of Service: 10/24/24 Procedure(s): MR knee RT wo con Accession Number(s): [id number] cc: Veronique Luke EXAMINATION: MR KNEE WITHOUT CONTRAST, RIGHT CLINICAL INFORMATION: Right knee pain following a fall. COMPARISON: Right knee radiographs dated 06/22/2024. TECHNIQUE: MRI of the knee without contrast was performed using routine sequences on a high-field scanner. FINDINGS: MENISCI: Medial Meniscus: Intact Lateral Meniscus: Intact LIGAMENTS: Cruciate: Near complete, full-thickness tear of the proximal anterior cruciate ligament with a few thin anterior bundle fibers appearing to remain intact. There is associated edema and thickening of the torn ligament fibers without significant adjacent soft tissue edema. Findings likely represent a subacute tear. Intact posterior cruciate ligament. Collateral: Thickening of the medial collateral ligament with linear fluid signal within the intrasubstance of the proximal ligament fibers and minimal adjacent soft tissue edema, consistent with a subacute grade 2 sprain/partial tear. Intact fibular collateral ligament. EXTENSOR MECHANISM: Intact ARTICULAR CARTILAGE/BONE: Patellofemoral Compartment: Intact articular cartilage. Medial Compartment: Intact articular cartilage. Lateral Compartment: Intact articular cartilage. JOINT FLUID AND BURSAE: Small joint effusion and trace Stone's cyst. MUSCLES/TENDONS: Increased T2 signal within the proximal soleus muscle, consistent with an acute muscle strain. MR/MR knee RT wo con IMPRESSION: 1. Subacute, near complete, full-thickness tear of the proximal anterior cruciate ligament with a few thin anterior bundle fibers appearing to remain intact. 2. Subacute grade 2 sprain/partial tear of the medial collateral ligament. 3. No meniscal tear. 4. Small joint effusion and trace Stone's cyst. 5. Acute strain of the proximal soleus muscle. Electronically signed by: Stevan Rodney MD 11/02/2024 06:56 AM EST Dictated By: Stevan Rodney MD Signed By: <Electronically signed by Stevan Rodney MD in OV> 11/02/24 0656 DD/ 1653 TD/TT: 10/24/24 1700 Community Outreach Director: Veronique VEE IMG MRI PROCEDURES Edited Resu lt - Final * Hepatitis C Ab (08/29/2024 4:16 PM EDT) Hepatitis C Antibody Nonreactive Nonreactive [facility] Comment:Antibodies to HCV no t detected; does not exclude early acuteHCV infection. 08/29/2024 4:16 PM EDT 08/29/2024 4:16 PM EDT Generic External Data Provider LAB BLOOD ORDERAB LES Final Result [facility] [address] [place] [phone] * HIV-1/2 Antigen and Antibodies, Fourth Generation, with Reflexes (08/29/2024 4:16 PM EDT) HIV AB/AG Nonreactive Nonreactive [facility] Comment:HIV-1 p24 Ag and/or HIV-1/HIV-2 Ab not detected.A test result that is nonreactive does not exclude thepossibility of exposure to or infection with HIV-1 and/orHIV-2. Nonreactive results in this assay for individualswith prior exposure to HIV-1 and/or HIV-2 may be due toantigen and antibody levels that are below the limit ofdetection of this assay.The AtonarpniOmniata HIV Ag/Ab Combo assay result andsupplemental assay results should be interpreted inconjunction with the patient's clinical presentation,history and other laboratory results. If the results areinconsistent with clinical evidence, additional testing issuggested to confirm the result. Blood Venous blood specimen / Unknown 08/29/2024 4:16 PM EDT 08/29/2024 4:16 PM EDT us Veronique Charlenemanish [facility] BLOOD ORDERABLES Final Res ult [facility] [address] [place] [phone] * ThinPrep?? Imaging Pap Refl HPV mRNA(if ASCUS,ASC-H,LSIL,HSIL,SERGO)Refl Genotype (08/29/2024 2:49 PM EDT) HPV nRNA E6/E7 [facility] HPV 16,18/45 [facility] SOURCE: SEE NOTE [facility] Comment:None given Report Status: [facility] Clinical Information: SEE NOTE [facility] Comment:None given LMP: SEE NOTE [facility] Comment:NONE GIVEN Prev. PAP: SEE NOTE [facility] Comment:NONE GIVEN Prev. BX: SEE NOTE [facility] Comment:NONE GIVEN Statement Of Adequacy: SEE NOTE [facility] Comment:Satisfactory for andrae luation.Endocervical/transformation zone componentpresent. General Categorization: [facility] Interpretation/Result: SEE NOTE [facility] Comment:Cytology Results: Ne gative for intraepitheliallesion or malignancy. Cytology Comment SEE NOTE [facility] Comment:This Pap test has be en evaluated with computerassisted technology. Role Player: SEE NOTE [facility] Comment:BH, CT(ASCP)CT devyn parks location: [facility] [address]Diwhy preparation performed at: [facility], [address] [place] [phone] CLIA No. [id number] Review Role Player: [facility] Pathologist [facility] PAP Infection [facility] See Note SEE NOTE [facility] Comment:EXPLANATORY NOTE:The Pap is a screening test for cervical cancer. It isnot a diagnostic test and is subject to false negativeand false positive results. It is most reliable when asatisfactory sample, regularly obtained, is submittedwith relevant clinical findings and history, and whenthe Pap result is evaluated along with historic andcurrent clinical information.THIS TEST WAS PERFORMED AT:[facility] [address] [id number] MERATI,MD 08/29/2024 2:49 PM EDT 08/29/2024 4:55 PM EDT Narrative [facility] - 09/04/2024 2:45 PM EDT SEE SCANNED RESULTS IN EMR us Generic External Data Provider LAB CYTOLOGY TREVER PEARCE Final Result Performing Organization Address City/State/[facility] Co de Phone Number [facility] [address] [place] [phone] from Last 3 Months or Most Recently Relevant to Health Maintenance [facility] MEDICAID STAND ADULT Care Teams Employment Program Representative Relationship Specialty Start Date End Date Veronique Luke FNP [address] [place] [phone] PCP - General Family Medicine 07/21/22
--- OUTSIDE RECORDS SUMMARY | 2024-12-28 14:21 | XMS_ITS | Encounter Summary ---
Author Organization [employer] Address [address] [place] [address] [address] [place] [address] Care Team Providers Care Laser Specialist Name Role Phone Veronique Luke Primary Care Provider [phone] Reason for Visit * Reason Onset Date Comments Appointment Request 06/10/2023 Requested Call Back 06/10/2023 Encounter Details Date Type Department Care Team ([facility] st Contact Info) Description 06/10/2023 Telephone [facility] [address] [place] [address] Veronique Luke FNP [address] [place] [address] Appointment Request; Requested Call Back Social History Tobacco Use Types Packs/Day Years Used Date Smoking Tobacco: Every Day Cigarettes Smokeless Tobacco: Never Depression Answer Date Recorded Patient Health Questionnaire-9 Score 0 04/08/2023 Depression Answer Date Recorded Patient Health Questionnaire-2 Score 0 04/08/2023 Comments Unknown Sex and Gender Information Value Date Recorded Sex Assigned at Female 09/20/2022 10:15 AM EDT Legal Sex Female 10:15 AM EDT Gender Identity Female 09/20/2022 10:15 AM EDT Sexual Orientation Bisexual 09/20/2022 10 :15 AM EDT documented as of this encounter Miscellaneous Notes * Telephone Encounter - Ashanti Flores RN - 06/14/2023 1:14 PM EDT Returned call to pt regarding message below. Pt agrees to appt tomorrow with PCP. * Telephone Encounter - Parisa Nunez - 06/10/2023 3:07 PM EDT Tc from patient requesting to r/s appt from 06/03/[address] Luke. Details: *Knee Pain *MIL-7, pls offer COVID bivalent (Pls make sure she is on recall for TP, thank you r/s 05/10/23 Records Management Analyst attempted to r/s with no appts available. Patient requested a call back, in regards to surgery from 2-3 weeks ago and would like to discuss some concerns with PCP. No other details provided. documented in this encounter Plan of Treatment Not on file documented as of this encounter Visit Diagnoses Not on filedocumented in this encounter Additional Health Concerns Assessment Noted Time PHQ-9 Depression Total Score: 0 04/08/20 3:45 PM EDT documented as of this encounter Care Teams Laser Specialist Relationship Specialty Start Date End Date Veronique Luke FNP [address] [place] [address] PCP - General Family Medicine 07/21/22 documented as of this encounter
--- OUTSIDE RECORDS SUMMARY | 2024-12-28 14:21 | XMS_ITS | Encounter Summary ---
Author Organization [employer] Address [address] [facility] 7 [place] [address] Care Team Providers Care Washing Tub Operator Name Role Phone Veronique Luke Primary Care Provider [phone] Encounter Details Date Type Department Care Team ([facility] st Contact Info) Description 04/25/2024 Orders Only [facility] MED & PEDS [address] [place], [place] [phone] Veronique Luke FNP [address] [place] [address] Social History Tobacco Use Types Packs/Day Years [...] Procedure Name Priority Date/Time Associated Diagnosis Comments CULTURE, URINE, ROUTINE Routine 06/22/2024 6:25 PM EDT documented in this encounter Results * Culture, Urine, Routine (06/22/2024 6:25 PM EDT) Urine Urine specimen obtained by clean catch procedure / Unknown 06/22/2024 6:25 PM EDT 06/22/2024 6:25 PM EDT Comment:[facility] Narrative [facility] - 06/26/2024 7:32 AM EDT Staphylococcus saprophyticus Quant > 100,000 cfu/mL Staphylococcus saprophyticus: Clindamycin >=8(R) Staphylococcus saprophyticus: Erythromycin >=8(R) Staphylococcus saprophyticus: Nitrofurantoin <=16(S) Staphylococcus saprophyticus: Oxacillin >=4(R) Staphylococcus saprophyticus: Penicillin-G >=0.5(R) Staphylococcus saprophyticus: Tetracycline <=1(S) Staphylococcus saprophyticus: Trimethoprim/Sulfamethoxazole <=10(S) Staphylococcus saprophyticus: Vancomycin 1(S) Specimen Source: Urine clean catch Veronique [facility] MICROBIOLOGY - GENERAL ORD ERABLES Final Result [facility] [address] [place] [address] [phone] documented in this encounter Visit Diagnoses Not on filedocumented in this encounter Additional Health Concerns Assessment Noted Time PHQ-9 Depression Total Score: 0 04/08/20 23 3:45 PM EDT documented as of this encounter Care Teams Washing Tub Operator Relationship Specialty Start Date End Date Veronique Luke FNP [address] [place] [address] PCP - General Family Medicine 07/21/22 documented as of this encounter
--- OUTSIDE RECORDS SUMMARY | 2024-12-28 14:21 | XMS_ITS | Encounter Summary ---
Author Organization [employer] Address [address] [place] [address] 7 [place] [address] Care Team Providers Care Silverware Washer Name Role Phone Veronique Luke Primary Care Provider [phone] Reason for Visit * Reason Onset Date Comments Nurse Triage 12/03/2024 Encounter Details Date Type Department Care Team ([facility] Contact Info) Description 12/03/2024 Telephone [facility] MED & PEDS [address] [place], [place] [phone] Veronique Luke FNP [address] [place] [address] Nurse Triage Social History Tobacco Use Types Packs/Day Years [...] the past 12 months, has t he [employer], gas, oil or water [employer] threatened to shut off services in your [...] encounter Miscellaneous Notes * Telephone Encounter - Eva Rodgers RN - 12/03/2024 5:02 PM EST Images from the original note were not included. Call returned to [facility] to triage below. Reports continues to have swelling of rigth upper lid with sty. Having white discharge. Tender to touch and red. Pt wants refill on erythromycin. Advised per notes of last visit pt was to return to clinic if sx did not improve with ointment. Pt advisedof disposition, agrees to seek [facility] for exam as no sick on site availability on teams at time of call. Reviewed [facility] operating hours and that wait times vary. Reviewed home care advise, ER precautions and reasons to call back. Protocol Used: Sty (Adult) Protocol-Based Disposition: See in Office or Video Visit Today Positive Triage Question: * Eyelid is very swollen and no fever * All higher-acuity triage questions were negative Care Advice Discussed: * Reasons To Call Back - You become worse View All Conversations on this Encounter December 03, 2024 Ashanti Flores RN to Joann Triage Nurse 12/03/24 4:34 PM Pt stating eye symptoms worsening. GM 12/03/24 4:17 PM Mychart, Generic pended an order Darnell Antonio to [facility] 12/03/24 4:17 PM Refills have been requested for the following medications: erythromycin (Romycin) 5 MG/GM ophthalmic ointment [Veronique Luke] Patient Comment: My Sty has gotten really bad and big and very very itchy and I already finished myointment Preferred pharmacy: [id number] - [place] - [address] [facility] Delivery method: Pickup documented in this encounter Plan of Treatment Not on file documented as of this encounter Visit Diagnoses Not on filedocumented in this encounter Additional Health Concerns Assessment Noted Time PHQ-9 Depression Total Score: 8 06/29/20 24 9:53 AM EDT documented as of this encounter Care Teams Silverware Washer Relationship Specialty Start Date End Date Veronique Luke FNP [address] [place] [address] PCP - General Family Medicine 07/21/22 documented as of this encounter
== END 2024-12-13 00:01 | disposition home or self-care (01) ==
LOC: HO.LAB
PROVIDERS: PCP Registered Nurse; Visit Provider Surgery
DX: E66.01 Morbid (severe) obesity due to excess calories (principal); I10 Essential (primary) hypertension; Z02.83 Encounter for blood-alcohol and blood-drug test
CPT/HCPCS: 36415; 80053; 80061; 80307; 82306; 82375; 82607; 82728; 82746; 83036; 83525; 83540; 84425; 84443; 84590; 84630; 85025; 86140

== ENCOUNTER 2025-02-07 13:43 | Outpatient (AMB) | payer MEDICAID, SELFPAY ==
[2025-02-07 13:57] VITALS: BMI 51.4
--- NOTE | 2025-02-07 13:57 | MHC.OFFVIS ---
Vital Signs 02/07/25 13:57 02/07/25 14:00 Height 5 ft 3 in 5 ft 3 in Weight 290 lb 290 lb BMI 51.4 51.4 Intake Visit Reasons: Pre-Rt Knee ACL 02/13/25 Intake Note: Darnell is a 29 year old female who presents today for a pre op appointment for her right knee Anterior Cruciate Ligament 02/13/25 NE. Allergies seafood Allergy (Mild, Verified 12/10/24 08:09) Hives HPI HPI Pre-Rt Knee ACL 02/13/25: Details: Ms. Antonio is a 29-year-old female who presents to the office today for history and physical exam prior to her ACL reconstruction surgery tentatively scheduled for 02/13/[address] Rivero. Denies any allergies to any medications. Denies any issues with anesthesia in the past. [facility] Medical History (Updated 12/13/24 @ 18:17 by Hua Villalobos MD) Insomnia Morbid obesity Skin graft (allograft) (autograft) failure Schizoaffective disorder, bipolar type Bipolar disorder Asthma Hypertension Substance abuse Depression Anxiety Surgical History (Updated 12/10/24 @ 08:18 by Hua Villalobos MD) History of ovarian cystectomy History of surgery on arm Family History Mother No problems noted. Father Diabetes Son Asthma Social History Household Members: None Housing: House Do you presently have visiting nurse or other home services: No Alcohol intake: current Alcohol intake frequency: holidays/special occasions only Patient Tobacco Use Status: Former Tobacco user Tobacco use type: Cigarette Cigarettes Per Day: 2 e-Cigarette/Vaping Use: Currently Using Second Hand Smoke Exposure: No Substance Use Type: Crack/Cocaine, Marijuana and Other service: No Sexual orientation: Did not discuss Female Reproductive History Menstrual Age of Menarche: 15 Review of Systems Const All systems reviewed & are unremarkable except as noted in HPI and below Physical Exam Vital Signs: BMI result Body Mass Index 51.4 Const General: cooperative, healthy appearing and no acute distress Resp Effort & Inspection: normal respiratory effort and able to speak in complete sentences Cardio Rate: regular rate Peripheral pulses: Peripheral pulses 2+ throughout Skin Lesions: no lesions Rashes: no rashes Extrem Other: 1+ valgus instability 2+ Russell's pivot shift not present due to patient apprehension full ROM Assessment & Plan Assessment & Plan (1) Right ACL tear: Code(s): S83.511A - Sprain of anterior cruciate ligament of right knee, initial encounter Category: Medical Plan Ms. Antonio is a 29-year-old female who presents to the office today for history and physical exam prior to her ACL reconstruction surgery tentatively scheduled for 02/13/[address] Rivero. Denies any allergies to any medications. Denies any issues with anesthesia in the past. Post operative medications were sent to the pharmacy,?Percocet and MS Contin,?while in the office today. The patient was instructed that?she?should obtain the prescription prior to surgery but should not consume until after the procedure; as these should only be taken for postoperative pain management. Should the patient take these medications before surgery, a refill will not be sent to the pharmacy until their scheduled refill date.?? Additionally, the patient was fit for an ACL brace while in the office today off the shelf. I discussed in detail the procedure and what to expect pre and post operatively. We discussed the risks, benefits and alternatives to the surgery as well as the rehabilitation course. The risks; which include, but are not limited to infection, bleeding, nerve injury, ongoing pain, swelling, and stiffness, perioperative risk of injury to bones and soft tissues, and blood clots. I?ve answered all questions and with their understanding they have consented to move forward with right knee ACL reconstruction with Dr. Rivero. Coding Level of Care Code Global (01895) Diagnoses Right ACL tear S83.511A
[2025-02-07 14:00] VITALS: BMI 51.4
== END 2025-02-07 14:29 | disposition home or self-care (01) ==
LOC: HO.HOS 13:44
PROVIDERS: PCP Registered Nurse; Visit Provider Physician Assistant
DX: S83.511A Sprain of anterior cruciate ligament of right knee, initial encounter (principal)
CPT/HCPCS: 99024

== ENCOUNTER → 2025-02-07 13:43 | Outpatient (BNVA) | payer MEDICAID, SELFPAY | PROVIDERS: PCP Registered Nurse; Visit Provider Physician Assistant | DX: Z01.818 Encounter for other preprocedural examination (principal); S83.511A Sprain of anterior cruciate ligament of right knee, initial encounter | CPT/HCPCS: 99212 ==

== ENCOUNTER 2025-02-19 10:47 | Outpatient (REF) | payer MEDICAID, SELFPAY ==
--- OUTSIDE RECORDS SUMMARY | 2025-02-20 12:55 | XMS_ITS | Encounter Summary ---
Author Organization [employer] Address [address] [facility] 7 [place] [address] Care Team Providers Care Statistics Tutor Name Role Phone Veronique Luke Primary Care Provider Encounter Details Date Type Department Care Team ([facility] st Contact Info) Description 04/25/2024 Orders Only [facility] MED & PEDS [address] [place], [place] [phone] Veronique Luke FNP [address] [place] [address] Social History Tobacco Use Types Packs/Day Years [...] 6:25 PM EDT 06/22/2024 6:25 PM EDT Comment:[facility] Narrative [facility] - 06/26/2024 7:32 AM EDT Staphylococcus saprophyticus Quant > 100,000 cfu/mL Staphylococcus saprophyticus: Clindamycin >=8(R) Staphylococcus saprophyticus: Erythromycin >=8(R) Staphylococcus saprophyticus: Nitrofurantoin <=16(S) Staphylococcus saprophyticus: Oxacillin >=4(R) Staphylococcus saprophyticus: Penicillin-G >=0.5(R) Staphylococcus saprophyticus: Tetracycline <=1(S) Staphylococcus saprophyticus: Trimethoprim/Sulfamethoxazole <=10(S) Staphylococcus saprophyticus: Vancomycin 1(S) Specimen Source: Urine clean catch Veronique [facility] MICROBIOLOGY - GENERAL ORD ERABLES Final Result [facility] [address] [place] [address] [phone] documented in this encounter Visit Diagnoses Not on filedocumented in this encounter Additional Health Concerns Assessment Noted Time PHQ-9 Depression Total Score: 0 04/08/20 23 3:45 PM EDT documented as of this encounter Care Teams Statistics Tutor Relationship Specialty Start Date End Date Veronique Luke FNP [address] [place] [address] PCP - General Family Medicine 07/21/22 documented as of this encounter
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
--- OUTSIDE RECORDS SUMMARY | 2025-02-20 12:55 | XMS_ITS | Encounter Summary ---
Author Organization [employer] Address [address] [facility] 7 [place] [address] Care Team Providers Care Pilot Plant Supervisor Name Role Phone Veronique Luke Primary Care Provider [phone] Encounter Details Date Type Department Care Team ([facility] Contact Info) Description 02/01/2025 Telephone [facility] MED & PEDS [address] [place], [place] [phone] Veronique Luke FNP [address] [place] [address] Social History Tobacco Use Types Packs/Day Years [...] encounter Miscellaneous Notes * Telephone Encounter - Karen Palmer RN - 02/01/2025 2:03 PM EDT TC to pt. Pt stated would like to make an appointment with pcp. During mid sentence of pt, phone call dropped. Author attempted to call back x2. Phone busy no answer. * Telephone Encounter - Joie Infante - 02/01/2025 12:01 PM EDT Tc from pt requesting to speak with provider. Pt stated provider is aware of pt concerns. Pt deniedtriage. No further details provided. Contact pt at [phone] documented in this encounter Plan of Treatment Not on file documented as of this encounter Visit Diagnoses Not on filedocumented in this encounter Additional Health Concerns Assessment Noted Time PHQ-9 Depression Total Score: 8 06/29/20 24 9:53 AM EDT documented as of this encounter Care Teams Pilot Plant Supervisor Relationship Specialty Start Date End Date Veronique Luke FNP [address] [place] [address] PCP - General Family Medicine 07/21/22 documented as of this encounter
--- OUTSIDE RECORDS SUMMARY | 2025-02-20 12:55 | XMS_ITS | Encounter Summary ---
Author Organization [employer] Address [address] [place] [address] 7 [place] [address] Care Team Providers Care Fire Warden Name Role Phone Veronique Luke MARIUSZ Primary Care Provider [phone] Reason for Visit * Reason Onset Date Comments returning call to medical on dental issue 2024 Encounter Details Date Type Department Care Team ([facility] st Contact Info) Description 12/04/2024 Telephone [facility] ADULT D[facility]AL [address] [place] [address] GonzalezMegan Monson, DDS [address] [place] [address] returning call to medical on dental issue [...] documented as of this encounter Care Teams Fire Warden Relationship Specialty Start Date End Date Veronique Luke FNP [address] [place] [address] PCP - General Family Medicine 07/21/22 documented as of this encounter
--- OUTSIDE RECORDS SUMMARY | 2025-02-20 12:55 | XMS_ITS | Encounter Summary ---
Author Organization [employer] Address [address] [place] [address] [address] [place] [address] Care Team Providers Care Allergy And Immunology Specialist Name Role Phone Veronique Luke Primary Care Provider [phone] Reason for Visit * Reason Onset Date Comments Appointment Request 06/10/2023 Requested Call Back 06/10/2023 Encounter Details Date Type Department Care Team ([facility] st Contact Info) Description 06/10/2023 Telephone [facility] MEDICINE [address] [place] [address] Veronique Luke FNP [address] [place] [address] Appointment Request; Requested Call Back Social History [...] recall for TP, thank you r/s 05/10/23 Opal Polisher attempted to r/s with no appts available. [...] documented as of this encounter Care Teams Allergy And Immunology Specialist Relationship Specialty Start Date End Date Veronique Luke FNP [address] [place] [address] PCP - General Family Medicine 07/21/22 documented as of this encounter
--- OUTSIDE RECORDS SUMMARY | 2025-02-20 12:55 | XMS_ITS | Encounter Summary ---
Author Organization [employer] Address [address] [place] [address] 7 [place] [address] Care Team Providers Care Seat Joiner Name Role Phone Veroniuqe Luke Primary Care Provider [phone] Reason for Visit * Reason Onset Date Comments PT-1 07/27/2024 Encounter Details Date Type Department Care Team ([facility] st Contact Info) Description 07/27/2024 Telephone [facility] MEDICINE [address] [place] [address] Veronique Luke FNP [address] [place] [address] PT-1 Social History Tobacco Use Types Packs/Day [...] Y/N: Yes Provider name or facility name: [facility] Facility Address: [address] [place] [address] Escort needed: Y/N: No Do you have [...] documented as of this encounter Care Teams Seat Joiner Relationship Specialty Start Date End Date Veronique Luke FNP [address] [place] [address] PCP - General Family Medicine 07/21/22 documented as of this encounter
--- OUTSIDE RECORDS SUMMARY | 2025-02-20 12:55 | XMS_ITS | Encounter Summary ---
Author Organization [employer] Address [address] [place] [address] 7 [place] [address] Care Team Providers Care Sample Worker Name Role Phone Veronique Luke Primary Care Provider [phone] Reason for Visit * Reason Onset Date Comments Medication Question 04/10/2024 Encounter Details Date Type Department Care Team ([facility] Contact Info) Description 04/10/2024 Telephone [facility] MED & PEDS [address] [place], [place] [phone] Veronique Luke FNP [address] [place] [address] Medication Question Social History Tobacco Use Types [...] documented as of this encounter Care Teams Sample Worker Relationship Specialty Start Date End Date Veronique Luke FNP [address] [place] [address] PCP - General Family Medicine 07/21/22 documented as of this encounter
--- OUTSIDE RECORDS SUMMARY | 2025-02-20 12:55 | XMS_ITS | Patient Health Record ---
Author Organization [facility] Address [address] [place], [place] [id number] Care Team Providers Care Court Stenographer Name Role Phone Riaz Johnson [phone] Reason For Referral No Information Plan Of Treatment No Information
== END 2025-02-19 10:48 | disposition home or self-care (01) ==
LOC: HO.HOSX 10:47
PROVIDERS: Visit Provider Physician Assistant
DX: Z13.89 Encounter for screening for other disorder (principal)

== ENCOUNTER 2025-09-04 16:03 | Outpatient (REF) | payer MEDICAID, SELFPAY ==
--- OUTSIDE RECORDS SUMMARY | 2025-08-30 14:45 | XMS_ITS | Encounter Summary ---
Author Organization [employer] Address [address] [place] [address] Care Team Providers Care Digital Technician Name Role Phone Veronique Luke Primary Care Provider [phone] Walter Cadet RN Unavailable [phone] Negra Cadet Unavailable Reason for Referral * Consultation (Routine) - Closed Specialty Diagnoses / Procedures Referred By Peggy tam Referred To Contact Bariatrics Diagnoses Class 3 severe obesity with body mass index (BMI) of 45.0 to 49.9 in adult, unspecified obesity type, unspecified whether serious comorbidity present (HCC) Veronique Luke FNP [address] [place] [address] Phone: tel: fax: [address] Phone: tel: fax: Referral ID Status Reason Start Date Expiration Date V isits Requested Visits Authorized [id number] Closed Specialty Services Required 08/30/2025 08/30/2026 12 12 * Consultation (Routine) - Closed Specialty Diagnoses / Procedures Referred By Peggy tam Referred To Contact Physical Therapy Diagnoses Chronic bilateral low back pain without sciatica Veronique Luke FNP [address] [place] [address] Phone: tel: fax: [facility] [address] [place], [place] Phone: tel: fax: Referral ID Status Reason Start Date Expiration Date V isits Requested Visits Authorized [id number] Closed Specialty Services Required 08/30/2025 08/30/2026 20 20 Encounter Details Date Type Department Care Team ([facility] st Contact Info) Description 08/30/2025 2:45 PM EDT Office Visit [facility] MED & PEDS [address] [place] [address] Veronique Luke FNP [address] [place] [address] Healthcare maintenance (Primary Dx); Encounter for immunization; Chronic bilateral low back pain without sciatica; Asthma with status asthmaticus, unspecified asthma severity, unspecified whether persistent; Class 3 severe obesity with body mass index (BMI) of 45.0 to 49.9 in adult, unspecified obesity type, unspecified whether serious comorbidity present (HCC); Mood disorder (CMS/HCC); Dietary counseling; Exercise counseling Social History Tobacco Use Types Packs/Day Years [...] AM EDT documented as of this encounter Last Filed Vital Signs Vital Sign Reading Time Taken Comments Blood Pressure 126/80 08/30/2025 2:34 PM EDT Pulse 80 08/30/2025 2:34 PM EDT Temperature 36.8 C (98.2 F) 08/30/2025 2:34 PM EDT Respiratory Rate 20 08/30/2025 2:34 PM EDT Oxygen Saturation 98% 08/30/2025 2:34 PM EDT Inhaled Oxygen Concentration - - Weight 133 kg (292 lb 9.6 oz) 08/30/2025 2:34 PM EDT Height 160 cm (5' 3 ) 08/30/2025 2:34 PM EDT Body Mass Index 51.83 08/30/2025 2:34 PM EDT documented in this encounter Progress Notes * MARIUSZ Dorado - 08/30/2025 2:45 PM EDT Subjective: Darnell Antonio is a 30 y.o. female who presents to the office for a physical exam. Interim history: Last PCP visit: 11/16/24 Consult with [facility] in Nov 2024. Plan - labs, gym or stationary bike. 02/07/2025: [facility]. History and physical preop before ACL reconstruction surgery tentatively scheduled 02/13/[address] Rivero. She was fit for an ACL brace while in office today. Post-op Pain meds were sent to the pharmacy. HPI: Mild asthma: wheezing triggered by changes in weather. Requesting refill on albuterol HFA Chronic low back pain: describes intermittent pain, decreased sensation, and itchy sensation over lower back. Pain worsened by prolonged walking or standing, relieved by bending forward. Difficulty walking long distance d/t pain. Reports significant weight gain over the past two years, wondering ifit may be associated. She is also interested in consideration of weight loss medications - injections. Will refer to [facility] Weight Management program. Sleep quality is good with trazodone, clonidine, and melatonin (5 mg) at night Problem List[1] Surgical History[2] Family History[3] Social history: - Substance use: currently sober and not using any substances. Reports feeling better overall. - Employment: not employed. Income through disability - Mental health: following with psych team. Denies SI/HI/thoughts of self harm. Allergies[4] Review of Systems Constitutional: Negative for chills and fever. HENT: Negative for congestion. Respiratory: Positive for wheezing. Negative for cough and shortness of breath. Cardiovascular: Negative for chest pain and palpitations. Gastrointestinal: Negative for diarrhea, nausea and vomiting. Musculoskeletal: Positive for back pain. Psychiatric/Behavioral: Negative for suicidal ideas. Visit Vitals BP 126/80 Pulse 80 Temp 98.2 ??F (36.8 ??C) (Oral) Resp 20 Ht 5' 3 (1.6 m) Wt 292 lb 9.6 oz (133 kg) SpO2 98% BMI 51.83 kg/m?? Smoking Status Every Day BSA 2.43 m?? Physical Exam Vitals reviewed. Constitutional: Appearance: Normal appearance. HENT: Head: Atraumatic. Right Ear: Tympanic membrane, ear canal and external ear normal. Left Ear: Tympanic membrane, ear canal and external ear normal. Mouth/Throat: Mouth: Mucous membranes are moist. Pharynx: No oropharyngeal exudate or posterior oropharyngeal erythema. Eyes: General: Right eye: No discharge. Left eye: No discharge. Extraocular Movements: Extraocular movements intact. Pupils: Pupils are equal, round, and reactive to light. Cardiovascular: Rate and Rhythm: Normal rate and regular rhythm. Heart sounds: Normal heart sounds. Pulmonary: Effort: Pulmonary effort is normal. Breath sounds: Wheezing (mild wheezing posterior lung montero bilat. No resp distress.) present. Abdominal: General: There is no distension. Palpations: Abdomen is soft. Musculoskeletal: General: Tenderness present. Normal range of motion. Cervical back: Normal range of motion. No tenderness. Lumbar back: Tenderness present. No swelling. Comments: Tenderness to palpation lumbar paraspinal muscles bilat. 5/5 strength BLE. Skin: General: Skin is warm. Neurological: Mental Status: She is alert and oriented to person, place, and time. Psychiatric: Mood and Affect: Mood normal. Behavior: Behavior normal. Problem List Items Addressed This Visit Endocrine and Metabolic Class 3 severe obesity with body mass index (BMI) of 45.0 to 49.9 in adult (HCC) Overview Referral to Bariatric Surgery sent 09/14/24 per pt request Encouraged healthy nutrition interventions and routine physical movement Referral to [facility] Bariatric Surgery program sent 08/30/25 Current Assessment & Plan Wt Readings from Last 5 Encounters: 08/30/25 292 lb 9.6 oz (133 kg) 11/16/24 271 lb 6 oz (123 kg) 09/14/24 257 lb (117 kg) 06/22/24 215 lb (97.5 kg) 04/23/24 214 lb (97.1 kg) - 78lbs weight gain over the past 15 months. She suspects some of that may be due to no longer using substances. - Severe obesity with significant weight gain. Weight likely contributing to back pain and overall health concerns. - Provided referral to [facility] Weight Management Program for evaluation and managementof obesity, including discussion of weight loss medications and possible injections. Lifestyle interventions encouraged. Relevant Orders Referral to Bariatric Surgery Health Encounters Healthcare maintenance- Primary Overview Pap: NILM Aug 2024 ([facility] MICROCOMPUTER TECHNICIAN - Dr. Babcock) Relevant Orders Chlamydia/Trichomonas/Neisseria gonorrhoeae, PCR, Urine Lipid Panel, Standard Hemoglobin A1c TSH with Reflex to Free T4 Comprehensive Metabolic Panel CBC auto differential Hepatitis C Viral RNA, Quantitative, Real-Time PCR RPR (Monitor) with Reflex to Titer HIV-1/2 Antigen and Antibodies, Fourth Generation, with Reflexes Mental Health Mood disorder ([facility]/HCC) Current Assessment & Plan Mood stable, no current depression or anxiety symptoms. No suicidal ideation. Established with therapist and psychiatrist (PATRICK JOHN APRN) Current med regimen: Clonidine 0.2mg oral route at bedtime Melatonin 5mg at bedtime PRN Trazodone 100mg at bedtime PRN sleep (Per med reconciliation, additional psych medications in past include Aripiprazole 10mg, suboxone, and Bupropion 75mg daily, all last sent Aug 2022) Relevant Medications melatonin 5 MG tablet Musculoskeletal and Injuries Chronic bilateral low back pain without sciatica Current Assessment & Plan - No red flag symptoms - Agrees with physical therapy referral - Cont symptomatic management - Encouraged cont with healthy lifestyle habits as has noticed increased weight worsens her pain Relevant Medications cholecalciferol (Vitamin D-3) 50 MCG (1999 UT) capsule Other Relevant Orders Referral to Physical Therapy Pulmonary and Pneumonias Asthma Current Assessment & Plan Current mild wheezing auscultated on exam. Refill of albuterol PRN sent to pharmacy. Reviewed follow up precautions and step-up therapy considerations. Relevant Medications albuterol 108 (90 Base) MCG/ACT inhaler Other Visit Diagnoses Encounter for immunization Relevant Orders FLU VACCINE TRIVALENT [id number] (Fluarix) 19 yrs + (Completed) Dietary counseling Exercise counseling Follow up: 3 months, sooner as needed Current Medications[5] Immunization History Administered Date(s) Administered DTaP 1997, 1997, 03/21/1998, 08/21/1998, 06/30/2001 HPV, Quadrivalent 01/08/2010, 09/14/2011, 01/24/2015 Hep A, Adult 03/31/2016 Hep A, ped/adol, 2 dose 01/24/2015, 03/31/2016 Hep B, Adolescent or Pediatric 1997, 1997, 03/21/1998, 11/18/2017 Hep B, Unspecified 11/18/2016 Hib (HbOC) 1997, 1997, 03/21/1998, 12/14/2000 IPV 1997, 1997, 03/21/1998, 06/30/2001 Influenza injectable quadrivalent IIV4 with preservative 09/05/2018 Influenza injectable quadrivalent preservative free 09/27/2014, 10/02/2020, 09/08/2022, 10/07/2023 Influenza, IIV3, injectable 07/23/2010, 09/14/2011 Influenza, seasonal, injectable, preservative free 09/14/2024, 08/30/2025 MMR 06/21/1998, 06/30/2001, 11/18/2016, 11/18/2017 Meningococcal MCV4P ACYW-135 01/08/2010, 01/24/2015 Moderna Covid-19 Vaccine 12+ 03/26/2021, 04/23/2021 Pfizer Covid-19 Vaccine 12+ 09/14/2024 Pfizer Covid-19 Vaccine 12+ Bivalent 11/07/2022 Pfizer Covid-19 Vaccine 12+ [id number] (Grant Cap) 05/18/2022 Pneumococcal Conjugate PCV 20 10/07/2023 Tdap 01/08/2010, 08/17/2019, 11/13/2023 Varicella 05/18/1999, 01/08/2010 This note was drafted using Ambient (AI) technology. The patient/patient's guardian has been informed and has consented to the use of this technology: Yes [1] Patient Active Problem List Diagnosis Anxiety Asthma Attention deficit hyperactivity disorder Cigarette nicotine dependence Hypertension Mood disorder ([facility]) Polysubstance abuse ([facility]) Posttraumatic stress disorder Vitamin D deficiency Chronic bilateral low back pain without sciatica Necrotic tooth Healthcare maintenance Right ACL tear Class 3 severe obesity with body mass index (BMI) of 45.0 to 49.9 in adult ([facility]) [2] Past Surgical History: Procedure Laterality Date LAPAROTOMY OVARIAN CYSTECTOMY 2022 Dr. Babcock, [facility] MICROCOMPUTER TECHNICIAN [3] Family History Problem Relation Name Age of Onset Bone cancer Mother Coronary artery disease Mother Diabetes type I Sister [4] Allergies Allergen Reactions Shellfish Allergy Throat swelling. [5] Current Outpatient Medications Medication Sig Dispense Refill albuterol 108 (90 Base) MCG/ACT inhaler Inhale 2 puffs every 6 (six) hours if needed for wheezing or shortness of breath. 18 g 3 Blood Pressure Monitor kit Use to monitor blood pressure daily and when symptomatic 1 kit 0 cholecalciferol (Vitamin D-3) 50 MCG (2000 UT) capsule Take 1 capsule (50 mcg) by mouth Once per day. 90 capsule 3 cloNIDine (Catapres) 0.2 MG tablet TAKE 1 TABLET(0.2 MG) BY MOUTH AT BEDTIME 90 tablet 0 melatonin 5 MG tablet TAKE 1 TABLET BY MOUTH EVERY NIGHT AT BEDTIME NEEDED FOR SLEEPING DIFFICULTIES 90 tablet 0 traZODone (Desyrel) 100 MG tablet TAKE 1 TABLET(100 MG) BY MOUTH AT BEDTIME 90 tablet 0 No current facility-administered medications for this visit. documented in this encounter Miscellaneous Notes * Assessment & Plan Note - MARIUSZ Dorado - 09/02/2025 6:39 PM EDTAssociated Problem(s): Mood disorder ([facility]) Mood stable, no current depression or anxiety symptoms. No suicidal ideation. Established with therapist and psychiatrist (PATRICK JOHN, MATT) Current med regimen: Clonidine 0.2mg oral route at bedtime Melatonin 5mg at bedtime PRN Trazodone 100mg at bedtime PRN sleep (Per med reconciliation, additional psych medications in past include Aripiprazole 10mg, suboxone, and Bupropion 75mg daily, all last sent Aug 2022) * Assessment & Plan Note - MARIUSZ Dorado - 09/02/2025 6:38 PM EDTAssociated Problem(s): Class 3 severe obesity with body mass index (BMI) of 45.0 to 49.9 in adult ([facility]) Wt Readings from Last 5 Encounters: 08/30/25 292 lb 9.6 oz (133 kg) 11/16/24 271 lb 6 oz (123 kg) 09/14/24 257 lb (117 kg) 06/22/24 215 lb (97.5 kg) 04/23/24 214 lb (97.1 kg) - 78lbs weight gain over the past 15 months. She suspects some of that may be due to no longer using substances. - Severe obesity with significant weight gain. Weight likely contributing to back pain and overall health concerns. - Provided referral to [facility] Management Program for evaluation and managementof obesity, including discussion of weight loss medications and possible injections. Lifestyle interventions encouraged. * Assessment & Plan Note - MARIUSZ Dorado - 09/02/2025 6:35 PM EDTAssociated Problem(s): Chronic bilateral low back pain without sciatica - No red flag symptoms - Agrees with physical therapy referral - Cont symptomatic management - Encouraged cont with healthy lifestyle habits as has noticed increased weight worsens her pain * Assessment & Plan Note - MARIUSZ Dorado - 09/02/2025 6:28 PM EDTAssociated Problem(s): Asthma Current mild wheezing auscultated on exam. Refill of albuterol PRN sent to pharmacy. Reviewed follow up precautions and step-up therapy considerations. documented in this encounter Plan of Treatment Scheduled Orders Name Type Priority Associated Diagnoses Orde r Schedule Chlamydia/Trichomonas/Neis seria gonorrhoeae, PCR, Urine Lab Routine Healthcare maintenance Expected: 08/30/2025 (Approximate), Expires: 08/30/2026 Lipid Panel, Standard Lab Routine Healthcare maintenance Expected: 08/30/2025 (Approximate), Expires: 08/30/2026 Hemoglobin A1c Lab Routine Healthcare maintenance Expected: 08/30/2025 (Approximate), Expires: 08/30/2026 Comprehensive Metabolic Panel Lab Routine Healthcare maintenance Expected: 08/30/2025 (Approximate), Expires: 08/30/2026 CBC auto differential Lab Routine Healthcare maintenance Expected: 08/30/2025, Expires: 08/30/2026 Hepatitis C Viral RNA, Quantitative, Real-Time PCR Lab Routine Healthcare maintenance Expected: 08/30/2025 (Approximate), Expires: 08/30/2026 RPR (Monitor) with Reflex to Titer Lab Routine Healthcare maintenance Expected: 08/30/2025 (Approximate), Expires: 08/30/2026 HIV-1/2 Antigen and Antibodies, Fourth Generation, with Reflexes Lab Routine Healthcare maintenance Expected: 08/30/2025 (Approximate), Expires: 08/30/2026 Scheduled Referrals Name Type Priority Associated Diagnoses Orde r Schedule Referral to Physical Therapy Outpatient Referral Routine Chronic bilateral low back pain without sciatica Expected: 08/30/2025 (Approximate), Expires: 08/30/2026 Referral to Bariatric Surgery Outpatient Referral Routine Class 3 severe obesity with body mass index (BMI) of 45.0 to 49.9 in adult, unspecified obesity type, unspecified whether serious comorbidity present (HCC) Expected: 08/30/2025 (Approximate), Expires: 08/30/2026 documented as of this encounter Procedures Procedure Name Priority Date/Time Associated Diagnosis Comments TSH W/REFLEX TO FT4 Routine 09/04/2025 4 :11 PM EDT Healthcare maintenance documented in this encounter Results * TSH with Reflex to Free T4 (09/04/2025 4:11 PM EDT) TSH reflex Free T4 0.77 0.32 - 4.0 uIU/mL [facility] Blood 09/04/2025 4:11 PM EDT 09/04/2025 6:12 PM EDT us Veronique Luke [employer] LAB BLOOD ORDERABLES Final Res ult [facility] [address] [place] [id number] [phone] documented in this encounter Visit Diagnoses Diagnosis Healthcare maintenance- Primary Encounter for immunization Chronic bilateral low back pain without sciatica Asthma with status asthmaticus, unspecified asthma severity, unspecified whether persistent Class 3 severe obesity with body mass index (BMI) of 45.0 to 49.9 in adult, unspecified obesity type, unspecified whether serious comorbidity present (HCC) Mood disorder (CMS/HCC) Unspecified episodic mood disorder Dietary counseling Dietary surveillance and counseling Exercise counseling documented in this encounter Additional Health Concerns Assessment Noted Time PHQ-9 Depression Total Score: 8 06/29/20 24 9:53 AM EDT documented as of this encounter Care Teams Digital Technician Relationship Specialty Start Date End Date Veronique Luke FNP [address] [place] [address] PCP - General Family Medicine 07/21/22 Walter Cadet RN [address] [place] [id number] Registered Nurse Family Medicine 08/30/25 Negra Cadet 08/30/25 documented as of this encounter
--- OUTSIDE RECORDS SUMMARY | 2025-09-04 15:20 | XMS_ITS | Encounter Summary ---
Author Organization [employer] Address [address] [place] [address] Care Team Providers Care Blueprint Reader Name Role Phone Veronique Luke MARIUSZ Primary Care Provider [phone] Walter Cadet RN Unavailable [phone] Negra Cadet Unavailable Encounter Details Date Type Department Care Team ([facility] st Contact Info) Description 09/04/2025 3:20 PM EDT Office Visit [facility] [address] [place], [place] [phone] Karen Meehan MD [address] [place], [place] [phone] Routine screening for STI (sexually transmitted infection) (Primary Dx); Abscess Social History Tobacco Use Types Packs/Day Years [...] Sign Reading Time Taken Comments Blood Pressure 126/87 09/04/2025 3:30 PM EDT Pulse 86 09/04/2025 3:30 PM EDT Temperature 37.2 C (98.9 F) 09/04/2025 3:30 PM EDT Respiratory Rate 20 09/04/2025 3:30 PM EDT Oxygen Saturation 98% 09/04/2025 3:30 PM EDT Inhaled Oxygen Concentration - - Weight 132 kg (290 lb 12.8 oz) 09/04/2025 3:30 P M EDT Height - - Body Mass Index 51.51 08/30/2025 2:34 PM EDT documented in this encounter Progress Notes * Karen Meehan MD - 09/04/2025 3:20 PM EDT Images from the original note were not included. Subjective Patient ID: Darnell Antonio is a 30 y.o. female who presents to walk in clinic for unprotected Painful Vulvar Cysts - Onset approximately 1 week prior to visit - Two large, painful cysts located between the leg and vagina, described as pink - Increased pain when sitting or wearing underwear - Not present every day, but recurrent history of cysts - Noticed increased pain recently, prompting closer inspection - Denies vaginal discharge - Denies odor Recent Sexual Activity - Sexual intercourse with new partner within past 2 days - Previous sexual activity with different partner prior to current episode - Expressed concern about possible sexually transmitted infection Vaginal Discomfort - Vaginal area does not feel normal - Uncertain if symptoms are related to urinary tract infection or other cause Has Nextplanon for control Review of Systems Constitutional: Negative for fever. Genitourinary: Negative for vaginal bleeding, vaginal discharge and vaginal pain. Objective Visit Vitals BP 126/87 (BP Location: Left arm, Patient Position: Sitting, BP Cuff Size: Adult) Pulse 86 Temp 98.9 ??F (37.2 ??C) (Oral) Resp 20 Body mass index is 51.51 kg/m??. Physical Exam Genitourinary: Comments: Two cystic lesion painful and red in left lower vulvar region, multiple scars from previous cysts, HSV swabs obtained - GENITOURINARY: Genital examination for cystic lesions and abnormalities. Assessment & Plan Routine screening for STI (sexually transmitted infection) Check STIs, getting Doxy for abscess, will cover for Doxy Prep. Discussed repeat testing in 3 months and councled on HIV and Doxy prep and how to get if she would like. Condoms given. She has Nexplanon in place. No indication for emergency contraception. Orders: Chlamydia/N. Gonorrhoeae RNA, TMA, Vagina Hepatitis C Antibody with Reflex to HCV, RNA, Quantitative, Real-Time PCR; Future HIV-1/2 Antigen and Antibodies, Fourth Generation, with Reflexes; Future Syphilis Screen; Future Bacterial Vaginosis, Yeast and Trich; Future Herpes Simplex Virus Culture with Reflex Typing; Future Abscess Rx doxycycline Advise warm soaks Seek medical attention if symptoms worsen or do not improve Orders: doxycycline (Vibramycin) 100 MG capsule; Take 1 capsule (100 mg) by mouth 2 times daily for 10 days. Take with at least 8 ounces (large glass) of water, do not lie down for 30 minutes after Herpes Simplex Virus Culture with Reflex Typing; Future This note was drafted using Ambient (AI) technology. The patient/patient's guardian has been informed and has consented to the use of this technology: yes documented in this encounter Plan of Treatment Scheduled Orders Name Type Priority Associated Diagnoses Orde r Schedule Chlamydia/N. Gonorrhoeae RNA, TMA, Vagina Microbiology Routine Routine screening for STI (sexually transmitted infection) Ordered: 09/04/2025 Hepatitis C Antibody with Reflex to HCV, RNA, Quantitative, Real-Time PCR Lab Routine Routine screening for STI (sexually transmitted infection) Expected: 09/04/2025 (Approximate), Expires: 09/04/2026 HIV-1/2 Antigen and Antibodies, Fourth Generation, with Reflexes Lab Routine Routine screening for STI (sexually transmitted infection) Expected: 09/04/2025 (Approximate), Expires: 09/04/2026 Syphilis Screen Lab Routine Routine screening for STI (sexually transmitted infection) Expected: 09/04/2025 (Approximate), Expires: 09/04/2026 Bacterial Vaginosis, Yeast and Trich Microbiology Routine Routine screening for STI (sexually transmitted infection) Expected: 09/04/2025 (Approximate), Expires: 09/04/2026 Herpes Simplex Virus Culture with Reflex Typing Microbiology Routine Routine screening for STI (sexually transmitted infection) Abscess Expected: 09/04/2025 (Approximate), Expires: 09/04/2026 documented as of this encounter Visit Diagnoses Diagnosis Routine screening for STI (sexually transmitted infection)- Primary Screening examination for venereal disease Abscess Cellulitis and abscess of unspecified site documented in this encounter Additional Health Concerns Assessment Noted Time PHQ-9 Depression Total Score: 8 06/29/20 24 9:53 AM EDT documented as of this encounter Care Teams Blueprint Reader Relationship Specialty Start Date End Date Veronique Luke FNP [address] [place] [address] PCP - General Family Medicine 07/21/22 Walter Cadet, RYAN [address] [place] [address] Registered Nurse Family Medicine 08/30/25 Negra Cadet 08/30/25 documented as of this encounter
[2025-09-04 18:15] LABS: MANUAL DIFF FLAG NO
[2025-09-04 18:30] LABS: Anion Gap 13 (12-20)
[2025-09-04 18:32] LABS: Alanine Aminotransferase 56 U/L (0-31); Albumin Level 4.4 g/dL (3.5-5.0); Alkaline Phosphatase 82 U/L (39-117); Aspartate Amino Transferase 44 U/L (5-31); Blood Urea Nitrogen 13 mg/dL (9-16); Calcium 9.6 mg/dL (8.4-10.2); Carbon Dioxide 21 mmol/L (22-29); Chloride 109 mmol/L (96-108); Cholesterol 180 mg/dL (<200); Estimated Glomerular Filt Rate > 60; HDL Cholesterol 40 mg/dL (>40); Potassium 3.9 mmol/L (3.3-5.1); Sodium 139 mmol/L (135-145); Total Protein 7.5 g/dL (6.5-8.0); Triglycerides 174 mg/dL (<150)
[2025-09-04 18:33] LABS: Hematocrit 39.4 % (37.0-47.0); Hemoglobin 13.2 g/dl (12.0-16.0); Imm Gran Abs Auto 0.03 X10*3/uL (0.00-0.03); Imm Gran Pct Auto 0.3 % (0.0-0.4); Lymphocytes Absolute Auto 2.0 X10*3/uL (1.2-4.9); Mean Corpuscular HGB Conc 33.5 g/dl (31.0-35.0); Mean Corpuscular Hemoglobin 30.6 pg (27.0-33.0); Mean Corpuscular Volume 91.4 fL (80.0-98.0); NRBC Abs Auto 0.000 X10*3/uL (0.0-0.012); NRBC Pct Auto 0.0 /100WBC (0.0-0.2); Platelet Count 330 X10*3/uL (160-400); Red Blood Count 4.31 X10*6/uL (4.20-5.50); White Blood Count 10.4 X10*3/uL (4.8-10.8)
--- OUTSIDE RECORDS SUMMARY | 2025-09-04 19:13 | XMS_ITS | Encounter Summary ---
Author Organization [employer] Address [address] [place] [address] 7 [place] [address] Care Team Providers Care Binding End Stitcher Name Role Phone Veronique Luke Primary Care Provider [phone] Walter Cadet RN Unavailable [phone] Negra Cadet Unavailable Reason for Visit * Reason Onset Date Comments Medication Question 04/10/2024 Encounter Details Date Type Department Care Team ([facility] Contact Info) Description 04/10/2024 Telephone [facility] [address] [place], [place] [phone] Veronique Luke FNP [address] [place], [place] [phone] Medication Question Social History Tobacco Use Types [...] documented as of this encounter Care Teams Binding End Stitcher Relationship Specialty Start Date End Date Veronique Luke FNP [address] [place] [address] PCP - General Family Medicine 07/21/22 Walter Cadet RN [address] [place] [address] Registered Nurse Family Medicine 08/30/25 Negra Cadet 08/30/25 documented as of this encounter
--- OUTSIDE RECORDS SUMMARY | 2025-09-04 19:13 | XMS_ITS | Encounter Summary ---
Author Organization [employer] Address [address] [place] [address] 7 [place] [address] Care Team Providers Care Injection Molding Supervisor Name Role Phone CharleneVeronique hammond MARIUSZ Primary Care Provider [phone] Walter Cadet RN Unavailable [phone] Negra Cadet Unavailable Reason for Visit * Reason Onset Date Comments returning call to medical on dental issue 2024 Encounter Details Date Type Department Care Team (Late st Contact Info) Description 12/04/2024 Telephone [facility] [address] [place] [address] Megan Olivia DDS [address] [place], [place] [phone] returning call to medical on dental issue [...] documented as of this encounter Care Teams Injection Molding Supervisor Relationship Specialty Start Date End Date Veronique Luke FNP [address] [place] [address] PCP - General Family Medicine 07/21/22 Walter Cadet, RYAN [address] [place] [address] Registered Nurse Family Medicine 08/30/25 Negra Cadet 08/30/25 documented as of this encounter
--- OUTSIDE RECORDS SUMMARY | 2025-09-04 19:14 | XMS_ITS | Encounter Summary ---
Author Organization [employer] Address [address] [facility] 7 [place] [address] Care Team Providers Care Editor Index Name Role Phone Veronique Luke Primary Care Provider [phone] Walter Cadet RN Unavailable [phone] Negra Cadet Unavailable Encounter Details Date Type Department Care Team (Late st Contact Info) Description 09/02/2025 Patient Outreach [facility] [address] [place] [address] Veronique Luke FNP [address] [place], [place] [phone] Social History Tobacco Use Types Packs/Day Years [...] documented as of this encounter Care Teams Editor Index Relationship Specialty Start Date End Date Veronique Luke FNP [address] [place] [address] PCP - General Family Medicine 07/21/22 Walter Cadet RN [address] [place] [address] Registered Nurse Family Medicine 08/30/25 Negra Cadet 08/30/25 documented as of this encounter
--- OUTSIDE RECORDS SUMMARY | 2025-09-04 19:14 | XMS_ITS | Encounter Summary ---
Author Organization [employer] Address [address] [place] [address] 7 [place] [address] Care Team Providers Care Plumbing Mechanic Name Role Phone Veronique Luke Primary Care Provider [phone] Walter Cadet RN Unavailable [phone] Negra Cadet Unavailable Encounter Details Date Type Department Care Team ([facility] Contact Info) Description 02/01/2025 Telephone [facility] [address] [place], [place] [phone] Veronique Luke FNP [address] [place], [place] [phone] Social History Tobacco Use Types Packs/Day Years [...] the past 12 months, has t he [employer], gas, oil or water [employer] threatened to shut off services in your [...] No further details provided. Contact pt at [phone] documented in this encounter Plan of Treatment Not on file documented as of this encounter Visit Diagnoses Not on filedocumented in this encounter Additional Health Concerns Assessment Noted Time PHQ-9 Depression Total Score: 8 06/29/20 24 9:53 AM EDT documented as of this encounter Care Teams Plumbing Mechanic Relationship Specialty Start Date End Date Veronique Luke FNP [address] [place] [address] PCP - General Family Medicine 07/21/22 Walter Cadet RN [address] [place] [address] Registered Nurse Family Medicine 08/30/25 Negra Cadet 08/30/25 documented as of this encounter
--- OUTSIDE RECORDS SUMMARY | 2025-09-04 19:14 | XMS_ITS | Encounter Summary ---
Author Organization [employer] Address [address] [facility] 7t [place] [address] Care Team Providers Care Mcat Tutor Name Role Phone Veronique Luke Primary Care Provider [phone] Walter Cadet RN Unavailable [phone] Negra Cadet Unavailable Encounter Details Date Type Department Care Team ([facility] st Contact Info) Description 04/25/2024 Orders Only [facility] [address] [place], [place] [phone] Veronique Lkue FNP [address] [place], [place] [phone] Social History Tobacco Use Types Packs/Day Years [...] 6:25 PM EDT 06/22/2024 6:25 PM EDT Comment:[facility] Narrative [facility] - 06/26/2024 7:32 AM EDT Staphylococcus saprophyticus Quant > 100,000 cfu/mL Staphylococcus saprophyticus: Clindamycin >=8(R) Staphylococcus saprophyticus: Erythromycin >=8(R) Staphylococcus saprophyticus: Nitrofurantoin <=16(S) Staphylococcus saprophyticus: Oxacillin >=4(R) Staphylococcus saprophyticus: Penicillin-G >=0.5(R) Staphylococcus saprophyticus: Tetracycline <=1(S) Staphylococcus saprophyticus: Trimethoprim/Sulfamethoxazole <=10(S) Staphylococcus saprophyticus: Vancomycin 1(S) Specimen Source: Urine clean catch us Veronique Luke [facility] MICROBIOLOGY - GENERAL ORD ERABLES Final Result [facility] [address] [place] [phone] documented in this encounter Visit Diagnoses Not on filedocumented in this encounter Additional Health Concerns Assessment Noted Time PHQ-9 Depression Total Score: 0 04/08/20 23 3:45 PM EDT documented as of this encounter Care Teams Mcat Tutor Relationship Specialty Start Date End Date Veronique Luke FNP [address] [place] [address] PCP - General Family Medicine 07/21/22 Walter Cadet, RN [address] [place] [address] Registered Nurse Family Medicine 08/30/25 Negra Cadet 08/30/25 documented as of this encounter
--- OUTSIDE RECORDS SUMMARY | 2025-09-04 19:14 | XMS_ITS | Encounter Summary ---
Author Organization [employer] Address [address] [facility] 7 [place] [address] Care Team Providers Care Review Coordinator Name Role Phone Veronique Luke Primary Care Provider [phone] Walter Cadet RN Unavailable [phone] Negra Cadet Unavailable Encounter Details Date Type Department Care Team ([facility] st Contact Info) Description 08/30/2025 Patient Outreach [facility] [address] [place] [address] Veronique Luke FNP [address] [place], [place] [phone] Social History Tobacco Use Types Packs/Day Years [...] documented as of this encounter Care Teams Review Coordinator Relationship Specialty Start Date End Date Veronique Luke FNP [address] [place] [address] PCP - General Family Medicine 07/21/22 Walter Cadet RN [address] [place] [address] Registered Nurse Family Medicine 08/30/25 Negra Cadet 08/30/25 documented as of this encounter
--- OUTSIDE RECORDS SUMMARY | 2025-09-04 19:14 | XMS_ITS | Encounter Summary ---
Author Organization [employer] Address [address] [facility] 7 [place] [address] Care Team Providers Care Sales Representative [employer] Name Role Phone Veronique Luke Primary Care Provider [phone] Walter Cadet RN Unavailable [phone] Negra Cadet Unavailable Reason for Visit * Reason Comments Care Coordination C3/Lizzy kumar, Chart review Encounter Details Date Type Department Care Team (Latest Contact Info) Description 08/30/2025 Patient Outreach [facility] [address] [place] [address] Veronique Luke FNP [address] [place], [place] [phone] Care Coordination (C3CM/TASHI Cadet, Chart review ) Social History Tobacco Use Types Packs/Day Years [...] AM EDT documented as of this encounter Progress Notes * Negra Cadet - 08/30/2025 1:13 PM EDT TASHI Cadet reviewed chart review completed by HOLA Cadet RN: HOLA Cadet RN, performed chart review, in anticipation of initial assessment with patient, as patient has stratifiedfor [facility]3 Adult Complex Care through the ADT feed. History significant for Patient Active Problem List Diagnosis Date Noted Healthcare maintenance 09/16/2024 Right ACL tear 09/16/2024 Class 3 severe obesity with body mass index (BMI) of 45.0 to 49.9 in adult (HCC) 09/16/2024 Necrotic tooth 02/07/2024 Chronic bilateral low back pain without sciatica 12/15/2023 Anxiety 04/08/2023 Asthma 04/08/2023 Cigarette nicotine dependence 04/08/2023 Hypertension 04/08/2023 Polysubstance abuse (HCC) 04/08/2023 Posttraumatic stress disorder 04/08/2023 Vitamin D deficiency 09/05/2018 Attention deficit hyperactivity disorder 01/24/2015 Mood disorder (CMS/HCC) 01/24/2015 Specialists include Orthopedic Surgery, Weight Management, and [facility] Dental. ED visits within the last 12 months include [facility] 08/30/25. Last appointment in PCP office on 11/16/24. No future appointments scheduled at this time. documented in this encounter Plan of Treatment Not on file documented as of this encounter Visit Diagnoses Not on filedocumented in this encounter Additional Health Concerns Assessment Noted Time PHQ-9 Depression Total Score: 8 06/29/20 24 9:53 AM EDT documented as of this encounter Care Teams Sales Representative [employer] Relationship Specialty Start Date End Date Veronique Luke FNP [address] [place] [address] PCP - General Family Medicine 07/21/22 Walter Cadet, RN [address] [place] [address] Registered Nurse Family Medicine 08/30/25 Negra Cadet 08/30/25 documented as of this encounter
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
--- OUTSIDE RECORDS SUMMARY | 2025-09-04 19:14 | XMS_ITS | Encounter Summary ---
Author Organization [employer] Address [address] [facility] 7t [place] [address] Care Team Providers Care Pest Management Supervisor Name Role Phone Veronique Luke MARIUSZ Primary Care Provider [phone] Walter Cadet RN Unavailable [phone] Negra Cadet Unavailable Encounter Details Date Type Department Care Team (Latest Contact Info) Description 09/04/2025 Travel Social History Tobacco Use Types Packs/Day Years [...] documented as of this encounter Care Teams Pest Management Supervisor Relationship Specialty Start Date End Date Veronique Luke FNP [address] [place] [address] PCP - General Family Medicine 07/21/22 Walter Cadet RN [address] [place] [address] Registered Nurse Family Medicine 08/30/25 Negra Cadet 08/30/25 documented as of this encounter
--- OUTSIDE RECORDS SUMMARY | 2025-09-04 19:14 | XMS_ITS ---
Author Organization [employer] Address [address] [place] [address] [address] [address] Care Team Providers Care Ophthalmic Technician Name Role Phone Veronique Luke Primary Care Provider Walter Cadet RN Unavailable [phone] Negra Cadet Unavailable CHW Complex Status:Outreach In Progress (Enrolling) Start date:08/30/2025 Enrollment reason:ADT Feed Overview ADT- [facility] ED 08/30/25. Please outreach for enrollment. Case Team Name Relationship Phone Negra Cadet(Responsible Staff) [phone] Continued Care and Services Coordination
--- OUTSIDE RECORDS SUMMARY | 2025-09-04 19:14 | XMS_ITS | Encounter Summary ---
Author Organization [employer] Address [address] [facility] 7 [place] [address] Care Team Providers Care Financial Systems Director Name Role Phone Veronique Luke Primary Care Provider [phone] Walter Cadet RN Unavailable [phone] Negra Cadet Unavailable Reason for Visit * Reason Comments Care Management C3- chart review Encounter Details Date Type Department Care Team ([facility] st Contact Info) Description 08/30/2025 Patient Outreach [facility] MEDICINE [address] [place] [address] Veronique Luke FNP [address] [place], [place] [phone] Care Management (C3- chart review) Social History Tobacco Use Types Packs/Day Years [...] as of this encounter Progress Notes * Walter Cadet RN - 08/30/2025 9:05 AM EDT HOLA Cadet RN, performed chart review, in anticipation of initial assessment with patient, as patient has stratified for C3 Adult Complex Care through the ADT [...] Attention deficit hyperactivity disorder 01/24/2015 Mood disorder ([facility]/HCC) 01/24/2015 Specialists include Orthopedic Surgery, Weight Management, and [facility] Dental. ED visits within the last 12 months [place] [facility] [place]. Last appointment in PCP office on 11/16/24. No future appointments scheduled at this time. documented in this encounter Plan of Treatment Not on file documented as of this encounter Visit Diagnoses Not on filedocumented in this encounter Additional Health Concerns Assessment Noted Time PHQ-9 Depression Total Score: 8 06/29/20 24 9:53 AM EDT documented as of this encounter Care Teams Financial Systems Director Relationship Specialty Start Date End Date Veronique Luke FNP [address] [place] [address] PCP - General Family Medicine 07/21/22 Walter Cadet RN [address] [place] [address] Registered Nurse Family Medicine 08/30/25 Negra Cadet 08/30/25 documented as of this encounter
--- OUTSIDE RECORDS SUMMARY | 2025-09-04 19:14 | XMS_ITS | Encounter Summary ---
Author Organization [employer] Address [address] [place] [address] 7 [place] [address] Care Team Providers Care Conference And Event Organiser Name Role Phone Veronique Luke Primary Care Provider [phone] Walter Cadet RN Unavailable [phone] Negra Cadet Unavailable Reason for Visit * Reason Onset Date Comments Appointment Request 06/10/2023 Requested Call Back 06/10/2023 Encounter Details Date Type Department Care Team ([facility] st Contact Info) Description 06/10/2023 Telephone [facility] MEDICINE [address] [place] [address] Veronique Luke FNP [address] [place], [place] [phone] Appointment Request; Requested Call Back Social History [...] encounter Miscellaneous Notes * Telephone Encounter - Ashatni Flores RN - 06/14/2023 1:14 PM EDT Returned call to pt regarding message below. Pt agrees to appt tomorrow with PCP. * Telephone Encounter - Parisa Jc - 06/10/2023 3:07 PM EDT Tc from patient requesting to r/s appt from 06/03/[address] Luke. Details: *Knee Pain *MIL-7, pls offer COVID bivalent (Pls make sure she is on recall for TP, thank you r/s 05/10/23 Thermal Molder attempted to r/s with no appts available. [...] documented as of this encounter Care Teams Conference And Event Organiser Relationship Specialty Start Date End Date Veronique Luke FNP [address] [place] [address] PCP - General Family Medicine 07/21/22 Walter Cadet RN [address] [place] [address] Registered Nurse Family Medicine 08/30/25 Negra Cadet 08/30/25 documented as of this encounter
--- OUTSIDE RECORDS SUMMARY | 2025-09-04 19:14 | XMS_ITS | Patient Health Record ---
Author Organization [facility] Address [address] [place] [address] Care Team Providers Care Parachute Repairer Name Role Phone Riaz Johnson [phone] Reason For Referral No Information Plan Of Treatment No Information
--- OUTSIDE RECORDS SUMMARY | 2025-09-04 19:14 | XMS_ITS | Encounter Summary ---
Author Organization [employer] Address [address] [facility] 7 [place] [address] Care Team Providers Care Environmental Field Professional Name Role Phone Veronique Luke Primary Care Provider [phone] Walter Cadet RN Unavailable [phone] Negra Cadet Unavailable Reason for Visit * Reason Comments Care Coordination C3/Lizzy kumar, Initial outreach_lvm Encounter Details Date Type Department Care Team (Latest Contact Info) Description 08/30/2025 Patient Outreach [facility] MEDICINE [address] [place] [address] Veronique Luke FNP [address] [place] [address] Care Coordination (C3CM/TASHI Cadet, Initial outreach_lvm) Social History Tobacco Use Types Packs/Day Years [...] Progress Notes * Negra Cadet - 08/30/2025 1:17 PM EDT CHW Negra Cadet, placed outbound call to patient to introduce C3 Adult Complex Care Program. No answer at this time. CHW TUCKERM introducing herself from [facility] CM Department with CHW'bala, department and direct contact number requesting call back. Will re-attempt to contact within 2 days. and address not confirmed. documented in this encounter Plan of Treatment Not on file documented as of this encounter Visit Diagnoses Not on filedocumented in this encounter Additional Health Concerns Assessment Noted Time PHQ-9 Depression Total Score: 8 06/29/20 24 9:53 AM EDT documented as of this encounter Care Teams Environmental Field Professional Relationship Specialty Start Date End Date Veronique Luke FNP [address] [place] [address] PCP - General Family Medicine 07/21/22 Walter Cadet, RYAN [address] [place] [address] Registered Nurse Family Medicine 08/30/25 Negra Cadet 08/30/25 documented as of this encounter
--- OUTSIDE RECORDS SUMMARY | 2025-09-04 19:14 | XMS_ITS | Encounter Summary ---
Author Organization [employer] Address [address] [facility] 7 [place] [address] Care Team Providers Care Water Pipe Installer Name Role Phone Veronique Luke Primary Care Provider [phone] Walter Cadet RN Unavailable Negra Cadet Unavailable Encounter Details Date Type Department Care Team ([facility] st Contact Info) Description 08/30/2025 Patient Outreach [facility] [address] [place] [address] Veronique Luke FNP [address] [place], [place] [phone] Social History Tobacco Use Types Packs/Day Years [...] documented as of this encounter Care Teams Water Pipe Installer Relationship Specialty Start Date End Date Veronique Luke FNP [address] [place] [address] PCP - General Family Medicine 07/21/22 Walter Cadet RN [address] [place] [address] Registered Nurse Family Medicine 08/30/25 Negra Cadet 08/30/25 documented as of this encounter
--- OUTSIDE RECORDS SUMMARY | 2025-09-04 19:14 | XMS_ITS | Encounter Summary ---
Author Organization [employer] Address [address] [facility] 7t [place] [address] Care Team Providers Care Shell Press Operator Name Role Phone Veronique Luke MARIUSZ Primary Care Provider [phone] Walter Cadet RN Unavailable [phone] Negra Cadet Unavailable Encounter Details Date Type Department Care Team (Latest Contact Info) Description 08/30/2025 Travel Social History Tobacco Use Types Packs/Day [...] documented as of this encounter Care Teams Shell Press Operator Relationship Specialty Start Date End Date Veronique Luke FNP [address] [place] [address] PCP - General Family Medicine 07/21/22 Walter Cadet RN [address] [place] [address] Registered Nurse Family Medicine 08/30/25 Negra Cadet 08/30/25 documented as of this encounter
--- OUTSIDE RECORDS SUMMARY | 2025-09-04 19:14 | XMS_ITS | Encounter Summary ---
Author Organization [employer] Address [address] [facility] 7 [place] [address] Care Team Providers Care Structural Iron Erector Name Role Phone Veronique Luke Primary Care Provider [phone] Walter Cadet RN Unavailable [phone] Negra Cadet Unavailable Reason for Visit * Reason Onset Date Comments PT-1 07/27/2024 Encounter Details Date Type Department Care Team (Late st Contact Info) Description 07/27/2024 Telephone [facility] MEDICINE [address] [place] [address] Veronique Luke FNP [address] [place], [place] [phone] PT-1 Social History Tobacco Use Types Packs/Day [...] Y/N: Yes Provider name or facility name: [facility] Facility Address: [address] [place] [address] Escort needed: Y/N: No Do you have [...] documented as of this encounter Care Teams Structural Iron Erector Relationship Specialty Start Date End Date Veronique Luke FNP [address] [place] [address] PCP - General Family Medicine 07/21/22 Walter Cadet RN [address] [place] [address] Registered Nurse Family Medicine 08/30/25 Negra Cadet 08/30/25 documented as of this encounter
--- OUTSIDE RECORDS SUMMARY | 2025-09-04 19:14 | XMS_ITS ---
Author Organization [employer] Address [address] [place] [address] 7 [place] [address] Care Team Providers Care Centrifugal Station Operator Name Role Phone TiVeronique MARIUSZ Primary Care Provider [phone] Walter Cadet RN Unavailable [phone] Negra Cadet Unavailable CM Complex Status:Outreach In Progress (Enrolling) Start date:08/30/2025 Enrollment reason:ADT Feed Overview ADT- [facility] 08/30/25 Case Team Name Relationship Phone Walter Cadet RN(Responsible Staff) Registered Nurse [phone] Continued Care and Services Coordination
[2025-09-05 04:20] LABS: Syphilis Screen Nonreactive (Nonreactive)
[2025-09-05 05:18] LABS: HIV Num 1 0.06 S/CO (0.00-0.99); ~HepC Num1 0.10 S/CO (0.00-0.79); ~Hepatitis C Antibody Nonreactive (Nonreactive)
[2025-09-05 14:51] LABS: Bacterial Vaginosis PCR POSITIVE (Negative); Candida Group PCR NOT DETECTED (Not Detect); Candida glab krusei PCR NOT DETECTED (Not Detect); Trichomonas vaginalis PCR DETECTED (Not Detect)
[2025-09-05 15:21] LABS: CT PCR NOT DETECTED (Not Detect.); NG PCR NOT DETECTED (Not Detect.)
[2025-09-06 03:17] LABS: HCV Log PCR <1.18 NOT DETECTED Log IU/mL (NOT DETECTED); HepC Viral Load <15 NOT DETECTED IU/mL (NOT DETECTED)
== END 2025-09-04 16:04 | disposition home or self-care (01) ==
LOC: HO.HHCL 16:03
PROVIDERS: PCP Registered Nurse; Visit Provider Family Medicine
DX: Z00.00 Encounter for general adult medical examination without abnormal findings (principal); Z20.2 Contact with and (suspected) exposure to infections with a predominantly sexual mode of transmission; Z11.4 Encounter for screening for human immunodeficiency virus [HIV]; Z11.59 Encounter for screening for other viral diseases
CPT/HCPCS: 36415; 80053; 80061; 81515; 83036; 84443; 85025; 86592; 86780; 86803; 87255; 87389; 87491; 87522; 87591